=== PATIENT | male | born 1950 | race Caucasian/White ===

== ENCOUNTER 2020-10-30 14:53 | Outpatient (REF) | payer MEDICARE, SELFPAY ==
[2020-10-30 16:49] LABS: T4 Thyroxine 5.7 ug/dL (4.5-12.0); Thyroid Stimulating Hormone 4.24 uIU/mL (0.32-4.0)
[2020-10-30 17:01] LABS: Folate 15.9 ng/mL (> or = 4.0); Vitamin B12 699 pg/mL (200-900)
== END 2020-10-30 14:54 | disposition home or self-care (01) ==
LOC: HO.LAB 14:53
PROVIDERS: PCP Internal Medicine; Visit Provider Psychiatry & Neurology Neurology
DX: G31.84 Mild cognitive impairment of uncertain or unknown etiology (principal)
CPT/HCPCS: 36415; 82607; 82746; 84436; 84443

== ENCOUNTER 2020-11-24 12:31 | Outpatient (REF) | payer MEDICARE, SELFPAY ==
--- NOTE | ~2020-11-24 | CT_ITS ---
EXAMINATION: CT HEAD WITHOUT CONTRAST CLINICAL INFORMATION: Mild cognitive impairment. COMPARISON: MRI scan of the brain and orbits 10/31/2006. TECHNIQUE: Contiguous axial imaging was performed from the skull base to vertex without intravenous administration of contrast. Coronal and sagittal reformatted images were generated at the technologist workstation. This CT examination was performed using dose optimization techniques as appropriate, variously including the following: *Automated exposure control *Adjustment of mA and/or kV according to patient size (this includes techniques or standardized protocols for targeted exams where dose is matched to indication/reason for exam; i.e. extremities or head) *Use of iterative reconstruction technique DLP: 627 mGy-cm FINDINGS: There is no evidence of acute intracranial hemorrhage or territorial infarction. No abnormal mass effect or midline shift is seen. Leslie to white matter differentiation is well preserved. No extra-axial fluid collections are identified. There is mild commensurate prominence of the ventricles and sulci, consistent with mild diffuse volume loss. There are a few foci of low attenuation in the deep white matter. There are no acute osseous findings. There are no large scalp contusions or hematomas. The mastoid air cells and visualized portions of the paranasal sinuses are well aerated. CT/CT head/brain wo con IMPRESSION: 1. There are no acute bleeds or territorial infarcts. No masses are demonstrated. There is mild diffuse volume loss.
== END 2020-11-24 12:32 | disposition home or self-care (01) ==
LOC: HO.CT 12:31
PROVIDERS: PCP Internal Medicine; Visit Provider Psychiatry & Neurology Neurology
DX: G31.84 Mild cognitive impairment of uncertain or unknown etiology (principal)
CPT/HCPCS: 70450

== ENCOUNTER → 2020-12-11 13:03 | Outpatient (BNVA) | payer MEDICARE, SELFPAY | PROVIDERS: PCP Internal Medicine; Visit Provider Internal Medicine Endocrinology, Diabetes & Metabolism | DX: E11.65 Type 2 diabetes mellitus with hyperglycemia (principal); E11.21 Type 2 diabetes mellitus with diabetic nephropathy; E11.42 Type 2 diabetes mellitus with diabetic polyneuropathy; Z79.4 Long term (current) use of insulin; E78.5 Hyperlipidemia, unspecified; I10 Essential (primary) hypertension | CPT/HCPCS: 82947; 99212 ==

== ENCOUNTER → 2020-12-25 14:19 | Outpatient (BNVA) | payer MEDICARE, SELFPAY | PROVIDERS: PCP Internal Medicine; Visit Provider Internal Medicine Endocrinology, Diabetes & Metabolism | DX: E11.65 Type 2 diabetes mellitus with hyperglycemia (principal); E11.21 Type 2 diabetes mellitus with diabetic nephropathy; E11.42 Type 2 diabetes mellitus with diabetic polyneuropathy; E78.5 Hyperlipidemia, unspecified; I10 Essential (primary) hypertension; Z79.4 Long term (current) use of insulin | CPT/HCPCS: 82947; 99212 ==

== ENCOUNTER 2022-02-25 13:52 | Inpatient (IN) | payer OTHER, SELFPAY ==
--- NOTE | ~2022-02-25 | XR_ITS ---
EXAMINATION: XR CHEST CLINICAL INFORMATION: Presyncope. COMPARISON: 04/12/2019 chest radiographs. TECHNIQUE: Frontal view of the chest was obtained. FINDINGS: The lungs are clear. The heart shows an aortic valve prosthesis. Multilevel sternotomy wires are intact. XR/XR chest 1V IMPRESSION: No acute cardiopulmonary process.
--- NOTE | 2022-02-25 14:14 | ECG_ITS ---
Test Reason : DIZZYNESS Blood Pressure : / mmHG Vent. Rate : 046 BPM Atrial Rate : 046 BPM P-R Int : 166 ms QRS Dur : 108 ms QT Int : 470 ms P-R-T Axes : 013 -08 259 degrees QTc Int : 411 ms Sinus bradycardia Incomplete left bundle branch block Minimal voltage criteria for LVH, may be normal variant ( [place] product ) ST & T wave abnormality, consider inferolateral ischemia Abnormal ECG When compared with ECG of 26-JAN-2020 18:44, No significant change was found Referred By: Hannah Sebastian Electronically Signed By:JASON FAJARDO
[2022-02-25 14:19] VITALS: BP 87/39; BP 90/50; PULSE 50; PULSE 54; RESP 16; TEMP 36.4; O2SAT 9; O2SAT 98; BMI 29.2
[2022-02-25 14:24] VITALS: BP 81/45; BP 87/39; BP 89/41; PULSE 47; PULSE 52; PULSE 54
[2022-02-25] MEDS: 0.9 % Sodium Chloride 1,000 ML 999 ML IV ×2 (14:33→16:33)
[2022-02-25 14:37] LABS: MANUAL DIFF FLAG NO
[2022-02-25 14:40] LABS: Basophils Percent Auto 0.5 % (0-2); Eosinophils Absolute Auto 0.3 X10*3/uL (0.0-0.4); Eosinophils Percent Auto 3.6 % (0-4); Hematocrit 33.9 % (42.0-52.0); Hemoglobin 11.2 g/dl (14.0-18.0); Imm Gran Abs Auto 0.02 X10*3/uL (0.00-0.03); Imm Gran Pct Auto 0.3 % (0.0-0.4); Lymphocytes Absolute Auto 1.4 X10*3/uL (1.2-4.9); Mean Corpuscular Hemoglobin 27.3 pg (27.0-33.0); Mean Corpuscular Volume 82.5 fL (80.0-98.0); Mean Platelet Volume 10.4 fL (9.4-12.4); Monocytes Absolute Auto 0.6 X10*3/uL (0.1-1.2); Monocytes Percent Auto 7.5 % (2-11); Neutrophils Absolute Auto 5.2 x10*3/uL (2.0-8.3); Neutrophils Percent Auto 69.1 % (45-73); Platelet Count 228 X10*3/uL (160-400); Red Blood Count 4.11 X10*6/uL (4.60-5.80); Red Cell Distribution Width 14.3 % (11.0-16.0); White Blood Count 7.6 X10*3/uL (4.8-10.8)
--- NOTE | 2022-02-25 14:45 | ED_ITS ---
HPI - General Adult General Chief complaint: Dizziness Stated complaint: cough x1 day Time Seen by Provider: 02/25/22 14:04 Source: patient Mode of arrival: ambulatory History of Present Illness HPI narrative: 71-year-old male with a past medical history of CKD, diabetes, dyslipidemia, GERD, HTN, vitamin B12 deficiency, presenting to the ED complaining of intermittent episodes of lightheadedness/ presyncope on exertion x 4 days. Also reports hypotension & nonbloody diarrhea at home. Reports chronic headache radiating to neck x1 year, unchanged. Denies chest pain, shortness of breath, abdominal pain, nausea /vomiting, pedal edema, recent travel, suspicious food intake/sick contacts Onset (ago): day(s) Related Data Home Medications Medication Instructions Recorded Confirmed aspirin 81 mg tablet,delayed 81 mg PO DAILY 05/22/20 02/25/22 release brimonidine 0.2 % eye drops 1 drp ophthalmic (eye) BID 05/22/20 02/25/22 pantoprazole 40 mg tablet,delayed 40 mg PO DAILY 05/22/20 02/25/22 release gabapentin 300 mg capsule 300 mg PO BEDTIME 12/11/20 02/25/22 multivitamin 1 tab PO DAILY 12/11/20 02/25/22 sennosides 8.6 mg tablet 8.6 mg PO Q12H PRN constipation 12/11/20 02/25/22 fluticasone propionate 50 1 - 2 spray intranasal DAILY PRN 02/25/22 02/25/22 mcg/actuation nasal Allergic Symptoms spray,suspension insulin glargine 100 unit/mL (3 12 unit subcut DAILY 02/25/22 02/25/22 mL) subcutaneous pen (Lantus Solostar U-100 Insulin) lisinopril 20 mg tablet 1 tab PO DAILY 02/25/22 02/25/22 meloxicam 15 mg tablet 1 tab PO DAILY 02/25/22 02/25/22 patiromer calcium sorbitex 8.4 1 packet PO DAILY 02/25/22 02/25/22 gram oral powder packet (Veltassa) Previous Rx's Medication Instructions Recorded insulin syringe-needle U-100 1 mL #100 ea 12/25/20 31 gauge x 5/16 sitagliptin 50 mg tablet (Januvia) 50 mg PO DAILY #90 tabs 12/25/20 cyanocobalamin (vitamin B-12) 1,000 mcg PO DAILY #90 tabs 01/02/21 1,000 mcg tablet,extended release amlodipine 10 mg tablet 10 mg PO DAILY #90 tabs 02/12/21 Allergies Allergy/AdvReac Type Severity Reaction Status Date / Time canagliflozin [Invokana] Allergy Unknown hives Verified 02/07/20 00:00 hydralazine [HYDRALAZINE] Allergy Unknown SHOULDER Unverified 04/20/20 15:35 PAIN PER MED CLEARANCE hydrochlorothiazide Allergy Unknown DIZZINESS Unverified 04/20/20 15:35 [HYDROCHLOROTHIAZIDE] PER MED CLEARANCE potassium [POTASSIUM] Allergy Unknown DIZZINESS Unverified 04/20/20 15:35 PER MED CLEARANCE enalapril AdvReac Intermediate Dizziness Verified 02/25/22 16:44 Review of Systems Review of Systems: Constitutional: No Fever, No Chills, No Fatigue, No Malaise ENT/Mouth: No Ear Pain, No Nasal Congestion, No sore throat, No Rhinorrhea, No Swallowing Difficulty Eyes: No Eye Pain, No Swelling, No Redness, No Vision Changes Cardiovascular: No Chest Pain, No SOB, No Edema, No Palpitations Respiratory: No Cough, No Sputum, No Dyspnea Gastrointestinal: No Nausea, No Vomiting, + Diarrhea, No Constipation, No Abdominal pain Genitourinary: No Dysuria, No Urinary Frequency, No Hematuria, No Urinary Incontinence/retention, No Flank Pain Musculoskeletal: No joint pain, No Myalgias, No Joint Swelling Skin: No Skin Lesions, No rash Neuro: No Weakness, No Numbness, No Paresthesias, No Loss of Consciousness, +lightheadedness, +chronic Headache Yes all other systems are reviewed and are negative Constitutional: Constitutional: Reports as per [facility] Past Medical History Attestation statement: The following information was validated with the patient. 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 Social History Social History Smoked in Last 30 Days: No Use of substances other than those prescribed or required for medical reasons: No Advance Directives: No Advance Directives Information Provided: Yes Physical Exam ED Vital Signs: Vital Signs - 24 hr 02/25/22 14:19 02/25/22 14:24 02/25/22 14:24 Temperature 97.5 F Pulse Rate 54 47 L 52 Respiratory Rate 16 Blood Pressure 87/39 L 87/39 L 81/45 L Pulse Oximetry 9 L Oxygen Delivery Method Room Air 02/25/22 14:24 02/25/22 16:00 Temperature Pulse Rate 54 47 L Respiratory Rate 16 Blood Pressure 89/41 L 123/42 L Pulse Oximetry 100 Oxygen Delivery Method Room Air BMI result Body Mass Index 29.2 Const General: cooperative, no acute distress, alert and awake Orientation/consciousness: patient oriented x3 Limitations: no limitations HENMT Head: Yes normal to inspection and Yes atraumatic Ears: hearing grossly normal bilaterally General nose exam: Normal external nose present Face and sinus: Yes normal facial exam Eyes General: appearance normal, both eyes and all related structures Pupils: Equal, round and reactive pupils present EOM: EOMs intact bilaterally Neck Neck: Yes normal visual inspection, Yes no meningeal signs and Yes supple Resp Effort & Inspection: normal respiratory effort and no respiratory distress Auscultation: clear to auscultation bilaterally, no rales, no rhonchi and no wheezes Cardio Rate: regular rate Heart sounds: S1 normal heart sound present and S2 normal heart sound present GI Inspection: Yes normal to inspection Palpation (GI): Soft to palpation, nontender, no guarding and not rigid Skin Rashes: no rashes Wounds: no wounds Neuro General: patient oriented x3, gait normal, tone normal, moves all extremities, no meningeal signs and no focal motor deficits Cranial nerves: Yes Equal, round and reactive pupils present Gait exam (Neuro): Normal gait present Motor exam (neuro): 5/5 motor strength present throughout, Pronator motor function not present and no tremor noted Coordination: [id number] test normal Romberg Test: Negative Extrem General: Yes normal to inspection and Yes no pedal edema Course Course Course Narrative: -1537-- no leukocytosis. H&H at patient's baseline. Potassium elevated to 6.2 > No EKG changes, will give Lokelma and calcium gluconate. -Acute on chronic CKD. Troponin 7.7 > will obtain 3hr repeat > due to patient's hypotension and bradycardia pacer pads applied and at bedside as precaution XR chest 1V IMPRESSION: No acute cardiopulmonary process. - orthostatic vital signs negative > patient to be admitted for further management Medical Decision Making [facility] Narrative Medical decision making narrative: 71-year-old male with a past medical history of CKD, diabetes, dyslipidemia, GERD, HTN, vitamin B12 deficiency, presenting to the ED complaining of intermittent episodes of lightheadedness/ presyncope on exertion x 4 days. Also reports hypotension & nonbloody at home. on exam hypotensive, NAD, nontoxic appearing, no focal neuro deficits, abdomen soft/ nontender, lungs CTA. Concern for dehydration vs metabolic abnormalities/infectious etiology. Rule out atypical ACS. lower concern for cervical dissection/PE plan: EKG, labs, UA, CXR, IVF, anticipated admission Medical Records Medical records reviewed: Yes I reviewed the patient's medical records. Lab Data Lab results reviewed: Yes I reviewed the patient's lab results. Result diagrams: 02/25/22 14:32 02/25/22 14:32 Labs: Lab Results 02/25/22 02/25/22 02/25/22 Range/Units 14:25 14:32 14:32 WBC 7.6 (4.8-10.8) X10*3/uL RBC 4.11 L (4.60-5.80) X10*6/uL Hgb 11.2 L (14.0-18.0) g/dl Hct 33.9 L (42.0-52.0) % MCV 82.5 (80.0-98.0) fL MCH 27.3 (27.0-33.0) pg MCHC 33.0 (31.0-36.0) g/dl RDW 14.3 (11.0-16.0) % Plt Count 228 (160-400) X10*3/uL MPV 10.4 (9.4-12.4) fL Immature Gran % (Auto) 0.3 (0.0-0.4) % Neut % (Auto) 69.1 (45-73) % Lymph % (Auto) 19.0 L (20-40) % [place] % (Auto) 7.5 (2-11) % Eos % (Auto) 3.6 (0-4) % Baso % (Auto) 0.5 (0-2) % Lymph # (Auto) 1.4 (1.2-4.9) X10*3/uL [place] # (Auto) 0.6 (0.1-1.2) X10*3/uL Eos # (Auto) 0.3 (0.0-0.4) X10*3/uL Baso # (Auto) 0.0 (0.0-0.2) X10*3/uL Abs Immat Gran (auto) 0.02 (0.00-0.03) X10*3/uL Absolute Neuts (auto) 5.2 (2.0-8.3) x10*3/uL Absolute Nucleated RBC 0.000 (0.0-0.012) X10*3/uL Nucleated RBC % (auto) 0.0 (0.0-0.2) /100WBC Sodium 135 (135-145) mmol/L Potassium 6.2 H* (3.3-5.1) mmol/L Chloride 110 H (96-108) mmol/L Carbon Dioxide 21 L (22-29) mmol/L Anion Gap 10 L (12-20) BUN 36 H (9-16) mg/dL Creatinine 2.09 H (0.5-1.4) mg/dL Estim Creat Clear Calc 25.8 Estimated GFR 31 Random Glucose 106 (60-115) mg/dL Calcium 9.4 (8.4-10.2) mg/dL Magnesium 2.2 (1.6-2.6) mg/dL Total Bilirubin 0.6 (0.0-1.0) mg/dL Direct Bilirubin 0.2 (0.0-0.5) mg/dL AST 22 (5-37) U/L ALT 15 (0-40) U/L Alkaline Phosphatase 67 (39-117) U/L Troponin I High Sens (<3.5-35.0) ng/L B-Natriuretic Peptide (<100) pg/mL Total Protein 7.4 (6.5-8.0) g/dL Albumin 4.1 (3.5-5.0) g/dL Lipase 29 (8-78) U/L COVID-19 (ALICE) Negative (Negative) COVID-19 Clin Com See Note 02/25/22 Range/Units 14:32 WBC (4.8-10.8) X10*3/uL RBC (4.60-5.80) X10*6/uL Hgb (14.0-18.0) g/dl Hct (42.0-52.0) % MCV (80.0-98.0) fL MCH (27.0-33.0) pg MCHC (31.0-36.0) g/dl RDW (11.0-16.0) % Plt Count (160-400) X10*3/uL MPV (9.4-12.4) fL Immature Gran % (Auto) (0.0-0.4) % Neut % (Auto) (45-73) % Lymph % (Auto) (20-40) % [place] % (Auto) (2-11) % Eos % (Auto) (0-4) % Baso % (Auto) (0-2) % Lymph # (Auto) (1.2-4.9) X10*3/uL [place] # (Auto) (0.1-1.2) X10*3/uL Eos # (Auto) (0.0-0.4) X10*3/uL Baso # (Auto) (0.0-0.2) X10*3/uL Abs Immat Gran (auto) (0.00-0.03) X10*3/uL Absolute Neuts (auto) (2.0-8.3) x10*3/uL Absolute Nucleated RBC (0.0-0.012) X10*3/uL Nucleated RBC % (auto) (0.0-0.2) /100WBC Sodium (135-145) mmol/L Potassium (3.3-5.1) mmol/L Chloride (96-108) mmol/L Carbon Dioxide (22-29) mmol/L Anion Gap (12-20) BUN (9-16) mg/dL Creatinine (0.5-1.4) mg/dL Estim Creat Clear Calc Estimated GFR Random Glucose (60-115) mg/dL Calcium (8.4-10.2) mg/dL Magnesium (1.6-2.6) mg/dL Total Bilirubin (0.0-1.0) mg/dL Direct Bilirubin (0.0-0.5) mg/dL AST (5-37) U/L ALT (0-40) U/L Alkaline Phosphatase (39-117) U/L Troponin I High Sens 7.7 (<3.5-35.0) ng/L B-Natriuretic Peptide 59 (<100) pg/mL Total Protein (6.5-8.0) g/dL Albumin (3.5-5.0) g/dL Lipase (8-78) U/L COVID-19 (ALICE) (Negative) COVID-19 Clin Com ECG Data Attestation: I personally reviewed and interpreted this ECG as follows: Prior ECG tracings: available for review Interpretation: EKG sinus bradycardia at a rate of 46. QRS 108. QTC 411. No significant change when compared to priors. No STEMI. Critical Care Time Critical Care Time Critical Care Time: Yes Total Critical Care Time: 40 Attestation: I have personally provided critical care time exclusive of time spent on separately billable procedures. Time includes review of lab data, radiology results, discussion with consultants, and monitoring for potential decompensation. Intervention performed as documented. Discharge Plan Discharge Clinical Impression: Acute hypotension, Acute hyperkalemia Patient Disposition: Still a Patient
[2022-02-25 15:00] LABS: B Type Natriuretic Peptide 59 pg/mL (<100); Troponin-I High Sensitivity 7.7 ng/L (<3.5-35.0)
[2022-02-25 15:04] LABS: Alanine Aminotransferase 15 U/L (0-40); Albumin Level 4.1 g/dL (3.5-5.0); Alkaline Phosphatase 67 U/L (39-117); Aspartate Amino Transferase 22 U/L (5-37); Bilirubin Direct 0.2 mg/dL (0.0-0.5); Bilirubin Total 0.6 mg/dL (0.0-1.0); Blood Urea Nitrogen 36 mg/dL (9-16); Calcium 9.4 mg/dL (8.4-10.2); Creatinine Clr Calc Pharmacy 25.8; Estimated Glomerular Filt Rate 31; Glucose Random 106 mg/dL (60-115); Lipase 29 U/L (8-78); Magnesium 2.2 mg/dL (1.6-2.6); Total Protein 7.4 g/dL (6.5-8.0)
[2022-02-25 15:09] LABS: COVID-19 Test Negative (Negative)
[2022-02-25 15:14] LABS: Anion Gap 10 (12-20); Carbon Dioxide 21 mmol/L (22-29); Chloride 110 mmol/L (96-108); Potassium 6.2 mmol/L (3.3-5.1); Sodium 135 mmol/L (135-145)
[2022-02-25] MEDS: Calcium Gluconate/NaCl,Iso-Osm 1 GM/50 ML PLAST..BAG IV (15:22)
[2022-02-25] MEDS: Sodium Zirconium Cyclosilicate 10 GM POWD.PACK PO (15:22)
--- NOTE | 2022-02-25 15:59 | PHA.MEDREC ---
Pharmacy Consult ? Medication Reconciliation Pharmacy has completed the medication reconciliation. Spoke to patient and his son. Son had his medication in the room.
[2022-02-25 16:00] VITALS: BP 123/42; PULSE 47; RESP 16; O2SAT 100
--- NOTE | 2022-02-25 17:11 | P.HPHOSP_ITS ---
History of Present Illness Date of Service: 02/25/22 Chief Complaint: lightheadedness 71M with pmh cad, CKD IV with chronic hyperkalemia (?RTA IV), DM, htn, presented with lightheadedness. patient states that for about 3-4 days he has been feeling very lightheaded on standing, he denies any symptoms while at rest. He has noted some nonbloody diarrhea, denies any shortness of breath or chest pain. He also notes that he used to walk about a mi every day and for the last 1-2 weeks he has been unable to due to similar symptoms. In ED patient noted to have hypotension with systolic blood pressures in the 80s that responded to IV fluids, he was hypokalemic with a potassium of 6.2, and sinus bradycardia in the 40s. He was given Lokelma and IV fluids. Review of Systems Review of Systems: Constitutional: dizzy on standing Eyes: denies blurry vision ENT: denies sore throat CVS: denies chest pain Respiratory: Denies dyspnea GI: diarrhea : denies dysuria MSK: denies neck pain Skin: denies rash Neuro: denies specific motor weakness Psych: denies suicidal ideation Endocrine: denies heat/cold intolerance Hematologic: denies easy bleeding Allergy: denies hives [facility] Medical History B12 deficiency CKD stage 3 due to type 2 diabetes mellitus Diabetes type 2, uncontrolled Diabetic nephropathy associated with type 2 diabetes mellitus Diabetic polyneuropathy associated with type 2 diabetes mellitus Dyslipidemia GERD (gastroesophageal reflux disease) Hypertension half-way (current) use of insulin Family History Mother Diabetes Father No problems noted. Surgical History History of colon resection Hx of cholecystectomy Hx of heart surgery Social History Smoked in Last 30 Days: No Use of substances other than those prescribed or required for medical reasons: No Advance Directives: No Advance Directives Information Provided: Yes Meds Allergies Allergy/AdvReac Type Severity Reaction Status Date / Time canagliflozin [Invokana] Allergy Unknown hives Verified 02/07/20 00:00 hydralazine [HYDRALAZINE] Allergy Unknown SHOULDER Unverified 04/20/20 15:35 PAIN PER MED CLEARANCE hydrochlorothiazide Allergy Unknown DIZZINESS Unverified 04/20/20 15:35 [HYDROCHLOROTHIAZIDE] PER MED CLEARANCE potassium [POTASSIUM] Allergy Unknown DIZZINESS Unverified 04/20/20 15:35 PER MED CLEARANCE enalapril AdvReac Intermediate Dizziness Verified 02/25/22 16:44 Active Medications: Current Medications Aspirin (Aspirin Enteric Coated 81 Mg Tablet.Dr) 81 mg PO DAILY [facility] Dextrose (Dextrose 50 % 25 Gm/50 Ml Syringe) 25 gm IVPUSH Q15M PRN; Protocol PRN Reason: per Hypoglycemia Standing Ord. Gabapentin (Gabapentin 300 Mg Capsule) 300 mg PO BEDTIME DARREN Glucose (Glucose Gel 15 Gm Gel..Gram.) 15 gm PO Q15M PRN; Protocol PRN Reason: per Hypoglycemia Standing Ord. Sodium Chloride (Ns) 1,000 mls @ 999 mls/hr IV .Q1H1M DARREN Stop: 02/25/22 17:15 Last Admin: 02/25/22 16:33 Dose: 999 mls/hr Sodium Chloride (Ns) 1,000 mls @ 75 mls/hr IVCONT .[id number] [facility] Insulin Glargine (Insulin Glargine,Hum.Rec.Anlog 100 Unit/Ml 10 Ml Vial) 12 unit SUBCUT DAILY [facility] Insulin Human Lispro (Insulin Lispro 100 Unit/Ml 3 Ml Vial) 0 unit SUBCUT QIDACHS [facility]; Protocol Multivitamins/Vitamin C (Multivitamin Tablet) 1 tab PO DAILY [facility] Non-Formulary Medication (Cyanocobalamin (Vitamin B-12)) 1,000 mcg PO DAILY [facility] Non-Formulary Medication (Pantoprazole) 40 mg PO DAILY [facility] Non-Formulary Medication (Patiromer Calcium Sorbitex [Veltassa]) 1 packet PO DAILY [facility] Pharmacy Consult (Consult Rx Perform Med Rec) 1 each MISCELLANE ONCE PRN PRN Reason: Consult order Home Medications Medication Instructions Recorded Confirmed Last Taken Type aspirin 81 mg tablet,delayed 81 mg PO DAILY 05/22/20 02/25/22 Unknown History release brimonidine 0.2 % eye drops 1 drp ophthalmic (eye) BID 05/22/20 02/25/22 Unknown History pantoprazole 40 mg tablet,delayed 40 mg PO DAILY 05/22/20 02/25/22 Unknown History release gabapentin 300 mg capsule 300 mg PO BEDTIME 12/11/20 02/25/22 Unknown History multivitamin 1 tab PO DAILY 12/11/20 02/25/22 Unknown History sennosides 8.6 mg tablet 8.6 mg PO Q12H PRN constipation 12/11/20 02/25/22 Unknown History fluticasone propionate 50 1 - 2 spray intranasal DAILY PRN 02/25/22 02/25/22 Unknown History mcg/actuation nasal Allergic Symptoms spray,suspension insulin glargine 100 unit/mL (3 12 unit subcut DAILY 02/25/22 02/25/22 Unknown History mL) subcutaneous pen (Lantus Solostar U-100 Insulin) lisinopril 20 mg tablet 1 tab PO DAILY 02/25/22 02/25/22 Unknown History meloxicam 15 mg tablet 1 tab PO DAILY 02/25/22 02/25/22 Unknown History patiromer calcium sorbitex 8.4 1 packet PO DAILY 02/25/22 02/25/22 Unknown History gram oral powder packet (Veltassa) Physical Exam Vital Signs and Narrative: Vital Signs: Last Vital Signs Temp 97.5 F 02/25/22 14:19 Pulse 47 L 02/25/22 16:00 Resp 16 02/25/22 16:00 BP 123/42 L 02/25/22 16:00 Pulse Ox 100 02/25/22 16:00 O2 Del Method 02/25/22 16:00 BMI result Body Mass Index 29.2 General: no acute distress HEENT: atraumatic Neck: normal to visual inspection CVS: S1, S2, RRR, murmur Resp: CTA bilateral Chest: non tender GI: soft, non tender, non distended : no CVA tenderness Skin: no rashes Extremities: no edema Neuro: Oriented X3, grossly intact Psych: cooperative Results Labs CBC and Chem 7: 02/25/22 14:32 02/25/22 14:32 Labs: Laboratory Results - last 24 hr 02/25/22 02/25/22 02/25/22 14:25 14:32 14:32 MCV 82.5 MCH 27.3 MCHC 33.0 RDW 14.3 Plt Count 228 MPV 10.4 Immature Gran % (Auto) 0.3 Neut % (Auto) 69.1 Lymph % (Auto) 19.0 L [place] % (Auto) 7.5 Eos % (Auto) 3.6 Baso % (Auto) 0.5 Lymph # (Auto) 1.4 [place] # (Auto) 0.6 Eos # (Auto) 0.3 Baso # (Auto) 0.0 Abs Immat Gran (auto) 0.02 Absolute Neuts (auto) 5.2 Absolute Nucleated RBC 0.000 Nucleated RBC % (auto) 0.0 Anion Gap 10 L Estim Creat Clear Calc 25.8 Estimated GFR 31 Random Glucose 106 Calcium 9.4 Magnesium 2.2 Total Bilirubin 0.6 Direct Bilirubin 0.2 AST 22 ALT 15 Alkaline Phosphatase 67 Troponin I High Sens B-Natriuretic Peptide Total Protein 7.4 Albumin 4.1 Lipase 29 COVID-19 (ALICE) Negative COVID-19 Clin Com See Note 02/25/22 14:32 MCV MCH MCHC RDW Plt Count MPV Immature Gran % (Auto) Neut % (Auto) Lymph % (Auto) [place] % (Auto) Eos % (Auto) Baso % (Auto) Lymph # (Auto) [place] # (Auto) Eos # (Auto) Baso # (Auto) Abs Immat Gran (auto) Absolute Neuts (auto) Absolute Nucleated RBC Nucleated RBC % (auto) Anion Gap Estim Creat Clear Calc Estimated GFR Random Glucose Calcium Magnesium Total Bilirubin Direct Bilirubin AST ALT Alkaline Phosphatase Troponin I High Sens 7.7 B-Natriuretic Peptide 59 Total Protein Albumin Lipase COVID-19 (ALICE) COVID-19 Clin Com Imaging Radiologist's Impressions: Impressions Chest X-Ray 02/25/22 14:55 IMPRESSION: No acute cardiopulmonary process. Assessment and Plan (1) Acute hypotension: Status: Acute Plan 71M presented with lightheadedness, found to be hypotensive, hyperkalemia, acute kidney injury, bradycardic Lightheadedness Likely due to hypotension from dehydration and antihypertensives Differential diagnosis also includes symptomatic bradycardia Hold antihypertensives, IV fluids, monitor on telemetry, Cardiology eval Acute kidney injury on CKD 4 Hold lisinopril, IV fluids Monitor Hyperkalemia in ?RTA 4 Given low,, check repeat, continue daily potassium lowering agent, monitor Diabetes Basal bolus insulin Coronary disease Aspirin DVT prophylaxis with heparin Full code Patient with acute kidney injury, significant hypotension, hyperkalemia above 6 with risk factors including diabetes, coronary disease, therefore, expected to require at least 2 midnights in the hospital. Quality Stroke Does the patient have a stroke diagnosis?: No VTE Prior VTE?: No VTE Risk Level:: Medical - moderate - high VTE Device Contraindication: Treatment Not Indicated VTE Drug Contraindication: N/A - Med Ordered
[2022-02-25] MEDS: Heparin Sodium,Porcine 5,000 UNIT/ML VIAL 5000 UNIT SUBCUT (17:34)
[2022-02-25] MEDS: 0.9 % Sodium Chloride 1,000 ML 75 ML IVCONT (17:34)
[2022-02-25 17:46] LABS: Appearance Urine CLEAR; Color Urine YELLOW; Glucose Urine UA NEG (NEG); Leukocyte Esterase Urine NEG (NEG); Nitrite Urine NEG (NEG); PH 5.5 (5.0-8.0); Urine Blood NEG (NEG); Urine Ketones NEG (NEG); Urine Protein NEG (NEG-TRACE)
[2022-02-25 18:44] LABS: Anion Gap 10 (12-20); Blood Urea Nitrogen 33 mg/dL (9-16); Calcium 8.6 mg/dL (8.4-10.2); Carbon Dioxide 20 mmol/L (22-29); Chloride 114 mmol/L (96-108); Creatinine Clr Calc Pharmacy 42.5; Estimated Glomerular Filt Rate 56; Glucose Random 79 mg/dL (60-115); Potassium 5.6 mmol/L (3.3-5.1); Sodium 138 mmol/L (135-145)
[2022-02-25 18:50] LABS: Troponin-I High Sensitivity 7.7 ng/L (<3.5-35.0)
[2022-02-25 20:00] VITALS: BP 143/51; PULSE 50; RESP 10; O2SAT 100
[2022-02-25 20:58] LABS: Glucose, Whole Blood 71 mg/dL (60-115)
[2022-02-25] MEDS: Gabapentin 300 MG CAPSULE PO (21:40)
--- NOTE | 2022-02-25 21:41 | PC.NURSE ---
pt resting quietly, vss, medicated per provider order, NaCl running at 75ml/hr, pt denies any pain at this time.
[2022-02-26] VITALS (7 sets, daily range): BP systolic 131–176; BP diastolic 47–79; PULSE 47–63; RESP 13–18; TEMP 36.6–36.7; O2SAT 99–100; BMI 29.2
[2022-02-26 04:15] LABS: Hematocrit 36.3 % (42.0-52.0); Hemoglobin 12.1 g/dl (14.0-18.0); Mean Corpuscular HGB Conc 33.3 g/dl (31.0-36.0); Mean Corpuscular Hemoglobin 27.3 pg (27.0-33.0); Mean Corpuscular Volume 81.8 fL (80.0-98.0); Mean Platelet Volume 10.7 fL (9.4-12.4); Platelet Count 221 X10*3/uL (160-400); Red Blood Count 4.44 X10*6/uL (4.60-5.80); Red Cell Distribution Width 14.4 % (11.0-16.0); White Blood Count 8.4 X10*3/uL (4.8-10.8)
[2022-02-26 04:52] LABS: Anion Gap 10 (12-20); Blood Urea Nitrogen 28 mg/dL (9-16); Calcium 9.1 mg/dL (8.4-10.2); Carbon Dioxide 21 mmol/L (22-29); Chloride 117 mmol/L (96-108); Creatinine Clr Calc Pharmacy 37.2; Estimated Glomerular Filt Rate 48; Glucose Fasting 70 mg/dL (60-99); Potassium 6.3 mmol/L (3.3-5.1); Sodium 142 mmol/L (135-145)
[2022-02-26] MEDS: Sodium Zirconium Cyclosilicate 10 GM POWD.PACK PO ×5 (05:54→20:57)
[2022-02-26] MEDS: Omeprazole 20 MG CAPSULE.DR PO (05:54)
[2022-02-26] MEDS: Heparin Sodium,Porcine 5,000 UNIT/ML VIAL 5000 UNIT SUBCUT ×3 (05:54→20:55)
[2022-02-26] MEDS: 0.9 % Sodium Chloride 1,000 ML 75 ML IVCONT ×2 (05:58→20:59)
[2022-02-26 07:08] LABS: Glucose, Whole Blood 61 mg/dL (60-115)
[2022-02-26 08:10] LABS: Glucose, Whole Blood 114 mg/dL (60-115)
[2022-02-26] MEDS: Aspirin Enteric Coated 81 MG TABLET.DR PO (08:45)
[2022-02-26] MEDS: Multivitamin TABLET 1 TAB PO (08:45)
--- NOTE | 2022-02-26 08:51 | PC.NURSE ---
pt alert and oriented, skin appropriate for ethnicity, respirations even and unlabored, pt denies pain/dizziness at this time, vss at this time, sinus ronnie on the monitor
[2022-02-26] MEDS: Cyanocobalamin (Vitamin B-12) 1,000 MCG TABLET 1000 MCG PO (08:54)
[2022-02-26] MEDS: Insulin Glargine,Hum.rec.anlog 100 UNIT/ML 10 ML VIAL 12 UNIT SUBCUT (08:57)
[2022-02-26] MEDS: 0.9 % Sodium Chloride Flush 3 ML SYRINGE IVFLUSH ×2 (08:57→14:28)
--- NOTE | 2022-02-26 09:55 | P.PNIM_ITS ---
Subjective Subjective Date of Service: 02/26/22 Interval History: cc: dizzyness interval history: feeling well Cardiovascular Cardiovascular: Reports no additional cardiovascular complaints Respiratory Respiratory: Reports no additional respiratory complaints Physical Exam Vital Signs: Vital Signs: Last Vital Signs Temp 97.5 F 02/25/22 14:19 Pulse 55 02/26/22 08:52 Resp 18 02/26/22 08:52 BP 165/63 H 02/26/22 08:52 Pulse Ox 99 02/26/22 08:52 O2 Del Method 02/26/22 08:52 BMI result Body Mass Index 29.2 General: AO X 3, no acute distress Resp: CTA bilateral, no accessory muscles used CVS: S1,S2,RRR GI: soft, non tender, non distended Neuro: motor grossly intact, alert Psych: appropriate affect, appropriate insight Objective Data Active Medications Acetaminophen (Acetaminophen 325 Mg Tablet) 650 mg PO Q6H PRN PRN Reason: Pain, Mild (Pain Scale 1-3) Aspirin (Aspirin Enteric Coated 81 Mg Tablet.) 81 mg PO DAILY [facility] Last Admin: 02/26/22 08:45 Dose: 81 mg Documented By: ROXIE Cyanocobalamin (Cyanocobalamin (Vitamin B-12) 1,000 Mcg Tablet) 1,000 mcg PO DAILY [facility] Last Admin: 02/26/22 08:54 Dose: 1,000 mcg Documented By: ROXIE Dextrose (Dextrose 50 % 25 Gm/50 Ml Syringe) 25 gm IVPUSH Q15M PRN; Protocol PRN Reason: per Hypoglycemia Standing Ord. Gabapentin (Gabapentin 300 Mg Capsule) 300 mg PO BEDTIME [facility] Last Admin: 02/25/22 21:40 Dose: 300 mg Documented By: GERARDO Glucose (Glucose Gel 15 Gm Gel..Gram.) 15 gm PO Q15M PRN; Protocol PRN Reason: per Hypoglycemia Standing Ord. Heparin Sodium (Porcine) (Heparin Sodium,Porcine 5,000 Unit/Ml Vial) 5,000 unit SUBCUT Q8H [facility] Last Admin: 02/26/22 05:54 Dose: 5,000 unit Documented By: DARÍO Sodium Chloride (Ns) 1,000 mls @ 75 mls/hr IVCONT .[id number] [facility] Last Admin: 02/26/22 05:58 Dose: 75 mls/hr Documented By: DARÍO Insulin Glargine (Insulin Glargine,Hum.Rec.Anlog 100 Unit/Ml 10 Ml Vial) 12 unit SUBCUT DAILY [facility] Last Admin: 02/26/22 08:57 Dose: 12 unit Documented By: ROXIE Insulin Human Lispro (Insulin Lispro 100 Unit/Ml 3 Ml Vial) 0 unit SUBCUT QIDACHS [facility]; Protocol Last Admin: 02/26/22 08:16 Dose: Not Given Documented By: ROXIE Non-Admin Reason: poc 61 Multivitamins/Vitamin C (Multivitamin Tablet) 1 tab PO DAILY [facility] Last Admin: 02/26/22 08:45 Dose: 1 tab Documented By: ROXIE Non-Formulary Medication (Patiromer Calcium Sorbitex [Veltassa]) 1 packet PO DAILY [facility] Omeprazole (Omeprazole 20 Mg Capsule.) 20 mg PO DAILY@0630 [facility] Last Admin: 02/26/22 05:54 Dose: 20 mg Documented By: DARÍO Pharmacy Consult (Consult Rx Perform Med Rec) 1 each MISCELLANE ONCE PRN PRN Reason: Consult order Sodium Chloride (0.9 % Sodium Chloride Flush 3 Ml Syringe) 3 ml IVFLUSH QSHIFT [facility] Last Admin: 02/26/22 08:57 Dose: 3 ml Documented By: ROXIE Labs CBC & Chem 7: 02/26/22 03:50 02/26/22 03:50 Labs: Laboratory Results - last 24 hr 02/25/22 02/25/22 02/25/22 14:25 14:32 14:32 MCV 82.5 MCH 27.3 MCHC 33.0 RDW 14.3 Plt Count 228 MPV 10.4 Immature Gran % (Auto) 0.3 Neut % (Auto) 69.1 Lymph % (Auto) 19.0 L [place] % (Auto) 7.5 Eos % (Auto) 3.6 Baso % (Auto) 0.5 Lymph # (Auto) 1.4 [place] # (Auto) 0.6 Eos # (Auto) 0.3 Baso # (Auto) 0.0 Abs Immat Gran (auto) 0.02 Absolute Neuts (auto) 5.2 Absolute Nucleated RBC 0.000 Nucleated RBC % (auto) 0.0 Anion Gap 10 L Estim Creat Clear Calc 25.8 Estimated GFR 31 POC Glucose Random Glucose 106 Fasting Glucose Calcium 9.4 Magnesium 2.2 Total Bilirubin 0.6 Direct Bilirubin 0.2 AST 22 ALT 15 Alkaline Phosphatase 67 Troponin I High Sens B-Natriuretic Peptide Total Protein 7.4 Albumin 4.1 Lipase 29 Urine Color Urine Appearance Urine pH Ur Specific [place] Urine Protein Urine Glucose (UA) Urine Ketones Urine Blood Urine Nitrite Ur Leukocyte Esterase COVID-19 ([facility]) Negative COVID-19 Clin Com See Note 02/25/22 02/25/22 02/25/22 14:32 17:40 18:17 MCV MCH MCHC RDW Plt Count MPV Immature Gran % (Auto) Neut % (Auto) Lymph % (Auto) [place] % (Auto) Eos % (Auto) Baso % (Auto) Lymph # (Auto) [place] # (Auto) Eos # (Auto) Baso # (Auto) Abs Immat Gran (auto) Absolute Neuts (auto) Absolute Nucleated RBC Nucleated RBC % (auto) Anion Gap Estim Creat Clear Calc Estimated GFR POC Glucose Random Glucose Fasting Glucose Calcium Magnesium Total Bilirubin Direct Bilirubin AST ALT Alkaline Phosphatase Troponin I High Sens 7.7 7.7 B-Natriuretic Peptide 59 Total Protein Albumin Lipase Urine Color YELLOW Urine Appearance CLEAR Urine pH 5.5 Ur Specific [place] 1.010 Urine Protein NEG Urine Glucose (UA) NEG Urine Ketones NEG Urine Blood NEG Urine Nitrite NEG Ur Leukocyte Esterase NEG COVID-19 ([facility]) COVID-19 Clin Com 02/25/22 02/25/22 02/26/22 18:17 20:55 03:50 MCV 81.8 MCH 27.3 MCHC 33.3 RDW 14.4 Plt Count 221 MPV 10.7 Immature Gran % (Auto) Neut % (Auto) Lymph % (Auto) [place] % (Auto) Eos % (Auto) Baso % (Auto) Lymph # (Auto) [place] # (Auto) Eos # (Auto) Baso # (Auto) Abs Immat Gran (auto) Absolute Neuts (auto) Absolute Nucleated RBC 0.000 Nucleated RBC % (auto) 0.0 Anion Gap 10 L Estim Creat Clear Calc 42.5 Estimated GFR 56 POC Glucose 71 Random Glucose 79 Fasting Glucose Calcium 8.6 D Magnesium Total Bilirubin Direct Bilirubin AST ALT Alkaline Phosphatase Troponin I High Sens B-Natriuretic Peptide Total Protein Albumin Lipase Urine Color Urine Appearance Urine pH Ur Specific [place] Urine Protein Urine Glucose (UA) Urine Ketones Urine Blood Urine Nitrite Ur Leukocyte Esterase COVID-19 ([facility]) COVID-19 Clin Com 02/26/22 02/26/22 02/26/22 03:50 07:04 08:07 MCV MCH MCHC RDW Plt Count MPV Immature Gran % (Auto) Neut % (Auto) Lymph % (Auto) [place] % (Auto) Eos % (Auto) Baso % (Auto) Lymph # (Auto) [place] # (Auto) Eos # (Auto) Baso # (Auto) Abs Immat Gran (auto) Absolute Neuts (auto) Absolute Nucleated RBC Nucleated RBC % (auto) Anion Gap 10 L Estim Creat Clear Calc 37.2 Estimated GFR 48 POC Glucose 61 114 Random Glucose Fasting Glucose 70 Calcium 9.1 Magnesium Total Bilirubin Direct Bilirubin AST ALT Alkaline Phosphatase Troponin I High Sens B-Natriuretic Peptide Total Protein Albumin Lipase Urine Color Urine Appearance Urine pH Ur Specific [place] Urine Protein Urine Glucose (UA) Urine Ketones Urine Blood Urine Nitrite Ur Leukocyte Esterase COVID-19 ([facility]) COVID-19 Clin Com Assessment and Plan (1) Acute hyperkalemia: Status: Acute Plan 71M presented with lightheadedness, found to be hypotensive, hyperkalemia, acute kidney injury, bradycardic Lightheadedness Likely due to hypotension from dehydration and antihypertensives improved with hydration and holding amldoipnie and lisinopril Differential diagnosis also includes symptomatic bradycardia monitor on telemetry, Cardiology eval Acute kidney injury on CKD III improving with ivf Holding lisinopril Monitor Hyperkalemia in ?RTA 4 given lokelma, initially improved, now 6.3, on veltassa daily will give more lokelma, follow up nephro, monitor Diabetes Basal bolus insulin Coronary disease Aspirin DVT prophylaxis with heparin Full code reason for continued hospitalization:significant hyperkalemia >6, requiring inpatient monitorin Quality Stroke Does the patient have a stroke diagnosis?: No VTE Prior VTE?: No VTE Risk Level:: Medical - moderate - high VTE Device Contraindication: Treatment Not Indicated VTE Drug Contraindication: N/A - Med Ordered
--- NOTE | 2022-02-26 10:49 | P.CONCA_ITS ---
History of Present Illness History of Present Illness Date of Service: 02/26/22 Chief complaint: Hyperk, hypotension, samm Narrative: This is a cardiology consultation regarding dizziness. Presenting history is that he has been having lightheadedness for the last few days on standing. No symptoms apparently while at rest. He also had some nonbloody diarrhea. However no cardiac symptoms like angina or shortness of breath or in fact anything else. When he initially arrived to the ER, seen to have hypotension with systolic blood pressure in the 80s. Then got IV fluids and blood pressure normalized. He was also hyperkalemic with potassium of 6.2 and had some sinus bradycardia into the 40s. Currently, he states that he is feeling much better. [facility] documentation reviewed. Even in the and office note from January, it seems he has had recurrent dizziness and has also had hypotension/presyncope in the past. However, several blood pressures are otherwise normal. Hence epis odes are probably intermittent. The office note actually describes something very similar to the current admission where blood pressure goes down into the 80s. Then apparently his lisinopril was stopped. Otherwise, from the cardiac standpoint, he has a fairly complicated history. 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 That was initially repaired many years ago. Subsequently, he had worsening aortic insufficiency that led to bioprosthetic aortic valve replacement in 2013. 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 Preoperative cardiac catheterization did not show any significant CAD. He had depressed LVEF prior to surgery but then it normalized in follow-up echocardiograms. Review of Systems Review of Systems: Yes all other systems are reviewed and are negative Constitutional: Constitutional: Reports as per HPI Eyes: Eyes: Reports as per HPI ENT: Reports as per HPI Cardiovascular: Cardiovascular: Reports as per HPI, Denies acrocyanosis, Denies cool extremities, Denies chest pain, Denies leg edema, Reports lightheadedness, Denies palpitations and Denies dyspnea Respiratory: Respiratory: Reports as per HPI, Reports no additional respiratory complaints and Denies dyspnea Gastrointestinal: Gastrointestinal: Reports as per HPI and Reports no additional gastrointestinal complaints Genitourinary: Genitourinary: Reports no additional male genitourinary compl aints and Reports as per HPI Musculoskeletal: Musculoskeletal: Reports no additional musculoskeletal complaints and Reports as per HPI Integumentary/Breasts: Skin/Breast: Reports system reviewed and no additional complaints, except as docu Neurologic: Reports system reviewed and no additional complaints, except as documented and Reports as per HPI Psychiatric: Psychiatric: Reports no additional psychiatric complaints and Reports as per HPI Endocrine: Endocrine: Reports no additional endocrine complaints, Reports as per HPI and Denies palpitations Hematologic/Lymphatic: Hematologic/Lymphatic: Reports no additional hematologic/lymphatic complaints and Reports as per HPI Allergic/Immunologic: Allergic/Immunologic: Reports no additional all ergic/immunologic complaints and Reports as per HPI [facility] Past Medical History Medical History B12 deficiency CKD stage 3 due to type 2 diabetes mellitus Diabetes type 2, uncontrolled Diabetic nephropathy associated with type 2 diabetes mellitus Diabetic polyneuropathy associated with type 2 diabetes mellitus Dyslipidemia GERD (gastroesophageal reflux disease) Hypertension penitentiary (current) use of insulin Family History Family History Mother Diabetes Father No problems noted. Surgical History Surgical History History of colon resection Hx of cholecystectomy Hx of heart surgery Social History Social History Smoked in Last 30 Days: No Use of substances other than those prescribed or required for medical reasons: No Advance Directives: No Advance Directives Information Provided: Yes Meds Allergies Allergy/AdvReac Type Severity Reaction Status Date / Time canagliflozin [Invokana] Allergy Unknown hives Verified 02/07/20 00:00 hydralazine [HYDRALAZINE] Allergy Unknown SHOULDER Unverified 04/20/20 15:35 PAIN PER MED CLEARANCE hydrochlorothiazide Allergy Unknown DIZZINESS Unverified 04/20/20 15:35 [HYDROCHLOROTHIAZIDE] PER MED CLEARANCE potassium [POTASSIUM] Allergy Unknown DIZZINESS Unverified 04/20/20 15:35 PER MED CLEARANCE enalapril AdvReac Intermediate Dizziness Verified 02/25/22 16:44 Active Medications: Current Medications Acetaminophen (Acetaminophen 325 Mg Tablet) 650 mg PO Q6H PRN PRN Reason: Pain, Mild (Pain Scale 1-3) Aspirin (Aspirin Enteric Coated 81 Mg Tablet.Dr) 81 mg PO DAILY [facility] Last Admin: 02/26/22 08:45 Dose: 81 mg Cyanocobalamin (Cyanocobalamin (Vitamin B-12) 1,000 Mcg Tablet) 1,000 mcg PO DAILY [facility] Last Admin: 02/26/22 08:54 Dose: 1,000 mcg Dextrose (Dextrose 50 % 25 Gm/50 Ml Syringe) 25 gm IVPUSH Q15M PRN; Protocol PRN Reason: per Hypoglycemia Standing Ord. Gabapentin (Gabapentin 300 Mg Capsule) 300 mg PO BEDTIME [facility] Last Admin: 02/25/22 21:40 Dose: 300 mg Glucose (Glucose Gel 15 Gm Gel..Gram.) 15 gm PO Q15M PRN; Protocol PRN Reason: per Hypoglycemia Standing Ord. Heparin Sodium (Porcine) (Heparin Sodium,Porcine 5,000 Unit/Ml Vial) 5,000 unit SUBCUT Q8H [facility] Last Admin: 02/26/22 05:54 Dose: 5,000 unit Sodium Chloride (Ns) 1,000 mls @ 75 mls/hr IVCONT .[id number] [facility] Last Admin: 02/26/22 05:58 Dose: 75 mls/hr Insulin Glargine (Insulin Glargine,Hum.Rec.Anlog 100 Unit/Ml 10 Ml Vial) 12 unit SUBCUT DAILY [facility] Last Admin: 02/26/22 08:57 Dose: 12 unit Insulin Human Lispro (Insulin Lispro 100 Unit/Ml 3 Ml Vial) 0 unit SUBCUT QIDACHS [facility]; Protocol Last Admin: 02/26/22 08:16 Dose: Not Given Multivitamins/Vitamin C (Multivitamin Tablet) 1 tab PO DAILY [facility] Last Admin: 02/26/22 08:45 Dose: 1 tab Non-Formulary Medication (Patiromer Calcium Sorbitex [Veltassa]) 1 packet PO DAILY [facility] Omeprazole (Omeprazole 20 Mg Capsule.Dr) 20 mg PO DAILY@0630 [facility] Last Admin: 02/26/22 05:54 Dose: 20 mg Pharmacy Consult (Consult Rx Perform Med Rec) 1 each MISCELLANE ONCE PRN PRN Reason: Consult order Sodium Bicarbonate (Sodium Bicarbonate 650 Mg Tablet) 650 mg PO BID [facility] Sodium Chloride (0.9 % Sodium Chloride Flush 3 Ml Syringe) 3 ml IVFLUSH QSHIFT [facility] Last Admin: 02/26/22 08:57 Dose: 3 ml Sodium Zirconium Cyclosilicate (Sodium Zirconium Cyclosilicate 10 Gm Powd.Pack) 10 gm PO TID [facility] Stop: 02/26/22 21:01 Home Medications Medication Instructions Recorded Confirmed Last Taken Type aspirin 81 mg tablet,delayed 81 mg PO DAILY 05/22/20 02/25/22 Unknown History release brimonidine 0.2 % eye drops 1 drp ophthalmic (eye) BID 05/22/20 02/25/22 Unknown History pantoprazole 40 mg tablet,delayed 40 mg PO DAILY 05/22/20 02/25/22 Unknown History release gabapentin 300 mg capsule 300 mg PO BEDTIME 12/11/20 02/25/22 Unknown History multivitamin 1 tab PO DAILY 12/11/20 02/25/22 Unknown History sennosides 8.6 mg tablet 8.6 mg PO Q12H PRN constipation 12/11/20 02/25/22 Unknown History fluticasone propionate 50 1 - 2 spray intranasal DAILY PRN 02/25/22 02/25/22 Unknown History mcg/actuation nasal Allergic Symptoms spray,suspension insulin glargine 100 unit/mL (3 12 unit subcut DAILY 02/25/22 02/25/22 Unknown History mL) subcutaneous pen (Lantus Solostar U-100 Insulin) lisinopril 20 mg tablet 1 tab PO DAILY 02/25/22 02/25/22 Unknown History meloxicam 15 mg tablet 1 tab PO DAILY 02/25/22 02/25/22 Unknown History patiromer calcium sorbitex 8.4 1 packet PO DAILY 02/25/22 02/25/22 Unknown History gram oral powder packet (Veltassa) Physical Exam Vital Signs: Vital Signs: Last Vital Signs Temp 97.5 F 02/25/22 14:19 Pulse 55 02/26/22 08:52 Resp 18 02/26/22 08:52 BP 165/63 H 02/26/22 08:52 Pulse Ox 99 02/26/22 08:52 O2 Del Method 02/26/22 08:52 BMI result Body Mass Index 29.2 Const: General: comfortable and no acute distress Orientation/consciousness: patient oriented x3 HEENT: Other: Unremarkable Head: Yes normal to inspection Neck: Neck: Yes normal visual inspection Chest: Chest palpation & inspection: normal inspection of the chest Resp: Auscultation: clear to auscultation bilaterally Cardio: Palpation: normal PMI Heart sounds: S1 normal heart sound present, S2 normal heart sound present, no gallops, Murmur heart sound present systolic I/ and no rubs GI: Palpation (GI): Soft to palpation Back/Spine/Pelvis: Other: unremarkable Skin: General skin exam: no rashes or lesions noted Neuro: General: patient oriented x3 Extrem: General: Yes normal to inspection Psych: Mental Status: mental status grossly normal Objective Labs and Meds Result diagrams: 02/26/22 03:50 02/26/22 03:50 Lab results: Laboratory Results - last 24 hr 02/25/22 02/25/22 02/25/22 14:25 14:32 14:32 WBC 7.6 RBC 4.11 L Hgb 11.2 L Hct 33.9 L MCV 82.5 MCH 27.3 MCHC 33.0 RDW 14.3 Plt Count 228 MPV 10.4 Immature Gran % (Auto) 0.3 Neut % (Auto) 69.1 Lymph % (Auto) 19.0 L [place] % (Auto) 7.5 Eos % (Auto) 3.6 Baso % (Auto) 0.5 Lymph # (Auto) 1.4 [place] # (Auto) 0.6 Eos # (Auto) 0.3 Baso # (Auto) 0.0 Abs Immat Gran (auto) 0.02 Absolute Neuts (auto) 5.2 Absolute Nucleated RBC 0.000 Nucleated RBC % (auto) 0.0 Sodium 135 Potassium 6.2 H* Chloride 110 H Carbon Dioxide 21 L Anion Gap 10 L BUN 36 H Creatinine 2.09 H Estim Creat Clear Calc 25.8 Estimated GFR 31 POC Glucose Random Glucose 106 Fasting Glucose Calcium 9.4 Magnesium 2.2 Total Bilirubin 0.6 Direct Bilirubin 0.2 AST 22 ALT 15 Alkaline Phosphatase 67 Troponin I High Sens B-Natriuretic Peptide Total Protein 7.4 Albumin 4.1 Lipase 29 Urine Color Urine Appearance Urine pH Ur Specific [place] Urine Protein Urine Glucose (UA) Urine Ketones Urine Blood Urine Nitrite Ur Leukocyte Esterase COVID-19 ([facility]) Negative COVID-19 Clin Com See Note 02/25/22 02/25/22 02/25/22 14:32 17:40 18:17 WBC RBC Hgb Hct MCV MCH MCHC RDW Plt Count MPV Immature Gran % (Auto) Neut % (Auto) Lymph % (Auto) [place] % (Auto) Eos % (Auto) Baso % (Auto) Lymph # (Auto) [place] # (Auto) Eos # (Auto) Baso # (Auto) Abs Immat Gran (auto) Absolute Neuts (auto) Absolute Nucleated RBC Nucleated RBC % (auto) Sodium Potassium Chloride Carbon Dioxide Anion Gap BUN Creatinine Estim Creat Clear Calc Estimated GFR POC Glucose Random Glucose Fasting Glucose Calcium Magnesium Total Bilirubin Direct Bilirubin AST ALT Alkaline Phosphatase Troponin I High Sens 7.7 7.7 B-Natriuretic Peptide 59 Total Protein Albumin Lipase Urine Color YELLOW Urine Appearance CLEAR Urine pH 5.5 Ur Specific [place] 1.010 Urine Protein NEG Urine Glucose (UA) NEG Urine Ketones NEG Urine Blood NEG Urine Nitrite NEG Ur Leukocyte Esterase NEG COVID-19 ([facility]) COVID-19 [employer] 02/25/22 02/25/22 02/26/22 18:17 20:55 03:50 WBC 8.4 RBC 4.44 L Hgb 12.1 L Hct 36.3 L MCV 81.8 MCH 27.3 MCHC 33.3 RDW 14.4 Plt Count 221 MPV 10.7 Immature Gran % (Auto) Neut % (Auto) Lymph % (Auto) [place] % (Auto) Eos % (Auto) Baso % (Auto) Lymph # (Auto) [place] # (Auto) Eos # (Auto) Baso # (Auto) Abs Immat Gran (auto) Absolute Neuts (auto) Absolute Nucleated RBC 0.000 Nucleated RBC % (auto) 0.0 Sodium 138 Potassium 5.6 H Chloride 114 H Carbon Dioxide 20 L Anion Gap 10 L BUN 33 H Creatinine 1.27 Estim Creat Clear Calc 42.5 Estimated GFR 56 POC Glucose 71 Random Glucose 79 Fasting Glucose Calcium 8.6 D Magnesium Total Bilirubin Direct Bilirubin AST ALT Alkaline Phosphatase Troponin I High Sens B-Natriuretic Peptide Total Protein Albumin Lipase Urine Color Urine Appearance Urine pH Ur Specific [place] Urine Protein Urine Glucose (UA) Urine Ketones Urine Blood Urine Nitrite Ur Leukocyte Esterase COVID-19 ([facility]) COVID-19 [facility] Connect Com 02/26/22 02/26/22 02/26/22 03:50 07:04 08:07 WBC RBC Hgb Hct MCV MCH MCHC RDW Plt Count MPV Immature Gran % (Auto) Neut % (Auto) Lymph % (Auto) [place] % (Auto) Eos % (Auto) Baso % (Auto) Lymph # (Auto) [place] # (Auto) Eos # (Auto) Baso # (Auto) Abs Immat Gran (auto) Absolute Neuts (auto) Absolute Nucleated RBC Nucleated RBC % (auto) Sodium 142 Potassium 6.3 H* Chloride 117 H Carbon Dioxide 21 L Anion Gap 10 L BUN 28 H Creatinine 1.45 H Estim Creat Clear Calc 37.2 Estimated GFR 48 POC Glucose 61 114 Random Glucose Fasting Glucose 70 Calcium 9.1 Magnesium Total Bilirubin Direct Bilirubin AST ALT Alkaline Phosphatase Troponin I High Sens B-Natriuretic Peptide Total Protein Albumin Lipase Urine Color Urine Appearance Urine pH Ur Specific [place] Urine Protein Urine Glucose (UA) Urine Ketones Urine Blood Urine Nitrite Ur Leukocyte Esterase COVID-19 ([facility]) COVID-19 Clin Com ECG Interpretation: EKG with sinus bradycardia, 45/Min; incomplete left bundle-branch block pattern; probable LVH; inferior and lateral T inversions are could be from LVH/strain pattern. Less likely ischemia. Imaging Radiologist's impression: Impressions Chest X-Ray 02/25/22 14:55 IMPRESSION: No acute cardiopulmonary process. Assessment and Plan (1) Acute hypotension: Status: Acute (2) Sinus bradycardia: Status: Acute (3) Acute hyperkalemia: Status: Acute Plan As discussed in the initial history, the hypotension episodes seem to be fairly chronic. Apparently, he was on lisinopril 40 mg daily in the past which was stopped. However current dosage listed to be 20 mg daily. He is also on amlodipine 10 mg daily. That is however not listed in the [facility] office consultation. Any case, he probably has resting hypertension but episode equally he gets hypotension. This is going to be very difficult to treat. Hence may have to accept some degree of resting hypertension to avoid getting symptomatic hypotension. Otherwise, with regard to bradycardia, he does have sinus bradycardia but doubt if that is the real etiology for his dizziness. On review of telemetry, most heart rates are somewhat in the 50s. Occasional junctional beats but again not enough to contribute to his symptoms. Can keep him off all beta-blockers or other rate slowing agents. With regard to chronic issues including history of VSD repair, sinus of Valsalva aneurysm repair, bioprosthetic AVR, no specific issues at this time and he can continue to follow the patient cardiac care at [facility]. With regard to hyperkalemia, probably hold lisinopril. Nephrology can be consulted as well. Discussed with . Procedures Date of Service Date of Service: 02/26/22
[2022-02-26] MEDS: Sodium Bicarbonate 650 MG TABLET PO ×2 (11:40→20:54)
[2022-02-26 12:06] LABS: Glucose, Whole Blood 79 mg/dL (60-115)
--- NOTE | 2022-02-26 12:36 | PC.NURSE ---
Reached out to Doctor and pharmacy about Lokelma. Awaiting response. Patient received Lokelma at 8:45 awaiting response about second dose.
--- NOTE | 2022-02-26 13:53 | MHC.CM.PN ---
IMM addressed, original mailed via certified mail, copy filed in chart. IMM addendum completed. [place] speaking patient. Patient lives with his spouse and daughter. Is independent at home/community, no DME or home services. Patient is involved with [facility]- nurse and geriatric social work professor check-in with patient and assess care needs. PCP: Arya Rosenthal. Covid vax'd x3 (MRNA). Copy of HCP requested. Daughter-Tiffany will transport home. D/C Plan: Home (self-care) vs Home New [facility]NA
[2022-02-26 16:00] LABS: Glucose, Whole Blood 175 mg/dL (60-115)
[2022-02-26] MEDS: Insulin Lispro 100 UNIT/ML 3 ML VIAL SUBCUT (17:12)
[2022-02-26 20:07] LABS: Glucose, Whole Blood 70 mg/dL (60-115)
[2022-02-26 20:25] LABS: Glucose, Whole Blood 79 mg/dL (60-115)
[2022-02-26] MEDS: Gabapentin 300 MG CAPSULE PO (20:53)
[2022-02-27] VITALS: BP 186/78; PULSE 58; RESP 16; TEMP 36.9; O2SAT 100
[2022-02-27 03:07] VITALS: BP 175/73; PULSE 52; RESP 20; TEMP 36.8; O2SAT 98
[2022-02-27 04:03] LABS: Glucose, Whole Blood 61 mg/dL (60-115)
[2022-02-27] MEDS: Omeprazole 20 MG CAPSULE.DR PO (05:35)
[2022-02-27] MEDS: Heparin Sodium,Porcine 5,000 UNIT/ML VIAL 5000 UNIT SUBCUT (05:35)
[2022-02-27 06:50] LABS: Hematocrit 34.6 % (42.0-52.0); Hemoglobin 11.5 g/dl (14.0-18.0); Mean Corpuscular HGB Conc 33.2 g/dl (31.0-36.0); Mean Corpuscular Hemoglobin 27.2 pg (27.0-33.0); Mean Corpuscular Volume 81.8 fL (80.0-98.0); Platelet Count 222 X10*3/uL (160-400); Red Blood Count 4.23 X10*6/uL (4.60-5.80); Red Cell Distribution Width 14.3 % (11.0-16.0); White Blood Count 7.2 X10*3/uL (4.8-10.8)
[2022-02-27 07:03] VITALS: BP 183/83; PULSE 56; RESP 18; TEMP 36.1; O2SAT 100
[2022-02-27 07:10] LABS: Glucose, Whole Blood 91 mg/dL (60-115)
[2022-02-27 08:12] LABS: Anion Gap 10 (12-20); Blood Urea Nitrogen 16 mg/dL (9-16); Calcium 8.5 mg/dL (8.4-10.2); Carbon Dioxide 23 mmol/L (22-29); Chloride 113 mmol/L (96-108); Estimated Glomerular Filt Rate 60; Glucose Fasting 133 mg/dL (60-99); Potassium 4.3 mmol/L (3.3-5.1); Sodium 142 mmol/L (135-145)
[2022-02-27 08:16] VITALS: BP 212/88; PULSE 65
[2022-02-27 08:52] VITALS: BP 185/77; PULSE 62
[2022-02-27 08:54] VITALS: BP 154/70; PULSE 77
[2022-02-27] MEDS: Insulin Glargine,Hum.rec.anlog 100 UNIT/ML 10 ML VIAL 12 UNIT SUBCUT (09:37)
[2022-02-27] MEDS: Cyanocobalamin (Vitamin B-12) 1,000 MCG TABLET 1000 MCG PO (09:38)
[2022-02-27] MEDS: 0.9 % Sodium Chloride Flush 3 ML SYRINGE IVFLUSH (09:38)
[2022-02-27] MEDS: Sodium Bicarbonate 650 MG TABLET PO (09:38)
[2022-02-27] MEDS: Sodium Zirconium Cyclosilicate 10 GM POWD.PACK PO (09:38)
[2022-02-27] MEDS: Multivitamin TABLET 1 TAB PO (09:38)
[2022-02-27] MEDS: amLODIPine Besylate 5 MG TABLET PO (09:38)
[2022-02-27] MEDS: Aspirin Enteric Coated 81 MG TABLET.DR PO (09:39)
--- NOTE | 2022-02-27 09:53 | CONS_ITS ---
DATE OF SERVICE: 02/26/2022 REASON FOR CONSULTATION: I was asked to see patient to assist in evaluation and management of patient's hyperkalemia with a potassium of 6.2 yesterday up to 6.3 today along with renal dysfunction with creatinine 1.45 which is close to his baseline. 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 HISTORY OF PRESENT ILLNESS: In summary, patient is a 71-year-old gentleman known to my partner, Dr. 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 Apparently, this has been going on for the past several days. He was having some diarrhea on and off. He denies any chest pain, fever, sweats or chills. In reviewing his records, he has had potassium as high as 7. There is mention made that when he came in, his potassium was 6.3. He had a heart rate in the 40s. He was given Lokelma. As mentioned, potassium came down and then has gone back up this morning. Patient is maintained on Veltassa, he says he has been taking routinely and avoid of foods high in potassium. I do see in the records that he has had a potassium as high as 7 in the past. Overall, he is feeling better now. PAST MEDICAL HISTORY: Notable for stage 3 chronic kidney disease. He has diabetic nephropathy despite the absence of significant protein in the urine. 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 PAST SURGICAL HISTORY: He has had a history of colon resection, cholecystectomy, and a heart surgery in the past were all listed. MEDICATIONS: On admission listed including aspirin, Protonix, Neurontin, insulin, lisinopril 20 once a day. Meloxicam 15 mg once a day, and Veltassa. His current medications are noted the MAR. ALLERGIES: HE HAS MULTIPLE DRUG ALLERGIES LISTED IN THE ELECTRONIC MEDICAL RECORD. SOCIAL HISTORY: He is a nonsmoker, nondrinker. No illicit drug use. Does take NSAIDs as listed in his med list. FAMILY HISTORY: Noncontributory. REVIEW OF SYSTEMS: As noted above. PHYSICAL EXAMINATION: VITAL SIGNS: Blood pressure of 160/60 with a heart rate in the 50s. HEAD: Atraumatic and normocephalic. NECK: Supple. Mucous membranes are moist. LUNGS: Breath sounds bilaterally. CARDIAC: Regular rate and rhythm without rub. ABDOMEN: Soft, nontender. Good bowel sounds. No CVA tenderness. EXTREMITIES: Show no edema. LABORATORY DATA: Hemoglobin 12.1, hematocrit 36.3, white count 8.4, platelet count 221. Chemistry; sodium 142, potassium 6.3, chloride 117, bicarb 21, BUN 28, creatinine 0.45 yesterday. His BUN and creatinine are 33 and 1.27. His potassium was 6.2 yesterday, went down to 5.6, now up to 6.3 this morning. Previous urine studies showed no significant albuminuria. IMPRESSION: 71-year-old diabetic admitted with lightheadedness, hyperkalemia, maintained on an JAY JAY inhibitor and Veltassa as a potassium binder. 1. Hyperkalemia. This is most likely due to type 4 renal tubular acidosis. Despite being on Veltassa. He is having breakthrough hyperkalemia. It is unclear whether his bradycardia was in part due to the hyperkalemia as his potassium is not that high and typically diabetics, tolerate higher potassiums. Nonetheless, with lightheadedness and low heart rate. This is a concern. He may need cardiac evaluation for bradycardia. He is not on any negative chronotropic agents such as a beta-rick, etc. Hyperkalemia consistent with a type 4 renal tubular acidosis. 2. Diabetes mellitus. 3. Stage 3 chronic kidney disease, consistent with diabetic nephropathy despite the absence of significant albuminuria. SUGGESTIONS: At this time include would agree with holding the JAY JAY inhibitor. Continue IV fluids and continue with K binders. Most likely, he needs to be on a higher dose of potassium binders, one could double the dose of Veltassa 16.8 g once a day and stressed the importance of avoiding potassium high content foods like bananas, potatoes and oranges. Certainly should avoid use of NSAIDs like meloxicam. Alternative approach would be to avoid use of JAY JAY inhibitor given the absence of proteinuria. Lastly, he had an episode of bradycardia. Need to monitor and make sure he does not have intrinsic rhythm problems as he may need to evaluate by Cardiology for the cause of his bradycardic episode and lightheadedness when he is admitted. We will follow the patient with the team. MD CORRIE Desouza/BRENDAN / [id number]
--- NOTE | 2022-02-27 10:10 | P.PNCA_ITS ---
Subjective Subjective Date of Service: 02/27/22 Interval history: He states that he feels well. No dizziness or in fact any other cardiac symptoms at this time. Review of Systems Review of Systems Yes all other systems are reviewed and are negative Constitutional: Reports as per HPI Eyes: Reports as per HPI Reports as per HPI Cardiovascular: Reports as per HPI, Denies acrocyanosis, Denies cool extremities, Denies chest pain, Denies leg edema, Denies lightheadedness, Denies palpitations and Denies dyspnea Respiratory: Reports as per HPI, Reports no additional respiratory complaints and Denies dyspnea Gastrointestinal: Reports as per HPI and Reports no additional gastrointestinal complaints Genitourinary: Reports no additional male genitourinary complaints and Reports as per HPI Musculoskeletal: Reports no additional musculoskeletal complaints and Reports as per HPI Skin/Breast: Reports system reviewed and no additional complaints, except as docu Reports system reviewed and no additional complaints, except as documented and Reports as per HPI Psychiatric: Reports no additional psychiatric complaints and Reports as per HPI Endocrine: Reports no additional endocrine complaints, Reports as per HPI and Denies palpitations Hematologic/Lymphatic: Reports no additional hematologic/lymphatic complaints and Reports as per HPI Allergic/Immunologic: Reports no additional allergic/immunologic complaints and Reports as per HPI Physical Exam Vital Signs: Last Vital Signs Temp 97 F 02/27/22 07:03 Pulse 77 02/27/22 08:54 Resp 18 02/27/22 07:03 BP 154/70 H 02/27/22 08:54 Pulse Ox 100 02/27/22 07:03 O2 Del Method 02/27/22 07:03 BMI result Body Mass Index 29.2 Const General: comfortable and no acute distress Orientation/consciousness: patient oriented x3 HEENT Other: Unremarkable Head: Yes normal to inspection Neck Neck: Yes normal visual inspection Chest Chest palpation & inspection: normal inspection of the chest Resp Auscultation: clear to auscultation bilaterally Cardio Palpation: normal PMI Heart sounds: S1 normal heart sound present, S2 normal heart sound present, no gallops, Murmur heart sound present systolic I/ and no rubs GI Palpation (GI): Soft to palpation Back/Spine/Pelvis Other: unremarkable Skin General skin exam: no rashes or lesions noted Neuro General: patient oriented x3 Extrem General: Yes normal to inspection Psych Mental Status: mental status grossly normal Objective Labs and Meds Result diagrams: 02/27/22 06:11 07/27/22 06:11 Lab results: Laboratory Results - last 24 hr 02/26/22 02/26/22 02/26/22 12:02 15:57 20:02 WBC RBC Hgb Hct MCV MCH MCHC RDW Plt Count MPV Absolute Nucleated RBC Nucleated RBC % (auto) Sodium Potassium Chloride Carbon Dioxide Anion Gap BUN Creatinine Estim Creat Clear Calc Estimated GFR POC Glucose 79 175 H 70 Fasting Glucose Calcium 02/26/22 02/27/22 02/27/22 20:22 03:59 06:11 WBC 7.2 RBC 4.23 L Hgb 11.5 L Hct 34.6 L MCV 81.8 MCH 27.2 MCHC 33.2 RDW 14.3 Plt Count 222 MPV 11.0 Absolute Nucleated RBC 0.000 Nucleated RBC % (auto) 0.0 Sodium Potassium Chloride Carbon Dioxide Anion Gap BUN Creatinine Estim Creat Clear Calc Estimated GFR POC Glucose 79 61 Fasting Glucose Calcium 02/27/22 02/27/22 06:11 07:05 WBC RBC Hgb Hct MCV MCH MCHC RDW Plt Count MPV Absolute Nucleated RBC Nucleated RBC % (auto) Sodium 142 Potassium 4.3 D Chloride 113 H Carbon Dioxide 23 Anion Gap 10 L BUN 16 Creatinine 1.20 Estim Creat Clear Calc 45.0 Estimated GFR 60 POC Glucose 91 Fasting Glucose 133 H D Calcium 8.5 D Progress Note: A&P Assessment and plan (1) Acute hypotension: Status: Acute (2) Sinus bradycardia: Status: Acute (3) Acute hyperkalemia: Status: Acute Plan Based on [facility] notes, the hypotension episodes seem to be fairly chronic. As he also has hyperkalemic issues, we can, the lisinopril completely. With regard to amlodipine, not clear if he is actually taking it or not. Probably start 5 mg or so and see how the blood pressure response. Any case, he has resting hypert ension but episodically he gets hypotension. This is going to be very difficult to treat. Hence may have to accept some degree of resting hypertension to avoid getting symptomatic hypotension. Otherwise, with regard to bradycardia, he does have sinus bradycardia but doubt if that is the real etiology for his dizziness. No clear profound episodes or heart block on telemetry. Avoid beta-blockers or other rate slowing agents. With regard to chronic issues including history of VSD repair, sinus of Valsalva aneurysm repair, bioprosthetic AVR, no specific issues at this time and he can continue to follow the patient cardiac care at [facility]. With regard to hyperkalemia, stop lisinopril. Nephrology consultation also reviewed. Discussed with Dr. Serrano. Time Spent With Patient Time: Total time spent is greater than 50% in coordination of care (as documented) at patient's floor/unit and/or counseling patient: 35min. Progress Note: Quality Stroke Does the patient have a stroke diagnosis?: No Procedures Date of Service Date of Service: 02/27/22
--- NOTE | 2022-02-27 10:42 | P.DS_ITS ---
DS: Providers Provider Date of Service: 02/27/22 Date of admission: 02/25/22 17:09 Primary care physician: Arya Rosenthal MD Consults: 02/25/22 17:08 Consult to Cardiology Routine Consulting Provider: Adryan Bass Reason for consultation: sinus ronnie, lightheadedness 02/26/22 07:51 Consult to Nephrology Routine Consulting Provider: Mahin Jones Reason for consultation: hyperkalemia, samm DS: Diagnosis Discharge Diagnosis (1) Acute hypotension: Status: Acute (2) Sinus bradycardia: Status: Acute (3) Acute hyperkalemia: Status: Acute DS: Summary Hospital Course Hospital Course: Admission note HPI 71M with pmh cad, CKD IV with chronic hyperkalemia (?RTA IV), DM, htn, presented with lightheadedness. patient states that for about 3-4 days he has been feeling very lightheaded on standing, he denies any symptoms while at rest.? He has noted some nonbloody diarrhea, denies any shortness of breath or chest pain.? He also notes that he used to walk about a mi every day and for the last 1-2 weeks he has been unable to due to similar symptoms.? In ED patient noted to have hypotension with systolic blood pressures in the 80s that responded to IV fluids, he was hypokalemic with a potassium of 6.2, and sinus bradycardia in the 40s.? He was given Lokelma and IV fluids. Hospital course The patient was admitted for evaluation of episode of lightheadedness and dizziness. Found to be hypotensive with associated hyperkalemia and worsened kidney function test. The hypotension event was believed to be secondary to dehydration and antihypertensive medications. Improved with hydration and holding blood pressure meds. Evaluated by Cardiology team who recommended to discontinue lisinopril for the time being and cut down his amlodipine to 5 mg daily following him as outpatient with blood pressure readings. Bradycardia event was sinus with no documented pauses evaluated by Cardiology team who did not recommend any further testing. Acute kidney injury on top of CKD stage 3 improved by holding lisinopril and giving IV fluids. To follow-up with BMP after discharge. Noted to have hyperkalemia responded well to Veltassa and adding Lokelma. Evaluated by Nephrology team who recommended doubling the Veltassa dosage with good response. 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 Stop taking lisinopril Decrease amlodipine to 5 mg daily Stop using meloxicam Increased Veltassa to 2 packets per day Avoid potassium-content food like banana, potatoes and oranges Check your blood pressure 2 to 3 times a day and report readings and recent changes to Dr. Ren To repeat blood test next week Time Spent with Patient Time attestation: Total time spent providing and/or coordinating discharge services: Discharge coordination time: Greater than 30 minutes Quality: Safe Use of Opioids Does Pt have an Active Cancer Diagnosis on the Problem List?: No Quality: Stroke Does the patient have a stroke diagnosis?: No Physical Exam Vital Signs: Vital Signs: Last Vital Signs Temp 97 F 02/27/22 07:03 Pulse 77 02/27/22 08:54 Resp 18 02/27/22 07:03 BP 154/70 H 02/27/22 08:54 Pulse Ox 100 02/27/22 07:03 O2 Del Method 02/27/22 07:03 BMI result Body Mass Index 29.2 Const: Other: Constitutional : Alert, oriented, not in distress Neck : Normal inspection, Supple Cardiovascular : RRR, no JVP, no lower extremity edema Respiratory : fair bilateral air entry, no crackles, wheezes or rhonchi Gastrointestinal: soft, lax, Normal bowel sounds, Non tender Skin : Warm, Dry Neurological : Alert & oriented x3, No focal deficit , CN 2-12 within normal DS: Data Data Completed and Pending Labs on day of discharge: Laboratory Results - last 24 hr 02/26/22 02/26/22 02/26/22 12:02 15:57 20:02 WBC RBC Hgb Hct MCV MCH MCHC RDW Plt Count MPV Absolute Nucleated RBC Nucleated RBC % (auto) Sodium Potassium Chloride Carbon Dioxide Anion Gap BUN Creatinine Estim Creat Clear Calc Estimated GFR POC Glucose 79 175 H 70 Fasting Glucose Calcium 02/26/22 02/27/22 02/27/22 20:22 03:59 06:11 WBC 7.2 RBC 4.23 L Hgb 11.5 L Hct 34.6 L MCV 81.8 MCH 27.2 MCHC 33.2 RDW 14.3 Plt Count 222 MPV 11.0 Absolute Nucleated RBC 0.000 Nucleated RBC % (auto) 0.0 Sodium Potassium Chloride Carbon Dioxide Anion Gap BUN Creatinine Estim Creat Clear Calc Estimated GFR POC Glucose 79 61 Fasting Glucose Calcium 02/27/22 02/27/22 06:11 07:05 WBC RBC Hgb Hct MCV MCH MCHC RDW Plt Count MPV Absolute Nucleated RBC Nucleated RBC % (auto) Sodium 142 Potassium 4.3 D Chloride 113 H Carbon Dioxide 23 Anion Gap 10 L BUN 16 Creatinine 1.20 Estim Creat Clear Calc 45.0 Estimated GFR 60 POC Glucose 91 Fasting Glucose 133 H D Calcium 8.5 D Discharge Plan Discharge Patient Disposition: Home, Self-Care Discharge Diagnosis: Hypotension, dizziness Hyperkalemia Referrals: Arya Rosenthal MD [Primary Care Provider] - 1 Week Discharge Medications: Continued cyanocobalamin (vitamin B-12) 1,000 mcg tablet extended release 1,000 mcg PO DAILY Qty: 90 1RF fluticasone propionate 50 mcg/actuation spray,suspension 1 - 2 spray intranasal DAILY PRN (Reason: Allergic Symptoms) insulin glargine [Lantus Solostar U-100 Insulin] 100 unit/mL (3 mL) insulin pen 12 unit subcut DAILY (DME) insulin syringe-needle U-100 1 mL 31 gauge x 5/16 syringe See Rx Instructions .ROUTE .MEDSUPPLY Qty: 100 4RF Rx Instructions: Once a day Januvia 50 mg tablet 50 mg PO DAILY Qty: 90 1RF aspirin 81 mg tablet,delayed release (DR/EC) 81 mg PO DAILY pantoprazole 40 mg tablet,delayed release (DR/EC) 40 mg PO DAILY brimonidine 0.2 % drops 1 drp ophthalmic (eye) BID gabapentin 300 mg capsule 300 mg PO BEDTIME sennosides 8.6 mg tablet 8.6 mg PO Q12H PRN (Reason: constipation) multivitamin Tablet 1 tab PO DAILY Changed amlodipine 10 mg tablet 5 mg PO DAILY Qty: 90 2RF Veltassa 8.4 gram powder in packet 16.8 g PO DAILY Qty: 60 0RF Discontinued meloxicam 15 mg tablet 1 tab PO DAILY lisinopril 20 mg tablet 1 tab PO DAILY Discharge Orders: Discharge Order (Routine); Ordered 02/27/22 Ordered By: Marialuisa Serrano Diet: Low salt diet Activity on Discharge: As tolerated Stand Alone Forms: Patient Portal Discharge page Other Ambulatory Orders: Basic Metabolic Panel (Routine) Timeframe: 1 Week Facility: [facility] - Location: Laboratory Ordered By: Marialuisa Serrano Care Plan Goals: Read below Health Concerns: Read below Plan of Treatment: Read below Assessment: You were admitted to the hospital for evaluation of dizziness. Found to have a drop in your blood pressure readings. Evaluated by Cardiology team who recommended to discontinue lisinopril and to decrease amlodipine to 5 mg only. Stop taking lisinopril Decrease amlodipine to 5 mg daily Stop using meloxicam Increased Veltassa to 2 packets per day Avoid potassium-content food like banana, potatoes and oranges Check your blood pressure 2 to 3 times a day and report readings and recent changes to Dr. Ren To repeat blood test next week Discharge Date/Time: 02/27/22 11:19
--- NOTE | 2022-02-27 11:20 | MHC.CM.PN ---
Patient has been medically cleared for dc to home today, self care. Last IMM addressed yesterday.
== END 2022-02-27 11:19 | disposition home or self-care (01) | DRG 315 ==
LOC: HO.ED 16:07 → HO.EDOVER 17:20 → HO.IMC 02-26 12:46
PROVIDERS: Physician Assistant; Admitting Provider Internal Medicine; Emergency Provider Emergency Medicine; PCP Internal Medicine; Visit Provider Student in an Organized Health Care Education/Training Program
DX: I95.9 Hypotension, unspecified (principal); N17.9 Acute kidney failure, unspecified; E11.42 Type 2 diabetes mellitus with diabetic polyneuropathy; E11.22 Type 2 diabetes mellitus with diabetic chronic kidney disease; N18.30 Chronic kidney disease, stage 3 unspecified; E86.0 Dehydration; I25.10 Atherosclerotic heart disease of native coronary artery without angina pectoris; I12.9 Hypertensive chronic kidney disease with stage 1 through stage 4 chronic kidney disease, or unspecified chronic kidney disease; E87.5 Hyperkalemia; Z20.822 Contact with and (suspected) exposure to COVID-19; Z88.8 Allergy status to other drugs, medicaments and biological substances; Z79.82 Long term (current) use of aspirin; Z79.4 Long term (current) use of insulin; Z79.899 Other long term (current) drug therapy
CPT/HCPCS: 36415; 71045; 80048; 80076; 81003; 82947; 83690; 83735; 83880; 84484; 85025; 85027; 87635; 93005; 96361; 96365; 99285; J0610

== ENCOUNTER 2022-03-05 11:07 | Outpatient (REF) | payer OTHER, SELFPAY ==
[2022-03-05 12:28] LABS: Anion Gap 14 (12-20); Blood Urea Nitrogen 20 mg/dL (9-16); Calcium 9.5 mg/dL (8.4-10.2); Carbon Dioxide 24 mmol/L (22-29); Chloride 108 mmol/L (96-108); Estimated Glomerular Filt Rate 46; Glucose Random 150 mg/dL (60-115); Potassium 4.8 mmol/L (3.3-5.1); Sodium 141 mmol/L (135-145)
== END 2022-03-05 11:08 | disposition home or self-care (01) ==
LOC: HO.LAB 11:07
PROVIDERS: PCP Internal Medicine; Visit Provider Student in an Organized Health Care Education/Training Program
DX: E87.5 Hyperkalemia (principal)
CPT/HCPCS: 36415; 80048

== ENCOUNTER 2022-12-16 10:36 | Outpatient (REF) | payer OTHER, SELFPAY ==
--- NOTE | ~2022-12-16 | XR_ITS ---
EXAMINATION: XR LUMBOSACRAL SPINE CLINICAL INFORMATION: Pain x 2 weeks radiating to both legs. No injury COMPARISON: None available. TECHNIQUE: Three views of the lumbosacral spine. FINDINGS: There is normal lumbar lordosis. The vertebral heights and alignment is normal. There is loss of disc height at all disc levels sparing the L1-L2 disc level. There is mild ventral spondylosis at these disc levels. No visible acute fracture or dislocation seen. SI joints are symmetrical and normal. No lytic or sclerotic process seen. XR/XR lumbar spine 2-3V IMPRESSION: Degenerative disc changes with ventral spondylosis at all disc levels except L1-L2 disc level. No visible acute fracture or dislocation seen.
== END 2022-12-16 10:37 | disposition home or self-care (01) ==
LOC: HO.HHCX 10:36
PROVIDERS: Visit Provider Emergency Medicine
DX: M54.50 Low back pain, unspecified (principal); M79.604 Pain in right leg; M79.605 Pain in left leg
CPT/HCPCS: 72100

== ENCOUNTER 2023-01-14 13:14 | Outpatient (REF) | payer OTHER, SELFPAY ==
[2023-01-14 15:34] LABS: Hematocrit 39.1 % (42.0-52.0); Hemoglobin 12.8 g/dl (14.0-18.0); Mean Corpuscular HGB Conc 32.7 g/dl (31.0-36.0); Mean Corpuscular Hemoglobin 27.1 pg (27.0-33.0); Mean Corpuscular Volume 82.7 fL (80.0-98.0); Mean Platelet Volume 11.5 fL (9.4-12.4); Platelet Count 236 X10*3/uL (160-400); Red Blood Count 4.73 X10*6/uL (4.60-5.80); Red Cell Distribution Width 14.1 % (11.0-16.0); White Blood Count 8.6 X10*3/uL (4.8-10.8)
[2023-01-14 15:37] LABS: Estimated Average Glucose 166 mg/dL; Hemoglobin A1c % 7.4 %
[2023-01-14 16:15] LABS: Alanine Aminotransferase 19 U/L (0-40); Albumin Level 4.6 g/dL (3.5-5.0); Alkaline Phosphatase 71 U/L (39-117); Anion Gap 14 (12-20); Aspartate Amino Transferase 29 U/L (5-37); Bilirubin Total 0.5 mg/dL (0.0-1.0); Blood Urea Nitrogen 21 mg/dL (9-16); Calcium 10.4 mg/dL (8.4-10.2); Carbon Dioxide 27 mmol/L (22-29); Chloride 106 mmol/L (96-108); Estimated Glomerular Filt Rate 52; Glucose Random 154 mg/dL (60-115); Potassium 4.7 mmol/L (3.3-5.1); Sodium 142 mmol/L (135-145); Total Protein 8.8 g/dL (6.5-8.0)
[2023-01-14 16:30] LABS: Ferritin 68 ng/mL (20-250); TSH reflex Free T4 3.19 uIU/mL (0.32-4.0)
[2023-01-15 07:39] LABS: Hepatitis A Antibody IgG REACTIVE (Nonreactive); ~Hepatitis A Antibody IgG 7.73 S/CO (0.00-0.99)
[2023-01-15 07:50] LABS: HBS Num1 48.49 mIU/mL (0-7.99); HBsAGNum1 0.27 S/CO (0.00-0.99); HIV AB/AG Nonreactive (Nonreactive); HIV Num 1 0.08 S/CO (0.00-0.99); Hepatitis B Surface Antigen Negative (Negative); ~HepC Num1 13.18 S/CO (0.00-0.79); ~Hepatitis B Surface Antibody REACTIVE (Nonreactive); ~Hepatitis C Antibody Reactive (Nonreactive)
[2023-01-15 09:36] LABS: HBc Num2 49.98 S/CO; HBc Num3 49.57 S/CO; Hepatitis B Core Antibody Reactive (Nonreactive)
[2023-01-15 17:13] LABS: Immunoglobulin G 1765 mg/dL (600-1540)
== END 2023-01-14 13:15 | disposition home or self-care (01) ==
LOC: CF 13:14
PROVIDERS: PCP Internal Medicine; Visit Provider Internal Medicine
DX: Z01.818 Encounter for other preprocedural examination (principal); R63.4 Abnormal weight loss; R19.7 Diarrhea, unspecified; E11.9 Type 2 diabetes mellitus without complications; I10 Essential (primary) hypertension; Z90.49 Acquired absence of other specified parts of digestive tract; Z85.038 Personal history of other malignant neoplasm of large intestine
CPT/HCPCS: 36415; 80053; 82728; 82784; 83036; 84443; 85027; 86704; 86706; 86708; 86803; 87340; 87389; 99202

== ENCOUNTER 2023-03-12 13:31 | Outpatient (REF) | payer OTHER, SELFPAY ==
[2023-03-12 17:17] LABS: T4 Thyroxine 5.9 ug/dL (4.5-12.0); Thyroid Stimulating Hormone 4.13 uIU/mL (0.32-4.0)
== END 2023-03-12 13:32 | disposition home or self-care (01) ==
LOC: HO.LAB 13:31
PROVIDERS: PCP Internal Medicine; Visit Provider Psychiatry & Neurology Neurology
DX: G31.84 Mild cognitive impairment of uncertain or unknown etiology (principal)
CPT/HCPCS: 36415; 84436; 84443

== ENCOUNTER 2023-03-14 09:46 | Outpatient (REF) | payer OTHER, SELFPAY ==
--- NOTE | ~2023-03-14 | CT_ITS ---
EXAMINATION: CT ABDOMEN AND PELVIS WITH CONTRAST CLINICAL INFORMATION: Diarrhea. COMPARISON: Ultrasound abdomen 08/12/2018. TECHNIQUE: Multidetector volumetric images were obtained from the superior aspect of the liver through the pubic symphysis following administration 85 mL of Omnipaque 350 intravenous contrast. Sagittal and coronal reformatted images were obtained on the technologist's workstation. Oral contrast: No. This CT examination was performed using dose optimization techniques as appropriate, variously including the following: *Automated exposure control. *Adjustment of mA and/or kV according to patient size (this includes techniques or standardized protocols for targeted exams where dose is matched to indication/reason for exam; i.e. extremities or head). *Use of iterative reconstruction technique. DLP: 401.00 mGy-cm FINDINGS: LUNG BASES: Some mild interstitial prominence and minimal bronchiectasis is noted at the lung bases. No effusions or suspicious lung masses are seen. Status post median sternotomy and aortic valve prosthesis. LIVER, GALLBLADDER, AND BILIARY TREE: The liver is normal in size, shape, and attenuation. No focal hepatic lesion or biliary ductal dilatation is present. Status post cholecystectomy. PANCREAS: Unremarkable. SPLEEN: Unremarkable. ADRENAL GLANDS: Unremarkable. KIDNEYS AND URETERS: The kidneys are normal in size, shape, and attenuation. No hydronephrosis, hydroureter, or calculi seen. No perinephric stranding. BLADDER: Some minimal symmetric wall thickening. No masses or calculi. GASTROINTESTINAL TRACT: Patient status post right partial hemicolectomy with widely patent anastomosis. The small and large bowel are otherwise unremarkable. . ABDOMINAL WALL: No significant hernia is appreciated. Tiny periumbilical hernia seen containing only fat. LYMPH NODES: Retroperitoneal lymphadenopathy. VASCULAR: No evidence of an aneurysm. Some minimal calcific plaque is present. There is mild circumferential thickening of the aortic wall between 2 and 3 mm in thickness. This could represent very subtle aortitis. No inflammatory changes are seen. PELVIC VISCERA: Moderate BPH. Seminal vesicles appear normal. OSSEOUS STRUCTURES: Mild degenerative changes in the spine. No bony destructive lesions. CT/CT abdomen pelvis w IV con IMPRESSION: 1. A cause for the patient's diarrhea has not been found. 2. Incidental note made of mild interstitial prominence and minimal bronchiectasis at the lung bases, subtle aortic wall thickening, cholecystectomy, right hemicolectomy and BPH. Fleischner guidelines were followed.
[2023-03-14] MEDS: iohexoL 350 MG/ML 100 ML INFUS..BTL 85 ML IV (10:37)
[2023-03-17 08:41] LABS: Creatinine POC 1.2 mg/dL (0.5-1.4); GFR POC > 60
== END 2023-03-14 09:47 | disposition home or self-care (01) ==
LOC: HO.CT 09:46
PROVIDERS: PCP Internal Medicine; Visit Provider Internal Medicine
DX: R19.7 Diarrhea, unspecified (principal)
CPT/HCPCS: 74177; 82565; Q9967

== ENCOUNTER 2023-05-01 09:21 | Outpatient (REF) | payer OTHER, SELFPAY ==
--- NOTE | ~2023-05-01 | CT_ITS ---
EXAMINATION: CT HEAD WITHOUT CONTRAST CLINICAL INFORMATION: Mild cognitive impairment. COMPARISON: CT head 11/24/2020. TECHNIQUE: Contiguous axial imaging was performed from the skull base to vertex without intravenous administration of contrast. This CT examination was performed using dose optimization techniques as appropriate, variously including the following: *Automated exposure control *Adjustment of mA and/or kV according to patient size (this includes techniques or standardized protocols for targeted exams where dose is matched to indication/reason for exam; i.e. extremities or head) *Use of iterative reconstruction technique DLP: 754 mGy-cm FINDINGS: There is no acute intracranial hemorrhage or abnormal extra-axial collection. No intracranial mass effect or midline shift. Lateral and third ventricles are normal. No hydrocephalus. Leslie-white matter differentiation is preserved and there is no evidence of acute territorial infarct. The calvarium and skull base are intact. Mastoid air cells and middle ear cavities are well aerated. No active paranasal sinus disease. CT/CT head/brain wo IV con IMPRESSION: Unremarkable CT scan of the head. No substantial change when compared to the CT scan of the head from 11/24/2020.
== END 2023-05-01 09:22 | disposition home or self-care (01) ==
LOC: HO.CT 09:21
PROVIDERS: Visit Provider Psychiatry & Neurology Neurology
DX: G31.84 Mild cognitive impairment of uncertain or unknown etiology (principal)
CPT/HCPCS: 70450

== ENCOUNTER 2023-05-22 08:35 | Day surgery (SDC) | payer OTHER, SELFPAY ==
[2023-05-20 10:32] VITALS: BMI 22.1
--- NOTE | 2023-05-21 11:56 | P.CONAN_ITS ---
Documented by User: Court Cohen NP 05/21/23 15:30 HPI - Anesthesia Eval Consult details Narrative: 72yo M for Upper Endoscopy and Colonoscopy Follows [facility] cardiology. Stable at last office visit 07/2022. 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 Reoperation 2014 for worsening AI. 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 Preop cardiac cath did not show significant CAD. Depressed LV function prop improved post op. 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) GERD (gastroesophageal reflux disease) (Acute) CKD stage 3 due to type 2 diabetes mellitus (Acute) B12 deficiency (Acute) Diabetic polyneuropathy associated with type 2 diabetes mellitus (Acute) Diabetic nephropathy associated with type 2 diabetes mellitus (Acute) Dyslipidemia (Acute) Hypertension (Acute) Diabetes type 2, uncontrolled (Acute) Past Medical History Medical History Congenital ventricular septal defect Unintentional weight loss 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 Surgical History Surgical History Hx of heart surgery Hx of cardiac catheterization Hx of colonoscopy Hx of heart surgery Hx of cholecystectomy History of colon resection Social History Social History Household Members: Spouse Housing: House Patient Tobacco Use Status: Never used Tobacco Use of substances other than those prescribed or required for medical reasons: No Advance Directives: No Advance Directives Information Provided: Yes service: No Current occupational status: retired Meds Allergies Allergy/AdvReac Type Severity Reaction Status Date / Time canagliflozin [Invokana] Allergy Intermediate hives Verified 03/03/23 11:28 hydralazine [HYDRALAZINE] Allergy Intermediate SHOULDER Verified 03/03/23 11:28 PAIN enalapril AdvReac Intermediate Dizziness Verified 03/03/23 11:28 hydrochlorothiazide AdvReac Intermediate Dizziness Verified 03/03/23 11:28 [HYDROCHLOROTHIAZIDE] potassium [POTASSIUM] AdvReac Intermediate Dizziness Verified 03/03/23 11:28 Home Medications Medication Instructions Recorded Confirmed Last Taken Type aspirin 81 mg tablet,delayed 81 mg PO DAILY 05/22/20 05/20/23 Unknown History release brimonidine 0.2 % eye drops 1 drp ophthalmic (eye) BID 05/22/20 05/20/23 Unknown History pantoprazole 40 mg tablet,delayed 40 mg PO DAILY 05/22/20 05/20/23 Unknown History release gabapentin 300 mg capsule 300 mg PO BEDTIME 12/11/20 05/20/23 Unknown History sennosides 8.6 mg tablet 8.6 mg PO Q12H PRN constipation 12/11/20 05/20/23 Unknown History fluticasone propionate 50 1 - 2 spray intranasal DAILY PRN 02/25/22 05/20/23 Unknown History mcg/actuation nasal Allergic Symptoms spray,suspension insulin glargine 100 unit/mL (3 12 unit subcut DAILY 02/25/22 05/20/23 Unknown History mL) subcutaneous pen (Lantus Solostar U-100 Insulin) acetaminophen 500 mg tablet (Pain 1,000 mg PO Q6H PRN Pain 01/14/23 05/20/23 Unknown History Relief Extra Strength (acetaminophen)) lisinopril 20 mg tablet 20 mg PO DAILY 01/14/23 05/20/23 Unknown History meloxicam 15 mg tablet 15 mg PO DAILY 01/14/23 03/03/23 Unknown History multivitamin with folic acid 400 1 tab PO DAILY 01/14/23 05/20/23 Unknown History mcg tablet (Daily-Tunde (with folic acid)) sitagliptin phosphate 50 mg tablet 50 mg PO DAILY 01/14/23 03/03/23 Unknown History (Januvia) temazepam 15 mg capsule 15 mg PO BEDTIME PRN Anxiety 01/14/23 05/20/23 Unknown History empagliflozin 25 mg tablet 25 mg PO DAILY 05/20/23 05/20/23 Unknown History (Jardiance) levothyroxine 25 mcg tablet 25 mcg PO DAILY 05/20/23 05/20/23 Unknown History Exam Exam Date and Time: May 21, 2023 1156 Height,Weight and Vital Signs: Height 5 ft 6 in Weight 62.142 kg Pertinent Lab Results Pertinent Lab Results: Laboratory Tests 01/14/23 14:18 WBC 8.6 Hgb 12.8 L Hct 39.1 L Plt Count 236 Sodium 142 Potassium 4.7 Chloride 106 Carbon Dioxide 27 BUN 21 H Creatinine 1.34 Narrative Narrative: EKG 07/2022 SR with PACs in pattern of bigeminy Incomplete LBBB ST and T wave abnormality, consider lateral ischemia c/w 01/2020 PACs now present ECHO 01/2020 LV size is normal Moderate conc LVH LV systolic function is normal LVEF 55-65% No obvious WMA Bioprosthetic valve in aortic position. Gradient is normal for this valve type. 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 Family history of problems with anesthesia: No Surgical History Surgical History Hx of heart surgery Hx of cardiac catheterization Hx of colonoscopy Hx of heart surgery Hx of cholecystectomy History of colon resection History of Problems with Anesthesia: No Social History Social History Household Members: Spouse Housing: House Patient Tobacco Use Status: Never used Tobacco Use of substances other than those prescribed or required for medical reasons: No Advance Directives: No Advance Directives Information Provided: Yes service: No Current occupational status: retired Meds Allergies Allergy/AdvReac Type Severity Reaction Status Date / Time canagliflozin [Invokana] Allergy Intermediate hives Verified 03/03/23 11:28 hydralazine [HYDRALAZINE] Allergy Intermediate SHOULDER Verified 03/03/23 11:28 PAIN enalapril AdvReac Intermediate Dizziness Verified 03/03/23 11:28 hydrochlorothiazide AdvReac Intermediate Dizziness Verified 03/03/23 11:28 [HYDROCHLOROTHIAZIDE] potassium [POTASSIUM] AdvReac Intermediate Dizziness Verified 03/03/23 11:28 Home Medications Medication Instructions Recorded Confirmed Last Taken Type aspirin 81 mg tablet,delayed 81 mg PO DAILY 05/22/20 05/20/23 Unknown History release brimonidine 0.2 % eye drops 1 drp ophthalmic (eye) BID 05/22/20 05/20/23 Unknown History pantoprazole 40 mg tablet,delayed 40 mg PO DAILY 05/22/20 05/20/23 Unknown History release gabapentin 300 mg capsule 300 mg PO BEDTIME 12/11/20 05/20/23 Unknown History sennosides 8.6 mg tablet 8.6 mg PO Q12H PRN constipation 12/11/20 05/20/23 Unknown History fluticasone propionate 50 1 - 2 spray intranasal DAILY PRN 02/25/22 05/20/23 Unknown History mcg/actuation nasal Allergic Symptoms spray,suspension insulin glargine 100 unit/mL (3 12 unit subcut DAILY 02/25/22 05/20/23 Unknown History mL) subcutaneous pen (Lantus Solostar U-100 Insulin) acetaminophen 500 mg tablet (Pain 1,000 mg PO Q6H PRN Pain 01/14/23 05/20/23 Unknown History Relief Extra Strength (acetaminophen)) lisinopril 20 mg tablet 20 mg PO DAILY 01/14/23 05/20/23 Unknown History meloxicam 15 mg tablet 15 mg PO DAILY 01/14/23 03/03/23 Unknown History multivitamin with folic acid 400 1 tab PO DAILY 01/14/23 05/20/23 Unknown History mcg tablet (Daily-Tunde (with folic acid)) sitagliptin phosphate 50 mg tablet 50 mg PO DAILY 01/14/23 03/03/23 Unknown History (Januvia) temazepam 15 mg capsule 15 mg PO BEDTIME PRN Anxiety 01/14/23 05/20/23 Unknown History empagliflozin 25 mg tablet 25 mg PO DAILY 05/20/23 05/20/23 Unknown History (Jardiance) levothyroxine 25 mcg tablet 25 mcg PO DAILY 05/20/23 05/20/23 Unknown History Exam Airway Mallampati Class: II TM Dist: >3cm Neck ROM: Full Denture: Upper Partial: Lower Heart: rrr Lungs: cta Assessment and Plan Assessment Anesthesia Assessment: Anesthesia Plan Discussed Final Anesthetic Review Family History of Problems with Anesthesia: No History of Problems with Anesthesia: No NPO: Yes ASA Class: III Final Preanesthetic Review: No Changes in Pt Med Stat, Meds/Allgs Chart Reviewed, Consent Obtained/Reviewed and Anes Risks/Benef Reviewed Patient Risk: Intermediate Procedure Risk: Low Anesthetic Plan Anesthetic Plan: MAC: Disposition: Standard PACU
--- NOTE | 2023-05-22 09:16 | P.HPSUR_ITS ---
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 Unintentional weight loss Surgical History (Updated 01/14/23 @ 14:04 by Jackie Espinoza MD) History of colon resection Hx of cholecystectomy Hx of colonoscopy Hx of heart surgery Present Medications: see Short Stay Collaborative assessment Allergies: Allergies Allergy/AdvReac Type Severity Reaction Status Date / Time canagliflozin [Invokana] Allergy Intermediate hives Verified 03/03/23 11:28 hydralazine [HYDRALAZINE] Allergy Intermediate SHOULDER Verified 03/03/23 11:28 PAIN enalapril AdvReac Intermediate Dizziness Verified 03/03/23 11:28 hydrochlorothiazide AdvReac Intermediate Dizziness Verified 03/03/23 11:28 [HYDROCHLOROTHIAZIDE] potassium [POTASSIUM] AdvReac Intermediate Dizziness Verified 03/03/23 11:28 Review of Systems Review of Systems Comment: 10 point ROS negative Exam Exam Comment: Gen appear: No acute distress HEENT: no icterus Chest: No overt resp distress Abd: soft, nontender, nondistended Psych: Stable affect, answering questions appropriately Neuro: A/Ox2 noted to move all extremities spontaneously Ext: no peripheral edema Plan Diagnosis/Plan: Unchanged I have reviewed the history and physical and performed a pertinent physical examination on my patient. No changes have occurred unless specified. daughter Cristiane signed the consent Time Spent With Patient Time: Total time managing care of this patient today ____ minutes.
[2023-05-22 09:23] VITALS: BP 165/79; PULSE 71; RESP 18; TEMP 36.1; O2SAT 99
[2023-05-22 09:31] VITALS: BMI 24.8
[2023-05-22 09:32] LABS: Glucose, Whole Blood 72 mg/dL (60-115)
[2023-05-22] MEDS: Lactated Ringers 1,000 ML 50 ML IVCONT (09:40)
--- NOTE | 2023-05-22 10:13 | PC.NURSE ---
late entry, dr. menard entered [place] stat, drawn approx 1005, to go out of sequence.
[2023-05-22 10:21] LABS: Anion Gap 15 (12-20); Carbon Dioxide 24 mmol/L (22-29); Chloride 105 mmol/L (96-108); Potassium 4.9 mmol/L (3.3-5.1); Sodium 139 mmol/L (135-145)
--- NOTE | 2023-05-22 10:31 | P.OP_ITS ---
Operative Note Operative Note Date of Service: 05/22/23 Narrative: Procedure:?Esophagogastroduodenoscopy and colonoscopy Endoscopist:?Jackie Espinoza MD Indication:?Diarrhea, weight loss, personal hx of CRC Anesthesia Provider:?Dr Evelyne Trujillo Anesthesia Type:?MAC Instrument:?Olympus GIF-H190, PCF-H190L EGD Procedure:?? The procedure, indications, preparation and potential complications were reviewed with the patient and his daughter who indicated understanding and gave written informed consent to proceed. A physical exam was performed. A rfid systems engineer was utilised to help with the encounter. The endoscope was introduced through the mouth, and advanced to the second part of duodenum. The mucosa was carefully examined on slow withdrawal of the endoscope. There were no immediate complications. Patient tolerated the procedure well. EGD Findings:? * Esophagus:? Normal mucosa noted in the entire esophagus. The Z-line is at 38 cm. * Stomach:? Normal gastric mucosa. Retroflexion performed in the fundus. Scattered polyps noted in the fundus and body of the stomach. Cold forceps biopsies were taken randomly from the stomach as well as a few polyps. * Duodenum:? Normal duodenal mucosa noted to the extent examined. Cold forceps biopsies were taken from the duodenal bulb and 2nd portion the duodenum to r/o celiac sprue. Colonoscopy Procedure:? The patient was then turned for the colonoscopy. A digital rectal exam was performed which was normal.? A distal attachment cap was affixed to the tip of the scope and the colonoscope was then inserted through the anus and advanced through the colon to the ileocolonic anastomosis at 70 cm and terminal ileum. Mucosa was carefully examined under high definition white light as the instrument was slowly withdrawn in a retrograde panoramic fashion. Retroflexion was performed in rectum. The procedure was not difficult. There were no immediate obvious complications. The quality of the prep was BBPS: 3+2+3 = adequate Withdrawal time: 9 minutes Limitations: No limitation. Findings: Mucosa: Normal mucosa to ileocolonic anastomosis as well as in terminal ileum. Cold forceps biopsies were taken from the right and left side of the colon to rule out microscopic colitis Protruding lesions: * One sessile polyp of size 2 mm was noted in the descending colon. Cold forceps polypectomy was performed. The polyp was completely removed and retrieved. * Medium internal hemorrhoids without stigmata of recent bleeding. Impression: 1. Normal esophagus 2. Gastric polyps (biopsy) 3. Normal duodenum (biopsy) 4. Evidence of prior ileocolonic anastomosis 5. Normal colon mucosa (biopsy) 6. 1 polyp removed 7. Medium internal hemorrhoids Recommendations:?? * Await pathology results. * Next colonoscopy in 5 years if pt still in good health due to reported personal hx of CRC
[2023-05-22 11:18] VITALS: BP 85/41; PULSE 62; RESP 16; TEMP 36.1; O2SAT 99
[2023-05-22 11:24] LABS: Glucose, Whole Blood 62 mg/dL (60-115)
[2023-05-22 11:33] VITALS: BP 104/56; PULSE 56; RESP 16; O2SAT 99
[2023-05-22 11:48] VITALS: BP 126/69; PULSE 59; RESP 18; TEMP 36.1; O2SAT 99
[2023-05-22 11:52] LABS: Glucose, Whole Blood 50 mg/dL (60-115)
[2023-05-22 12:06] VITALS: BP 159/60; PULSE 59; RESP 18; TEMP 36.1; O2SAT 99
[2023-05-22 12:15] LABS: Glucose, Whole Blood 80 mg/dL (60-115)
== END 2023-05-22 12:27 | disposition home or self-care (01) ==
PROVIDERS: Anesthesiology; PCP Internal Medicine; Visit Provider Internal Medicine
PROC: (CPT 43239; principal; 2023-05-22 10:10)
DX: K21.9 Gastro-esophageal reflux disease without esophagitis (principal); K29.50 Unspecified chronic gastritis without bleeding; K31.7 Polyp of stomach and duodenum; R63.4 Abnormal weight loss; Z68.22 Body mass index [BMI] 22.0-22.9, adult; Z90.49 Acquired absence of other specified parts of digestive tract; Z12.11 Encounter for screening for malignant neoplasm of colon; K63.5 Polyp of colon; K63.89 Other specified diseases of intestine; K64.8 Other hemorrhoids; Z85.038 Personal history of other malignant neoplasm of large intestine; E11.22 Type 2 diabetes mellitus with diabetic chronic kidney disease; R19.7 Diarrhea, unspecified; I12.9 Hypertensive chronic kidney disease with stage 1 through stage 4 chronic kidney disease, or unspecified chronic kidney disease; N18.30 Chronic kidney disease, stage 3 unspecified; E78.5 Hyperlipidemia, unspecified; Z79.4 Long term (current) use of insulin
CPT/HCPCS: 43239; 45380; 36415; 80051; 82947; 88305; 88342; J2250

== ENCOUNTER → 2023-05-22 08:35 | Outpatient (BNV) | payer OTHER, SELFPAY | PROVIDERS: PCP Internal Medicine; Visit Provider Internal Medicine | DX: Z12.11 Encounter for screening for malignant neoplasm of colon (principal); Z86.010 Personal history of colon polyps; K52.9 Noninfective gastroenteritis and colitis, unspecified; K31.7 Polyp of stomach and duodenum; D12.3 Benign neoplasm of transverse colon; K64.8 Other hemorrhoids | CPT/HCPCS: 43239; 45380 ==

== ENCOUNTER 2023-07-16 17:04 | Emergency (ER) | payer OTHER, SELFPAY ==
--- NOTE | ~2023-07-16 | CT_ITS ---
EXAMINATION: CT ABDOMEN AND PELVIS WITH CONTRAST CLINICAL INFORMATION: Abdominal pain. Injury. COMPARISON: None available. TECHNIQUE: Multidetector volumetric images were obtained from the superior aspect of the liver through the pubic symphysis following administration 85 mL of Omnipaque 350 intravenous contrast. Sagittal and coronal reformatted images were obtained on the technologist's workstation. Oral contrast: No This CT examination was performed using dose optimization techniques as appropriate, variously including the following: *Automated exposure control *Adjustment of mA and/or kV according to patient size (this includes techniques or standardized protocols for targeted exams where dose is matched to indication/reason for exam; i.e. extremities or head) *Use of iterative reconstruction technique DLP: 369 mGy-cm FINDINGS: LUNG BASES: There is minimal coarsening prominence at the lung bases. LIVER, GALLBLADDER, AND BILIARY TREE: The liver is normal in size, shape, and attenuation. No focal hepatic lesion or biliary ductal dilatation is present. There has been a prior cholecystectomy. PANCREAS: Unremarkable. SPLEEN: Unremarkable. ADRENAL GLANDS: Unremarkable. KIDNEYS AND URETERS: The kidneys are normal in size, shape, and attenuation. No hydronephrosis, hydroureter, or calculi seen. No perinephric stranding. BLADDER: Unremarkable. GASTROINTESTINAL TRACT: There is retained stool. The appendix is not seen. Surgical clips along the base of the cecum likely related to prior appendectomy. ABDOMINAL WALL: No significant hernia is appreciated. LYMPH NODES: Normal. VASCULAR: Unremarkable. PELVIC VISCERA: Unremarkable. OSSEOUS STRUCTURES: There is diffuse thoracolumbar disc degenerative change. CT/CT abdomen pelvis w IV con IMPRESSION: No acute intra-abdominal process. Fleischner guidelines were followed.
[2023-07-16 17:09] VITALS: BP 178/74; PULSE 59; O2SAT 98
[2023-07-16 17:26] VITALS: BP 155/57; PULSE 54; RESP 18; TEMP 37.1; O2SAT 99; BMI 23.6
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
[2023-07-16] MEDS: ondansetron HCL 4 MG/2 ML VIAL IVPUSH (18:14)
[2023-07-16] MEDS: Morphine Sulfate 4 MG/ML CARTRIDGE IVPUSH (18:14)
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
[2023-07-16 19:18] VITALS: BP 167/54; PULSE 56; RESP 16; TEMP 36.8; O2SAT 97
[2023-07-16 19:19] LABS: MANUAL DIFF FLAG NO
[2023-07-16 19:24] LABS: Basophils Percent Auto 0.5 % (0-2); Eosinophils Absolute Auto 0.2 X10*3/uL (0.0-0.4); Eosinophils Percent Auto 2.8 % (0-4); Hematocrit 38.4 % (42.0-52.0); Hemoglobin 12.8 g/dl (14.0-18.0); Imm Gran Abs Auto 0.03 X10*3/uL (0.00-0.03); Imm Gran Pct Auto 0.4 % (0.0-0.4); Lymphocytes Absolute Auto 2.4 X10*3/uL (1.2-4.9); Lymphocytes Percent Auto 28.7 % (20-40); Mean Corpuscular HGB Conc 33.3 g/dl (31.0-36.0); Mean Corpuscular Hemoglobin 27.5 pg (27.0-33.0); Mean Corpuscular Volume 82.4 fL (80.0-98.0); Mean Platelet Volume 10.6 fL (9.4-12.4); Monocytes Absolute Auto 0.6 X10*3/uL (0.1-1.2); Monocytes Percent Auto 6.7 % (2-11); Neutrophils Absolute Auto 5.2 x10*3/uL (2.0-8.3); Neutrophils Percent Auto 60.9 % (45-73); Platelet Count 240 X10*3/uL (160-400); Red Blood Count 4.66 X10*6/uL (4.60-5.80); Red Cell Distribution Width 13.4 % (11.0-16.0); White Blood Count 8.5 X10*3/uL (4.8-10.8)
[2023-07-16 19:31] LABS: Prothrombin Time 12.2 SEC (11.1-13.3)
[2023-07-16 19:39] LABS: Alanine Aminotransferase 22 U/L (0-40); Albumin Level 4.4 g/dL (3.5-5.0); Alkaline Phosphatase 61 U/L (39-117); Anion Gap 10 (12-20); Aspartate Amino Transferase 33 U/L (5-37); Bilirubin Total 0.4 mg/dL (0.0-1.0); Blood Urea Nitrogen 19 mg/dL (9-16); Carbon Dioxide 25 mmol/L (22-29); Chloride 109 mmol/L (96-108); Creatinine Clr Calc Pharmacy 44.7; Estimated Glomerular Filt Rate 55; Glucose Random 80 mg/dL (60-115); Magnesium 2.1 mg/dL (1.6-2.6); Potassium 4.9 mmol/L (3.3-5.1); Sodium 139 mmol/L (135-145); Total Protein 8.4 g/dL (6.5-8.0)
[2023-07-16] MEDS: iohexoL 350 MG/ML 100 ML INFUS..BTL 85 ML IV (20:15)
[2023-07-16 22:15] VITALS: BP 153/66; PULSE 66; RESP 14; TEMP 37.2; O2SAT 98
== END 2023-07-16 22:57 | disposition home or self-care (01) ==
PROVIDERS: Emergency Provider Internal Medicine
DX: M54.6 Pain in thoracic spine (principal); E11.22 Type 2 diabetes mellitus with diabetic chronic kidney disease; I12.9 Hypertensive chronic kidney disease with stage 1 through stage 4 chronic kidney disease, or unspecified chronic kidney disease; N18.30 Chronic kidney disease, stage 3 unspecified; E78.5 Hyperlipidemia, unspecified; Z79.4 Long term (current) use of insulin; Z79.82 Long term (current) use of aspirin; Z79.899 Other long term (current) drug therapy
CPT/HCPCS: 36415; 74177; 80053; 83735; 85025; 85610; 96374; 96375; 99284; J2270; J2405; Q9967

== ENCOUNTER 2023-08-04 10:23 | Emergency (ER) | payer OTHER, SELFPAY ==
[2023-08-04 10:50] VITALS: BP 136/70; PULSE 68; RESP 18; TEMP 35.9; O2SAT 99; BMI 22.4
== END 2023-08-04 14:59 | disposition left against medical advice (07) ==
PROVIDERS: Emergency Provider Emergency Medicine; PCP Internal Medicine
DX: M54.50 Low back pain, unspecified (principal)
CPT/HCPCS: 99281

== ENCOUNTER 2023-08-29 10:22 | Outpatient (REF) | payer OTHER, SELFPAY ==
[2023-08-29 12:12] LABS: Estimated Average Glucose 174 mg/dL; Hemoglobin A1c % 7.7 % (<6.0)
[2023-08-29 12:44] LABS: Anion Gap 16 (12-20); Blood Urea Nitrogen 20 mg/dL (9-16); Calcium 10.3 mg/dL (8.4-10.2); Carbon Dioxide 25 mmol/L (22-29); Chloride 104 mmol/L (96-108); Estimated Glomerular Filt Rate 48; Glucose Random 209 mg/dL (60-115); Potassium 4.7 mmol/L (3.3-5.1); Sodium 140 mmol/L (135-145)
[2023-08-29 12:54] LABS: TSH reflex Free T4 2.12 uIU/mL (0.32-4.0)
== END 2023-08-29 10:23 | disposition home or self-care (01) ==
LOC: HO.HHCL 10:22
PROVIDERS: Visit Provider Family Medicine
DX: E11.42 Type 2 diabetes mellitus with diabetic polyneuropathy (principal); E03.9 Hypothyroidism, unspecified; Z79.4 Long term (current) use of insulin
CPT/HCPCS: 36415; 80048; 83036; 84443

== ENCOUNTER 2023-11-06 12:13 | Outpatient (REF) | payer OTHER, SELFPAY ==
--- NOTE | ~2023-11-06 | XR_ITS ---
EXAMINATION: XR CHEST CLINICAL INFORMATION: Unintentional weight loss COMPARISON: 02/25/2022 TECHNIQUE: 2 views of the chest were obtained. FINDINGS: Patient status post median sternotomy with aortic valve replacement. Heart size normal. No infiltrates, effusions or lung masses are seen. Degenerative changes are present in the spine. Surgical clips are present in the gallbladder fossa. XR/XR chest 2V IMPRESSION: No acute intrathoracic disease.
[2023-11-06 13:19] LABS: Alanine Aminotransferase 30 U/L (0-40); Albumin Level 4.3 g/dL (3.5-5.0); Alkaline Phosphatase 76 U/L (39-117); Aspartate Amino Transferase 32 U/L (5-37); Bilirubin Direct 0.2 mg/dL (0.0-0.5); Bilirubin Total 0.5 mg/dL (0.0-1.0); Total Protein 8.4 g/dL (6.5-8.0)
[2023-11-06 13:37] LABS: Appearance Urine Clear; Color Urine Yellow; Glucose Urine UA Negative (Negative); PH 5.5 (5.0-9.0); Urine Blood Negative (Negative); Urine Protein Trace mg/dL (Neg-Trace)
[2023-11-06 13:38] LABS: Leukocyte Esterase Urine Negative (Negative); Nitrite Urine Negative (Negative); Urine Ketones Negative (Negative)
[2023-11-06 13:45] LABS: Erythrocyte Sedimentation Rate 42 MM/HR (0-15)
[2023-11-06 13:53] LABS: Bacteria Urine None Seen (None Seen); Hyaline Casts Urine 0-2 /LPF (0-2); RBC Urine 0-2 /HPF (0-2); Squamous Epithelial Cell Urine 0-2 /HPF (0-2); WBC Urine 0-5 /HPF (0-5)
[2023-11-06 14:06] LABS: Prostate Specific Antigen 1.29 ng/mL (<0.05-4.0)
[2023-11-06 21:44] LABS: MANUAL DIFF FLAG NO
[2023-11-06 21:52] LABS: Basophils Absolute Auto 0.1 X10*3/uL (0.0-0.2); Basophils Percent Auto 0.8 % (0-2); Eosinophils Absolute Auto 0.1 X10*3/uL (0.0-0.4); Eosinophils Percent Auto 1.2 % (0-4); Hematocrit 38.4 % (42.0-52.0); Hemoglobin 12.9 g/dl (14.0-18.0); Imm Gran Abs Auto 0.03 X10*3/uL (0.00-0.03); Imm Gran Pct Auto 0.3 % (0.0-0.4); Lymphocytes Absolute Auto 1.5 X10*3/uL (1.2-4.9); Lymphocytes Percent Auto 16.2 % (20-40); Mean Corpuscular HGB Conc 33.6 g/dl (31.0-36.0); Mean Corpuscular Hemoglobin 27.5 pg (27.0-33.0); Mean Corpuscular Volume 81.9 fL (80.0-98.0); Mean Platelet Volume 10.8 fL (9.4-12.4); Monocytes Absolute Auto 0.6 X10*3/uL (0.1-1.2); Monocytes Percent Auto 6.1 % (2-11); Neutrophils Absolute Auto 6.9 x10*3/uL (2.0-8.3); Neutrophils Percent Auto 75.4 % (45-73); Platelet Count 279 X10*3/uL (160-400); Red Blood Count 4.69 X10*6/uL (4.60-5.80); Red Cell Distribution Width 13.6 % (11.0-16.0); White Blood Count 9.2 X10*3/uL (4.8-10.8)
== END 2023-11-06 12:14 | disposition home or self-care (01) ==
LOC: HO.HHCL 12:13
PROVIDERS: Visit Provider Internal Medicine
DX: Z12.5 Encounter for screening for malignant neoplasm of prostate (principal); R63.4 Abnormal weight loss
CPT/HCPCS: 36415; 71046; 80076; 81001; 84153; 85025; 85652

== ENCOUNTER 2024-04-30 09:24 | Outpatient (REF) | payer OTHER, SELFPAY ==
[2024-04-30 12:27] LABS: Alanine Aminotransferase 20 U/L (0-40); Albumin Level 4.3 g/dL (3.5-5.0); Alkaline Phosphatase 68 U/L (39-117); Anion Gap 11 (12-20); Aspartate Amino Transferase 33 U/L (5-37); Bilirubin Total 0.5 mg/dL (0.0-1.0); Blood Urea Nitrogen 21 mg/dL (9-16); Carbon Dioxide 24 mmol/L (22-29); Chloride 109 mmol/L (96-108); Cholesterol 91 mg/dL (<200); Estimated Glomerular Filt Rate 42; Glucose Random 170 mg/dL (60-115); HDL Cholesterol 37 mg/dL (>40); LDL Cholesterol Calculated 37 mg/dL (<100); Potassium 4.3 mmol/L (3.3-5.1); Sodium 140 mmol/L (135-145); Triglycerides 89 mg/dL (<150)
[2024-04-30 12:49] LABS: Creatinine Urine 71.38 mg/dL; Microalbum/Creatinine Ratio Ur 144.2 ug/mg cr (<30)
[2024-04-30 12:59] LABS: Prostate Specific Antigen Scr 1.38 ng/mL (<0.05-4.0)
== END 2024-04-30 09:25 | disposition home or self-care (01) ==
LOC: HO.HHCL 09:24
PROVIDERS: Visit Provider Internal Medicine
DX: Z00.00 Encounter for general adult medical examination without abnormal findings (principal); E11.42 Type 2 diabetes mellitus with diabetic polyneuropathy; Z79.4 Long term (current) use of insulin; Z12.5 Encounter for screening for malignant neoplasm of prostate
CPT/HCPCS: 36415; 80053; 80061; 82043; 82570; 84153

== ENCOUNTER 2025-02-13 14:58 | Emergency (ER) | payer OTHER, SELFPAY ==
[2025-02-13] VITALS (11 sets, daily range): BP systolic 94–135; BP diastolic 40–65; PULSE 61–94; RESP 16–18; TEMP 36.6–38.4; O2SAT 93–97; BMI 22.5
--- NOTE | ~2025-02-13 | XR_ITS ---
CLINICAL HISTORY: weakness 1 view chest Comparison: CR/MA/SR - XR CHEST 2V - 11/06/23 13:00 EDT Findings: Cardiac and mediastinal contours are normal. Mild interstitial prominence with scattered peribronchial thickening. Patchy density along the left heart border. No effusion. No pneumothorax. No acute osseous finding. Impression: Probable left lower lobe pneumonia. Follow-up recommended to ensure resolution. This document has been electronically signed by: Husam Rosario MD on 02/13/2025 16:36:55
--- NOTE | ~2025-02-13 | CT_ITS ---
CLINICAL HISTORY: weakness CT head without contrast Comparison: 05/01/2023 Findings: Motion artifact limits interpretation. No evidence of acute territorial infarct. There is patchy low density in the periventricular and subcortical white matter. Diffuse volume loss is noted. No hydrocephalus. No hemorrhage, mass effect, mass lesion or midline shift. No abnormal extra-axial fluid. No calvarial fracture. Paranasal sinuses and mastoid air cells are clear. Impression: No acute intracranial process. Chronic changes as detailed. The study is somewhat degraded by motion artifact. This document has been electronically signed by: Husam Rosario MD on 02/13/2025 16:42:35
--- NOTE | 2025-02-13 15:31 | ED.GENADULT ---
HPI - General Adult General Chief complaint: General Medical Stated complaint: lower back, dizziness, weakness, cough Time Seen by Provider: 02/13/25 15:58 Source: patient and family Mode of arrival: ambulatory Limitations: language barrier (Japanese-speaking intermodal customer service utilized) History of Present Illness ED Provider: Odette Merlos NP HPI narrative: Patient is a 74-year-old male with past medical history of CAD, CKD stage 4, diabetes, hypertension, dementia who presents emergency department with and daughter for evaluation. Primary history is provided from and daughter. Family advises that patient will often report that he is well and not complain of symptoms to medical providers, additionally has a history of dementia. Concern is that since yesterday afternoon he has been experiencing a nonproductive cough, patient denying any shortness of breath or difficulty breathing, states that he has not been notably dyspneic on exertion. However, last night he seemed to be a bit weak and off balance which they describe as dizziness. Evidently it is baseline for him to have some an initial unsteadiness with position change but once he starts walking with his cane he is steady on his feet, they have noticed him to be unsteady since last night and has progressed throughout today. This started at 22:00 last night. He has been more tired and fatigued today. Daughter additionally reports that he has been complaining of diffuse lower back pain over the past week, this is evidently new for him. No precipitating injury. Patient denies having any genitourinary symptoms, chest pain, dizziness, vision changes, headache, shortness of breath, nausea, vomiting, abdominal pain, numbness or tingling of the extremities Related Data Home Medications ?Medication ?Instructions ?Recorded ?Confirmed aspirin 81 mg tablet,delayed 81 mg PO DAILY 05/22/20 05/20/23 release brimonidine 0.2 % eye drops 1 drp ophthalmic (eye) BID 05/22/20 05/20/23 pantoprazole 40 mg tablet,delayed 40 mg PO DAILY 05/22/20 05/20/23 release gabapentin 300 mg capsule 300 mg PO BEDTIME 12/11/20 05/20/23 sennosides 8.6 mg tablet 8.6 mg PO Q12H PRN constipation 12/11/20 05/20/23 fluticasone propionate 50 1 - 2 spray intranasal DAILY PRN 02/25/22 05/20/23 mcg/actuation nasal Allergic Symptoms spray,suspension insulin glargine 100 unit/mL (3 12 unit subcut DAILY 02/25/22 05/20/23 mL) subcutaneous pen (Lantus Solostar U-100 Insulin) acetaminophen 500 mg tablet (Pain 1,000 mg PO Q6H PRN Pain 01/14/23 05/20/23 Relief Extra Strength (acetaminophen)) lisinopril 20 mg tablet 20 mg PO DAILY 01/14/23 05/20/23 meloxicam 15 mg tablet 15 mg PO DAILY 01/14/23 03/03/23 multivitamin with folic acid 400 1 tab PO DAILY 01/14/23 05/20/23 mcg tablet (Daily-Tunde (with folic acid)) sitagliptin phosphate 50 mg tablet 50 mg PO DAILY 01/14/23 03/03/23 (Januvia) temazepam 15 mg capsule 15 mg PO BEDTIME PRN Anxiety 01/14/23 05/20/23 empagliflozin 25 mg tablet 25 mg PO DAILY 05/20/23 05/20/23 (Jardiance) levothyroxine 25 mcg tablet 25 mcg PO DAILY 05/20/23 05/20/23 Previous Rx's ?Medication ?Instructions ?Recorded insulin syringe-needle U-100 1 mL #100 ea 12/25/20 31 gauge x /16 cyanocobalamin (vitamin B-12) 1,000 mcg PO DAILY #90 tabs 01/02/21 1,000 mcg tablet,extended release amlodipine 10 mg tablet 5 mg (1/2 x 10 mg) PO DAILY #90 02/27/22 tabs patiromer calcium sorbitex 8.4 16.8 g PO DAILY #60 packets 02/27/22 gram oral powder packet (Veltassa) peg 3350-electrolytes 236 240 ml PO Q10M colonoscopy #4,000 01/14/23 gram-22.74 gram-6.74 gram-5.86 mL gram solution (Golytely) cyclobenzaprine 10 mg tablet 10 mg PO Q8H #20 tabs 07/16/23 tramadol 50 mg tablet 50 mg PO Q6H PRN pain #20 tabs 07/16/23 memantine 10 mg tablet 10 mg PO BID 90 days #180 tabs 02/07/25 amoxicillin 875 mg-potassium 1 tab PO BID #10 tabs 02/13/25 clavulanate 125 mg tablet azithromycin 250 mg tablet See Rx Instructions PO .COMPLEX #6 02/13/25 tabs Allergies Allergy/AdvReac Type Severity Reaction Status Date / Time canagliflozin (Invokana) Allergy Intermediate hives Verified 02/13/25 15:33 hydralazine (HYDRALAZINE) Allergy Intermediate SHOULDER Verified 02/13/25 15:33 PAIN enalapril AdvReac Intermediate Dizziness Verified 02/13/25 15:33 hydrochlorothiazide AdvReac Intermediate Dizziness Verified 02/13/25 15:33 (HYDROCHLOROTHIAZIDE) potassium (POTASSIUM) AdvReac Intermediate Dizziness Verified 02/13/25 15:33 Review of Systems Review of Systems: Yes all other systems are reviewed and are negative [facility] Past Medical History Attestation statement: The following information was validated with the patient. 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 Social History Social History Household Members: Spouse Housing: House Alcohol intake: former Patient Tobacco Use Status: Never used Tobacco Smoked in Last 30 Days: No Use of substances other than those prescribed or required for medical reasons: No Advance Directives: Yes Advance Directives on File: Yes Advance Directives Date on File: 02/28/22 Do you have a plan to hurt others: No Plan service: No Current occupational status: retired Physical Exam ED Vital Signs: Vital Signs - 24 hr 02/13/25 15:31 02/13/25 16:35 02/13/25 16:37 Temperature 98.8 F Pulse Rate 85 75 75 Respiratory Rate 16 Blood Pressure 94/49 L 130/57 L 126/54 L Pulse Oximetry 97 Oxygen Delivery Method Room Air 02/13/25 16:38 02/13/25 16:43 02/13/25 16:44 Temperature 101.1 F H 101.1 F H Pulse Rate 94 Respiratory Rate Blood Pressure 94/48 L Pulse Oximetry Oxygen Delivery Method 02/13/25 17:11 02/13/25 18:22 02/13/25 18:36 Temperature 98.6 F 98.6 F Pulse Rate 77 67 Respiratory Rate 18 18 Blood Pressure 135/65 110/60 Pulse Oximetry 95 93 Oxygen Delivery Method Room Air Room Air 02/13/25 19:45 02/13/25 19:58 Temperature 97.9 F 97.9 F Pulse Rate 61 61 Respiratory Rate 18 18 Blood Pressure 116/40 L 116/40 L Pulse Oximetry 93 93 Oxygen Delivery Method Room Air Room Air BMI result Body Mass Index 22.5 Appearance: Alert.?Oriented to person, place and time. No acute distress.?Normal affect. Eyes: Pupils equal, round and reactive to light.? ENT: Pharynx normal.?? Neck: Normal inspection.? Neck supple.?? CVS: Heart sounds normal. Normal heart rate and rhythm.? Pulses normal; bilateral radial pulses 2+, bilateral posterior tibial/dorsalis pedis pulses 2+.? Respiratory: No respiratory distress.? Lung sounds clear to auscultation bilaterally?? Abdomen: Soft and non-tender. Normoactive bowel sounds. Skin: Skin warm and dry.? Normal skin color.? Extremities: No lower extremity edema.? No calf ttp? Back: No CVA tenderness. No midline spinal tenderness, step-off's, or deformity. Full ROM intact in bilateral lower extremities. Straight leg test negative on right; Straight leg test negative on left. No rashes, lesions, areas of induration or fluctuance, or signs of infection noted., Neuro: Moves all extremities spontaneously. Sensation to light touch intact bilaterally. Patellar and Achilles reflex 2+ bilaterally. No focal neuro deficits. Slow unsteady gait with use of cane. No focal neurological deficit observed, CN II-XII intact. Motor strength: right upper extremity 5 /5, left upper extremity 5 /5, right lower extremity 4 /5, left lower extremity 4 /5.? Speech: Normal, Cpaudz-pw-tldy test: Normal, Ihbf-dz-yhyx test: Normal. Course Course Course Narrative: Medical screening exam performed. Please refer to detailed history, exam, evaluation, and management by primary provider. Low back pain x 1 week, +SOB since last night. Mild hypotension 94/49. Reports feeling dizzy, off balance. Labs, imaging, UA Reevaluation(s) Reevaluation #1: I Rebecca Meyer PA-C have accepted care of the patient and signed out pending ambulation trial and urinalysis Ambulated the patient, his oxygen is 97%. Urine not infected we will discharge now Medications Administered Discontinued Medications Generic Name Dose Route Start Last Admin Trade Name Freq PRN Reason Stop Dose Admin Acetaminophen 975 mg 02/13/25 16:45 02/13/25 17:05 Acetaminophen 325 Mg Tablet PO 02/13/25 16:46 975 mg ONCE ONE Administration Ceftriaxone Sodium 1 gm 02/13/25 16:45 02/13/25 17:06 Ceftriaxone Sodium 1 Gm Vial IVPUSH 02/13/25 16:46 1 gm ONCE ONE Administration Lactated Ringer's 1,725 mls @ 1,725 mls/hr 02/13/25 16:45 02/13/25 19:56 Lr 30 ml/kg infuse over 1 hr (1725 ml) 02/13/25 17:44 Infused IV Infusion .Q1H ONE Medical Decision Making Medical Decision Making [facility] Narrative: Patient is a 74-year-old male with past medical history of CAD, CKD stage 4, diabetes, hypertension, dementia who presents emergency department with family for evaluation, primary concern today is onset of a cough yesterday with the associated dizziness described as unsteadiness while ambulating, and fatigue/weakness. He has been endorsing lower back pain diffusely over the past week without any precipitating injury, no additional attributing symptoms or concerns for patient or family. Patient mainly answers no to any questioning. He does not appear in any distress. LS CTA, no room-air hypoxia or tachypnea, he is afebrile and not tachycardic. He arrives to the emergency department slightly hypotensive 94/49. He has a slightly unsteady gait though no overt ataxia. Has no focal neurological deficits on examination, cerebellar function testing is normal. ECG is nonischemic revealing a normal sinus rhythm with LVH, ventricular rate of 78, normal PATRICK, QTC 417, no ST-elevation. CBC reveals mild leukocytosis 11,100 with left shift, microcytic anemia that does not meet transfusion criteria appears chronic in nature, no thrombocytopenia. Mild hyperkalemia with a potassium of 5.3, history of CKD BUN/creatinine today 30/1.8 creatinine clearance 28.5, EGFR 37, last prior for comparison April of 2024, with worsening in function concerning for ABDI. No lactic acidosis. Non-anion gap hyperglycemia with random glucose of 191. High sensitive troponin within normal range at 20.6. BNP of 76. LFTs overall unremarkable, lipase is normal. 16:45: Patient did feel warm to touch and although had a normal oral temperature, I had nursing staff obtain a rectal temperature found to be febrile 101.1, sepsis alert called at this time. No lactic acidosis. Will obtain blood cultures. Chest x-ray concerning for left lower lobe pneumonia, my interpretation there is perhaps a slight haziness was appreciated however given his cough and fever, suspect this to be the most likely etiology. However given his back pain obtaining urinalysis. 18:45 : Spoke with patient and daughter, updated on findings. Recommended admission for pneumonia, hypotension, and ABDI. Patient feels strongly against hospitalization, daughter reports that he does not like to stay in the hospitalist, and she is concerned that if they try to make him he will simply eloped from the hospital. They feel strongly about bringing him home. Noted at this time to have room air O2 saturation 92-93%, no respiratory distress. Nursing staff has advised that there has been fluctuation but has not seem to drop lower than 92%. No reported history of COPD. Plan at this time for ambulatory O2 trial, assured no significant gait instability, patient will be walk to the bathroom to obtain urinalysis to exclude infection. Otherwise I will send prescriptions for pneumonia to pharmacy. I did make evening MINA Meyer aware of patient, pending ambulatory O2 trial and urinalysis Differential Diagnosis Differential Diagnoses: The differential diagnosis associated with the presentation includes (See narrative above) Admission/Observation Consideration of admission/observation: Escalation of care including admission/observation considered (See narrative above ) Lab Data MDM Lab Attestation statement: I reviewed the patient's lab results. (See narrative above) 02/13/25 16:04 02/13/25 16:04 Labs: Lab Results 02/13/25 02/13/25 Range/Units 16:04 19:22 WBC 11.1 H (4.8-10.8) X10*3/uL RBC 5.06 (4.60-5.80) X10*6/uL Hgb 13.2 L (14.0-18.0) g/dl Hct 38.8 L (42.0-52.0) % MCV 76.7 L (80.0-98.0) fL MCH 26.1 L (27.0-33.0) pg MCHC 34.0 (31.0-36.0) g/dl RDW 14.1 (11.0-16.0) % Plt Count 211 (160-400) X10*3/uL MPV 9.4 (9.4-12.4) fL Immature Gran % (Auto) 0.3 (0.0-0.4) % Neut % (Auto) 82.3 H (45-73) % Lymph % (Auto) 8.6 L (20-40) % Peach % (Auto) 7.7 (2-11) % Eos % (Auto) 0.6 (0-4) % Baso % (Auto) 0.5 (0-2) % Lymph # (Auto) 1.0 L (1.2-4.9) X10*3/uL [place] # (Auto) 0.9 (0.1-1.2) X10*3/uL Eos # (Auto) 0.1 (0.0-0.4) X10*3/uL Baso # (Auto) 0.1 (0.0-0.2) X10*3/uL Abs Immat Gran (auto) 0.03 (0.00-0.03) X10*3/uL Absolute Neuts (auto) 9.1 H (2.0-8.3) x10*3/uL Absolute Nucleated RBC 0.000 (0.0-0.012) X10*3/uL Nucleated RBC % (auto) 0.0 (0.0-0.2) /100WBC Sodium 139 (135-145) mmol/L Potassium 5.3 H D (3.3-5.1) mmol/L Chloride 104 (96-108) mmol/L Carbon Dioxide 25 (22-29) mmol/L Anion Gap 15 (12-20) BUN 30 H (9-16) mg/dL Creatinine 1.80 H (0.5-1.4) mg/dL Estim Creat Clear Calc 28.5 Estimated GFR 37 Random Glucose 191 H (60-115) mg/dL Lactic Acid 1.3 (0.5-2.0) mmol/L Calcium 10.4 H (8.4-10.2) mg/dL Total Bilirubin 0.5 (0.0-1.0) mg/dL AST 48 H (5-37) U/L ALT 30 (0-40) U/L Alkaline Phosphatase 80 (39-117) U/L Troponin I High Sens 20.6 (<3.5-35.0) ng/L B-Natriuretic Peptide 76 (<100) pg/mL Total Protein 8.6 H (6.5-8.0) g/dL Albumin 4.7 (3.5-5.0) g/dL Lipase 26 (8-78) U/L Urine Color Yellow Urine Appearance Clear Urine pH 5.5 (5.0-9.0) Ur Specific [place] 1.025 (1.005-1.025) Urine Protein 30 (1+) H (Neg-Trace) mg/dL Urine Glucose (UA) >=1000 H (Negative) mg/dL Urine Ketones Negative (Negative) mg/dL Urine Blood Negative (Negative) Urine Nitrite Negative (Negative) Ur Leukocyte Esterase Negative (Negative) Urine RBC 0-2 (0-2) /HPF Urine WBC 0-5 (0-5) /HPF Ur Squamous Epith Cells 0-2 (0-2) /HPF Urine Bacteria None Seen (None Seen) Hyaline Casts 0-2 (0-2) /LPF Independent Interpretation I performed an independent interpretation of an: EKG (See narrative above) and Plain X-Ray (See narrative above) Radiology Impression Discussion of test interpretation with radiology: I have reviewed the radiologist's reading. Radiologist Impression: 1 view chest Comparison: CR/CO/SR - XR CHEST 2V - 11/06/23 13:00 EDT Findings: Cardiac and mediastinal contours are normal. Mild interstitial prominence with scattered peribronchial thickening. Patchy density along the left heart border. No effusion. No pneumothorax. No acute osseous finding. Impression: Probable left lower lobe pneumonia. Follow-up recommended to ensure resolution. CT head without contrast Comparison: 05/01/2023 Findings: Motion artifact limits interpretation. No evidence of acute territorial infarct. There is patchy low density in the periventricular and subcortical white matter. Diffuse volume loss is noted. No hydrocephalus. No hemorrhage, mass effect, mass lesion or midline shift. No abnormal extra-axial fluid. No calvarial fracture. Paranasal sinuses and mastoid air cells are clear. Impression: No acute intracranial process. Chronic changes as detailed. The study is somewhat degraded by motion artifact. Independent Historian Clinical information obtained from an independent historian. History obtained from or confirmed by: Spouse Prescription Management I considered prescription management with: Antibiotic Chronic Conditions Patient?s care impacted by: Other (See narrative above) Critical Care Time Critical Care Time Critical Care Time: Yes Total Critical Care Time: 50 Attestation: Time is exclusive of separately billable procedures. Time includes: direct patient care, patient reassessment, coordination of patient care, interpretation of data (laboratory data, pulse oximetry, venous blood gases and chest xrays, sepsis management), review of patient's medical records, medical consultation and documentation of patient care. Procedures excluded from critical care time: central intravenous line placement and electrocardiography. Discharge Plan Discharge Clinical Impression: Acute kidney injury superimposed on CKD Pneumonia Qualifiers: Pneumonia type: due to unspecified organism Laterality: left Lung location: lower lobe of lung Qualified Code(s): J18.9 - Pneumonia, unspecified organism Patient Disposition: Home, Self-Care Instructions: Acute Kidney Injury (DC), Pneumonia (ED) Additional Instructions: Feliberto was found to have pneumonia in his left lower lung today, in addition to acute kidney injury superimposed on his chronic kidney disease. He received IV fluids while in the emergency department in addition to 1st dose of antibiotic. We discussed hospitalization given the findings in his weakness, using shared decision-making, he is being discharged home, and prescription for antibiotics has been sent to pharmacy. Please return back to emergency department any new or worsening symptoms or concerns which include but is not limited to persistent fevers, chills, chest pain, shortness of breath, difficulty breathing, worsening weakness/unsteadiness when walking. Prescriptions: New amoxicillin-pot clavulanate 875-125 mg tablet 1 tab PO BID Qty: 10 0RF azithromycin 250 mg tablet See Rx Instructions .ROUTE .COMPLEX Qty: 6 0RF Rx Instructions: For 250 mg dose pack: take 500 mg today (day 1), then 250 mg for 4 days (days 2-5) No Action cyanocobalamin (vitamin B-12) 1,000 mcg tablet extended release 1,000 mcg PO DAILY Qty: 90 1RF memantine 10 mg tablet 10 mg PO BID 90 Days Qty: 180 1RF fluticasone propionate 50 mcg/actuation spray,suspension 1 - 2 spray intranasal DAILY PRN (Reason: Allergic Symptoms) insulin glargine [Lantus Solostar U-100 Insulin] 100 unit/mL (3 mL) insulin pen 12 unit subcut DAILY amlodipine 10 mg tablet 5 mg PO DAILY Qty: 90 2RF Veltassa 8.4 gram powder in packet 16.8 g PO DAILY Qty: 60 0RF levothyroxine 25 mcg tablet 25 mcg PO DAILY Jardiance 25 mg tablet 25 mg PO DAILY cyclobenzaprine 10 mg tablet 10 mg PO Q8H Qty: 20 0RF tramadol 50 mg tablet 50 mg PO Q6H PRN (Reason: pain) Qty: 20 0RF (DME) insulin syringe-needle U-100 1 mL 31 gauge x 5/16 syringe See Rx Instructions .ROUTE .MEDSUPPLY Qty: 100 4RF Rx Instructions: Once a day aspirin 81 mg tablet,delayed release (DR/EC) 81 mg PO DAILY pantoprazole 40 mg tablet,delayed release (DR/EC) 40 mg PO DAILY brimonidine 0.2 % drops 1 drp ophthalmic (eye) BID gabapentin 300 mg capsule 300 mg PO BEDTIME sennosides 8.6 mg tablet 8.6 mg PO Q12H PRN (Reason: constipation) multivitamin with folic acid [Daily-Tunde (with folic acid)] 400 mcg tablet 1 tab PO DAILY meloxicam 15 mg tablet 15 mg PO DAILY Januvia 50 mg tablet 50 mg PO DAILY lisinopril 20 mg tablet 20 mg PO DAILY temazepam 15 mg capsule 15 mg PO BEDTIME PRN (Reason: Anxiety) acetaminophen [Pain Relief ES (acetaminophen)] 500 mg tablet 1,000 mg PO Q6H PRN (Reason: Pain) peg 3350-electrolytes [Golytely] 236-22.74-6.74 -5.86 gram recon soln 240 ml PO Q10M Qty: 4000 0RF Rx Instructions: as per split prep instructions, until fecal effluent is clear Referrals: Arya Rosenthal MD [Primary Care Provider, Medical] Interventions: ED Discharge Assessment Last Done: 02/13/25 19:58 Discharge Date/Time: 02/13/25 19:58 Print Language: Japanese Sepsis Bolus Exclusion Sepsis Bolus Exclusion CHF/Renal Failure This patient met severe sepsis criteria due to the following condition(s):: Hypotension In my clinical judgement the administration of 30 ml/kg of crystalloid would be detrimental to this patient due to the patient's following conditions:: Stage III or IV Chronic Kidney Disease (GFR<30) Replace the 30 mls/kg with (Zero amount not acceptable and all fluids for severe sepsis must be given at GREATER than 125 mls/hr) Crystalloids amount given in mls: (rate must be at least 150cc/hr): 1,725 Colloids amount given in mls:: 0
--- NOTE | 2025-02-13 15:32 | ECG_ITS ---
Test Reason : DIZZINESS Blood Pressure : */* mmHG Vent. Rate : 78 BPM Atrial Rate : 78 BPM P-R Int : 138 ms QRS Dur : 106 ms QT Int : 366 ms P-R-T Axes : 78 -1 163 degrees QTcB Int : 417 ms Normal sinus rhythm Left ventricular hypertrophy with repolarization abnormality ( [place] product ) Abnormal ECG When compared with ECG of 25-Feb-2022 14:08, Vent. rate has increased by 32 bpm T wave inversion less evident in Inferior leads Referred By: Gerard Blancas Electronically Signed By: JASON FAJARDO
[2025-02-13 16:09] LABS: MANUAL DIFF FLAG NO
[2025-02-13 16:10] LABS: Hematocrit 38.8 % (42.0-52.0); Hemoglobin 13.2 g/dl (14.0-18.0); Imm Gran Abs Auto 0.03 X10*3/uL (0.00-0.03); Imm Gran Pct Auto 0.3 % (0.0-0.4); Lymphocytes Absolute Auto 1.0 X10*3/uL (1.2-4.9); Mean Corpuscular HGB Conc 34.0 g/dl (31.0-36.0); Mean Corpuscular Hemoglobin 26.1 pg (27.0-33.0); Mean Corpuscular Volume 76.7 fL (80.0-98.0); NRBC Abs Auto 0.000 X10*3/uL (0.0-0.012); NRBC Pct Auto 0.0 /100WBC (0.0-0.2); Platelet Count 211 X10*3/uL (160-400); Red Blood Count 5.06 X10*6/uL (4.60-5.80); White Blood Count 11.1 X10*3/uL (4.8-10.8)
[2025-02-13 16:27] LABS: Alanine Aminotransferase 30 U/L (0-40); Albumin Level 4.7 g/dL (3.5-5.0); Alkaline Phosphatase 80 U/L (39-117); Anion Gap 15 (12-20); Aspartate Amino Transferase 48 U/L (5-37); Blood Urea Nitrogen 30 mg/dL (9-16); Calcium 10.4 mg/dL (8.4-10.2); Carbon Dioxide 25 mmol/L (22-29); Chloride 104 mmol/L (96-108); Creatinine Clr Calc Pharmacy 28.5; Estimated Glomerular Filt Rate 37; Lipase 26 U/L (8-78); Potassium 5.3 mmol/L (3.3-5.1); Sodium 139 mmol/L (135-145); Total Protein 8.6 g/dL (6.5-8.0)
[2025-02-13 16:30] LABS: B Type Natriuretic Peptide 76 pg/mL (<100)
[2025-02-13 16:34] LABS: Troponin-I High Sensitivity 20.6 ng/L (<3.5-35.0)
[2025-02-13] MEDS: LACTATED RINGERS 1725 ML IV (17:10)
[2025-02-13 19:28] LABS: Appearance Urine Clear; Glucose Urine UA >=1000 mg/dL (Negative); PH 5.5 (5.0-9.0); Specific Gravity - Urine 1.025 (1.005-1.025); UMIC TRIGGER UA YES
--- NOTE | 2025-02-13 19:56 | PC.NURSE ---
patient ambulated to bathroom accompanied by RN with o2 sat probe applied. patient o2 initially started at 90% but as he was ambulated increased to 97%. denies any weakness or SOB. provider made aware. patient cleared for DC. paperwork reviewed with patient and family.
== END 2025-02-13 19:58 | disposition home or self-care (01) ==
PROVIDERS: Physician Assistant; Emergency Provider Emergency Medicine; PCP Internal Medicine
DX: J18.9 Pneumonia, unspecified organism (principal); M54.50 Low back pain, unspecified; R42 Dizziness and giddiness; R05.9 Cough, unspecified; N17.8 Other acute kidney failure; R53.1 Weakness; R06.02 Shortness of breath; R94.31 Abnormal electrocardiogram [ECG] [EKG]; Z79.899 Other long term (current) drug therapy
CPT/HCPCS: 36415; 70450; 71046; 80053; 81001; 83605; 83690; 83880; 84484; 85025; 87040; 93005; 96361; 96374; 99285; 99291; J0696; J7120

== ENCOUNTER → 2025-02-13 15:32 | Outpatient (BNV) | payer OTHER, SELFPAY | PROVIDERS: Emergency Provider Emergency Medicine; PCP Internal Medicine; Visit Provider Internal Medicine | DX: I51.7 Cardiomegaly (principal) | CPT/HCPCS: 93010 ==

== ENCOUNTER → 2025-02-13 15:32 | Outpatient (BNV) | payer OTHER, SELFPAY | PROVIDERS: Emergency Provider Emergency Medicine; PCP Internal Medicine; Visit Provider Radiology Vascular & Interventional Radiology | DX: R53.1 Weakness (principal); J84.89 Other specified interstitial pulmonary diseases | CPT/HCPCS: 70450; 71046 ==

== ENCOUNTER 2025-03-09 08:33 | Outpatient (REF) | payer OTHER, SELFPAY ==
--- OUTSIDE RECORDS SUMMARY | 2025-03-09 08:44 | XMS_ITS | Encounter Summary ---
Author Organization [facility] Address [address] [facility] [address] [place] [address] Phone Care Team Providers Care Delivery Room Clerk Name Role Phone Arya Lin MD Primary Care Provider Unav ailable Encounter Details Date Type Department Care Team (Late Contact Info) Description 02/02/2021 Orders Only [facility] [address] [facility] [address] [place] [phone] Osvaldo Ren MD [address] [place] [address], [facility] [address] [place] [address] Type 2 diabetes mellitus with diabetic nephropathy (HCC); Chronic kidney disease stage 2 Social History Tobacco Use Types Packs/Day Years Used Date Smoking Tobacco: Never Smokeless Tobacco: Never Alcohol Use Standard Drinks/Week Comments No 0 (1 standard drink = 0.6 oz pur e alcohol) Sex and Gender Information Value Date Recorded Sex Assigned at Not on file Legal Sex Male 5:24 PM EST Gender Identity Not on file Sexual Orientation Not on file documented as of this encounter Plan of Treatment Upcoming Encounters Date Type Department Care Team (Late Contact Info) Description 03/24/2025 3:30 PM EDT Office Visit [facility] [address] [place] [phone] Mahin Jones MD [address] [facility] [address] [place] [address] documented as of this encounter Visit Diagnoses Diagnosis Type 2 diabetes mellitus with diabetic nephropathy (HCC) Chronic kidney disease stage 2 documented in this encounter Care Teams Delivery Room Clerk Relationship Specialty Start Date End Date Arya Lin MD PCP - General Internal Medicine 11/13/20 08/20/22 documented as of this encounter
--- OUTSIDE RECORDS SUMMARY | 2025-03-09 08:44 | XMS_ITS | Patient Health Record ---
Author Organization [facility] Address [address] [place] [address] Care Team Providers Care Accounting Practice Manager Name Role Phone Riley Vera MD, Arya Primary Care Provide r Unavailable David Andujar Jr Unavailable Tara GRAY, Sj Unavailable Unavailable Reason For Referral No Information Plan Of Treatment No Information Insurance Providers Payer Name Payer Address Payer Phone Subscriber Number Group Number Insured Name Patient Relationship to Insured Coverage Start Date Coverage End Date [facility] [address] [place] [address] [id number] VERO AMIN Self - patient is the insured
--- OUTSIDE RECORDS SUMMARY | 2025-03-09 08:44 | XMS_ITS | Encounter Summary ---
Author Organization [employer] Address [address] [facility] 7t [place] [address] Care Team Providers Care Draw Off Worker Name Role Phone Arya Masterson MD Primary Care Provide r Reason for Visit * Reason Comments Med Refill Encounter Details Date Type Department Care Team (Late st Contact Info) Description 09/15/2023 Refill [facility] [address] [place], [place] [phone] Arya Masterson MD [address] [place], [place] [phone] Acquired hypothyroidism Social History Tobacco Use Types Packs/Day Years Used Date Smoking Tobacco: Never Passive Smoke Exposure: Never Smokeless Tobacco: Never Alcohol Use Standard Drinks/Week Comments Not Asked 0 (1 standard drink = 0.6 oz pur e alcohol) Depression Answer Date Recorded Patient Health Questionnaire-9 Score 0 01/07/2023 Housing Stability Answer Date Recorded What is your housing situation today? I have housing today, but I am worried about losing housing in the future 05/18/[address] you li ve. Do you have problems with any of the following? None of the above 05/18/2023 Food Insecurity Answer Date Recorded Within the past 12 months, y ou worried that your food would run out before you got money to buy more: Never True 05/18/2023 Within the past 12 months,th e food you bought just didn't last and you didn't have enough money to get more: Never True Transportation Answer Date Recorded In the past 12 months, has l ack of transportation kept you from medical appts, meetings, work or from getting things needed for daily living? No 05/18/2023 Utilities Answer Date Recorded In the past 12 months, has t he electric, gas, oil or water company threatened to shut off services in your home? No 05/18/2023 Depression Answer Date Recorded Patient Health Questionnaire-2 Score 0 01/07/2023 Sex and Gender Information Value Date Recorded Sex Assigned at Male 06/03/2022 10:14 AM EDT Legal Sex Male 10:14 AM EDT Gender Identity Male 06/03/2022 10:14 AM EDT Sexual Orientation Straight 06/03/2022 10 :14 AM EDT documented as of this encounter Plan of Treatment Upcoming Encounters Date Type Department Care Team (Late st Contact Info) Description 05/31/2025 11:15 AM EDT Office Visit [facility] [address] [place] [phone] Arya Masterson MD [address] [place] [address] documented as of this encounter Visit Diagnoses Diagnosis Acquired hypothyroidism Unspecified hypothyroidism documented in this encounter Additional Health Concerns Assessment Noted Time PHQ-9 Depression Total Score: 0 01/08/20 23 1:27 PM EDT documented as of this encounter Care Teams Draw Off Worker Relationship Specialty Start Date End Date Arya Masterson MD [address] [place] [id number] PCP - General Internal Medicine 03/21/14 documented as of this encounter
--- OUTSIDE RECORDS SUMMARY | 2025-03-09 08:44 | XMS_ITS | Clinical Summary ---
Author Organization [facility] Address [address] [place] [address] Care Team Providers Care Cut Out Machine Operator Name Role Phone Arya Rosenthal MD Primary Care Provide r Allergies No known active allergies Medications Medication Sig Dispensed Refills Start Date End Date Status insulin glargine (LANTUS) injection 100 units/mL Inject 100 Units under the skin every night at bedtime. 0 Active lisinopril (PRINIVIL,ZESTRIL) tablet 20 mg Take 20 mg by mouth daily. 0 Active aspirin 81 MG chewable tablet Chew 81 mg by mouth daily. 0 Active Active Problems Problem Noted Date Diagnosed Date Malignant neoplasm of ascending colon 01/14/2017 Cancer Staging:Clinical stage from 06/23/2013:Stage IIIA(T1, N1, M0) - Signed by Ana Calderon MD on 01/14/2017 Aortic regurgitation 01/14/2017 Type 2 diabetes mellitus with complication 01/14 H/O aortic valve replacement 01/14/2017 Family History Medical History Relation Name Comments Diabetes Mother Relation Name Status Comments Mother Social History Tobacco Use Types Packs/Day Years Used Date Smoking Tobacco: Former Cigarettes Smokeless Tobacco: Never Comments:over 35 years ago Alcohol Use Standard Drinks/Week Comments No 0 (1 standard drink = 0.6 oz pur e alcohol) denies alcohol use Sex and Gender Information Value Date Recorded Sex Assigned at Not on file Gender Identity Not on file Sexual Orientation Not on file Last Filed Vital Signs Vital Sign Reading Time Taken Comments Blood Pressure 141/52 01/14/2017 1:34 PM EDT Pulse 68 01/14/2017 1:34 PM EDT Temperature - - Respiratory Rate - - Oxygen Saturation - - Inhaled Oxygen Concentration - - Weight 64.9 kg (143 lb) 01/14/2017 1:34 PM EDT Height 167.6 cm (5' 6 ) 01/14/2017 1:34 PM EDT Body Mass Index 23.08 01/14/2017 1:34 PM EDT Plan of Treatment Health Maintenance Due Date Last Done Comments Hepatitis C Screening 1950 COVID-19 Vaccine (#1) 1954 Pneumococcal Vaccine (1 of 2 - PCV) 11/12/1955 Depression Screening 1961 Preventative Health Evaluation 11/12/1967 DTap / Tdap / Td (1 - Tdap) 1968 Shingrix-Zoster Vaccine (1 of 2) 1968 Colon Cancer Screening (Colonoscopy) 1994 Fall Risk Assessment 2014 RSV Adult > 60+ Yrs or Pregn ant (1 - 1-dose 75+ series) 2024 Influenza Vaccine (#1) 2025 Hepatitis B Vaccines Aged Out No long er eligible based on patient's age to complete this topic RSV Ped < 20 months Aged Out No longe r eligible based on patient's age to complete this topic Care Teams Cut Out Machine Operator Relationship Specialty Start Date End Date Arya Rosenthal MD [address] [place] [address] [facility] [place] [phone] PCP - General Internal Medicine 01/09/17
[2025-03-09 11:54] LABS: Anion Gap 12 (12-20); Blood Urea Nitrogen 15 mg/dL (9-16); Calcium 9.5 mg/dL (8.4-10.2); Carbon Dioxide 27 mmol/L (22-29); Chloride 109 mmol/L (96-108); Cholesterol 105 mg/dL (<200); Estimated Glomerular Filt Rate 49; HDL Cholesterol 35 mg/dL (>40); Potassium 4.9 mmol/L (3.3-5.1); Sodium 143 mmol/L (135-145); Triglycerides 70 mg/dL (<150)
== END 2025-03-09 08:34 | disposition home or self-care (01) ==
LOC: HO.HHCL 08:33
PROVIDERS: PCP Internal Medicine; Visit Provider Internal Medicine
DX: N18.2 Chronic kidney disease, stage 2 (mild) (principal); E78.2 Mixed hyperlipidemia; E03.9 Hypothyroidism, unspecified
CPT/HCPCS: 36415; 80048; 80061; 84443

== ENCOUNTER 2025-04-05 10:01 | Outpatient (AMB) | payer OTHER, SELFPAY ==
[2025-04-05 10:11] VITALS: BP 120/54; PULSE 70; O2SAT 98; BMI 21.3
--- NOTE | 2025-04-05 10:11 | HO.NEPHOV ---
Vital Signs 04/05/25 10:11 Height 5 ft 5 in Weight 128 lb BMI 21.3 BP 120/54 L Blood Pressure Location Rt brachial Position Sitting Pulse 70 Pulse Source Pulse Oximeter Pulse Oximetry (%) 98 Oxygen Delivery Method Room Air Intake Visit Reasons: ENP: CKD STG 2-Conf Wood Caulker Required: No Wood Caulker Services: Wood Caulker Offered & Declined (Daughter will translate ) Allergies canagliflozin (Invokana) Allergy (Intermediate, Verified 04/05/25 10:14) hives hydralazine (HYDRALAZINE) Allergy (Intermediate, Verified 04/05/25 10:14) SHOULDER PAIN enalapril Adverse Reaction (Intermediate, Verified 04/05/25 10:14) Dizziness hydrochlorothiazide (HYDROCHLOROTHIAZIDE) Adverse Reaction (Intermediate, Verified 04/05/25 10:14) Dizziness potassium (POTASSIUM) Adverse Reaction (Intermediate, Verified 04/05/25 10:14) Dizziness Medication List - Last Reconciled 04/05/25 by Colby Jeffery MD acetaminophen (Pain Relief Extra Strength (acetaminophen)) 1,000 mg PO Q6H PRN aspirin 81 mg PO DAILY brimonidine 0.2% 1 drp ophthalmic (eye) BID empagliflozin (Jardiance) 25 mg PO DAILY fluticasone propionate 50 mcg/actuation 1 - 2 sprays intranasal DAILY PRN insulin glargine (Lantus Solostar U-100 Insulin) 12 units subcut DAILY insulin syringe-needle U-100 Once a day levothyroxine 25 mcg PO DAILY lisinopril 5 mg PO DAILY 30 days memantine 10 mg PO BID 90 days multivitamin with folic acid 400 mcg (Daily-Tunde (with folic acid)) 1 tab PO DAILY pantoprazole 40 mg PO DAILY rosuvastatin 20 mg PO QAM HPI Comments Details: 74-year-old gentleman with past medical history of hypertension, diabetes mellitus, CAD, CKD stage 3 is here to establish care Hypertension: Since several years, on amlodipine 5 mg. Previously on lisinopril and chlorthalidone following which he had a worsening in renal function so was stopped. Diabetes mellitus: Since almost 20 years, on Lantus, Jardiance CAD: CABG in 2020 On aspirin, rosuvastatin. Has aortic valve replacement in 2013, Has a bovine valve to closure of VSD in early Hypothyroidism: On levothyroxine 25 mcg daily Has some memory issues, seeing a neurologist in [facility], on Memantine He was treated for colon cancer with chemotherapy 10 years, colonoscopy in September 2017 showed tubular adenoma, repeat colonoscopy on 05/2023 1 polyp negative for dysplasia. As the patient has some ongoing weight loss offered an oncology referral, refused. 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 Social History Household Members: Spouse Housing: House Alcohol intake: former Patient Tobacco Use Status: Never used Tobacco Advance Directives Date on File: 02/28/22 service: No Current occupational status: retired Review of Systems Const Details: Const : no body aches, no chills, no excessive sweating and no fatigue Eyes: no blurry vision and no change in vision ENT: no bleeding gums and no change in voice, no dizziness Card: no chest pain, no shortness of breath, no orthopnea, no PND Resp: no cough, no SOB GI: no abdominal pain and no nausea, no vomiting : no hematuria, no urinary frequency and no difficulty voiding Musc: no abnormal gait, no bone pain Neuro: no abnormal movements, no weakness, memory loss present Psych: no behavioral changes and no change in appetite Endo: no change in body appearance, no cold intolerance, no excessive sweating and no fatigue Physical Exam Vital Signs: Last Vital Signs Pulse 70 04/05/25 10:11 BP 120/54 L 04/05/25 10:11 Pulse Ox 98 04/05/25 10:11 Oxygen Delivery Method Room Air 04/05/25 10:11 BMI result Body Mass Index 21.3 General: not in any acute distress, comfortable, sitting on the chair Nutritional Appearance: well nourished and weight Eyes: normal position, no icterus Neck: No lymphadenopathy, no thyromegaly Resp: bilateral air entry equal, no added sounds present Cardio: normal S1, S2 heard, no murmur heard, no edema GI: soft, nontender, no guarding, no hepatosplenomegaly : bladder normal to inspection, bladder normal to palpation, no renal angle tenderness Skin: no rashes or lesions noted and elasticity normal Neuro: oriented to person, oriented to place, oriented to time and moves all extremities Results Reviewed Nephrology Results: Hgb, (14.0-18.0) 13.2 g/dl L 02/13/25 WBC, (4.8-10.8) 11.1 X10*3/uL H 02/13/25 Plt Count, (160-400) 211 X10*3/uL 02/13/25 Sodium, (135-145) 143 mmol/L 03/09/25 Potassium, (3.3-5.1) 4.9 mmol/L 03/09/25 Chloride, (96-108) 109 mmol/L H 03/09/25 Carbon Dioxide, (22-29) 27 mmol/L 03/09/25 BUN, (9-16) 15 mg/dL 03/09/25 Creatinine, (0.5-1.4) 1.40 mg/dL 03/09/25 Calcium, (8.4-10.2) 9.5 mg/dL Δ 03/09/25 Urine Protein, (Neg-Trace) 30 (1+) mg/dL H 02/13/25 Urine Creatinine 71.38 mg/dL 04/30/24 Assessment & Plan Assessment & Plan (1) CKD stage 3 due to type 2 diabetes mellitus: Code(s): E11.22 - Type 2 diabetes mellitus with diabetic chronic kidney disease; N18.30 - Chronic kidney disease, stage 3 unspecified Category: Medical Plan Chronic kidney disease stage IIIa/b A2: secondary to - no family history of CKD, no history of renal stones in the past, NSAID use. - creatinine 1.4 , GFR 49 - urine microalbumin creatinine ratio: 144.2 in 02/2024 - Urinalysis normal - her normal size kidney in CT abdomen in July 2023 - avoid nephrotoxic medications not limited to NSAIDs, contrast etc. - importance of diet, adequate blood pressure control well explained to patient. Non smoker, has some unintentional weight loss. - will get hepatitis panel, HIV, DENIS, ANCA, complements, SPEP, UPEP, serum free light chains - we will start him on lisinopril 5 mg, has history of worsening renal function with lisinopril. We will closely monitor for proteinuria and BMP and slowly uptitrate as tolerated. We will follow him up in a month with repeat UACR, UPCR and BMP. Hypertension: - target blood pressures less than 130/90 mm Hg - compliance: good - will stop amlodipine as we are starting on lisinopril Anemia of chronic kidney disease: - will get iron, TIBC, ferritin levels Mineral bone disease: - will get calcium, phos, vitamin-D and PTH levels This note is constructed using voice recognition software. While every effort has been made to ensure accuracy tdp displays analyst errors may have been included. Total time spent in the clinic is about 40 minutes, 10 minutes on chart review, review of data, 20 minutes on encounter, physical examination, counseling, answering all the questions, 10 minutes on documentation. Orders: Orders Microalbumin, Random (w Creat) Today E11. - Type 2 diabetes mellitus with diabetic chronic kidney disease, N18.30 - Chronic kidney disease, stage 3 unspecified, R80.9 - Proteinuria, unspecified Vitamin D 25-OH Total Today E11. - Type 2 diabetes mellitus with diabetic chronic kidney disease, N18.30 - Chronic kidney disease, stage 3 unspecified, R80.9 - Proteinuria, unspecified HIV Ab/Ag Today E11. - Type 2 diabetes mellitus with diabetic chronic kidney disease, N18.30 - Chronic kidney disease, stage 3 unspecified, R80.9 - Proteinuria, unspecified Complement C3 Today E11.22 - Type 2 diabetes mellitus with diabetic chronic kidney disease, N18.30 - Chronic kidney disease, stage 3 unspecified, R80.9 - Proteinuria, unspecified Complement C4 Today E11.22 - Type 2 diabetes mellitus with diabetic chronic kidney disease, N18.30 - Chronic kidney disease, stage 3 unspecified, R80.9 - Proteinuria, unspecified Protein Electrophoresis,Ran Ur Today E11. - Type 2 diabetes mellitus with diabetic chronic kidney disease, N18.30 - Chronic kidney disease, stage 3 unspecified, R80.9 - Proteinuria, unspecified [place]/Lambda Light Chain Serum Today E11.22 - Type 2 diabetes mellitus with diabetic chronic kidney disease, N18.30 - Chronic kidney disease, stage 3 unspecified, R80.9 - Proteinuria, unspecified Creatinine Urine 1 Month E11.22 - Type 2 diabetes mellitus with diabetic chronic kidney disease, N18.30 - Chronic kidney disease, stage 3 unspecified, R80.9 - Proteinuria, unspecified Basic Metabolic Panel 1 Month E11.22 - Type 2 diabetes mellitus with diabetic chronic kidney disease, N18.30 - Chronic kidney disease, stage 3 unspecified, R80.9 - Proteinuria, unspecified UA and rflx microscopic 1 Month E11. - Type 2 diabetes mellitus with diabetic chronic kidney disease, N18.30 - Chronic kidney disease, stage 3 unspecified, R80.9 - Proteinuria, unspecified Hemoglobin A1c Today E11. - Type 2 diabetes mellitus with diabetic chronic kidney disease, N18.30 - Chronic kidney disease, stage 3 unspecified, R80.9 - Proteinuria, unspecified Total Protein Urine Random Today E11. - Type 2 diabetes mellitus with diabetic chronic kidney disease, N18.30 - Chronic kidney disease, stage 3 unspecified, R80.9 - Proteinuria, unspecified Creatinine Urine Today E11. - Type 2 diabetes mellitus with diabetic chronic kidney disease, N18.30 - Chronic kidney disease, stage 3 unspecified, R80.9 - Proteinuria, unspecified Phosphorus Today E11. - Type 2 diabetes mellitus with diabetic chronic kidney disease, N18.30 - Chronic kidney disease, stage 3 unspecified, R80.9 - Proteinuria, unspecified Parathyroid Hormone Intact Today E11.22 - Type 2 diabetes mellitus with diabetic chronic kidney disease, N18.30 - Chronic kidney disease, stage 3 unspecified, R80.9 - Proteinuria, unspecified IRON PROFILE Today E11.22 - Type 2 diabetes mellitus with diabetic chronic kidney disease, N18.30 - Chronic kidney disease, stage 3 unspecified, R80.9 - Proteinuria, unspecified Hepatitis B,C Profile Today E11. - Type 2 diabetes mellitus with diabetic chronic kidney disease, N18.30 - Chronic kidney disease, stage 3 unspecified, R80.9 - Proteinuria, unspecified DENIS Reflex Titer and Pattern Today E11. - Type 2 diabetes mellitus with diabetic chronic kidney disease, N18.30 - Chronic kidney disease, stage 3 unspecified, R80.9 - Proteinuria, unspecified ANCA Vasculitides Today E11. - Type 2 diabetes mellitus with diabetic chronic kidney disease, N18.30 - Chronic kidney disease, stage 3 unspecified, R80.9 - Proteinuria, unspecified Protein Electrophoresis, Serum Today . - Type 2 diabetes mellitus with diabetic chronic kidney disease, N18.30 - Chronic kidney disease, stage 3 unspecified, R80.9 - Proteinuria, unspecified Total Protein Urine Random 1 Month E11. - Type 2 diabetes mellitus with diabetic chronic kidney disease, N18.30 - Chronic kidney disease, stage 3 unspecified, R80.9 - Proteinuria, unspecified Microalbumin, Random (w Creat) 1 Month . - Type 2 diabetes mellitus with diabetic chronic kidney disease, N18.30 - Chronic kidney disease, stage 3 unspecified, R80.9 - Proteinuria, unspecified Medications: New lisinopril 5 mg PO DAILY 30 tabs 2RF 30 days Coding Level of Care Code New Pt Level 4 (11421) Diagnoses CKD stage 3 due to type 2 diabetes mellitus ; N18
--- OUTSIDE RECORDS SUMMARY | 2025-04-05 11:21 | XMS_ITS | Clinical Summary ---
Author Organization [facility] Address [address] [place] [address] Care Team Providers Care Spice Miller Name Role Phone Arya Rosenthal MD Primary [...] age to complete this topic Care Teams Spice Miller Relationship Specialty Start Date End Date Arya Rosenthal MD [address] [place] [address] [place] [phone] PCP - General Internal Medicine 01/09/17
--- OUTSIDE RECORDS SUMMARY | 2025-04-05 11:21 | XMS_ITS | Encounter Summary ---
Author Organization [employer] Address [address] [facility] 7t [place] [address] Care Team Providers Care Motor Room Controller Name Role Phone Arya Masterson MD Primary Care Provide r Reason for Visit * Reason Comments Med Refill Encounter Details Date Type Department Care Team ([facility] st Contact Info) Description 09/15/2023 Refill [facility] [address] [place], [place] [phone] Arya Masterson MD [address] [place], [place] [phone] Acquired hypothyroidism Social History Tobacco Use Types [...] Description 05/31/2025 11:15 AM EDT Office Visit [facility] [address] [place] [address] Arya Masterson MD [address] [place] [address] documented as of this encounter Visit Diagnoses Diagnosis Acquired hypothyroidism Unspecified hypothyroidism documented in this encounter Additional Health Concerns Assessment Noted Time PHQ-9 Depression Total Score: 0 01/08/20 23 1:27 PM EDT documented as of this encounter Care Teams Motor Room Controller Relationship Specialty Start Date End Date Arya Masterson MD [address] [place] [id number] PCP - General Internal Medicine 03/21/14 documented as of this encounter
--- OUTSIDE RECORDS SUMMARY | 2025-04-05 11:21 | XMS_ITS | Clinical Summary ---
Author Organization [employer] Address [address] [place] [address] [address] [place] [address] Care Team Providers Care Catapult And Arresting Gear Officer Name Role Phone Arya Masterson MD Primary Care Provide r Allergies Active Allergy Reactions Criticality Noted Date Comments Enalapril High 08/02/2010 Other reaction(s): hyperkalemia Hydrochlorothiazide Palpitations Low 08/02/2010 Blurry vision Medications Veltassa 8.4 g pack MIX 1 PACKET WITH WATER AND TAKE BY MOUTH ONCE DAILY 08/19/19 23 Active fluticasone (Flonase) 50 MCG/ACT nasal sprayIndications:A cquired hypothyroidism spray 1 - 2 spray by intranasal route every day in each nostril as needed 48 g 3 09/15/19 24 Active Continuous Glucose Supplier Relationship Director (FreeStyle Angel 2 Sterling) deviceIndications: Type 2 diabetes mellitus with diabetic polyneuropathy, with long-term current use of insulin ([facility]) Scan sensor every 8 hours 1 each 04/27/20 24 Active Continuous Glucose Sensor (FreeStyle Angel 2 Sensor) miscIndications:Ty pe 2 diabetes mellitus with diabetic polyneuropathy, with long-term current use of insulin ([facility]) Apply 1 sensor every 14 days 2 each 3 04/27/20 24 Active Multiple Vitamin (Daily-Tunde Multivitamin) tabletIndications: Acquired hypothyroidism TAKE 1 TABLET BY MOUTH EVERY DAY WITH FOOD 90 tablet 3 08/03/20 24 Active amLODIPine (Norvasc) 5 MG tabletIndications: Benign essential hypertension TAKE 1 TABLET BY MOUTH EVERY DAY 90 tablet 3 08/03/20 24 Active rosuvastatin (Crestor) 20 MG tablet TAKE 1 TABLET BY MOUTH EVERY DAY IN THE MORNING 90 tablet 3 08/03/20 24 Active memantine (Namenda) 10 MG tablet Take 1 tablet by mouth 2 times daily. 08/09/19 25 Active Jardiance 25 MGIndications:Type 2 diabetes mellitus with diabetic polyneuropathy, with long-term current use of insulin ([facility]) Take 1 tablet (25 mg) by mouth Once per day. 30 tablet 6 09/14/19 25 Active levothyroxine (Synthroid, Levoxyl) 25 MCG tabletIndications: Acquired hypothyroidism TAKE 1 TABLET (25 MCG) BY MOUTH IN THE MORNING 90 tablet 1 10/29/19 25 Active Aspirin Low Dose 81 MG EC tablet TAKE 1 TABLET BY MOUTH EVERY DAY 90 tablet 3 11/04/19 25 Active pantoprazole (ProtoNix) 40 MG EC tabletIndications: Gastroesophageal reflux disease without esophagitis TAKE 1 TABLET BY MOUTH EVERY DAY IN THE MORNING, DO NOT BREAK, CRUSH, DISSOLVE OR CHEW 90 tablet 3 11/24/19 25 Active Lantus SoloStar 100 UNIT/ML pen INJECT 12 UNIT BY SUBCUTANEOUS ROUTE ONCE DAILY 3 mL 11 12/07/19 25 Active pen needle 31G x 6 mm miscIndications:Ty pe 2 diabetes mellitus with diabetic polyneuropathy, with long-term current use of insulin ([facility]) Use one pen needle to inject insulin once daily 90 each 3 01/26/20 25 026 Active Active Problems Problem Noted Date Diagnosed Date Weight loss, unintentional 11/06/2023 Assessment & Plan (09/14/2024 11:41 AM EST): Pt continues to regained the previously lost weight No complaints other that recent issues with constipation. Of note pt had a recent EGD and Colonoscopy that were unremarkable. Pt's daughter mentioned that pt was taking a medication that was causing him to have a decreased appetite. Since pt stopped med he is now eating better Ct abdomen and pelvis with IV contrast 07/16/2023 was also unremarkable Exam today aside from an elevated BP (pt did not take his medications ) is otherwise normal. Recent TSH normal Chest x-ray normal, labs stable Will continue to monitor Assessment & Plan (01/20/2024 11:29 AM EDT): Pt has gained some weight No complaints other that recent issues with constipation. Of note pt had a recent EGD and Colonoscopy that were unremarkable. Pt's daughter mentioned that pt was taking a medication that was causing him to have a decreased appetite. Since pt stopped med he is now eating better Ct abdomen and pelvis with IV contrast 07/16/2023 was also unremarkable Exam today aside from an elevated BP (pt did not take his medications ) is otherwise normal. Recent TSH normal Chest x-ray normal, labs stable Will continue to monitor Assessment & Plan (11/06/2023 12:29 PM EDT): Pt has lost over 7 lbs in the last 4 months. No complaints other that recent issues with constipation. Of note pt had a recent EGD and Colonoscopy that were unremarkable. Pt's daughter mentioned that pt was taking a medication that was causing him to have a decreased appetite. Since pt stopped med he is now eating better Ct abdomen and pelvis with IV contrast 07/16/2023 was also unremarkable Exam today aside from an elevated BP (pt did not take his medications ) is otherwise normal. Recent TSH normal Plan: CBC, ESR,LFTs, Chest x-ray follow up after testing Skin lesions 01/07/2023 Assessment & Plan (04/27/2024 11:41 AM EDT): Pt with c/o newly developed hyperpigmented skin lesions on the right side of his neck. It resolved so patient cancelled appointment Assessment & Plan (01/07/2023 1:58 PM EDT): Pt with c/o newly developed hyperpigmented skin lesions on the right side of his neck. On exam he has multiple flat areas with brown hyperpigmentation Etiology ? Plan: Dermatology ealuation Lumbar degenerative disc disease 12/24/2022 Overview (12/24/2022): Xray 12/2022 Diabetic polyneuropathy asso ciated with type 2 diabetes mellitus 08/27/2022 Assessment & Plan (09/14/2024 11:38 AM EST): Pt with c/o bilateral foot pain, tingling and burning. symptoms suggestive of this previously recommended trial of Gabapentin Pt seen by Neurology 12/2021 NCS ordered 4 month f/u Pt finished Acupuncture Assessment & Plan (08/27/2022 2:09 PM EST): Pt with c/o bilateral foot pain, tingling and burning. symptoms suggestive of this previously recommended trial of Gabapentin Pt seen by Neurology 12/2021 NCS ordered 4 month f/u Pt finished Acupuncture Polyp of colon 08/27/2022 Overview (08/27/2022): tubular adenomas of the colon 2018 Assessment & Plan (05/29/2023 1:08 PM EDT): tubular adenomas of the colon 2018 Repeat done 05/22/2023 Impression: 1. Normal esophagus 2. Gastric polyps (biopsy) 3. Normal duodenum (biopsy) 4. Evidence of prior ileocolonic anastomosis 5. Normal colon mucosa (biopsy) 6. 1 polyp removed 7. Medium internal hemorrhoids Recommendations: * Next colonoscopy in 5 years if pt still in good health due to reported personal hx of CRC Assessment & Plan (01/07/2023 1:56 PM EDT): tubular adenomas of the colon 2018 Needs repeat Will refer to [facility] Primary insomnia 08/27/2022 Assessment & Plan (09/14/2024 11:38 AM EST): Pt with previous c/o intermittent insomnia, No longer using Temazepam. Assessment & Plan (08/27/2022 2:16 PM EST): Pt with previous c/o intermittent insomnia, Currently using Temazepam PRN. Preventative health care 08/27/2022 Assessment & Plan (03/03/2025 12:02 PM EDT): PSA 11/06/2023 Normal Colonoscopy: colonoscopy at [facility] in 09/2017 that showed a Tubular Adenoma colonoscopy (05/22/2023) showed one polyp (Bx colonic mucosa with minor crypt distortion; negative for adenomatous dysplasia). Assessment & Plan (04/27/2024 11:30 AM EDT): PSA 11/06/2023 Normal Colonoscopy: colonoscopy at [facility] in 09/2017 that showed a Tubular Adenoma colonoscopy (05/22/2023) showed one polyp (Bx colonic mucosa with minor crypt distortion; negative for adenomatous dysplasia). Assessment & Plan (08/27/2022 2:16 PM EST): Colonoscopy: colonoscopy at [facility] in 09/2017 that showed a Tubular Adenoma, f/u 2022 Acquired hypothyroidism 08/12/2022 Assessment & Plan (09/14/2024 11:43 AM EST): Pt's TSH 08/29/2023 was normal Continue Levothyroxine 25 mcg po daily. Assessment & Plan (11/06/2023 11:44 AM EDT): Pt's TSH 08/29/2023 was normal Continue Levothyroxine 25 mcg po daily. Assessment & Plan (01/07/2023 1:54 PM EDT): Pt's TSH 08/28/2022 was normal Continue Levothyroxine 25 mcg po daily. Assessment & Plan (08/27/2022 2:39 PM EST): Pt's TSH 05/28/2022 was elevated, patient has since then been on Levothyroxine 25 mcg po daily. Will repeat next visit will consider ordering a thyroid US Impaired cognition 08/12/2022 Assessment & Plan (03/03/2025 12:08 PM EDT): Under the care of Neurology On Memantine 10 mg po BID Pt was seen last: 01/31/2025 Assessment & Plan (09/14/2024 11:57 AM EST): Under the care of Neurology Dr Canas ordered an EEG, CT Brain and TSH On Memantine 10 mg po BID Assessment & Plan (04/27/2024 11:39 AM EDT): Pt's family with concerns of worsening short term memory. Finally seen by Neurology last seen in November Dr Canas ordered an EEG, CT Brain and TSH Assessment & Plan (05/29/2023 1:01 PM EDT): Pt's family with concerns of worsening short term memory. Finally seen by Neurology 03/12/2023 , Dr Canas ordered an EEG, CT Brain and TSH and recommended a 4 month follow up Assessment & Plan (02/18/2023 9:21 AM EDT): Pt with worsening short term memory Pt has seen Neurology in the past, lost for follow up Patient was referred back, appointment was scheduled for 02/11. Pt no showed. Today here with his duaghter who tells me she will make sure he keeps next appointment Assessment & Plan (01/16/2023 9:36 AM EDT): Pt with worsening short term memory Pt has seen Neurology in the past, lost for follow up Will refer back Hyperkalemia 02/20/2022 Assessment & Plan (08/27/2022 2:17 PM EST): Continue plan per renal per 03/07/22 note, plan was lokelma (changed from veltassa) however per [facility], pt has been rx'd lactulose (suspect lokelma not covered by insurance) Pt tells me has a f/u with Neprhology next month Anxiety 01/22/2022 Congenital heart disease 01/22/2022 Assessment & Plan (09/14/2024 11:39 AM EST): Pt here for a f/u Pt s/p redo aortic valve replacement using a 23# Magna pericardial valve 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 Pt last seen at the cardiac surgeon office on 04/05/2014 They recommended to continue under the care of Cardiology repeat ECHO done in the ER 01/11/2020 recommended 1 year f/u. Pt was seen 01/22/2022 and recommended repeat ECHO and 6 months f/u Hyperlipidemia 01/22/2022 Assessment & Plan (03/03/2025 11:39 AM EDT): Most recent Lipid profile Lab Results Component Value Date TRIG 89 04/30/2024 TRIG 65 08/28/2022 CHOL 91 04/30/2024 LDLCHOLCAL 37 04/30/2024 HDL 37 (L) 04/30/2024 On Rosuvastatin 20 mg po daily Plan: Repeat Lipid profile Assessment & Plan (09/14/2024 11:50 AM EST): Most recent Lipid profile Lab Results Component Value Date TRIG 89 04/30/2024 TRIG 65 08/28/2022 CHOL 91 04/30/2024 LDLCHOLCAL 37 04/30/2024 HDL 37 (L) 04/30/2024 On Rosuvastatin 20 mg po daily Assessment & Plan (01/07/2023 4:07 PM EDT): Most recent Lipid profile 08/28/2022: Total Chol: 145 Trigs: 65, HDL: 42, LDL 88 Not on any medication Stage 2 chronic kidney disease 11/13/2020 Assessment & Plan (03/03/2025 11:57 AM EDT): Used to be under the care of Dr Osvaldo Iraheta Lab Results Component Value Date NA 139 02/13/2025 NA 140 04/30/2024 K 5.3 (H) 02/13/2025 K 4.3 04/30/2024 CL 104 02/13/2025 CL 109 (H) 04/30/2024 BUN 30 (H) 02/13/2025 BUN 21 (H) 04/30/2024 CREATININE 1.80 (H) 02/13/2025 CREATININE 1.60 (H) 04/30/2024 Has not seen him in quite a while Will refer back Assessment & Plan (09/14/2024 11:40 AM EST): Under the care of Dr Osvaldo Iraheta Lab Results Component Value Date NA 140 04/30/2024 NA 140 08/29/2023 K 4.3 04/30/2024 K 4.7 08/29/2023 CL 109 (H) 04/30/2024 CL 104 08/29/2023 BUN 21 (H) 04/30/2024 BUN 20 (H) 08/29/2023 CREATININE 1.60 (H) 04/30/2024 CREATININE 1.43 (H) 08/29/2023 Assessment & Plan (01/07/2023 4:13 PM EDT): Under the care of Dr Osvaldo Iraheta Benign essential hypertension 12/25/2017 Assessment & Plan (03/03/2025 11:38 AM EDT): Patient here for a f/u BP controlled He is on a regimen of Norvasc 5 mg po daily, Fff Lisinopril, Chlorthalidone, Diovan due to medications causing worsening renal function. pt is also OFF off Metoprolol due to Bradycardia Patient is under the care of Nephrology, Most recent electrolytes, done on: Lab Results Component Value Date NA 139 02/13/2025 NA 140 04/30/2024 K 5.3 (H) 02/13/2025 K 4.3 04/30/2024 CL 104 02/13/2025 CL 109 (H) 04/30/2024 BUN 30 (H) 02/13/2025 BUN 21 (H) 04/30/2024 CREATININE 1.80 (H) 02/13/2025 CREATININE 1.60 (H) 04/30/2024 patient advised to adhere to a low sodium diet, encouraged about medication compliance, counseled about weight loss. Assessment & Plan (09/14/2024 11:39 AM EST): Patient here for a f/u BP controlled He is on a regimen of Norvasc 5 mg po daily, off Lisinopril, Off Chlorthalidone due to medication causing worsening renal function. pt is also OFF Diovan off Metoprolol due to Bradycardia Patient is under the care of Nephrology, Most recent electrolytes, done on: Lab Results Component Value Date NA 140 04/30/2024 NA 140 08/29/2023 K 4.3 04/30/2024 K 4.7 08/29/2023 CL 109 (H) 04/30/2024 CL 104 08/29/2023 BUN 21 (H) 04/30/2024 BUN 20 (H) 08/29/2023 CREATININE 1.60 (H) 04/30/2024 CREATININE 1.43 (H) 08/29/2023 patient advised to adhere to a low sodium diet, encouraged about medication compliance, counseled about weight loss. Repeat BMP Assessment & Plan (04/27/2024 11:22 AM EDT): Patient here for a f/u BP controlled He is on a regimen of Norvasc 5 mg po daily, off Lisinopril, Off Chlorthalidone due to medication causing worsening renal function. pt is also OFF Diovan off Metoprolol due to Bradycardia Patient is nuder the care of Nephrology, Most recent electrolytes, done on: 08/29/2023 were wnl SCr 1.43 patient advised to adhere to a low sodium diet, encouraged about medication compliance, counseled about weight loss. Repeat BMP Assessment & Plan (01/20/2024 11:16 AM EDT): Patient here for a f/u BP controlled He is on a regimen of Norvasc 5 mg po daily, off Lisinopril, Off Chlorthalidone due to medication causing worsening renal function. pt is also OFF Diovan off Metoprolol due to Bradycardia Patient is nuder the care of Nephrology, Most recent electrolytes, done on: 08/29/2023 were wnl SCr 1.43 patient advised to adhere to a low sodium diet, encouraged about medication compliance, counseled about weight loss. Assessment & Plan (11/06/2023 11:42 AM EDT): Patient here for a f/u BP controlled He is on a regimen of Norvasc 5 mg po daily, off Lisinopril, Off Chlorthalidone due to medication causing worsening renal function. pt is also OFF Diovan off Metoprolol due to Bradycardia Patient is nuder the care of Nephrology, Most recent electrolytes, done on: 08/29/2023 were wnl SCr 1.43 patient advised to adhere to a low sodium diet, encouraged about medication compliance, counseled about weight loss. Assessment & Plan (01/07/2023 1:49 PM EDT): Patient here for a f/u BP controlled He is on a regimen of Norvasc 5 mg po daily, off Lisinopril, Off Chlorthalidone due to medication causing worsening renal function. pt is also OFF Diovan off Metoprolol due to Bradycardia Patient is nuder the care of Nephrology, last seen 03/07/2022 Most recent electrolytes, done on: 03/05/2022 were wnl SCr 1.49 Will repeat BMP patient advised to adhere to a low sodium diet, encouraged about medication compliance, counseled about weight loss. 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 Pt last seen at the cardiac surgeon office on 04/05/2014 They recommended to continue under the care of Cardiology repeat ECHO done in the ER 01/11/2020 recommended 1 year f/u. 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 Pt last seen at the cardiac surgeon office on 04/05/2014 They recommended to continue under the care of Cardiology Pt now under the care of Dr Sheridan, last note on record 01/21/2020 repeat ECHO done in the ER 01/11/2020 recommended 1 year f/u. records requested Referral places to [facility] Cardiology . Pt was seen 01/22/2022 and recommended repeat ECHO and 6 months f/u Gastroesophageal reflux disease 04/28/2014 Anemia 10/11/2013 Assessment & Plan (08/27/2022 2:14 PM EST): Pt with mild anemia, hgb 12.6 done on 04/17/2015, etiology ? initial diagnostic work up showed a mildly abnormal spep showing a small monoclonal band in the gamma fraction. significance ? for which he was referred to hematology. It appears that he was not seen after he was subsequently diagnosed with Colon cancer.B 12 and Folate, retic, LDH were wnl. On 04/17/2015 we repeated his Spep and once again was abnormal Pt was seen by Hematology Dr Mcgraw 01/08/2016 who thinks pt has MOGUS Glaucoma 10/11/2013 History of colon cancer 10/11/2013 Assessment & Plan (11/06/2023 11:36 AM EDT): Pt due for repeat colonoscopy, last one 2017 [place] [facility] [place] [place] Jackie Espinoza, Repeat 05/2023 showed 1. Normal esophagus 2. Gastric polyps (biopsy) 3. Normal duodenum (biopsy) 4. Evidence of prior ileocolonic anastomosis 5. Normal colon mucosa (biopsy) 6. 1 polyp removed 7. 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 Normal esophagus 2. Gastric polyps (biopsy) 3. Normal duodenum (biopsy) 4. Evidence of prior ileocolonic anastomosis 5. Normal colon mucosa (biopsy) 6. 1 polyp removed 7. Medium internal hemorrhoids Recommendations: * Next colonoscopy in 5 years if pt still in good health due to reported personal hx of CRC Assessment & Plan (02/18/2023 9:22 AM EDT): Pt due for repeat colonoscopy, last 2017 Was seen by [facility] [place] Jackie Espinoza, already scheduled for EGD/Colonoscopy for March 27 2023 Assessment & Plan (01/16/2023 9:29 AM EDT): Pt due for repeat colonoscopy, last 2017 Was seen by [facility] [place] Jackie Espinoza, already scheduled for EGD/Colonoscopy Assessment & Plan (01/07/2023 1:55 PM EDT): Pt overdue for repeat colonoscopy Will refer today Assessment & Plan (08/27/2022 2:14 PM EST): Pt Dx with stage III colon adenocarcinoma . He underwent right hemicolectomy in 06/2013. He has started on adjuvant Folfox regimen at the end of 08/2013 He received 5 cycles of treatment. This was discontinued due to cardiac issues He was last seen by Dr. Morfin 05/05/[address] of abdomen and Chest and CEA showed no evidence of recurrence Pt no longer follows with Dr. Morfin He had colonoscopy at [facility] in 09/2017 that showed a Tubular Adenoma He will need a f/u 2022 Aortic valve regurgitation 05/01/2012 Hx of chronic active hepatitis 02/07/2012 Assessment & Plan (01/16/2023 9:26 AM EDT): Pt with a Hx of chronic Hep C. Repeat Hep C Ab positive, repeat Viral Load pending Pt is immune to Hep A and B. Last Abdominal US 08/12/2018 was unremarkable Alpha fetoprotein 07/23/2018 was wnl. Pt used to be under the care of the liver clinic, finished Rx with Jennifer. (Dr Grijalva 2014). This was communicated to his new Geodetic Technician Dr. Jackie Espinoza Assessment & Plan (08/27/2022 2:12 PM EST): Pt with a Hx of chronic Hep C. Pt is immune to Hep A and B. Abdominal US 08/12/2018 was unremarkable Alpha fetoprotein 07/23/2018 was wnl. Pt used to be under the care of the liver clinic, finished Rx with Jennifer. Diabetes mellitus, type II 01/15/2012 Assessment & Plan (03/03/2025 11:55 AM EDT): Pt is here for a f/u regarding his DM No longer under the care of Endocrinology, last seen 12/25/2020 He is on a regimen of: Lantus 12 units sc q pm and Jardiance 25 mg po daily , he did not tolerate GLP1 agonist receptor He did not tolerate Farxiga, Invokana and Trulicity Hgb A1c 03/03/2025: 9.7 from 8.6 Plan: Refer back to Endocrinology, he needs close follow up with greenhouse instructor, vending service technician Eye exam was last done by Dr. 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 He reports he was seen January 11, 2025 Microalbumin checked on: 04/30/2024 was: 103 Pt is on an ARB. Foot check risk of zero Pt reports compliance with ASA 81 mg po daily 3 month follow up Pt advised to: adhere to diabetic diet check your blood sugars regularly check your feet on a daily basis Assessment & Plan (09/14/2024 11:52 AM EST): Pt is here for a f/u regarding his DM No longer under the care of Endocrinology, last seen 12/25/2020 Ddi not bring glucometer Pt injecting insulin regularly He is on a regimen of: Lantus 10 units sc q pm. He apparently is no longer taking Jardiance 25 mg po daily , he did not tolerate GLP1 agonist receptor He did not tolerate Farxiga, Invokana and Trulicity Hgb A1c 09/14/2024: from 8.6 Plan: Restart Jardiance 25 mg po daily Eye exam was last done 02/19/[address] 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 Microalbumin checked on: 11/02/2021 was: 1.2 Pt is on an ARB. Foot check risk of zero Pt reports compliance with ASA 81 mg po daily 3 month follow up Pt advised to: adhere to diabetic diet check your blood sugars regularly check your feet on a daily basis Assessment & Plan (04/27/2024 11:38 AM EDT): Pt is here for a f/u regarding his DM No longer under the care of Endocrinology, last seen 12/25/2020 glucometer shows lows as low as 75 and as high as 300 Pt's daughter reports he forgets to inject insulin He is on a regimen of: Lantus 10 units sc q pm and Jardiance 25 mg po daily , he did not tolerate GLP1 agonist receptor He did not tolerate Farxiga, Invokana and Trulicity Hgb A1c 04/27/2024: 8.6 Plan: continue current regimen Eye exam was last done 02/19/[address] 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 Microalbumin checked on: 11/02/2021 was: 1.2 Pt is on an ARB. Foot check risk of zero Pt reports compliance with ASA 81 mg po daily Plan: Continue with current regimen 3 month follow up Pt advised to: adhere to diabetic diet check your blood sugars regularly check your feet on a daily basis Assessment & Plan (01/20/2024 11:32 AM EDT): Pt is here for a f/u regarding his DM No longer under the care of Endocrinology, last seen 12/25/2020 Did not bring glucometer He is on a regimen of: Lantus 10 units sc q pm and Jardiance 25 mg po daily , he did not tolerate GLP1 agonist receptor He did not tolerate Farxiga, Invokana and Trulicity Hgb A1c 11/06/2023: 6.9 Plan: continue current regimen Eye exam was last done 02/19/[address] 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 Microalbumin checked on: 11/02/2021 was: 1.2 Pt is on an ARB. Foot check risk of zero Pt reports compliance with ASA 81 mg po daily Plan: Continue with current regimen 3 month follow up Pt advised to: adhere to diabetic diet check your blood sugars regularly check your feet on a daily basis Assessment & Plan (11/06/2023 11:45 AM EDT): Pt is here for a f/u regarding his DM No longer under the care of Endocrinology, last seen 12/25/2020 glucometer average 105 He is on a regimen of: Lantus 10 units sc q pm and Jardiance 25 mg po daily , he did not tolerate GLP1 agonist receptor He did not tolerate Farxiga, Invokana and Trulicity Hgb A1c 11/06/2023: 6.9 Plan: continue current regimen Eye exam was last done 02/19/[address] 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 Microalbumin checked on: 11/02/2021 was: 1.2 Pt is on an ARB. Foot check risk of zero Pt reports compliance with ASA 81 mg po daily Plan: Continue with current regimen 3 month follow up Pt advised to: adhere to diabetic diet check your blood sugars regularly check your feet on a daily basis Assessment & Plan (01/07/2023 2:11 PM EDT): Pt is here for a f/u regarding his DM No longer under the care of Endocrinology, last seen 12/25/2020 glucometer average 104 He is on a regimen of: Lantus 10 units sc q pm and Jardiance 25 mg po daily , he did not tolerate GLP1 agonist receptor He did not tolerate Farxiga, Invokana and Trulicity Hgb A1c 01/07/2023: 7.6 He did not bring his glucometer No changes until he brings it Eye exam was last done 05/28/[address] 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 Microalbumin checked on: 11/02/2021 was: 1.2 Pt is on an ARB. Foot check risk of zero Pt reports compliance with ASA 81 mg po daily Plan: Continue with current regimen 3 month follow up Pt advised to: adhere to diabetic diet check your blood sugars regularly check your feet on a daily basis Assessment & Plan (08/27/2022 2:08 PM EST): Pt is here for a f/u regarding his DM No longer under the care of Endocrinology, last seen 12/25/2020 glucometer average 108 He is on a regimen of: Lantus 10 units sc q pm and Jardiance 25 mg po daily , he did not tolerate GLP1 agonist receptor He did not tolerate Farxiga, Invokana and Trulicity Hgb A1c 08/27/2022 was : 6.9 Eye exam was last done 05/28/[address] 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 Microalbumin checked on: 11/02/2021 was: 1.2 Pt is on an ARB. Foot check risk of zero Pt reports compliance with ASA 81 mg po daily Pt advised to: adhere to diabetic diet check your blood sugars regularly check your feet on a daily basis Resolved Problems Problem Noted Date Diagnosed Date Resolved Date Chronic skin ulcer of right ear 01/20/2024 03/03/2025 Assessment & Plan (01/20/2024 11:31 AM EDT): Pt with a small non healing ulcer right ear Plan: Referral to Derm clinic to rule out skin cancer Balanitis 10/21/2022 01/07/2023 Assessment & Plan (10/21/2022 8:38 PM EDT): Mild, reassurance. Explained that it is not a STI Counseled re tight control of DM Use clotrimazole cream bid x 1w + Fluconazole 150mg x 1 Encounters Date Type Department Care Team Description 03/15/2025 Refill [facility] [address] [place] [address] Arya Masterson MD Acquired hypothyroidism 03/03/2025 11:30 AM EDT Office Visit [facility] [address] [place] [address] Arya Masterson MD Type 2 diabetes mellitus with diabetic polyneuropathy, with long-term current use of insulin ([facility]) (Primary Dx); Benign essential hypertension; Mixed hyperlipidemia; Ventricular septal defect; Stage 2 chronic kidney disease; Preventative health care; Impaired cognition 03/03/2025 Travel 03/02/2025 Telephone [facility] [address] [place] [address] Arya Masterson MD chart prep 02/13/2025 Orders Only GENERIC EXTERNAL DATA DEPARTMENT Provider, Generic External Data 01/21/2025 Refill [facility] [address] [place] [address] Arya Masterson MD Type 2 diabetes mellitus with diabetic polyneuropathy, with long-term current use of insulin ([facility]) 01/17/2025 Telephone [facility] [address] [place], [place] [phone] Arya Masterson MD Medication Question 01/17/2025 Orders Only [facility] [address] [place] [address] Arya Masterson MD Type 2 diabetes mellitus with diabetic polyneuropathy, with long-term current use of insulin ([facility]) 01/06/2025 Refill [facility] [address] [place], [place] [phone] Yani Nguyễn RN Type 2 diabetes mellitus with diabetic polyneuropathy, with long-term current use of insulin ([facility]) from Last 3 Months Immunizations Immunization Administration Dates Next Due Hep B, adult 09/24/2006,05/21/2006,04/16/2006 Influenza High-dose Quadriva lent Preservative Free 06/03/2023,05/21/2022 Influenza injectable quadriv alent IIV4 with preservative 06/09/2017,05/02/2016,05/30/2015 Influenza injectable quadriv alent preservative free 05/16/2020,04/26/2019 Influenza, High Dose Seasona l, Preservative Free 04/27/2024,05/07/2018 Influenza, IIV3, injectable 05/12/2014, 1 Influenza, Split (incl. jayne fied surface antigen) 04/22/2013,05/01/2012 Moderna Covid-19 Vaccine 12+ 08/13/2021,10/27/19 21,09/28/2020 Pfizer Covid-19 Vaccine 12+ Bivalent 05/20/2022 Pneumococcal Conjugate PCV 20 09/14/2024 Pneumococcal Polysaccharide PPSV23 09/21/2024,,06/24/2001 TD (adult), 2 Lf tetanus tox oid, preservative free, adsorbed 09/28/2004 Tdap 12/27/2014 Zoster, Recombinant 03/02/2025,09/21/2024 Zoster, live 12/27/2014 Social History Tobacco Use Types Packs/Day Years Used Date Smoking Tobacco: Never Passive Smoke Exposure: Never Smokeless Tobacco: Never Tobacco Cessation:Counseling Given: Not Answered Alcohol Use Standard Drinks/Week Comments Not Asked 0 (1 standard drink = 0.6 oz pur e alcohol) Depression Answer Date Recorded Patient Health Questionnaire-9 Score 2 03/03/2025 Patient Health Questionnaire-9 Score 2 03/03/2025 Last PHQ-9: Questionnaire Data Not on file 0 03/03/2025 Housing Stability Answer Date Recorded What is your housing situation today? I have shahab ly 03/03/[address] you li ve. Do you have problems with any of the following? None of the above 03/03/2025 Food Insecurity Answer Date Recorded Within the past 12 months, y ou worried that your food would run out before you got money to buy more: Never True 03/03/2025 Within the past 12 months,th e food you bought just didn't last and you didn't have enough money to get more: Never True Transportation Answer Date Recorded In the past 12 months, has l ack of transportation kept you from medical appts, meetings, work or from getting things needed for daily living? No 03/03/2025 Utilities Answer Date Recorded In the past 12 months, has t he electric, gas, oil or water company threatened to shut off services in your home? No 03/03/2025 Depression Answer Date Recorded Patient Health Questionnaire-2 Score 0 03/03/2025 Internet Access Answer Date Recorded Internet Access Q1 Yes 03/03/2025 Internet Access Q2 Not on file 03/03/2025 Sex and Gender Information Value Date Recorded Sex Assigned at Male 06/03/2022 10:14 AM EDT Legal Sex Male 10:14 AM EDT Gender Identity Male 06/03/2022 10:14 AM EDT Sexual Orientation Straight 06/03/2022 10 :14 AM EDT Last Filed Vital Signs Vital Sign Reading Time Taken Comments Blood Pressure 132/58 03/03/2025 11:38 AM EDT Pulse 75 03/03/2025 11:38 AM EDT Temperature 36.6 C (97.9 F) 03/03/2025 11:38 AM EDT Respiratory Rate 12 03/03/2025 11:38 AM EDT Oxygen Saturation 98% 03/03/2025 11:38 AM EDT Inhaled Oxygen Concentration - - Weight 57.8 kg (127 lb 6.4 oz) 03/03/2025 11:38 AM EDT Height 167.6 cm (5' 6 ) 03/03/2025 11:38 AM EDT Body Mass Index 20.56 03/03/2025 11:38 AM EDT Plan of Treatment Upcoming Encounters Date Type Department Care Team (Late st Contact Info) Description 05/31/2025 11:15 AM EDT Office Visit [facility] [address] [place] [address] Arya Masterson MD [address] [place] [address] Health Maintenance Due Date Last Done Comments CT Colonography 1950 FIT DNA/Cologuard 1950 FIT 1950 FOBT 1950 Sigmoidoscopy 1950 Diabetes: Foot Exam 11/12/1959 Eye Exam 11/12/1959 COVID-19 Vaccine ( season) 2024 05/20/2022, 08/13/2021, 10/26/2020, Additional history exists RSV Patients and Patients Aged 60 years or older (1 - 1-dose 75+ series) 2024 DTaP/Tdap/Td Vaccines (2 - Td or Tdap) 12/27/2024 12/27/2014, 09/28/2004 Influenza Vaccine (#1) 2025 , 06/03/2023, 05/21/2022, Additional history exists Diabetes: Urine Protein Screening 04/30/2025 04/30/2024, 11/02/2021, 12/25/2020, Additional history exists Diabetes: Hemoglobin A1C 06/03/2025 025, 09/14/2024, 04/27/2024, Additional history exists Alcohol/Substance Use Screening 09/14/2025 09/14/2024 Tobacco Screening 09/14/2025 09/14/2024 Depression Screening 03/03/2026 03/03/2025, 03/03/20 25 SDOH Screening 03/03/2026 03/03/2025 Lipid Panel 03/09/2026 03/09/2025, 04/05, 08/28/2022, Additional history exists Colonoscopy 05/22/2028 05/22/2023 Colorectal Cancer Screening 05/22/2028 Hepatitis B Vaccines Completed 09/24/2006, 05/21/2006, 04/16/2006 Hepatitis C Screening Completed 01/14/2023 Pneumococcal Vaccine: 50+ Years Completed 09/21/2024, 09/14/2024, 10/11/2013, Additional history exists Zoster Vaccines Completed 03/02/2025, 09/04, 12/27/2014 HIB Vaccines Aged Out No longer eligi ble based on patient's age to complete this topic HPV Vaccines Aged Out No longer eligi ble based on patient's age to complete this topic Hepatitis A Vaccines Aged Out No long er eligible based on patient's age to complete this topic IPV Vaccines Aged Out No longer eligi ble based on patient's age to complete this topic Meningococcal B Vaccine Aged Out No l onger eligible based on patient's age to complete this topic Meningococcal Vaccine Aged Out No rubén glenis eligible based on patient's age to complete this topic RSV under 20 months Aged Out No longe r eligible based on patient's age to complete this topic Rotavirus Vaccines Aged Out No longer eligible based on patient's age to complete this topic Procedures Procedure Name Priority Date/Time Associated Diagnosis Comments LIPID PANEL, STANDARD Routine 03/09/2025 8:37 AM EDT Mixed hyperlipidemia TSH W/REFLEX TO FT4 Routine 03/09/2025 8 :37 AM EDT Acquired hypothyroidism BASIC METABOLIC PANEL Routine 03/09/2025 8:37 AM EDT Stage 2 chronic kidney disease POCT GLYCATED HEMOGLOBIN, TOTAL Routine 03/03/2025 11:41 AM EDT Type 2 diabetes mellitus with diabetic polyneuropathy, with long-term current use of insulin ([facility]) POCT GLUCOSE Routine 03/03/2025 11:39 AM EDT Type 2 diabetes mellitus with diabetic polyneuropathy, with long-term current use of insulin ([facility]) URINALYSIS, COMPLETE Routine 02/13/2025 7:22 PM EDT BLOOD CULTURE (SECOND) Routine 02/13/2025 5:03 PM EDT BLOOD CULTURE (FIRST) Routine 02/13/2025 5:[address] HEAD WO CONTRAST Routine 02/13/2025 4 :42 PM EDT XR CHEST 2 VIEWS Routine 02/13/2025 4:36 PM EDT HIGH SENSITIVITY TROPONIN I Routine 02/13/2025 4:04 PM EDT B TYPE NATRIURETIC PEPTIDE (BNP) Routine 02/13/2025 4:04 PM EDT LACTIC ACID Routine 02/13/2025 4:04 PM EDT LIPASE Routine 02/13/2025 4:04 PM EDT COMPREHENSIVE METABOLIC PANEL Routine 02/13/2025 4:04 PM EDT CBC WITH AUTO DIFFERENTIAL Routine 02/13/2025 4:04 PM EDT ALBUMIN, RANDOM URINE W/CREATININE Routine 04/30/2024 9:45 AM EDT Type 2 diabetes mellitus with diabetic polyneuropathy, with long-term current use of insulin (CMS/HCC) HM COLONOSCOPY Routine 05/22/2023 HEPATITIS C ANTIBODY Routine 01/14/2023 2:18 PM EDT from Last 3 Months or Most Recently Relevant to Health Maintenance Results * TSH W/Reflex to FT4 (03/09/2025 8:37 AM EDT) TSH reflex Free T4 2.91 0.32 - 4.0 uIU/mL [facility] Blood Venous blood specimen / Unknown 03/09/2025 8:37 AM EDT 03/09/2025 11:31 AM EDT Arya Vera MD LAB BLOOD ORDERABLES Final Result Performing Organization Address [facility] Co de Phone Number [facility] [address] [place] [phone] * (ABNORMAL) Lipid Panel, Standard (03/09/2025 8:37 AM EDT) Triglycerides 70 <150 mg/dL [facility] Comment:Desirable Triglyceri de: less than 150 mg/dLBorderline High Triglyceride 150-199 mg/dLHigh Triglyceride: 200-499 mg/dLVery High Triglyceride: greater than or equal to 5OO mg/dL Cholesterol 105 <200 mg/dL [facility] Comment:Desirable Cholestero l: less than 200 mg/dLBorderline High Cholesterol: 200-239 mg/dLHigh Cholesterol: greater than 239 mg/dL LDL Cholesterol Calculated 56 <100 mg/dL [facility] Comment:Desirable LDL: less than 100 mg/dLNear Optimal/Above Optimal LDL: 110- 129 mg/dLBorderline High LDL: 130-159 mg/dLHigh LDL: 160-189 mg/dLVery High LDL: greater than or equal to 190 mg/dL HDL Cholesterol 35(L) >40 mg/dL [facility] Comment:Desirable HDL: great er than 40 mg/dL Note: This HDL assay may give artificially low results in patients with liver disease. Blood Venous blood specimen / Unknown 03/09/2025 8:37 AM EDT 03/09/2025 11:31 AM EDT Arya Vera MD LAB BLOOD ORDERABLES Final Result Performing Organization Address [facility]/ZIP Co de Phone Number [facility] [address] [place] [phone] * (ABNORMAL) Basic Metabolic Panel (03/09/2025 8:37 AM EDT) Sodium 143 135 - 145 mmol/L [facility] Potassium 4.9 3.3 - 5.1 mmol/L [facility] Chloride 109(H) 96 - 108 mmol/L [facility] Carbon Dioxide 27 22 - 29 mmol/L [facility] Anion Gap 12 12 - 20 [facility] Urea Nitrogen (BUN) 15 9 - 16 mg/dL [facility] Creatinine, Serum 1.40 0.5 - 1.4 mg/dL [facility] Estimated Glomerular Filt Rate 49 [facility] Comment:Chronic Kidney Disea se: Estimated GFR < 60 mL/min/1.27b1Dzifzq Kidney Disease: Estimated GFR < 15 mL/min/1.73m2 Glucose 124(H) 60 - 115 mg/dL [facility] Calcium 9.5 8.4 - 10.2 mg/dL [facility] Blood Venous blood specimen / Unknown 03/09/2025 8:37 AM EDT 03/09/2025 11:31 AM EDT Arya Vera MD LAB BLOOD ORDERABLES Final Result Performing Organization Address City/State/[facility] Co de Phone Number [facility] [address] [place] [phone] * (ABNORMAL) POCT HGB A1C (03/03/2025 11:41 AM EDT) Pathologist [facility] Hemoglobin A1C 9.7(A) 4.0 - 5.7 % QC Media Lot # [id number] Lot# Expiration Date [id number] Blood 03/03/2025 11:4 1 AM EDT Arya Vera MD POINT OF CARE TEST EN TER/EDIT ORDERABLES Final Result * POCT Glucose (03/03/2025 11:39 AM EDT) Pathologist [facility] Glucose Blood, POC 194 60 - 200 mg/dL QC Media Lot # [id number] Lot# Expiration Date [id number] Blood Capillary blood specimen / Unknown 03/03/2025 11:39 AM EDT Arya Vera MD POINT OF CARE TEST EN TER/EDIT ORDERABLES Final Result * (ABNORMAL) Urinalysis Complete (02/13/2025 7:22 PM EDT) Color Urine Yellow [facility] Appearance Urine Clear [facility] PH 5.5 5.0 - 9.0 [facility] Glucose Urine UA >=1000(A) Negative mg/dL [facility] Urine Blood Negative Negative [facility] Specific [place] - Urine 1.025 1.005 - 1.025 [facility] Urine Protein 30 (1+)(A) Neg-Trace mg/dL [facility] Urine Ketones Negative Negative mg/dL [facility] Nitrite Urine Negative Negative [facility] Leukocyte Esterase Urine Negative Negative [facility] RBC Urine 0-2 0 - 2 /HPF [facility] Urine WBC 0-5 0 - 5 /HPF [facility] Urine Squamous Epithelial Cell 0-2 0 - 2 /HPF [facility] Urine Bacteria None Seen None Seen [facility] Hyaline Casts, Urine 0-2 0 - 2 /LPF [facility] 02/13/2025 7:22 PM EDT 02/13/2025 7:24 PM EDT us Generic External Data Provider LAB URINE ORDERAB LES Final Result [facility] [address] [place] [phone] * Blood Culture (First) (02/13/2025 5:03 PM EDT) Blood Venous blood specimen / Unknown 02/13/2025 5:03 PM EDT 02/13/2025 5:07 PM EDT Comment:Blood [facility] - 02/18/2025 7:07 PM EDT Blood Culture (First) No growth after 5 days. Specimen Source: Blood Generic External Data Provider LAB MICROBIOLOGY - GENERAL ORDERABLES Final Result Performing Organization Address [facility] de Phone Number [facility] [address] [place] [phone] * Blood Culture (Second) (02/13/2025 5:03 PM EDT) Blood Venous blood specimen / Unknown 02/13/2025 5:03 PM EDT 02/13/2025 5:07 PM EDT Comment:Blood [facility] - 02/18/2025 7:07 PM EDT Blood Culture (Second) No growth after 5 days. Specimen Source: Blood Generic External Data Provider LAB MICROBIOLOGY - GENERAL ORDERABLES Final Result Performing Organization Address [facility] de Phone Number [facility] [address] [place] [phone] * CT Head w/o Contrast (02/13/2025 4:42 PM EDT) Anatomical Region Laterality Modality Head, Neck Computed Tomogra phy 02/13/2025 4:42 PM EDT Narrative 02/13/2025 4:43 PM EDT [address] [address] [address] Scan Report Signed Patient: Feliberto Vallejo MR#: [id number] : 1950 Acct:[id number] Age/Sex: 74 / M ADM Date: 02/13/25 Loc: .ED Attending Dr: Ordering Physician: Gerard Blancas Date of Service: 02/13/25 Procedure(s): CT head/brain wo IV con Accession Number(s): [id number] cc: Arya Rosenthal MD; Gerard Blancas Report Number: [id number]: Total DLP = 676.00 mGy-cm CLINICAL HISTORY: weakness CT head without contrast Comparison: 05/01/2023 Findings: Motion artifact limits interpretation. No evidence of acute territorial infarct. There is patchy low density in the periventricular and subcortical white matter. Diffuse volume loss is noted. No hydrocephalus. No hemorrhage, mass effect, mass lesion or midline shift. No abnormal extra-axial fluid. No calvarial fracture. Paranasal sinuses and mastoid air cells are clear. Impression: No acute intracranial process. Chronic changes as detailed. The study is somewhat degraded by motion artifact. This document has been electronically signed by: Husam Rosario MD on 02/13/2025 16:42:35 Dictated By: Husam Rosario MD Signed By: <Electronically signed by Husam Rosario MD in OV> 02/13/251642 DD/ 41 TD/TT: 02/13/251641 Fire Alarm Dispatcher: Procedure Note Donotuseinterpreter, Image - 02/13/[address] [place] [address] [address] Scan Report Signed Patient: Carol Vallejo#: [id number] : 1950Acct:[id number] Age/Sex: 74 / MADM Date: 02/13/25 Loc: HO.ED Attending Dr: Ordering Physician: Gerard Blancas Date of Service: 02/13/25 Procedure(s): CT head/brain wo IV con Accession Number(s): [id number] cc: Arya Rosenthal MD; Gerard Blancas Report Number: [id number]: Total DLP = 676.00 mGy-cm CLINICAL HISTORY: weakness CT head without contrast Comparison: 05/01/2023 Findings: Motion artifact limits interpretation. No evidence of acute territorial infarct. There is patchy low density in the periventricular and subcortical white matter. Diffuse volume loss is noted. No hydrocephalus. No hemorrhage, mass effect, mass lesion or midline shift. No abnormal extra-axial fluid. No calvarial fracture. Paranasal sinuses and mastoid air cells are clear. Impression: No acute intracranial process. Chronic changes as detailed. The study is somewhat degraded by motion artifact. This document has been electronically signed by: Husam Rosario MD on 02/13/2025 16:42:35 Dictated By: Husam Rosario MD Signed By: <Electronically signed by Husam Rosario MD in OV> 02/13/25 1643 DD/ 1642 TD/TT: 02/13/25 1642 Fire Alarm Dispatcher: [facility] External Provider IMG CT PROCEDURES Final Result * XR Chest 2 Views (02/13/2025 4:36 PM EDT) Anatomical Region Laterality Modality Chest Radiographic Valery ging 02/13/2025 4:36 PM EDT Narrative 02/13/2025 4:38 PM EDT [address] [address] XRay Report Signed Patient: Felibreto Vallejo MR#: [id number] : 1950 Acct:[id number] Age/Sex: 74 / M ADM Date: 02/13/25 Loc: .ED Attending Dr: Ordering Physician: Gerard Blancas Date of Service: 02/13/25 Procedure(s): XR chest 2V Accession Number(s): [id number] cc: Arya Rosenthal MD; Gerard Blancas CLINICAL HISTORY: weakness 1 view chest Comparison: CR/AZ/SR - XR CHEST 2V - 11/06/23 13:00 EDT Findings: Cardiac and mediastinal contours are normal. Mild interstitial prominence with scattered peribronchial thickening. Patchy density along the left heart border. No effusion. No pneumothorax. No acute osseous finding. Impression: Probable left lower lobe pneumonia. Follow-up recommended to ensure resolution. This document has been electronically signed by: Husam Rosario MD on 02/13/2025 16:36:55 Dictated By: Husam Rosario MD Signed By: <Electronically signed by Husam Rosario MD in OV> 02/13/25 1638 DD/ 1636 TD/TT: 02/13/25 1636 Fire Alarm Dispatcher: Procedure Note Donotuseinterpreter, Image - 02/13/[address] [address] XRay Report Signed Patient: Carol Vallejo#: [id number] : 1950Acct:[id number] Age/Sex: 74 / MADM Date: 02/13/25 Loc: HO.ED Attending Dr: Ordering Physician: Gerard Blancas Date of Service: 02/13/25 Procedure(s): XR chest 2V Accession Number(s): [id number] cc: Arya Rosenthal MD; Gerard Blancas CLINICAL HISTORY: weakness 1 view chest Comparison: CR/AZ/SR - XR CHEST 2V - 11/06/23 13:00 EDT Findings: Cardiac and mediastinal contours are normal. Mild interstitial prominence with scattered peribronchial thickening. Patchy density along the left heart border. No effusion. No pneumothorax. No acute osseous finding. Impression: Probable left lower lobe pneumonia. Follow-up recommended to ensure resolution. This document has been electronically signed by: Husam Rosario MD on 02/13/2025 16:36:55 Dictated By: Husam Rosario MD Signed By: <Electronically signed by Husam Rosario MD in OV> 02/13/25 1638 DD/ 1636 TD/TT: 02/13/25 1636 Fire Alarm Dispatcher: [facility] External Provider IMG XR PROCEDURES Final Result * High Sensitivity Troponin I (02/13/2025 4:04 PM EDT) TROPONIN I HIGH SENSITIVITY 20.6 <3.5 - 35.0 ng/L [facility] Comment:The [place]eda high sens itivity Troponin-I results should beused in conjunction with other diagnostic information suchas ECG, clinical observations and information, and patientsymptoms to aid in the diagnosis of HI. 02/13/2025 4:04 PM EDT 02/13/2025 4:07 PM EDT Generic External Data Provider LAB BLOOD ORDERAB LES Final Result [facility] [address] [place], [place] [phone] * (ABNORMAL) CBC auto differential (02/13/2025 4:04 PM EDT) White Blood Count 11.1(H) 4.8 - 10.8 X10*3/uL [facility] Red Blood Count 5.06 4.60 - 5.80 X10*6/uL [facility] Hemoglobin 13.2(L) 14.0 - 18.0 g/dl [facility] Hematocrit 38.8(L) 42.0 - 52.0 % [facility] Mean Corpuscular Volume 76.7(L) 80.0 - 98.0 fL [facility] Mean Corpuscular Hemoglobin 26.1(L) 27.0 - 33.0 pg [facility] Mean Corpuscular HGB Conc 34.0 31.0 - 36.0 g/dl [facility] Red Cell Distribution Width 14.1 11.0 - 16.0 % [facility] Platelet Count 211 160 - 400 X10*3/uL [facility] Mean Platelet Volume 9.4 9.4 - 12.4 fL [facility] Neutrophils Percent Auto 82.3(H) 45 - 73 % [facility] Imm Gran Pct Auto 0.3 0.0 - 0.4 % [facility] Lymphocytes Percent Auto 8.6(L) 20 - 40 % [facility] Monocytes Percent Auto 7.7 2 - 11 % [facility] Eosinophils Percent Auto 0.6 0 - 4 % [facility] Basophils Percent Auto 0.5 0 - 2 % [facility] NRBC Pct Auto 0.0 0.0 - 0.2 /100WBC [facility] Neutrophils Absolute Auto 9.1(H) 2.0 - 8.3 x10*3/uL [facility] Imm Gran Abs Auto 0.03 0.00 - 0.03 X10*3/uL [facility] Lymphocytes Absolute Auto 1.0(L) 1.2 - 4.9 X10*3/uL [facility] Monocytes Absolute Auto 0.9 0.1 - 1.2 X10*3/uL [facility] Eosinophils Absolute Auto 0.1 0.0 - 0.4 X10*3/uL [facility] Basophils Absolute Auto 0.1 0.0 - 0.2 X10*3/uL [facility] NRBC Abs Auto 0.000 0.0 - 0.012 X10*3/uL [facility] 02/13/2025 4:04 PM EDT 02/13/2025 4:07 PM EDT us Generic External Data Provider LAB BLOOD ORDERAB LES Final Result Performing Organization Address [facility]/ZIP Co de Phone Number [facility] [address] [place] [phone] * B Type Natriuretic Peptide (BNP) (02/13/2025 4:04 PM EDT) B Type Natriuretic Peptide 76 <100 pg/mL [facility] 02/13/2025 4:04 PM EDT 02/13/2025 4:07 PM EDT us Generic External Data Provider LAB BLOOD ORDERAB LES Final Result Performing Organization Address City/[facility]/ZIP Co de Phone Number [facility] [address] [place] [phone] * Lipase (02/13/2025 4:04 PM EDT) Lipase 26 8 - 78 U/L [facility] 02/13/2025 4:04 PM EDT 02/13/2025 4:07 PM EDT us Generic External Data Provider LAB BLOOD ORDERAB LES Final Result Performing Organization Address City/[facility]/ZIP Co de Phone Number [facility] [address] [place] [phone] * Lactic Acid (02/13/2025 4:04 PM EDT) Lactic Acid 1.3 0.5 - 2.0 mmol/L [facility] 02/13/2025 4:04 PM EDT 02/13/2025 4:07 PM EDT us Generic External Data Provider LAB BLOOD ORDERAB LES Final Result [facility] [address] [place] [phone] * (ABNORMAL) Comprehensive Metabolic Panel (02/13/2025 4:04 PM EDT) Sodium 139 135 - 145 mmol/L [facility] Potassium 5.3(H) 3.3 - 5.1 mmol/L [facility] Chloride 104 96 - 108 mmol/L [facility] Carbon Dioxide 25 22 - 29 mmol/L [facility] Anion Gap 15 12 - 20 [facility] Urea Nitrogen (BUN) 30(H) 9 - 16 mg/dL [facility] Creatinine, Serum 1.80(H) 0.5 - 1.4 mg/dL [facility] Creatinine Clr Calc Pharmacy 28.5 [facility] Comment:eGFR (calculated fro m the MDRD study equation) and eCrCl(calculated from the Cockcroft-Gault equation) are based ondifferent parameters and may not yield comparable results.If eCrCl result is absurd, please check patient'sheight/weight. Estimated Glomerular Filt Rate 37 [facility] Comment:Chronic Kidney Disea se: Estimated GFR < 60 mL/min/1.65z1Gozqwt Kidney Disease: Estimated GFR < 15 mL/min/1.73m2 Glucose 191(H) 60 - 115 mg/dL [facility] Calcium 10.4(H) 8.4 - 10.2 mg/dL [facility] Bilirubin, Total 0.5 0.0 - 1.0 mg/dL [facility] Aspartate Amino Transferase 48(H) 5 - 37 U/L [facility] Alanine Aminotransferase 30 0 - 40 U/L [facility] Total Protein 8.6(H) 6.5 - 8.0 g/dL [facility] Albumin Level 4.7 3.5 - 5.0 g/dL [facility] Alkaline Phosphatase 80 39 - 117 U/L [facility] 02/13/2025 4:04 PM EDT 02/13/2025 4:07 PM EDT us Generic External Data Provider LAB BLOOD ORDERAB LES Final Result Performing Organization Address [facility]/ZIP Co de Phone Number [facility] [address] [place] [phone] * (ABNORMAL) Albumin, Random Urine W/Creatinine (04/30/2024 9:45 AM EDT) Creatinine, Urine 71.38 mg/dL [facility] Microalbumin Urine 103.0 mg/L [facility] Microalbum Creatinine Ratio Ur 144.2(H) <30 ug/mg cr [facility] Comment:Albumin/Creatinine R atio Reference Ranges: Normal: < 30 ug/mg creatinine Microalbuminuria: 30 - 300 ug/mg creatinineClinical Albuminuria: > 300 ug/mg creatinine Urine (Urine, Random) 04/30/2024 9:45 AM EDT 04/30/2024 11:12 AM EDT us Arya Vera MD LAB URINE ORDERABLES Final Result Performing Organization Address City/[facility]/ZIP Co de Phone Number [facility] [address] [place] [address] [phone] * Hm Colonoscopy (05/22/2023) Colonoscopy Normal Normal us Historical Provider HEALTH MAINTENANCE Final Result * (ABNORMAL) Hepatitis C Ab (01/14/2023 2:18 PM EDT) Hepatitis C Antibody Reactive( A) Nonreactive [facility] Comment:Presumptive evidence of antibodies to HCV. 01/14/2023 2:18 PM EDT 01/14/2023 2:19 PM EDT us [facility] External Provider LAB BLO OD ORDERABLES Final Result [facility] [address] [place], [place] [phone] from Last 3 Months or Most Recently Relevant to Health Maintenance Insurance [facility] ASSISTED OPTIONS (O D-SNP) [employer] [id number] Care Teams Catapult And Arresting Gear Officer Relationship Specialty Start Date End Date Arya Masterson MD [address] [place] [address] PCP - General Internal Medicine 03/21/14
--- OUTSIDE RECORDS SUMMARY | 2025-04-05 11:21 | XMS_ITS | Encounter Summary ---
Author Organization [facility] Address [address] [place] [address] Phone Care Team Providers Care Auto Tire Recapper Name Role Phone Arya Lin MD Primary Care Provider Unav ailable Encounter Details Date Type Department Care Team (Late st Contact Info) Description 02/02/2021 Orders Only [facility] [address] [place] [phone] Osvaldo Ren MD [address] [place] [phone] Type 2 diabetes mellitus with diabetic nephropathy [...] as of this encounter Plan of Treatment Not on file documented as of this encounter Visit Diagnoses Diagnosis 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
--- OUTSIDE RECORDS SUMMARY | 2025-04-05 11:22 | XMS_ITS | Encounter Summary ---
Author Organization [employer] Address [address] [facility] 7t [place] [address] Care Team Providers Care Business Process Expert Name Role Phone Arya Masterson MD Primary Care Provide r Encounter Details Date Type Department Care Team ([facility] st Contact Info) Description 01/17/2025 Orders Only [facility] MED[facility] [address] [place], [place] [phone] Arya Masterson MD [address] [place], [place] [phone] Type 2 diabetes mellitus with diabetic polyneuropathy, with long-term current use of insulin ([facility]) Social History Tobacco Use Types Packs/Day Years Used Date Smoking Tobacco: Never Passive Smoke Exposure: Never Smokeless Tobacco: Never Alcohol Use Standard Drinks/Week Comments Not Asked 0 (1 standard drink = 0.6 oz pur e alcohol) Depression Answer Date Recorded Patient Health Questionnaire-9 Score 0 01/20/2024 Patient Health Questionnaire-9 Score 0 01/20/2024 Last PHQ-9: Questionnaire Data Not on file 0 01/20/2024 Housing Stability Answer Date Recorded What is your housing situation today? I have shahab modi 11/06/[address] you li ve. Do you have problems with any of the following? None of the above 11/06/2023 Food Insecurity Answer Date Recorded Within the past 12 months, y ou worried that your food would run out before you got money to buy more: Never True 11/06/2023 Within the past 12 months,th e food you bought just didn't last and you didn't have enough money to get more: Never True 11/2023 Transportation Answer Date Recorded In the past 12 months, has l ack of transportation kept you from medical appts, meetings, work or from getting things needed for daily living? No 11/06/2023 Utilities Answer Date Recorded In the past 12 months, has t he electric, gas, oil or water company threatened to shut off services in your home? No 11/06/2023 Depression Answer Date Recorded Patient Health Questionnaire-2 Score 0 01/20/2024 Sex and Gender Information Value Date Recorded Sex Assigned at Male 06/03/2022 10:14 AM EDT Legal Sex Male 10:14 AM EDT Gender Identity Male 06/03/2022 10:14 AM EDT Sexual Orientation Straight 06/03/2022 10 :14 AM EDT documented as of this encounter Plan of Treatment Upcoming Encounters Date Type Department Care Team (Late st Contact Info) Description 05/31/2025 11:15 AM EDT Office Visit [facility] MEDICINE [address] [place] [phone] Arya Mastersno MD [address] [place] [phone] documented as of this encounter Visit Diagnoses Diagnosis Type 2 diabetes mellitus with diabetic polyneuropathy, with long-term current use of insulin ([facility]) documented in this encounter Additional Health Concerns Assessment Noted Time PHQ-9 Depression Total Score: 0 01/20/20 24 11:21 AM EDT documented as of this encounter Care Teams Business Process Expert Relationship Specialty Start Date End Date Arya Masterson MD [address] [place] [phone] PCP - General Internal Medicine 03/21/14 documented as of this encounter
--- OUTSIDE RECORDS SUMMARY | 2025-04-05 11:22 | XMS_ITS | Patient Health Record ---
Author Organization [facility] Address [address] [place] [address] Care Team Providers Care Incident Response Manager Name Role Phone Riley Vera MD, Arya Primary Care Provide r Unavailable David Andujar Jr Unavailable Tara GRAY, Sj Unavailable Unavailable Reason For Referral No Information Plan Of Treatment No Information Insurance Providers Payer Name Payer Address Payer Phone Subscriber Number Group Number Insured Name Patient Relationship to Insured Coverage Start Date Coverage End Date [facility] [address] [place] [address] [id number] VERO AMIN Self - patient is the insured
--- OUTSIDE RECORDS SUMMARY | 2025-04-05 11:22 | XMS_ITS | Encounter Summary ---
Author Organization [employer] Address [address] [facility] 7t [place] [address] Care Team Providers Care Gas Station Cashier Name Role Phone Arya Masterson MD Primary Care Provide r Reason for Visit * Reason Comments Med Refill Encounter Details Date Type Department Care Team ([facility] st Contact Info) Description 02/29/2024 Refill [facility] MEDICINE [address] [place], [place] [phone] Arya Masterson MD [address] [place], [place] [phone] Primary insomnia Social History Tobacco Use Types Packs/Day Years [...] 05/31/2025 11:15 AM EDT Office Visit [facility] MEDICINE [address] [place] [address] Arya Masterson MD [address] [place] [address] documented as of this encounter Visit Diagnoses Diagnosis Primary insomnia Persistent disorder of initiating or maintaining sleep documented in this encounter Additional Health Concerns Assessment Noted Time PHQ-9 Depression Total Score: 0 01/20/20 24 11:21 AM EDT documented as of this encounter Care Teams Gas Station Cashier Relationship Specialty Start Date End Date Arya Masterson MD [address] [place] [phone] PCP - General Internal Medicine 03/21/14 documented as of this encounter
--- OUTSIDE RECORDS SUMMARY | 2025-04-05 11:22 | XMS_ITS | Clinical Summary ---
Author Organization [facility] Address [address] [place] [address] [address] [place] [phone] Phone Care Team Providers Care Creative Producer Name Role Phone Unavailable Primary Care Provider Unavailabl e Allergies Active Allergy Reactions Criticality Noted Date Comments Enalapril High 08/02/2010 Other reaction(s): hyperkalemia Hydrochlorothiazide Palpitations Low 08/02/2010 Blurry vision Medications Aspirin Adult Low Strength 81 MG EC tablet TOME KM TABLETA TODOS LOS D 1 Active amLODIPine (NORVASC) 10 MG tablet Take 5 mg by mouth Active brimonidine (ALPHAGAN) 0.2 % ophthalmic solution APLIQUE KM GOTA EN EN LOS DOS OJOS DOS VECES AL D A 1 Active Cobalamin Combinations (Foltrate) 500-1 MCG-MG tablet Active [facility] Vitamin B12 1000 MCG tablet controlled-relea se TOME KM TABLETA POR V A ORAL TODOS LOS D 1 Active gabapentin (NEURONTIN) 300 MG capsule TOME KM C PSULA DOS VECES AL D A 1 Active hydrocortisone 2.5 % cream 1 Active Lantus 100 UNIT/ML injection 11 Units 1 Active ketoconazole (NIZORAL) 2 % cream 1 Active Multiple Vitamin (Multivitamin) tablet TOME KM TABLETA TODOS LOS D CON ALIMENTO 1 Active pantoprazole (PROTONIX) 40 MG EC tablet TOME KM TABLETA TODOS LOS D 1 Active rosuvastatin (CRESTOR) 20 MG tablet Take 1 tablet by mouth 1 (one) time each day Active Januvia 50 MG tablet TOME KM TABLETA DIARIAMENTE 1 Active temazepam (RESTORIL) 15 MG capsule TOME KM C PSULA TODOS LOS D AL ACOSTARSE CUANDO SEA NECESARIO PARA LA ANSIEDAD 1 Active [facility] Pain Relief 500 MG tablet TOME KM TABLETA POR V A ORAL CADA OCHO HORAS CUANDO SEA NECESARIO PARA EL DOLOR 1 Active BD Insulin Syringe U/F 31G X 12/17 1 ML misc 1 Active lisinopril 20 MG tablet Take 1 tablet (20 mg total) by mouth 1 (one) time each day 90 tablet 3 2 Active Additional Information Patient not taking.Reported on 03/07/2022 lactulose (Kristalose) 10 g packet Take 1 packet (10 g total) by mouth in the morning and 1 packet (10 g total) in the evening. 180 packet 5 2 Active Veltassa 8.4 g pack MIX 1 PACKET WITH WATER AND TAKE BY MOUTH ONCE DAILY 90 each 5 3 Active Jardiance 25 MG tablet TAKE 1 TABLET BY MOUTH 1 TIME EACH DAY. 90 tablet 5 3 Active Active Problems Problem Noted Date Diagnosed Date Unintentional weight loss 11/06/2023 Degeneration of lumbar intervertebral disc 12/24 Overview (03/24/2025): Xray 12/2022 Polyneuropathy due to type 2 diabetes mellitus 0 08/27/2022 Acquired hypothyroidism 08/12/2022 Impaired cognition 08/12/2022 Hyperkalemia 02/20/2022 Hypertensive disorder 01/22/2022 Hypertensive heart disease without heart failure 11/13/2020 Chronic kidney disease stage 2 11/13/2020 Benign essential hypertension 12/25/2017 Ventricular septal defect 07/17/2017 History of malignant neoplasm of colon 4 Glaucoma 10/11/2013 Anemia 10/11/2013 History of viral hepatitis 02/07/2012 Resolved Problems Problem Noted Date Diagnosed Date Resolved Date Anxiety 01/22/2022 09/03/2022 Cardiac murmur 01/22/2022 09/03/2022 Congenital heart disease 01/22/2022 Diabetes mellitus 01/22/2022 09/03/2022 Ex-smoker 01/22/2022 09/03/2022 Gallstone 01/22/2022 09/03/2022 Hyperlipidemia 01/22/2022 09/03/2022 Intravenous drug user 01/22/20222022 Old myocardial infarction 01/22/2022 Osteoarthritis 01/22/2022 09/03/2022 Polyp of colon 01/22/2022 09/03/2022 Overview (01/22/2022): tubular adenomas of the colon 2017 Viral hepatitis C 01/22/2022 09/03/2022 Type 2 diabetes mellitus with complication 01/14/2017 09/03/2022 Malignant neoplasm of ascending colon 01/14/2017 09/03/2022 Aortic valve regurgitation 01/14/2017 0 09/03/2022 Gastroesophageal reflux disease 04/28/2014 09/03/2022 History of aortic valve replacement 03/26/2014 09/03/2022 Aortic valve disorder 03/10/20142022 Coronary artery disease of c oronary artery bypass graft 11/12/2003 09/03/2022 Immunizations Immunization Administration Dates Next Due Hepatitis B 09/24/2006,05/21/2006,04/16/2006 Influenza Split 04/22/2013,05/01/2012 Influenza Split High Dose Pr eservative Free IM 04/27/2024,05/07/2018 Influenza, Quadrivalent, Preservative Free 05/16,04/26/2019 Influenza, Quadrivalent, With Preservative 06/09,05/02/2016,05/30/2015 Moderna SARS-COV-2 08/13/2021,10/26/2020, 021 Pneumococcal Conjugate Pcv 20 09/14/2024 Pneumococcal Polysaccharide 09/21/2024, 4,06/24/2001 Shingrix 03/02/2025,09/21/2024 Td 09/28/2004 Tdap 12/27/2014 Zoster 12/27/2014 Social History Tobacco Use Types Packs/Day Years Used Date Smoking Tobacco: Former Smokeless Tobacco: Never Alcohol Use Standard Drinks/Week Comments No 0 (1 standard drink = 0.6 oz pur e alcohol) Sex and Gender Information Value Date Recorded Sex Assigned at Not on file Legal Sex Male 5:24 PM EST Gender Identity Not on file Sexual Orientation Not on file Last Filed Vital Signs Vital Sign Reading Time Taken Comments Blood Pressure 130/71 03/07/2022 9:05 AM EDT Pulse 59 03/07/2022 9:05 AM EDT Temperature - - Respiratory Rate - - Oxygen Saturation 100% 03/07/2022 9:05 AM EDT Inhaled Oxygen Concentration - - Weight 61.7 kg (136 lb) 03/07/2022 9:05 AM EDT Height 167.6 cm (5' 6 ) 01/22/2022 1:33 PM EDT Body Mass Index 21.95 01/22/2022 1:33 PM EDT Plan of Treatment Health Maintenance Due Date Last Done Comments Colorectal Cancer Screening: Annual FOBT 1998 Colorectal Cancer Screening: Colonoscopy 1998 Colorectal Cancer Screening: Sigmoidoscopy 1998 Diabetes: Ophthalmology Exam 03/03/2025 Diabetes: Pedal Pulse Checked 03/03/2025 Diabetes: Sensory Foot Exam 03/03/2025 Diabetes: Visual Foot Exam 03/03/2025 Influenza Vaccine (#1) 2025 4, 05/16/2020, 04/26/2019, Additional history exists Diabetes: Hemoglobin A1C 06/03/2025 025, 01/22/2022, 07/20/2021, Additional history exists Hepatitis B Vaccine Aged Out 09/24/2006, 05/21/2006, 04/16/2006 No longer eligible based on patient's age to complete this topic Pneumococcal Vaccine: 50+ Years Completed 09/21/2024, 09/14/2024, 10/11/2013, Additional history exists Pneumococcal Vaccine: Peds (0 to 5 Years) and At-Risk Patients (6 to 49 Years) Discontinued 09/21/2024, 09/14/2024, 10/11/2013, Additional history exists Procedures Procedure Name Priority Date/Time Associated Diagnosis Comments HEMOGLOBIN A1C Routine 01/22/2022 1:58 PM EDT from Last 3 Months or Most Recently Relevant to Health Maintenance Results * (ABNORMAL) Hemoglobin A1c (01/22/2022 1:58 PM EDT) Hemoglobin A1C 7.0(H) (4.0-5.6) % [facility] Comment: MONITORING: In known diabetic patients, hemoglobin A1c targets should be discussed with health care provider. DIAGNOSTIC USE: The [place] Diabetes Association (ADA) and the World Health Organization (WHO) recommend the use of HbA1c to diagnose diabetes using a threshold of 6.5%. Patients who have an HbA1c between 5.7% and 6.4% are considered at increased risk for developing diabetes in the future. CAUTION: Falsely low HbA1c results may be observed in patients with hemolytic anemia, homozygous forms of abnormal hemoglobin (e.g. SS, CC, SC), , recent blood loss or hemoglobin F greater than 7%. Fructosamine may be used as an alternate test in these cases. REFERENCE: ADA: Standards of Medical Care in Diabetes 2020, The Journal of Clinical and Applied Research and Education Volume 43, Supplement 1 Testing performed or reported by [facility], a Service of [facility], [address] [place] [id number] Oli Quiñones MD, Collateral Analyst [facility]# [id number] 01/22/2022 1:58 PM EDT 01/22/2022 2:00 PM EDT us Osvaldo Ren MD LAB BLOOD ORDERABLES Final Re sult [facility] from Last 3 Months or Most Recently Relevant to Health Maintenance Insurance [facility]
--- OUTSIDE RECORDS SUMMARY | 2025-04-05 11:22 | XMS_ITS | Encounter Summary ---
Author Organization [employer] Address [address] [facility] 7t [place] [address] Care Team Providers Care User Experience Lead Name Role Phone Arya Masterson MD Primary Care Provide r Reason for Visit * Reason Comments Med Refill Encounter Details Date Type Department Care Team ([facility] st Contact Info) Description 03/15/2025 Refill [facility] [address] [place], [place] [phone] Arya Masterson MD [address] [place], [place] [phone] Acquired hypothyroidism Social History Tobacco Use Types [...] housing situation today? I have shahab modi 03/03/[address] you li [...] Upcoming Encounters Date Type Department Care Team ([facility] st Contact Info) Description 05/31/2025 11:15 AM EDT Office Visit [facility] MEDICINE [address] [place] [phone] Arya Masterson MD [address] [place] [phone] documented as of this encounter Visit Diagnoses Diagnosis Acquired hypothyroidism Unspecified hypothyroidism documented in this encounter Additional Health Concerns Assessment Noted Time PHQ-9 Depression Total Score: 2 03/03/20 25 12:11 PM EDT documented as of this encounter Care Teams User Experience Lead Relationship Specialty Start Date End Date Arya Masterson MD [address] [place] [phone] PCP - General Internal Medicine 03/21/14 documented as of this encounter
== END 2025-04-05 10:54 | disposition home or self-care (01) ==
LOC: HO.HKA 10:01
PROVIDERS: PCP Internal Medicine; Referring Provider Internal Medicine; Visit Provider Internal Medicine Critical Care Medicine
DX: E11.22 Type 2 diabetes mellitus with diabetic chronic kidney disease (principal); N18.30 Chronic kidney disease, stage 3 unspecified
CPT/HCPCS: 99204

== ENCOUNTER → 2025-04-05 10:01 | Outpatient (BNVA) | payer OTHER, SELFPAY | PROVIDERS: PCP Internal Medicine; Referring Provider Internal Medicine; Visit Provider Internal Medicine Critical Care Medicine | DX: E11.22 Type 2 diabetes mellitus with diabetic chronic kidney disease (principal); N18.30 Chronic kidney disease, stage 3 unspecified; R80.9 Proteinuria, unspecified | CPT/HCPCS: 99202 ==

== ENCOUNTER 2025-04-05 11:01 | Outpatient (REF) | payer OTHER, SELFPAY ==
[2025-04-05 13:48] LABS: Hemoglobin A1C 258.2575 umol/L; Total Hemoglobin (HGBA1C) 3280.2141 umol/L
[2025-04-05 14:00] LABS: Microalbum/Creatinine Ratio Ur 31.8 ug/mg cr (<30); Total Protein Urine Random 11 mg/dL (<12)
[2025-04-05 14:06] LABS: Iron 73 mcg/dL (45-160); Percent Iron Saturation 21 % (15-50); Total Iron Binding Capacity 355 mcg/dL (228-428); Unsaturated Iron Binding 282 ug/dL
[2025-04-05 14:49] LABS: Parathyroid Hormone Intact 224.7 pg/mL (8.7-77.1)
[2025-04-06 08:33] LABS: HBS Num1 69.64 mIU/mL (0-7.99); HBc Num1 0.79 S/CO (0.00-0.79); HBsAGNum1 0.62 S/CO (0.00-0.99); HIV Num 1 0.06 S/CO (0.00-0.99); Hepatitis B Surface Antigen Negative (Negative); ~HepC Num1 12.63 S/CO (0.00-0.79); ~Hepatitis B Surface Antibody REACTIVE (Nonreactive); ~Hepatitis C Antibody Reactive (Nonreactive)
[2025-04-06 21:53] LABS: PES - Abn Protein Band 1 0.2 g/dL (NONE DETECTED); Prot Elec - Albumin 4.3 g/dL (3.8-4.8); Prot Elec - Alpha1 0.3 g/dL (0.2-0.3); Prot Elec - Alpha2 1.2 g/dL (0.5-0.9); Prot Elec - Beta 1 0.5 g/dL (0.4-0.6); Prot Elec - Beta 2 0.4 g/dL (0.2-0.5); Prot Elec - Gamma 1.5 g/dL (0.8-1.7); Prot Elec - Total Protein 8.2 g/dL (6.1-8.1)
[2025-04-06 22:08] LABS: Proteinase 3 PR3 Antibodies <1.0 AI
[2025-04-07 11:17] LABS: Anti Nuclear Antibody Screen NEGATIVE (NEGATIVE)
[2025-04-11 10:33] LABS: PEU-Protein Creat Ratio Rand 0.191 (0.025-0.148); PEU-Rand. Prot/Creat Ratio 191 mg/g creat (25-148); PEU-Random Ur. Gamma Globulin 22 %; PEU-Random Urine A1 Globulin 11 %; PEU-Random Urine A2 Globulin 16 %; PEU-Random Urine Albumin 31 %; PEU-Random Urine Beta Globulin 21 %; PEU-Random Urine Creatinine 68 mg/dL (20-320); PEU-Random Urine Protein 13 mg/dL (5-25)
[2025-04-11 16:18] LABS: Kappa, Serum 483 mg/dL (176-443); Kappa/Lambda Ratio, Serum 3.14 (1.29-2.55); Lambda, Serum 154 mg/dL (91-240)
== END 2025-04-05 11:02 | disposition home or self-care (01) ==
LOC: HO.10HDL 11:01
PROVIDERS: Visit Provider Internal Medicine Critical Care Medicine
DX: E11.22 Type 2 diabetes mellitus with diabetic chronic kidney disease (principal); N18.30 Chronic kidney disease, stage 3 unspecified; R80.9 Proteinuria, unspecified
CPT/HCPCS: 82043; 82306; 82570; 83036; 83540; 83883; 83970; 84100; 84156; 84165; 84166; 86021; 86038; 86160; 86704; 86706; 86803; 87340; 87389

== ENCOUNTER 2025-04-26 13:19 | Outpatient (AMB) | payer OTHER, SELFPAY ==
--- NOTE | 2025-04-26 13:21 | A.OFFVIS_ITS ---
Vital Signs 04/26/25 13:26 Height 5 ft 5 in Weight 130 lb 1.164 oz BMI 21.6 BP 132/64 Blood Pressure Location Rt brachial Position Sitting Pulse 50 Pulse Source Pulse Oximeter Pulse Oximetry (%) 99 Oxygen Delivery Method Room Air Intake Visit Reasons: T2DM Intake Note: New patient externally referred by PCP for T2DM. Diabetes testing supplies to fingerstick is [employer]. Last Diabetic Eye exam: January 11, 2025, f/u is May 2025 [facility] Last Podiatry Visit: Does not see a Liquid Flavor Compounder Random Glucose: 110 mg/dl Hgb A1C: 9.4% 04/05/2025 Wool Grader Required: No Accompanied by: Daughter Allergies canagliflozin (Invokana) Allergy (Intermediate, Verified 04/26/25 13:28) hives hydralazine (HYDRALAZINE) Allergy (Intermediate, Verified 04/26/25 13:28) SHOULDER PAIN enalapril Adverse Reaction (Intermediate, Verified 04/26/25 13:28) Dizziness hydrochlorothiazide (HYDROCHLOROTHIAZIDE) Adverse Reaction (Intermediate, Verified 04/26/25 13:28) Dizziness potassium (POTASSIUM) Adverse Reaction (Intermediate, Verified 04/26/25 13:28) Dizziness Medication List - Last Reconciled 04/26/25 by Danish Trujillo MD acetaminophen (Pain Relief Extra Strength (acetaminophen)) 1,000 mg PO Q6H PRN aspirin 81 mg PO DAILY brimonidine 0.2% 1 drp ophthalmic (eye) BID cholecalciferol (vitamin D3) 125 mcg PO DAILY empagliflozin (Jardiance) 25 mg PO DAILY fluticasone propionate 50 mcg/actuation 1 - 2 sprays intranasal DAILY PRN insulin glargine (Lantus Solostar U-100 Insulin) 12 units subcut DAILY insulin syringe-needle U-100 Once a day levothyroxine 25 mcg PO DAILY lisinopril 5 mg PO DAILY 30 days memantine 10 mg PO BID 90 days multivitamin with folic acid 400 mcg (Daily-Tunde (with folic acid)) 1 tab PO DAILY pantoprazole 40 mg PO DAILY rosuvastatin 20 mg PO QAM HPI Comments Details: 74 yo male with DM type 2, today for fup visit . Last seen by Dr. Denson on 12/25/2020 for diabetes management. He has DM diagnosed 20 years ago, PMD is Arya Rosenthal M.D. He is Currently on Lantus 12 units at 10 pm, Jardiance 25 mg q.d. Unfortunately, patient not bring log book, glucometer or sensor to follow up visit No hypoglycemia Patient has PMH of liver disease, Hep C, h/o colon cancer, Vit B12 deficiency, GERD. s/p aortic valve replacement bioprosthetic Complications: no retinopathy, + nephropathy, neuropathy, CVA, CAD, PVD. Had positive microalbumin in 2013, now resolved. Last ophthalmology evaluation: 01/11/2025 , no need for photocoagulation or VEGF therapy. Occasional Nocturia, 1 time, polyuria, denies numbness, + occasional tingling. He lost 3 lb since last visit. Laboratory Tests 04/12/19 04/12/19 04/12/19 10:01 10:01 10:03 Hgb Hct Sodium Potassium BUN Creatinine Est GFR (Non-Af Amer) POC Glucose Hgb A1c Fingerstick Fructosamine 308 H Calcium AST ALT Albumin Triglycerides 50 Cholesterol 139 LDL Cholesterol Direct 104 H LDL Cholesterol, Calc 91 HDL Cholesterol 38 D Vitamin B12 TSH Thyroxine (T4) Ur Random Creatinine 27.94 Ur Random Microalbumin < 5.0 Microalb/Creat Ratio TNP 01/26/20 01/27/20 01/27/20 17:30 00:53 06:40 Hgb 11.1 L Hct 33.4 L Sodium Potassium BUN Creatinine Est GFR (Non-Af Amer) POC Glucose Hgb A1c Fingerstick Fructosamine Calcium 8.8 D AST 23 ALT 21 Albumin 4.4 Triglycerides Cholesterol LDL Cholesterol Direct LDL Cholesterol, Calc HDL Cholesterol Vitamin B12 TSH Thyroxine (T4) Ur Random Creatinine Ur Random Microalbumin Microalb/Creat Ratio 01/28/20 02/07/20 02/07/20 07:41 13:25 13:34 Hgb Hct Sodium 137 Potassium 5.4 H BUN 21 H Creatinine 1.41 H Est GFR (Non-Af Amer) 50 POC Glucose 149 H Hgb A1c Fingerstick 6.8 Fructosamine Calcium AST ALT Albumin Triglycerides Cholesterol LDL Cholesterol Direct LDL Cholesterol, Calc HDL Cholesterol Vitamin B12 TSH Thyroxine (T4) Ur Random Creatinine Ur Random Microalbumin Microalb/Creat Ratio 10/30/20 10/30/20 15:08 15:08 Hgb Hct Sodium Potassium BUN Creatinine Est GFR (Non-Af Amer) POC Glucose Hgb A1c Fingerstick Fructosamine Calcium AST ALT Albumin Triglycerides Cholesterol LDL Cholesterol Direct LDL Cholesterol, Calc HDL Cholesterol Vitamin B12 699 TSH 4.24 H Thyroxine (T4) 5.7 Ur Random Creatinine Ur Random Microalbumin Microalb/Creat Ratio [facility] Medical History Congenital ventricular septal defect Unintentional 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 Social History Household Members: Spouse Housing: House Alcohol intake: former Patient Tobacco Use Status: Never used Tobacco Advance Directives Date on File: 02/28/22 service: No Current occupational status: retired Physical Exam Absence of Cushingoid features. Absence of acromegalic features. Neck exam reveals nl size thyroid about 15 gms. No thyroid nodules palpable. No carotid bruits present. Lungs CTA. Heart S1 S2, Reg R/R. No M/R/ G. Skin exam reveals absence of vitiligo or acanthosis nigricans. Abdominal exam reveals Soft NT/ND with NA BS. No organomegaly present. Neck Other: . Extrem Other: Visual exam of foot performed. No ulcerations or open lesions. No onchomycosis, no callouses.Pulses 2 + distally Sensation intact to monofilament exam. Vibratory sensation sensed is intact with 128 Hz tuning fork Assessment & Plan Assessment & Plan (1) Diabetes type 2, uncontrolled: Code(s): E11.65 - Type 2 diabetes mellitus with hyperglycemia Category: Medical Plan: This is a 74-year-old male with a history of type 2 diabetes being treated with Jardiance and basal-bolus insulin with poor glycemic control and known microvascular and macrovascular complications namely , + nephropathy CKD stage 3, neuropathy, CVA, CAD, PVD. Goal of hemoglobin A1c should be l< 7.5% Plan is to have the patient's self monitor pre and post meals. We will attempt to prescribe Angel 3+ sensor and reader. We will have patient see CDE and tile setter apprentice. Can not make any changes to the diabetic regimen today because of lack of data. We will check anti-jeff 65 antibody to rule out DONNA Went over the correlation of poor glycemic control to development of progression of complications with patient and daughter. We will have patient follow up with primary care diabetes team in 2 months. Also prescribed Baqimi nasal spray Plan This is Orders: Orders Glutamic acid decarboxylase Ab Today E11.65 - Type 2 diabetes mellitus with hyperglycemia Referrals Diabetes Education Referral E11.65 - Type 2 diabetes mellitus with hyperglycemia Nutrition/Dietitian Referral E11.65 - Type 2 diabetes mellitus with hyperglycemia Medications: New blood-glucose sensor (FreeStyle Angel 3 Plus Sensor device) As directed change every 15 days 2 ea 4RF blood-glucose,occupational health physician,cont (FreeStyle Angel 3 [place]) As directed 1 ea 0RF Baqsimi 3 mg/actuation (glucagon) 3 mg intranasal ONCE 2 ea 4RF NS Coding Level of Care Code Est Pt Level 4 (91106) Diagnoses Diabetes type 2, uncontrolled E11.65
[2025-04-26 13:26] VITALS: BP 132/64; PULSE 50; O2SAT 99; BMI 21.6
[2025-04-26 13:37] LABS: Glucose, Whole Blood 110 mg/dL (60-115)
--- OUTSIDE RECORDS SUMMARY | 2025-04-26 16:21 | XMS_ITS | Encounter Summary ---
Author Organization [employer] Address [address] [place] [address] Care Team Providers Care Granite Cutter Apprentice Name Role Phone Arya Masterson MD Primary Care Provide r Reason for Visit * Reason Comments Med Refill Encounter Details Date Type Department Care Team ([facility] st Contact Info) Description 09/15/2023 Refill [facility] [address] [place], [place] [phone] Arya Masterson MD [address] [place], [place] [phone] Acquired hypothyroidism Social History Tobacco Use Types [...] Description 05/31/2025 11:15 AM EDT Office Visit [facility] [address] [place] [id number] Arya Masterson MD [address] [place] [address] documented as of this encounter Visit Diagnoses Diagnosis Acquired hypothyroidism Unspecified hypothyroidism documented in this encounter Additional Health Concerns Assessment Noted Time PHQ-9 Depression Total Score: 0 01/08/20 23 1:27 PM EDT documented as of this encounter Care Teams Granite Cutter Apprentice Relationship Specialty Start Date End Date Arya Masterson MD [address] [place] [id number] PCP - General Internal Medicine 03/21/14 documented as of this encounter
--- OUTSIDE RECORDS SUMMARY | 2025-04-26 16:21 | XMS_ITS | Patient Health Record ---
Author Organization [facility] Address [address] [place] [address] Care Team Providers Care Principal Data Architect Name Role Phone Riley Vera MD, Arya Primary Care Provide r Unavailable David Andujar Jr Unavailable [phone] Tara GRAY, Sj Unavailable Unavailable Reason For Referral No Information Plan Of Treatment No Information Insurance Providers Payer Name Payer Address Payer Phone Subscriber Number Group Number Insured Name Patient Relationship to Insured Coverage Start Date Coverage End Date [facility] [address] [place] [phone] [id number] VERO AMIN Self - patient is the insured
--- OUTSIDE RECORDS SUMMARY | 2025-04-26 16:21 | XMS_ITS | Clinical Summary ---
Author Organization [employer] Address [address] [place] [address] [address] [place] [address] Care Team Providers Care Drawing In Hand Name Role Phone Arya Masterson MD Primary Care Provide r Allergies Active Allergy Reactions Criticality Noted Date Comments Enalapril High 08/02/2010 Other reaction(s): hyperkalemia Hydrochlorothiazide Palpitations Low 08/02/2010 Blurry vision Medications Veltassa 8.4 g pack MIX 1 PACKET WITH WATER AND TAKE BY MOUTH ONCE DAILY 023 Active fluticasone (Flonase) 50 MCG/ACT nasal sprayIndications: Acquired hypothyroidism spray 1 - 2 spray by intranasal route every day in each nostril as needed 48 g 3 024 Active Continuous Glucose Hospice Spiritual Care Coordinator (FreeStyle Angel 2 [place]) deviceIndications :Type 2 diabetes mellitus with diabetic polyneuropathy, with long-term current use of insulin ([facility]) Scan sensor every 8 hours 1 each 024 Active Continuous Glucose Sensor (FreeStyle Angel 2 Sensor) miscIndications:T ype 2 diabetes mellitus with diabetic polyneuropathy, with long-term current use of insulin ([facility]) Apply 1 sensor every 14 days 2 each 3 024 Active Multiple Vitamin (Daily-Tunde Multivitamin) tabletIndications :Acquired hypothyroidism TAKE 1 TABLET BY MOUTH EVERY DAY WITH FOOD 90 tablet 3 024 Active amLODIPine (Norvasc) 5 MG tabletIndications :Benign essential hypertension TAKE 1 TABLET BY MOUTH EVERY DAY 90 tablet 3 024 Active rosuvastatin (Crestor) 20 MG tablet TAKE 1 TABLET BY MOUTH EVERY DAY IN THE MORNING 90 tablet 3 024 Active memantine (Namenda) 10 MG tablet Take 1 tablet by mouth 2 times daily. 025 Active Aspirin Low Dose 81 MG EC tablet TAKE 1 TABLET BY MOUTH EVERY DAY 90 tablet 3 025 Active pantoprazole (ProtoNix) 40 MG EC tabletIndications :Gastroesophageal reflux disease without esophagitis TAKE 1 TABLET BY MOUTH EVERY DAY IN THE MORNING, DO NOT BREAK, CRUSH, DISSOLVE OR CHEW 90 tablet 3 025 Active Lantus SoloStar 100 UNIT/ML pen INJECT 12 UNIT BY SUBCUTANEOUS ROUTE ONCE DAILY 3 mL 11 025 Active pen needle 31G x 6 mm miscIndications:T ype 2 diabetes mellitus with diabetic polyneuropathy, with long-term current use of insulin ([facility]) Use one pen needle to inject insulin once daily 90 each 3 025 2025 Active Jardiance 25 MGIndications:Typ e 2 diabetes mellitus with diabetic polyneuropathy, with long-term current use of insulin ([facility]) TAKE 1 TABLET BY MOUTH EVERY DAY 30 tablet 6 025 Active levothyroxine (Synthroid, Levoxyl) 25 MCG tabletIndications :Acquired hypothyroidism TAKE 1 TABLET BY MOUTH EVERY DAY IN THE MORNING 90 tablet 1 025 Active Jardiance 25 MGIndications:Typ e 2 diabetes mellitus with diabetic polyneuropathy, with long-term current use of insulin ([facility]) Take 1 tablet (25 mg) by mouth Once per day. 30 tablet 6 025 2024 Discontinued levothyroxine (Synthroid, Levoxyl) 25 MCG tabletIndications :Acquired hypothyroidism TAKE 1 TABLET (25 MCG) BY MOUTH IN THE MORNING 90 tablet 1 025 2024 Discontinued Active Problems Problem Noted Date Diagnosed Date [...] colon 2018 Needs repeat Will refer to [facility] Primary insomnia 08/27/2022 Assessment & Plan (09/14/2024 11:38 AM EST): Pt with previous c/o intermittent insomnia, No longer using Temazepam. Assessment & Plan (08/27/2022 2:16 PM EST): Pt with previous c/o intermittent insomnia, Currently using Temazepam PRN. [facility] care 08/27/2022 Assessment & Plan (03/03/2025 12:02 PM EDT): PSA 11/06/2023 Normal Colonoscopy: colonoscopy at [facility] in 09/2017 that showed a Tubular Adenoma colonoscopy (05/22/2023) showed one polyp (Bx colonic mucosa with minor crypt distortion; negative for adenomatous dysplasia). Assessment & Plan (04/27/2024 11:30 AM EDT): PSA 11/06/2023 Normal Colonoscopy: colonoscopy at [facility] in 09/2017 that showed a Tubular Adenoma colonoscopy (05/22/2023) showed one polyp (Bx colonic mucosa with minor crypt distortion; negative for adenomatous dysplasia). Assessment & Plan (08/27/2022 2:16 PM EST): Colonoscopy: colonoscopy at [facility] in 09/2017 that showed a Tubular Adenoma, [...] care of Cardiology Last Cardiology note from [facility] 08/2023 12 month follow up recommended Assessment [...] care of Cardiology Last Cardiology note from [facility] 10/12/2024 12 month follow up recommended Assessment [...] care of Cardiology Last Cardiology note from [facility] 08/2023 12 month follow up recommended Assessment [...] care of Cardiology Last Cardiology note from [facility] 08/2023 12 month follow up recommended Assessment [...] year f/u. records requested Referral places to [facility] . Pt was seen 01/22/2022 [...] colonoscopy, last one 2017 Was seen by [facility] Jackie Espinoza, Repeat 05/2023 showed 1. [...] repeat colonoscopy, last 2017 Was seen by [facility] Jackie Espinoza, Repeat 05/2023 showed 1. [...] repeat colonoscopy, last 2017 Was seen by [facility] C[facility] Dr Jackie Espinoza, already scheduled for EGD/Colonoscopy for March 27 2023 Assessment & Plan (01/16/2023 9:29 AM EDT): Pt due for repeat colonoscopy, last 2017 Was seen by [facility] Jackie Espinoza, already scheduled for EGD/Colonoscopy [...] with Dr. Morfin He had colonoscopy at [facility] in 09/2017 that showed a Tubular [...] 2014). This was communicated to his new Section Cutter Dr. Jackie Espinoza Assessment & Plan (08/27/2022 2:12 PM EST): Pt with a Hx of chronic Hep C. Pt is immune to Hep A and B. Abdominal US 08/12/2018 was unremarkable Alpha fetoprotein 07/23/2018 was wnl. Pt used to be under the care of the liver clinic, finished Rx with [facility]. Diabetes mellitus, type II 01/15/2012 Assessment & [...] Endocrinology, he needs close follow up with unit educator, supervisor rough end Eye exam was last done by Dr. Hinds (field artillery crewmember). He reports he was seen January 11, [...] was last done 02/19/[address] Hinds (field artillery crewmember). Microalbumin checked on: 11/02/2021 was: 1.2 Pt [...] was last done 02/19/[address] Hinds (field artillery crewmember). Microalbumin checked on: 11/02/2021 was: 1.2 Pt [...] was last done 02/19/[address] Hinds (field artillery crewmember). Microalbumin checked on: 11/02/2021 was: 1.2 Pt [...] was last done 02/19/[address] Hinds (field artillery crewmember). Microalbumin checked on: 11/02/2021 was: 1.2 Pt [...] was last done 05/28/[address] Hinds (field artillery crewmember). Microalbumin checked on: 11/02/2021 was: 1.2 Pt [...] was last done 05/28/[address] Hinds (field artillery crewmember). Microalbumin checked on: 11/02/2021 was: 1.2 Pt [...] Encounters Date Type Department Care Team Description 04/26/2025 Orders Only GENERIC EXTERNAL DATA DEPARTMENT Provider, Generic External Data 04/16/2025 Refill [facility] [address] [place] [address] Arya Masterson MD Acquired hypothyroidism 04/11/2025 Refill [facility] [address], [place] [phone] Arya Masterson MD Type 2 diabetes mellitus with diabetic polyneuropathy, with long-term current use of insulin ([facility]) 04/10/2025 Refill [facility] [address] [place] [address] Arya Masterson MD Type 2 diabetes mellitus with diabetic polyneuropathy, with long-term current use of insulin ([facility]) 03/15/2025 Refill [facility] [address] [place] [address] Arya Masterson MD Acquired hypothyroidism 03/03/2025 11:30 AM EDT Office Visit [facility] [address] [place] [address] Arya Masterson MD Type 2 diabetes mellitus with diabetic polyneuropathy, with long-term current use of insulin ([facility]) (Primary Dx); Benign essential hypertension; Mixed hyperlipidemia; Ventricular septal defect; Stage 2 chronic kidney disease; Preventative health care; Impaired cognition 03/03/2025 Travel 03/02/2025 Telephone [facility] [address] [place] [phone] Arya Masterson MD chart prep 02/13/2025 Orders Only GENERIC EXTERNAL DATA DEPARTMENT Provider, Generic External Data from Last 3 Months Immunizations Immunization Administration [...] Description 05/31/2025 11:15 AM EDT Office Visit [facility] [address] [place] [address] Arya Masterson MD [address] [place], [place] [phone] Health Maintenance Due Date Last Done Comments CT Colonography 1950 FIT DNA/Cologuard 1950 FIT 1950 FOBT 1950 Sigmoidoscopy 1950 Diabetes: Foot Exam 11/12/1959 Eye Exam 11/12/1959 RSV Patients and Patients Aged 60 years or older (1 - 1-dose 75+ series) 2024 DTaP/Tdap/Td Vaccines (2 - Td or Tdap) 12/27/2024 12/27/2014, 09/28/2004 COVID-19 Vaccine ( season) 2025 05/20/2022, 08/13/2021, 10/26/2020, Additional history exists Influenza Vaccine (#1) 2025 , 06/03/2023, 05/21/2022, Additional history exists Diabetes: Urine Protein Screening 04/30/2025 04/30/2024, 11/02/2021, 12/25/2020, Additional history exists Diabetes: Hemoglobin A1C 06/03/2025 025, 09/14/2024, 04/27/2024, Additional history exists Alcohol/Substance Use Screening 09/14/2025 09/14/2024 Tobacco Screening 09/14/2025 09/14/2024 Depression Screening 03/03/2026 03/03/2025, 03/03/20 SDOH Screening 03/03/2026 03/03/2025 Lipid Panel 03/09/2026 03/09/2025, 09/02/2024, 08/28/2022, Additional history exists Colonoscopy 05/22/2028 05/22/2023 [...] Procedure Name Priority Date/Time Associated Diagnosis Comments GLUCOSE, WHOLE BLOOD Routine 04/26/2025 1:34 PM EDT LIPID PANEL, STANDARD Routine 03/09/2025 8:37 AM EDT Mixed hyperlipidemia TSH W/REFLEX TO FT4 Routine 03/09/2025 8 :37 AM EDT Acquired hypothyroidism BASIC METABOLIC PANEL Routine 03/09/2025 8:37 AM EDT Stage 2 chronic kidney disease POCT GLYCATED HEMOGLOBIN, TOTAL Routine 03/03/2025 11:41 AM EDT Type 2 diabetes mellitus with diabetic polyneuropathy, with long-term current use of insulin (CMS/HCC) POCT GLUCOSE Routine 03/03/2025 11:39 AM EDT Type 2 diabetes mellitus with diabetic polyneuropathy, with long-term current use of insulin (CMS/HCC) URINALYSIS, COMPLETE Routine 02/13/2025 7:22 PM EDT [...] Recently Relevant to Health Maintenance Results * Glucose, Whole Blood (04/26/2025 1:34 PM EDT) Glucose, Whole Blood 110 60 - 115 mg/dL [facility] Comment:METER #: [id number] Testing performed in the Endocrinology Department [address] , [address], [facility]. 04/26/2025 1:34 PM EDT 04/26/2025 1:37 PM EDT us Generic External Data Provider LAB BLOOD ORDERAB LES Final Result Performing Organization Address [facility]/ZIP Co de Phone Number [facility] [address] [place] [phone] * TSH W/Reflex to FT4 (03/09/2025 8:37 AM EDT) Pathologist [facility] TSH reflex Free T4 2.91 0.32 - 4.0 uIU/mL [facility] Blood Venous blood specimen / Unknown 03/09/2025 8:37 AM EDT 03/09/2025 11:31 AM EDT us Arya Vera MD LAB BLOOD ORDERABLES Final Result Performing Organization Address City/[facility]/ZIP Co de Phone Number [facility] [address] [place] [phone] * (ABNORMAL) Lipid Panel, Standard (03/09/2025 8:37 AM EDT) Pathologist [facility] Triglycerides 70 <150 mg/dL [facility] Comment:Desirable Triglyceri de: less than 150 mg/dLBorderline High Triglyceride 150-199 mg/dLHigh Triglyceride: 200-499 mg/dLVery High Triglyceride: greater than or equal to 5OO mg/dL Cholesterol 105 <200 mg/dL [facility] Comment:Desirable Cholestero l: less than 200 mg/dLBorderline High Cholesterol: 200-239 mg/dLHigh Cholesterol: greater than 239 mg/dL LDL Cholesterol Calculated 56 <100 mg/dL [facility] Comment:Desirable LDL: less than 100 mg/dLNear Optimal/Above Optimal LDL: 110- 129 mg/dLBorderline High LDL: 130-159 mg/dLHigh LDL: 160-189 mg/dLVery High LDL: greater than or equal to 190 mg/dL HDL Cholesterol 35(L) >40 mg/dL [facility] Comment:Desirable HDL: great er than 40 mg/dL Note: This HDL assay may give artificially low results in patients with liver disease. Blood Venous blood specimen / Unknown 03/09/2025 8:37 AM EDT 03/09/2025 11:31 AM EDT us Arya Vera MD LAB BLOOD ORDERABLES Final Result [facility] [address] [place] [phone] * (ABNORMAL) Basic Metabolic Panel (03/09/2025 8:37 AM EDT) Sodium 143 135 - 145 mmol/L [facility] Potassium 4.9 3.3 - 5.1 mmol/L [facility] Chloride 109(H) 96 - 108 mmol/L [facility] Carbon Dioxide 27 22 - 29 mmol/L [facility] Anion Gap 12 12 - 20 [facility] Urea Nitrogen (BUN) 15 9 - 16 mg/dL [facility] Creatinine, Serum 1.40 0.5 - 1.4 mg/dL [facility] Estimated Glomerular Filt Rate 49 [facility] Comment:Chronic Kidney Disea se: Estimated GFR < 60 mL/min/[id number] Kidney Disease: Estimated GFR < 15 mL/min/1.73m2 Glucose 124(H) 60 - 115 mg/dL [facility] Calcium 9.5 8.4 - 10.2 mg/dL [facility] Blood Venous blood specimen / Unknown 03/09/2025 8:37 AM EDT 03/09/2025 11:31 AM EDT us Arya Vera MD LAB BLOOD ORDERABLES Final Result [facility] [address] [place] [phone] * (ABNORMAL) POCT HGB A1C (03/03/2025 11:41 AM EDT) Hemoglobin A1C 9.7(A) 4.0 - 5.7 % QC Media Lot # [id number] Lot# Expiration Date Blood 03/03/2025 11:4 1 AM EDT us Arya Vera MD POINT OF CARE TEST EN TER/EDIT ORDERABLES Final Result * POCT Glucose (03/03/2025 11:39 AM EDT) Glucose Blood, POC 194 60 - 200 mg/dL [employer] Lot # [id number] Lot# Expiration Date [id number] Blood Capillary blood specimen / Unknown 03/03/2025 11:39 AM EDT us Arya Vera MD POINT OF CARE TEST EN TER/EDIT ORDERABLES Final Result * (ABNORMAL) Urinalysis Complete (02/13/2025 7:22 PM EDT) Color Urine Yellow [facility] Appearance Urine Clear [facility] PH 5.5 5.0 - 9.0 [facility] Glucose Urine UA >=1000(A) Negative mg/dL [facility] Urine Blood Negative Negative [facility] Specific Radisson - Urine 1.025 1.005 - 1.025 [facility] Urine Protein 30 (1+)(A) Neg-Trace mg/dL [facility] Urine Ketones Negative Negative mg/dL [facility] Nitrite Urine Negative Negative [facility] Leukocyte Esterase Urine Negative Negative [facility] RBC Urine 0-2 0 - 2 /HPF [facility] Urine WBC 0-5 0 - 5 /HPF [facility] Urine Squamous Epithelial Cell 0-2 0 - 2 /HPF [facility] Urine Bacteria None Seen None Seen [facility] Hyaline Casts, Urine 0-2 0 - 2 /LPF [facility] 02/13/2025 7:22 PM EDT 02/13/2025 7:24 PM EDT Generic External Data Provider LAB URINE ORDERAB LES Final Result Performing Organization Address City/[facility]/ZIP Co de Phone Number [facility] [address] [place] [phone] * Blood Culture (First) (02/13/2025 5:03 PM EDT) Blood Venous blood specimen / Unknown 02/13/2025 5:03 PM EDT 02/13/2025 5:07 PM EDT Comment:Blood Narrative [facility] - 02/18/2025 7:07 PM EDT Blood Culture (First) No growth after 5 days. Specimen Source: Blood Generic External Data Provider LAB MICROBIOLOGY - GENERAL ORDERABLES Final Result Performing Organization Address City/[facility]/ZIP Co de Phone Number [facility] [address] [place] [address] [phone] * Blood Culture (Second) (02/13/2025 5:03 PM EDT) Blood Venous blood specimen / Unknown 02/13/2025 5:03 PM EDT 02/13/2025 5:07 PM EDT Comment:Blood Narrative [facility] - 02/18/2025 7:07 PM EDT Blood Culture (Second) No growth after 5 days. Specimen Source: Blood us Generic External Data Provider LAB MICROBIOLOGY - GENERAL ORDERABLES Final Result [facility] [address] [place] [phone] * CT Head w/o Contrast (02/13/2025 4:42 PM EDT) Anatomical Region Laterality Modality Head, Neck Computed Tomogra phy 02/13/2025 4:42 PM EDT Narrative 02/13/2025 4:43 PM EDT [address] [address] [address] Scan Report Signed Patient: Feliberto Vallejo MR#: [id number] : 1950 Acct:[id number] Age/Sex: 74 / M ADM Date: 02/13/25 Loc: HO.ED Attending Dr: Ordering Physician: Gerard Blancas Date of Service: 02/13/25 Procedure(s): CT head/brain wo IV con Accession Number(s): [id number] cc: Arya Rosenthal MD; Gerard Blancas Report Number: [id number]: Total DLP = 676.00 mGy-cm CLINICAL HISTORY: [...] 02/13/25 1643 DD/ 1642 TD/TT: 02/13/25 1642 Director Of People: Procedure Note Donotuseinterpreter, Image - 02/13/[address] [address] [address] Scan Report Signed Patient: Feliberto VallejoMR#: [id number] : 1950Acct:[id number] Age/Sex: 74 / MADM Date: 02/13/25 Loc: HO.ED Attending Dr: Ordering Physician: Gerard Blancas Date of Service: 02/13/25 Procedure(s): CT head/brain wo IV con Accession Number(s): [id number] cc: Arya Rosenthal MD; Gerard Blancas Report Number: [id number]: Total DLP = 676.00 mGy-cm CLINICAL HISTORY: [...] 02/13/25 1643 DD/ 1642 TD/TT: 02/13/25 1642 Director Of People: [facility] External Provider IMG CT PROCEDURES Final Result * XR Chest 2 Views (02/13/2025 4:36 PM EDT) Anatomical Region Laterality Modality Chest Radiographic Valery ging 02/13/2025 4:36 PM EDT Narrative 02/13/2025 4:38 PM EDT [address] [address] XRay Report Signed Patient: Feliberto Vallejo MR#: [id number] : 1950 Acct:[id number] Age/Sex: 74 / M ADM Date: 02/13/25 Loc: HO.ED Attending Dr: Ordering Physician: Gerard Blancas Date of Service: 02/13/25 Procedure(s): XR chest 2V Accession Number(s): [id number] cc: Arya Rosenthal MD; Gerard Blancas CLINICAL HISTORY: weakness 1 view chest Comparison: CR/RI/SR - XR CHEST 2V - 11/06/23 13:00 [...] 02/13/25 1638 DD/ 1636 TD/TT: 02/13/25 1636 Director Of People: Procedure Note Donotuseinterpreter, Image - 02/13/2025 [place] [address] XRay Report Signed Patient: Carol Vallejo#: [id number] : 1950Acct:[id number] Age/Sex: 74 / MADM Date: 02/13/25 Loc: .ED Attending Dr: Ordering Physician: Gerard Blancas Date of Service: 02/13/25 Procedure(s): XR chest 2V Accession Number(s): [id number] cc: Arya Rosenthal MD; Gerard Blancas CLINICAL HISTORY: weakness 1 view chest Comparison: CR/RI/SR - XR CHEST 2V - 11/06/23 13:00 [...] 02/13/25 1638 DD/ 1636 TD/TT: 02/13/25 1636 Director Of People: [facility] External Provider IMG XR PROCEDURES Final Result * High Sensitivity Troponin I (02/13/2025 4:04 PM EDT) Pathologist [facility] TROPONIN I HIGH SENSITIVITY 20.6 <3.5 - 35.0 ng/L [facility] Comment:The [place]eda high sens itivity Troponin-I results should beused in conjunction with other diagnostic information suchas ECG, clinical observations and information, and patientsymptoms to aid in the diagnosis of [place]. 02/13/2025 4:04 PM EDT 02/13/2025 4:07 PM EDT Generic External Data Provider LAB BLOOD ORDERAB LES Final Result [facility] [address] [place] [address] [phone] * (ABNORMAL) CBC auto differential (02/13/2025 4:04 PM EDT) Pathologist [facility] White Blood Count 11.1(H) 4.8 - 10.8 X10*3/uL [facility] Red Blood Count 5.06 4.60 - 5.80 X10*6/uL [facility] Hemoglobin 13.2(L) 14.0 - 18.0 g/dl [facility] Hematocrit 38.8(L) 42.0 - 52.0 % [facility] Mean Corpuscular Volume 76.7(L) 80.0 - 98.0 fL [facility] Mean Corpuscular Hemoglobin 26.1(L) 27.0 - 33.0 pg [facility] Mean Corpuscular HGB Conc 34.0 31.0 - 36.0 g/dl [facility] Red Cell Distribution Width 14.1 11.0 - 16.0 % [facility] Platelet Count 211 160 - 400 X10*3/uL [facility] Mean Platelet Volume 9.4 9.4 - 12.4 fL [facility] Neutrophils Percent Auto 82.3(H) 45 - 73 % [facility] Imm Gran Pct Auto 0.3 0.0 - 0.4 % [facility] Lymphocytes Percent Auto 8.6(L) 20 - 40 % [facility] Monocytes Percent Auto 7.7 2 - 11 % [facility] Eosinophils Percent Auto 0.6 0 - 4 % [facility] Basophils Percent Auto 0.5 0 - 2 % [facility] NRBC Pct Auto 0.0 0.0 - 0.2 /100WBC [facility] Neutrophils Absolute Auto 9.1(H) 2.0 - 8.3 x10*3/uL [facility] Imm Gran Abs Auto 0.03 0.00 - 0.03 X10*3/uL [facility] Lymphocytes Absolute Auto 1.0(L) 1.2 - 4.9 X10*3/uL [facility] Monocytes Absolute Auto 0.9 0.1 - 1.2 X10*3/uL [facility] Eosinophils Absolute Auto 0.1 0.0 - 0.4 X10*3/uL [facility] Basophils Absolute Auto 0.1 0.0 - 0.2 X10*3/uL [facility] NRBC Abs Auto 0.000 0.0 - 0.012 X10*3/uL [facility] 02/13/2025 4:04 PM EDT 02/13/2025 4:07 PM EDT us Generic External Data Provider LAB BLOOD ORDERAB LES Final Result [facility] [address] [place] [phone] * B Type Natriuretic Peptide (BNP) (02/13/2025 4:04 PM EDT) Pathologist [facility] B Type Natriuretic Peptide 76 <100 pg/mL [facility] 02/13/2025 4:04 PM EDT 02/13/2025 4:07 PM EDT Generic External Data Provider LAB BLOOD ORDERAB LES Final Result Performing Organization Address City/[facility]/ZIP Co de Phone Number [facility] [address] [place] [address] [phone] * Lipase (02/13/2025 4:04 PM EDT) Pathologist [facility] Lipase 26 8 - 78 U/L [facility] 02/13/2025 4:04 PM EDT 02/13/2025 4:07 PM EDT us Generic External Data Provider LAB BLOOD ORDERAB LES Final Result Performing Organization Address [facility] Co de Phone Number [facility] [address] [place] [address] [phone] * Lactic Acid (02/13/2025 4:04 PM EDT) [facility] Lactic Acid 1.3 0.5 - 2.0 mmol/L [facility] 02/13/2025 4:04 PM EDT 02/13/2025 4:07 PM EDT Generic External Data Provider LAB BLOOD ORDERAB LES Final Result Performing Organization Address [facility] Co de Phone Number [facility] [address] [place] [address] [phone] * (ABNORMAL) Comprehensive Metabolic Panel (02/13/2025 4:04 PM EDT) [facility] Sodium 139 135 - 145 mmol/L [facility] Potassium 5.3(H) 3.3 - 5.1 mmol/L [facility] Chloride 104 96 - 108 mmol/L [facility] Carbon Dioxide 25 22 - 29 mmol/L [facility] Anion Gap 15 12 - 20 [facility] Urea Nitrogen (BUN) 30(H) 9 - 16 mg/dL [facility] Creatinine, Serum 1.80(H) 0.5 - 1.4 mg/dL [facility] Creatinine Clr Calc Pharmacy 28.5 [facility] Comment:eGFR (calculated fro m the MDRD study equation) and eCrCl(calculated from the Cockcroft-Gault equation) are based ondifferent parameters and may not yield comparable results.If eCrCl result is absurd, please check patient'sheight/weight. Estimated Glomerular Filt Rate 37 [facility] Comment:Chronic Kidney Disea se: Estimated GFR < 60 mL/min/[id number] Kidney Disease: Estimated GFR < 15 mL/min/1.73m2 Glucose 191(H) 60 - 115 mg/dL [facility] Calcium 10.4(H) 8.4 - 10.2 mg/dL [facility] Bilirubin, Total 0.5 0.0 - 1.0 mg/dL [facility] Aspartate Amino Transferase 48(H) 5 - 37 U/L [facility] Alanine Aminotransferase 30 0 - 40 U/L [facility] Total Protein 8.6(H) 6.5 - 8.0 g/dL [facility] Albumin Level 4.7 3.5 - 5.0 g/dL [facility] Alkaline Phosphatase 80 39 - 117 U/L [facility] 02/13/2025 4:04 PM EDT 02/13/2025 4:07 PM EDT us Generic External Data Provider LAB BLOOD ORDERAB LES Final Result [facility] [address] [place] [address] [phone] * (ABNORMAL) Albumin, Random Urine W/Creatinine (04/30/2024 9:45 AM EDT) Creatinine, Urine 71.38 mg/dL HO [facility] Microalbumin Urine 103.0 mg/L H [facility] Microalbum Creatinine Ratio Ur 144.2(H) <30 ug/mg cr [facility] Comment:Albumin/Creatinine R atio Reference Ranges: Normal: < 30 ug/mg creatinine Microalbuminuria: 30 - 300 ug/mg creatinineClinical Albuminuria: > 300 ug/mg creatinine Urine (Urine, Random) 04/30/2024 9:45 AM EDT 04/30/2024 11:12 AM EDT Arya Vera MD LAB URINE ORDERABLES Final Result Performing Organization Address [facility] [employer] de Phone Number [facility] [address] [place] [address] [phone] * Colonoscopy (05/22/2023) Pathologist [facility] Colonoscopy Normal Normal Historical [facility] Final Result * (ABNORMAL) Hepatitis C Ab (01/14/2023 2:18 PM EDT) Pathologist [facility] Hepatitis C Antibody Reactive( A) Nonreactive [facility] Comment:Presumptive evidence of antibodies to HCV. 01/14/2023 2:18 PM EDT 01/14/2023 2:19 PM EDT [facility] External Provider LAB BLO OD ORDERABLES Final Result Performing Organization Address [facility] Co de Phone Number [facility] [address] [place] [address] [phone] from Last 3 Months or Most Recently Relevant to Health Maintenance Insurance [facility] USP OPTIONS (O D-SNP) [place] [place] [id number] Care Teams Drawing In Hand Relationship Specialty Start Date End Date Arya Masterson MD [address] [place] [address] [place] [phone] PCP - General Internal Medicine 03/21/14
--- OUTSIDE RECORDS SUMMARY | 2025-04-26 16:21 | XMS_ITS | Encounter Summary ---
Author Organization [employer] Address [address] [facility] 7t [place] [address] Care Team Providers Care Gyroscopic Engineering Technician Name Role Phone Arya Masterson MD Primary Care Provide r Encounter Details Date Type Department Care Team ([facility] st Contact Info) Description 01/17/2025 Orders Only [facility] [address] [place], [place] [phone] Arya Masterson MD [address] [place], [place] [phone] Type 2 diabetes mellitus with diabetic polyneuropathy, with long-term current use of insulin ([facility]) Social History Tobacco Use Types Packs/Day Years [...] Description 05/31/2025 11:15 AM EDT Office Visit [facility] [address] [place] [phone] Arya Masterson MD [address] [place] [phone] documented as of this encounter Visit Diagnoses Diagnosis Type 2 diabetes mellitus with diabetic polyneuropathy, with long-term current use of insulin ([facility]) documented in this encounter Additional Health Concerns Assessment Noted Time PHQ-9 Depression Total Score: 0 01/20/20 24 11:21 AM EDT documented as of this encounter Care Teams Gyroscopic Engineering Technician Relationship Specialty Start Date End Date Arya Masterson MD [address] [place] [phone] PCP - General Internal Medicine 03/21/14 documented as of this encounter
--- OUTSIDE RECORDS SUMMARY | 2025-04-26 16:21 | XMS_ITS | Encounter Summary ---
Author Organization [employer] Address [address] [facility] 7t [place] [address] Care Team Providers Care Operations Agent Name Role Phone Arya Masterson MD Primary Care Provide r Encounter Details Date Type Department Care Team (Late st Contact Info) Description 04/26/2025 Orders Only GENERIC EXTERNAL DATA DEPARTMENT Provider, Generic External Data Social History Tobacco Use Types Packs/Day Years [...] is your housing situation today? I have shahabdedrick modi 03/03/[address] you [...] 05/31/2025 11:15 AM EDT Office Visit [facility] [address] [place] [address] Arya Masterson MD [address] [place] [address] documented as of this encounter Procedures Procedure Name Priority Date/Time Associated Diagnosis Comments GLUCOSE, WHOLE BLOOD Routine 04/26/2025 1:34 PM EDT documented in this encounter Results * Glucose, Whole Blood (04/26/2025 1:34 PM EDT) Glucose, Whole Blood 110 60 - 115 mg/dL [facility] Comment:METER #: [id number] Testing performed in the Endocrinology Department [address] , [address], [facility]. 04/26/2025 1:34 PM EDT 04/26/2025 1:37 PM EDT us Generic External Data Provider LAB BLOOD ORDERAB LES Final Result [facility] [address] [place] [address] [phone] documented in this encounter Visit Diagnoses Not on filedocumented in this encounter Additional Health Concerns Assessment Noted Time PHQ-9 Depression Total Score: 2 03/03/20 25 12:11 PM EDT documented as of this encounter Care Teams Operations Agent Relationship Specialty Start Date End Date Arya Masterson MD [address] [place] [address] PCP - General Internal Medicine 03/21/14 documented as of this encounter
--- OUTSIDE RECORDS SUMMARY | 2025-04-26 16:21 | XMS_ITS | Encounter Summary ---
Author Organization [employer] Address [address] [facility] 7t [place] [address] Care Team Providers Care Cotton Presser Name Role Phone Arya Masterson MD Primary Care Provide r Reason for Visit * Reason Comments Med Refill Encounter Details Date Type Department Care Team ([facility] st Contact Info) Description 02/29/2024 Refill [facility] [address] [place], [place] [phone] Arya Masterson MD [address] [place], [place] [phone] Primary insomnia Social History Tobacco Use Types [...] Description 05/31/2025 11:15 AM EDT Office Visit [facility] [address] [place] [address] Arya Masterson MD [address] [place] [address] documented as of this encounter Visit Diagnoses Diagnosis Primary insomnia Persistent disorder of initiating or maintaining sleep documented in this encounter Additional Health Concerns Assessment Noted Time PHQ-9 Depression Total Score: 0 01/20/20 24 11:21 AM EDT documented as of this encounter Care Teams Cotton Presser Relationship Specialty Start Date End Date Arya Masterson MD [address] [place] [address] PCP - General Internal Medicine 03/21/14 documented as of this encounter
--- OUTSIDE RECORDS SUMMARY | 2025-04-26 16:21 | XMS_ITS | Encounter Summary ---
Author Organization [facility] Address [address] [place] [address] Phone Care Team Providers Care Bridge Ironworker Helper Name Role Phone Arya Lin MD Primary Care Provider Unav ailable Encounter Details Date Type Department Care Team (Late st Contact Info) Description 02/02/2021 Orders Only [facility] [address] [place] [phone] Osvaldo Ren MD [address] [place] [phone] Type 2 diabetes mellitus with diabetic nephropathy [...] 2 documented in this encounter Care Teams Bridge Ironworker Helper Relationship Specialty Start Date End Date Arya Lin MD PCP - General Internal Medicine 11/13/20 08/20/22 documented as of this encounter
--- OUTSIDE RECORDS SUMMARY | 2025-04-26 16:21 | XMS_ITS | Clinical Summary ---
Author Organization [employer] [facility] Address [address] [place] [address] Care Team Providers Care Biodiesel Operations Manager Name Role Phone Arya Rosenthal MD Primary [...] age to complete this topic Care Teams Biodiesel Operations Manager Relationship Specialty Start Date End Date Arya Rosenthal MD [address] [place] [address] [facility] [place] [phone] PCP - General Internal Medicine 01/09/17
--- OUTSIDE RECORDS SUMMARY | 2025-04-26 16:22 | XMS_ITS | Clinical Summary ---
Author Organization [facility] Address [address] [place] [address] [address] SIMENT[address] SOO ERICA [phone] Phone Care Team Providers Care Direct Customer Service Representative Name Role Phone Unavailable Primary Care Provider [...] PM EDT) Hemoglobin A1C 7.0(H) (4.0-5.6) % [facility] Comment: MONITORING: In known diabetic patients, hemoglobin A1c targets should be discussed with health care provider. DIAGNOSTIC USE: The [place] Diabetes Association (ADA) and the World Health [...] Supplement 1 Testing performed or reported by [facility], a Service of [facility], [address] [place] [address] Oli Quiñones MD, Steamfitter [facility]# [id number] 01/22/2022 1:58 PM EDT 01/22/2022 2:00 PM EDT us Osvaldo Ren MD LAB BLOOD ORDERABLES Final Re sult [facility] from Last 3 Months or Most Recently Relevant to Health Maintenance Insurance [facility]
--- OUTSIDE RECORDS SUMMARY | 2025-04-26 16:22 | XMS_ITS | Encounter Summary ---
Author Organization [employer] Address [address] [facility] 7t [place] [address] Care Team Providers Care Enrollment Services Vice President Name Role Phone Arya Masterson MD Primary Care Provide r Reason for Visit * Reason Comments Med Refill Encounter Details Date Type Department Care Team ([facility] st Contact Info) Description 03/15/2025 Refill [facility] [address] [place], [place] [phone] Arya Masterson MD [address] [place], [place] [phone] Acquired hypothyroidism Social History Tobacco Use Types [...] Upcoming Encounters Date Type Department Care Team ([facility] st Contact Info) Description 05/31/2025 11:15 AM EDT Office Visit [facility] [address] [place] [phone] Arya Masterson MD [address] [place] [phone] documented as of this encounter Visit Diagnoses Diagnosis Acquired hypothyroidism Unspecified hypothyroidism documented in this encounter Additional Health Concerns Assessment Noted Time PHQ-9 Depression Total Score: 2 03/03/20 25 12:11 PM EDT documented as of this encounter Care Teams Enrollment Services Vice President Relationship Specialty Start Date End Date Arya Masterson MD [address] [place] [phone] PCP - General Internal Medicine 03/21/14 documented as of this encounter
== END 2025-04-26 14:05 | disposition home or self-care (01) ==
LOC: HO.ENCR 13:20
PROVIDERS: PCP Internal Medicine; Visit Provider Internal Medicine Endocrinology, Diabetes & Metabolism
DX: E11.65 Type 2 diabetes mellitus with hyperglycemia (principal)
CPT/HCPCS: 99214

== ENCOUNTER → 2025-04-26 13:19 | Outpatient (BNVA) | payer OTHER, SELFPAY | PROVIDERS: PCP Internal Medicine; Visit Provider Internal Medicine Endocrinology, Diabetes & Metabolism | DX: E11.65 Type 2 diabetes mellitus with hyperglycemia (principal); Z79.4 Long term (current) use of insulin | CPT/HCPCS: 82947; 99212 ==

== ENCOUNTER 2025-05-14 09:27 | Outpatient (REF) | payer OTHER, SELFPAY ==
--- OUTSIDE RECORDS SUMMARY | 2025-05-14 09:30 | XMS_ITS | Clinical Summary ---
Author Organization [facility] Address [address] [place] [address] [address] SIMENT[address] SOO ERICA [phone] Phone Care Team Providers Care News Writer Name Role Phone Unavailable Primary Care Provider [...] PM EDT) Hemoglobin A1C 7.0(H) (4.0-5.6) % [facility] Comment: MONITORING: In known diabetic patients, hemoglobin A1c targets should be discussed with health care provider. DIAGNOSTIC USE: The [place] Diabetes Association (ADA) and the World Health [...] Supplement 1 Testing performed or reported by [facility], a Service of [facility], [address] [place] [address] Oli Quiñones MD, Chiller Operator [facility]# [id number] 01/22/2022 1:58 PM EDT 01/22/2022 2:00 PM EDT us Osvaldo Ren MD LAB BLOOD ORDERABLES Final Re sult [facility] from Last 3 Months or Most Recently Relevant to Health Maintenance Insurance [facility]
--- OUTSIDE RECORDS SUMMARY | 2025-05-14 09:30 | XMS_ITS | Encounter Summary ---
Author Organization [facility] Address [address] [place] [address] Phone Care Team Providers Care Grip Wrapper Name Role Phone Arya Lin MD Primary Care Provider Unav ailable Encounter Details Date Type Department Care Team (Late st Contact Info) Description 02/02/2021 Orders Only [facility] [address] [place] [phone] Osvaldo Ren MD [address] [place] [phone] Type 2 diabetes mellitus with diabetic nephropathy [...] 2 documented in this encounter Care Teams Grip Wrapper Relationship Specialty Start Date End Date Arya Lin MD PCP - General Internal Medicine 11/13/20 08/20/22 documented as of this encounter
--- OUTSIDE RECORDS SUMMARY | 2025-05-14 09:30 | XMS_ITS | Clinical Summary ---
Author Organization [employer] [facility] Address [address] [place] [address] Care Team Providers Care Cookie Mixer Helper Name Role Phone Arya Rosenthal MD Primary [...] age to complete this topic Care Teams Cookie Mixer Helper Relationship Specialty Start Date End Date Arya Rosenthal MD [address] [place] [address] [place] [phone] PCP - General Internal Medicine 01/09/17
--- OUTSIDE RECORDS SUMMARY | 2025-05-14 09:30 | XMS_ITS | Encounter Summary ---
Author Organization [employer] Address [address] [facility] 7t [place] [address] Care Team Providers Care Sewing Teacher Name Role Phone Arya Masterson MD Primary Care Provide r Reason for Visit * Reason Comments Med Refill Encounter Details Date Type Department Care Team ([facility] st Contact Info) Description 09/15/2023 Refill [facility] [address] [place], [place] [phone] Arya Masterson MD [address] [place], [place] [phone] Acquired hypothyroidism Social History Tobacco Use Types [...] Description 05/31/2025 11:15 AM EDT Office Visit [facility] [address] [place] [phone] Arya Masterson MD [address] [place] [address] documented as of this encounter Visit Diagnoses Diagnosis Acquired hypothyroidism Unspecified hypothyroidism documented in this encounter Additional Health Concerns Assessment Noted Time PHQ-9 Depression Total Score: 0 01/08/20 23 1:27 PM EDT documented as of this encounter Care Teams Sewing Teacher Relationship Specialty Start Date End Date Arya Masterson MD [address] [place] [phone] PCP - General Internal Medicine 03/21/14 documented as of this encounter
--- OUTSIDE RECORDS SUMMARY | 2025-05-14 09:30 | XMS_ITS | Clinical Summary ---
Author Organization [employer] Address [address] [place] [address] 7[address] [place] [address] Care Team Providers Care Flat Surfacer Name Role Phone Arya Masterson MD Primary [...] 48 g 3 024 Active Continuous Glucose Digital Content Marketing Manager (FreeStyle Angel 2 Parlin) deviceIndications :Type 2 diabetes mellitus with diabetic polyneuropathy, with long-term current use of insulin ([facility]) Scan sensor every 8 hours 1 each 024 Active Continuous Glucose Sensor (FreeStyle Angel 2 Sensor) miscIndications:T ype 2 diabetes mellitus with diabetic polyneuropathy, with long-term current use of insulin ([facility]) Apply 1 sensor every 14 days 2 [...] polyneuropathy, with long-term current use of insulin ([facility]) Use one pen needle to inject insulin once daily 90 each 3 025 2025 Active Jardiance 25 MGIndications:Typ e 2 diabetes mellitus with diabetic polyneuropathy, with long-term current use of insulin ([facility]) TAKE 1 TABLET BY MOUTH EVERY DAY 30 tablet 6 025 Active levothyroxine (Synthroid, Levoxyl) 25 MCG tabletIndications :Acquired hypothyroidism TAKE 1 TABLET BY MOUTH EVERY DAY IN THE MORNING 90 tablet 1 025 Active levothyroxine (Synthroid, Levoxyl) 25 MCG [...] colon 2018 Needs repeat Will refer to [facility] Primary insomnia 08/27/2022 Assessment & Plan (09/14/2024 11:38 AM EST): Pt with previous c/o intermittent insomnia, No longer using Temazepam. Assessment & Plan (08/27/2022 2:16 PM EST): Pt with previous c/o intermittent insomnia, Currently using Temazepam PRN. Preventative health care 08/27/2022 Assessment & Plan (03/03/2025 12:02 PM EDT): PSA 11/06/2023 Normal Colonoscopy: colonoscopy at [facility] in 09/2017 that showed a Tubular Adenoma colonoscopy (05/22/2023) showed one polyp (Bx colonic mucosa with minor crypt distortion; negative for adenomatous dysplasia). Assessment & Plan (04/27/2024 11:30 AM EDT): PSA 11/06/2023 Normal Colonoscopy: colonoscopy at [facility] in 09/2017 that showed a Tubular Adenoma colonoscopy (05/22/2023) showed one polyp (Bx colonic mucosa with minor crypt distortion; negative for adenomatous dysplasia). Assessment & Plan (08/27/2022 2:16 PM EST): Colonoscopy: colonoscopy at [facility] in 09/2017 that showed a Tubular Adenoma, [...] care of Cardiology Last Cardiology note from [facility] 08/2023 12 month follow up recommended Assessment [...] care of Cardiology Last Cardiology note from [facility] 10/12/2024 12 month follow up recommended Assessment [...] care of Cardiology Last Cardiology note from [facility] 08/2023 12 month follow up recommended Assessment [...] care of Cardiology Last Cardiology note from [facility] 08/2023 12 month follow up recommended Assessment [...] year f/u. records requested [facility] . Pt was seen 01/22/2022 [...] repeat colonoscopy, last 2017 Was seen by [facility] Kinesiologist Dr Jackie Espinoza, Repeat 05/2023 showed 1. [...] repeat colonoscopy, last 2017 Was seen by [facility] Kinesiologist Dr Jackie Espinoza, Repeat 05/2023 showed 1. [...] repeat colonoscopy, last 2017 Was seen by [facility] Kinesiologist Dr Jackei Espinoza, already scheduled for EGD/Colonoscopy for March 27 2023 Assessment & Plan (01/16/2023 9:29 AM EDT): Pt due for repeat colonoscopy, last 2017 Was seen by [facility] Kinesiologist Dr Jackie Espinoza, already scheduled for EGD/Colonoscopy [...] with Dr. Morfin He had colonoscopy at [facility] in 09/2017 that showed a Tubular [...] 2014). This was communicated to his new Kinesiologist Dr. Jackie Espinoza Assessment & Plan (08/27/2022 [...] Endocrinology, he needs close follow up with certified diabetes educator, inside sales engineer Eye exam was last done by Dr. Hinds (manager of allied health services). He reports he was seen January 11, [...] was last done 02/19/[address] Hinds (manager of allied health services). Microalbumin checked on: 11/02/2021 was: 1.2 Pt [...] was last done 02/19/[address] Hinds (manager of allied health services). Microalbumin checked on: 11/02/2021 was: 1.2 Pt [...] was last done 02/19/[address] Hinds (manager of allied health services). Microalbumin checked on: 11/02/2021 was: 1.2 Pt [...] was last done 02/19/[address] Hinds (manager of allied health services). Microalbumin checked on: 11/02/2021 was: 1.2 Pt [...] was last done 05/28/[address] Hinds (manager of allied health services). Microalbumin checked on: 11/02/2021 was: 1.2 Pt [...] was last done 05/28/[address] Hinds (manager of allied health services). Microalbumin checked on: 11/02/2021 was: 1.2 Pt is on an ARB. Foot check risk of zero Pt reports compliance with ASA 81 mg po daily Pt advised to: adhere to diabetic diet check your blood sugars regularly check your feet on a daily basis Resolved Problems Problem Noted Date Diagnosed Date Resolved Date Chronic skin ulcer of right ear ([facility]) 01/20/2024 03/03/2025 Assessment & Plan (01/20/2024 11:31 [...] DEPARTMENT Provider, Generic External Data 04/16/2025 Refill [facility] [address] [place] [address] Arya Masterson MD Acquired hypothyroidism 04/11/2025 Refill [facility] [address] [place] [address] Arya Masterson MD Type 2 diabetes mellitus with diabetic polyneuropathy, with long-term current use of insulin ([facility]) 04/10/2025 Refill [facility] [address] [place] [address] Arya Masterson MD Type 2 diabetes mellitus with diabetic polyneuropathy, with long-term current use of insulin ([facility]) 03/15/2025 Refill [facility] [address] [place] [address] Arya Masterson MD Acquired hypothyroidism 03/03/2025 11:30 AM EDT Office Visit [facility] [address] [facility] [place] [address] Arya Masterson MD Type 2 diabetes mellitus with diabetic polyneuropathy, with long-term current use of insulin ([facility]) (Primary Dx); Benign essential hypertension; Mixed hyperlipidemia; Ventricular septal defect; Stage 2 chronic kidney disease; Preventative health care; Impaired cognition 03/03/2025 Travel 03/02/2025 Telephone [facility] [address] [facility] [address] Arya Masterson MD chart prep 02/13/2025 Orders [...] Description 05/31/2025 11:15 AM EDT Office Visit [facility] [address] [place] [address] Arya Masterson MD [address] [place] [address] Health Maintenance Due Date Last Done Comments CT Colonography 1950 FIT DNA/Cologuard 1950 FIT 1950 FOBT 1950 Sigmoidoscopy 1950 Diabetes: Foot Exam 11/12/1959 Eye Exam 11/12/1959 RSV Patients and Patients Aged 60 years or older (1 - 1-dose 75+ series) 2024 DTaP/Tdap/Td Vaccines (2 - Td or Tdap) 12/27/2024 12/27/2014, 09/28/2004 COVID-19 Vaccine ( - season) 2025 05/20/2022, 08/13/2021, 10/26/2020, Additional history [...] polyneuropathy, with long-term current use of insulin ([facility]) POCT GLUCOSE Routine 03/03/2025 11:39 AM EDT [...] Glucose, Whole Blood (04/26/2025 1:34 PM EDT) Pathologist [facility] Glucose, Whole Blood 110 60 - 115 mg/dL [facility] Comment:METER #: [id number] Testing performed in the Endocrinology Department [address] , [address], [facility]. 04/26/2025 1:34 PM EDT 04/26/2025 1:37 PM EDT us Generic External Data Provider LAB BLOOD ORDERAB LES Final Result Performing Organization Address [facility]/ZIP Co de Phone Number [facility] [address] [place] [phone] * TSH W/Reflex to FT4 (03/09/2025 8:37 AM EDT) [facility] TSH reflex Free T4 2.91 0.32 - 4.0 uIU/mL [facility] Blood Venous blood specimen / Unknown 03/09/2025 8:37 AM EDT 03/09/2025 11:31 AM EDT us Arya Vera MD LAB BLOOD ORDERABLES Final Result Performing Organization Address [facility]/ZIP Co de Phone Number [facility] [address] [place] [phone] * (ABNORMAL) Lipid Panel, Standard (03/09/2025 8:37 AM EDT) Pathologist [facility] Triglycerides 70 <150 mg/dL [facility] Comment:Desirable Triglyceri de: less than 150 mg/dLBorderline High Triglyceride 150-199 mg/dLHigh Triglyceride: 200-499 mg/dLVery High Triglyceride: greater than or equal to 5OO mg/dL Cholesterol 105 <200 mg/dL [facility] Comment:Desirable Cholestero l: less than 200 mg/dLBorderline High Cholesterol: 200-239 mg/dLHigh Cholesterol: greater than 239 mg/dL LDL Cholesterol Calculated 56 <100 mg/dL [facility] Comment:Desirable LDL: less than 100 mg/dLNear Optimal/Above Optimal LDL: 110- 129 mg/dLBorderline High LDL: 130-159 mg/dLHigh LDL: 160-189 mg/dLVery High LDL: greater than or equal to 190 mg/dL HDL Cholesterol 35(L) >40 mg/dL [facility] Comment:Desirable HDL: great er than 40 mg/dL Note: This HDL assay may give artificially low results in patients with liver disease. Blood Venous blood specimen / Unknown 03/09/2025 8:37 AM EDT 03/09/2025 11:31 AM EDT Arya Vera MD LAB BLOOD ORDERABLES Final Result [facility] [address] [place] [phone] * (ABNORMAL) Basic Metabolic Panel (03/09/2025 8:37 AM EDT) Sodium 143 135 - 145 mmol/L [facility] Potassium 4.9 3.3 - 5.1 mmol/L [facility] Chloride 109(H) 96 - 108 mmol/L [facility] Carbon Dioxide 27 22 - 29 mmol/L [facility] Anion Gap 12 12 - 20 [facility] Urea Nitrogen (BUN) 15 9 - 16 mg/dL [facility] Creatinine, Serum 1.40 0.5 - 1.4 mg/dL [facility] Estimated Glomerular Filt Rate 49 [facility] Comment:Chronic Kidney Disea se: Estimated GFR < 60 mL/min/1.79z1Karhwe Kidney Disease: Estimated GFR < 15 mL/min/1.73m2 Glucose 124(H) 60 - 115 mg/dL [facility] Calcium 9.5 8.4 - 10.2 mg/dL [facility] Blood Venous blood specimen / Unknown 03/09/2025 8:37 AM EDT 03/09/2025 11:31 AM EDT Arya Vera MD LAB BLOOD ORDERABLES Final Result [facility] [address] [place] [address] [phone] * (ABNORMAL) POCT HGB A1C (03/03/2025 11:41 AM EDT) Hemoglobin A1C 9.7(A) 4.0 - 5.7 % QC Media Lot # [id number] Lot# Expiration Date , Blood 03/03/2025 11:4 1 AM EDT Arya Vera MD POINT OF CARE TEST EN TER/EDIT ORDERABLES Final Result * POCT Glucose (03/03/2025 11:39 AM EDT) Glucose Blood, POC 194 60 - 200 mg/dL QC Media Lot # [id number] Lot# Expiration Date [id number] Blood Capillary blood specimen / Unknown 03/03/2025 11:39 AM EDT Arya Vera MD POINT OF CARE TEST EN TER/EDIT ORDERABLES Final Result * (ABNORMAL) Urinalysis Complete (02/13/2025 7:22 PM EDT) Color Urine Yellow [facility] Appearance Urine Clear [facility] PH 5.5 5.0 - 9.0 [facility] Glucose Urine UA >=1000(A) Negative mg/dL [facility] Urine Blood Negative Negative [facility] Specific [place] - Urine 1.025 1.005 - 1.025 [facility] Urine Protein 30 (1+)(A) Neg-Trace mg/dL [facility] Urine Ketones Negative Negative mg/dL [facility] Nitrite Urine Negative Negative [facility] Leukocyte Esterase Urine Negative Negative [facility] RBC Urine 0-2 0 - 2 /HPF [facility] Urine WBC 0-5 0 - 5 /HPF [facility] Urine Squamous Epithelial Cell 0-2 0 - 2 /HPF [facility] Urine Bacteria None Seen None Seen [facility] Hyaline Casts, Urine 0-2 0 - 2 /LPF [facility] 02/13/2025 7:22 PM EDT 02/13/2025 7:24 PM EDT Generic External Data Provider LAB URINE ORDERAB LES Final Result Performing Organization Address [facility]/ZIP Co de Phone Number [facility] [address] [place] [phone] * Blood Culture (First) (02/13/2025 5:03 PM EDT) Blood Venous blood specimen / Unknown 02/13/2025 5:03 PM EDT 02/13/2025 5:07 PM EDT Comment:Blood Narrative [facility] - 02/18/2025 7:07 PM EDT Blood Culture (First) No growth after 5 days. Specimen Source: Blood Generic External Data Provider LAB MICROBIOLOGY - GENERAL ORDERABLES Final Result Performing Organization Address [facility] de Phone Number [facility] [address] [place] [phone] * Blood Culture (Second) (02/13/2025 5:03 PM EDT) Blood Venous blood specimen / Unknown 02/13/2025 5:03 PM EDT 02/13/2025 5:07 PM EDT Comment:Blood Narrative [facility] - 02/18/2025 7:07 PM EDT Blood Culture (Second) No growth after 5 days. Specimen Source: Blood Generic External Data Provider LAB MICROBIOLOGY - GENERAL ORDERABLES Final Result Performing Organization Address [facility] Co de Phone Number [facility] [address] [place] [phone] * CT Head w/o Contrast (02/13/2025 4:42 PM EDT) Anatomical Region Laterality Modality Head, Neck Computed Tomogra phy 02/13/2025 4:42 PM EDT Narrative 02/13/2025 4:43 PM EDT [address] [address] [address] Scan Report Signed Patient: Feliberto Vallejo MR#: [id number] : 1950 Acct:[id number] Age/Sex: 74 / M ADM Date: 02/13/25 Loc: HO.ED Attending Dr: Ordering Physician: Gerard Blancas Date of Service: 02/13/25 Procedure(s): CT head/brain wo IV con Accession Number(s): [id number] cc: Arya Rosenthal MD; Gerard Blancas Report Number: [id number]: Total DLP = 676.00 mGy-cm CLINICAL HISTORY: [...] 02/13/25 1643 DD/ 1642 TD/TT: 02/13/25 1642 Packing Attendant: Procedure Note Donotuseinterpreter, Image - 02/13/[address] [address] [address] Scan Report Signed Patient: Feliberto VallejoMR#: [id number] : 1950Acct:[id number] Age/Sex: 74 / MADM Date: 02/13/25 Loc: HO.ED Attending Dr: Ordering Physician: Gerard Blancas Date of Service: 02/13/25 Procedure(s): CT head/brain wo IV con Accession Number(s): [id number] cc: Arya Rosenthal MD; Gerard Blancas Report Number: [id number]: Total DLP = 676.00 mGy-cm CLINICAL HISTORY: [...] 02/13/25 1643 DD/ 1642 TD/TT: 02/13/25 1642 Packing Attendant: [facility] External Provider IMG CT PROCEDURES Final Result * XR Chest 2 Views (02/13/2025 4:36 PM EDT) Anatomical Region Laterality Modality Chest Radiographic Valery ging 02/13/2025 4:36 PM EDT Narrative 02/13/2025 4:38 PM EDT [place] [address] XRay Report Signed Patient: Feliberto Vallejo MR#: [id number] : 1950 Acct:[id number] Age/Sex: 74 / M ADM Date: 02/13/25 Loc: HO.ED Attending Dr: Ordering Physician: Gerard Blancas Date of Service: 02/13/25 Procedure(s): XR chest 2V Accession Number(s): [id number] cc: rAya Rosenthal MD; Gerard Blancas CLINICAL HISTORY: weakness 1 view chest Comparison: CR/KS/SR - XR CHEST 2V - 11/06/23 13:00 [...] Rosario MD in OV> 02/13/25 1638 DD/ 163 TD/TT: 02/13/25 163 Packing Attendant: Procedure Note Donotuseinterpreter, Image - 02/13/2025 [place] [address] XRay Report Signed Patient: Carol Vallejo#: [id number] : 1950Acct:[id number] Age/Sex: 74 / MADM Date: 02/13/25 Loc: .ED Attending Dr: Ordering Physician: Gerard Blancas Date of Service: 02/13/25 Procedure(s): XR chest 2V Accession Number(s): [id number] cc: Arya Rosenthal MD; Gerard Blancas CLINICAL HISTORY: weakness 1 view chest Comparison: CR/KS/SR - XR CHEST 2V - 11/06/23 13:00 [...] 02/13/25 1638 DD/ 1636 TD/TT: 02/13/25 1636 Packing Attendant: [facility] External Provider IMG XR PROCEDURES Final Result * High Sensitivity Troponin I (02/13/2025 4:04 PM EDT) [facility] TROPONIN I HIGH SENSITIVITY 20.6 <3.5 - 35.0 ng/L [facility] Comment:The [place] high sens itivity Troponin-I results should beused in conjunction with other diagnostic information suchas ECG, clinical observations and information, and patientsymptoms to aid in the diagnosis of NM. 02/13/2025 4:04 PM EDT 02/13/2025 4:07 PM EDT Generic External Data Provider LAB BLOOD ORDERAB LES Final Result [facility] [address] [place] [phone] * (ABNORMAL) CBC auto differential (02/13/2025 4:04 PM EDT) [facility] White Blood Count 11.1(H) 4.8 - 10.8 X10*3/uL [facility] Red Blood Count 5.06 4.60 - 5.80 X10*6/uL [facility] Hemoglobin 13.2(L) 14.0 - 18.0 g/dl [facility] Hematocrit 38.8(L) 42.0 - 52.0 % [facility] Mean Corpuscular Volume 76.7(L) 80.0 - 98.0 fL [facility] Mean Corpuscular Hemoglobin 26.1(L) 27.0 - 33.0 pg [facility] Mean Corpuscular HGB Conc 34.0 31.0 - 36.0 g/dl [facility] Red Cell Distribution Width 14.1 11.0 - 16.0 % [facility] Platelet Count 211 160 - 400 X10*3/uL [facility] Mean Platelet Volume 9.4 9.4 - 12.4 fL [facility] Neutrophils Percent Auto 82.3(H) 45 - 73 % [facility] Imm Gran Pct Auto 0.3 0.0 - 0.4 % [facility] Lymphocytes Percent Auto 8.6(L) 20 - 40 % [facility] Monocytes Percent Auto 7.7 2 - 11 % [facility] Eosinophils Percent Auto 0.6 0 - 4 % [facility] Basophils Percent Auto 0.5 0 - 2 % [facility] NRBC Pct Auto 0.0 0.0 - 0.2 /100WBC [facility] Neutrophils Absolute Auto 9.1(H) 2.0 - 8.3 x10*3/uL [facility] Imm Gran Abs Auto 0.03 0.00 - 0.03 X10*3/uL [facility] Lymphocytes Absolute Auto 1.0(L) 1.2 - 4.9 X10*3/uL [facility] Monocytes Absolute Auto 0.9 0.1 - 1.2 X10*3/uL [facility] Eosinophils Absolute Auto 0.1 0.0 - 0.4 X10*3/uL [facility] Basophils Absolute Auto 0.1 0.0 - 0.2 X10*3/uL [facility] NRBC Abs Auto 0.000 0.0 - 0.012 X10*3/uL [facility] 02/13/2025 4:04 PM EDT 02/13/2025 4:07 PM EDT us Generic External Data Provider LAB BLOOD ORDERAB LES Final Result [facility] [address] [place] [phone] * B Type Natriuretic Peptide (BNP) (02/13/2025 4:04 PM EDT) B Type Natriuretic Peptide 76 <100 pg/mL [facility] 02/13/2025 4:04 PM EDT 02/13/2025 4:07 PM EDT us Generic External Data Provider LAB BLOOD ORDERAB LES Final Result Performing Organization Address [facility] Co de Phone Number [facility] [address] [place] [phone] * Lipase (02/13/2025 4:04 PM EDT) Lipase 26 8 - 78 U/L [facility] 02/13/2025 4:04 PM EDT 02/13/2025 4:07 PM EDT us Generic External Data Provider LAB BLOOD ORDERAB LES Final Result Performing Organization Address [facility] Co de Phone Number [facility] [address] [place] [phone] * Lactic Acid (02/13/2025 4:04 PM EDT) Lactic Acid 1.3 0.5 - 2.0 mmol/L [facility] 02/13/2025 4:04 PM EDT 02/13/2025 4:07 PM EDT us Generic External Data Provider LAB BLOOD ORDERAB LES Final Result Performing Organization Address [facility] de Phone Number [facility] [address] [place] [phone] * (ABNORMAL) Comprehensive Metabolic Panel (02/13/2025 4:04 PM EDT) Sodium 139 135 - 145 mmol/L [facility] Potassium 5.3(H) 3.3 - 5.1 mmol/L [facility] Chloride 104 96 - 108 mmol/L [facility] Carbon Dioxide 25 22 - 29 mmol/L [facility] Anion Gap 15 12 - 20 [facility] Urea Nitrogen (BUN) 30(H) 9 - 16 mg/dL [facility] Creatinine, Serum 1.80(H) 0.5 - 1.4 mg/dL [facility] Creatinine Clr Calc Pharmacy 28.5 [facility] Comment:eGFR (calculated fro m the MDRD study equation) and eCrCl(calculated from the Cockcroft-Gault equation) are based ondifferent parameters and may not yield comparable results.If eCrCl result is absurd, please check patient'sheight/weight. Estimated Glomerular Filt Rate 37 [facility] Comment:Chronic Kidney Disea se: Estimated GFR < 60 mL/min/1.78g7Gcqvyu Kidney Disease: Estimated GFR < 15 mL/min/1.73m2 Glucose 191(H) 60 - 115 mg/dL [facility] Calcium 10.4(H) 8.4 - 10.2 mg/dL [facility] Bilirubin, Total 0.5 0.0 - 1.0 mg/dL [facility] Aspartate Amino Transferase 48(H) 5 - 37 U/L [facility] Alanine Aminotransferase 30 0 - 40 U/L [facility] Total Protein 8.6(H) 6.5 - 8.0 g/dL [facility] Albumin Level 4.7 3.5 - 5.0 g/dL [facility] Alkaline Phosphatase 80 39 - 117 U/L [facility] 02/13/2025 4:04 PM EDT 02/13/2025 4:07 PM EDT us Generic External Data Provider LAB BLOOD ORDERAB LES Final Result [facility] [address] [place] [phone] * (ABNORMAL) Albumin, Random Urine W/Creatinine (04/30/2024 9:45 AM EDT) Creatinine, Urine 71.38 mg/dL [facility] Microalbumin Urine 103.0 mg/L [facility] Microalbum Creatinine Ratio Ur 144.2(H) <30 ug/mg cr [facility] Comment:Albumin/Creatinine R atio Reference Ranges: Normal: < 30 ug/mg creatinine Microalbuminuria: 30 - 300 ug/mg creatinineClinical Albuminuria: > 300 ug/mg creatinine Urine (Urine, Random) 04/30/2024 9:45 AM EDT 04/30/2024 11:12 AM EDT Arya Vera MD LAB URINE ORDERABLES Final Result Performing Organization Address [facility]/ZIP Co de Phone Number [facility] [address] [place] [phone] * Colonoscopy (05/22/2023) Colonoscopy Normal Normal Liborio Newton MD HEALTH MAINTENANCE Final Result * (ABNORMAL) Hepatitis C Ab (01/14/2023 2:18 PM EDT) Hepatitis C Antibody Reactive( A) Nonreactive [facility] Comment:Presumptive evidence of antibodies to HCV. 01/14/2023 2:18 PM EDT 01/14/2023 2:19 PM EDT [facility] External Provider LAB BLO OD ORDERABLES Final Result Performing Organization Address [facility] Co de Phone Number [facility] [address] [place] [phone] from Last 3 Months or Most Recently Relevant to Health Maintenance Insurance [facility] [employer] (HMO D-SNP) Care Teams Flat Surfacer Relationship Specialty Start Date End Date Arya Masterson MD [address] [place] [phone] PCP - General Internal Medicine 03/21/14
--- OUTSIDE RECORDS SUMMARY | 2025-05-14 09:30 | XMS_ITS | Encounter Summary ---
Author Organization [employer] Address [address] [facility] [address]t [place] [address] Care Team Providers Care Principal Technical Specialist Name Role Phone Arya Masterson MD Primary Care Provide r Encounter Details Date Type Department Care Team ([facility] st Contact Info) Description 01/17/2025 Orders Only [facility] MEDICINE [address] [place], [place] [phone] Arya Masterson MD [address] [place], [place] [phone] Type 2 diabetes mellitus with diabetic polyneuropathy, with long-term current use of insulin ([facility]) Social History Tobacco Use Types Packs/Day Years [...] Description 05/31/2025 11:15 AM EDT Office Visit [facility] MEDICINE [address] [place] [phone] Arya Masterson MD [address] [place] [phone] documented as of this encounter Visit Diagnoses Diagnosis Type 2 diabetes mellitus with diabetic polyneuropathy, with long-term current use of insulin (HCC) documented in this encounter Additional Health Concerns Assessment Noted Time PHQ-9 Depression Total Score: 0 01/20/20 24 11:21 AM EDT documented as of this encounter Care Teams Principal Technical Specialist Relationship Specialty Start Date End Date Arya Masterson MD [address] [place] [phone] PCP - General Internal Medicine 03/21/14 documented as of this encounter
--- OUTSIDE RECORDS SUMMARY | 2025-05-14 09:30 | XMS_ITS | Encounter Summary ---
Author Organization [employer] Address [address] [facility] 7[address] [place] [address] Care Team Providers Care Stereoptician Name Role Phone Arya Masterson MD Primary Care Provide r Reason for Visit * Reason Comments Med Refill Encounter Details Date Type Department Care Team ([facility] st Contact Info) Description 03/15/2025 Refill [facility] [address], [place] [phone] Arya Masterson MD [address] [place], [place] [phone] Acquired hypothyroidism Social History Tobacco Use Types [...] Upcoming Encounters Date Type Department Care Team ([facility] st Contact Info) Description 05/31/2025 11:15 AM EDT Office Visit [facility] MEDICINE [address] [place] [phone] Arya Masterson MD [address] [place] [phone] documented as of this encounter Visit Diagnoses Diagnosis Acquired hypothyroidism Unspecified hypothyroidism documented in this encounter Additional Health Concerns Assessment Noted Time PHQ-9 Depression Total Score: 2 03/03/20 25 12:11 PM EDT documented as of this encounter Care Teams Stereoptician Relationship Specialty Start Date End Date Arya Masterson MD [address] [place] [phone] PCP - General Internal Medicine 03/21/14 documented as of this encounter
--- OUTSIDE RECORDS SUMMARY | 2025-05-14 09:30 | XMS_ITS | Encounter Summary ---
Author Organization [employer] Address [address] [facility] 7t [place] [address] Care Team Providers Care Supervisor Core Shop Name Role Phone Arya Masterson MD Primary Care Provide r Reason for Visit * Reason Comments Med Refill Encounter Details Date Type Department Care Team ([facility] st Contact Info) Description 02/29/2024 Refill [facility] MEDICINE [address] [place], [place] [phone] Arya Masterson MD [address] [place], [place] [phone] Primary insomnia Social History Tobacco Use Types [...] Description 05/31/2025 11:15 AM EDT Office Visit [facility] MEDICINE [address] [place] [address] Arya Masterson MD [address] [place] [address] documented as of this encounter Visit Diagnoses Diagnosis Primary insomnia Persistent disorder of initiating or maintaining sleep documented in this encounter Additional Health Concerns Assessment Noted Time PHQ-9 Depression Total Score: 0 01/20/20 24 11:21 AM EDT documented as of this encounter Care Teams Supervisor Core Shop Relationship Specialty Start Date End Date Arya Masterson MD [address] [place] [phone] PCP - General Internal Medicine 03/21/14 documented as of this encounter
--- OUTSIDE RECORDS SUMMARY | 2025-05-14 09:30 | XMS_ITS | Patient Health Record ---
Author Organization [facility] Address [address] [place] [address] Care Team Providers Care Marketing Financial Analyst Name Role Phone Riley Vera MD, Arya Primary Care Provide r Unavailable David Andujar Jr Unavailable Tara GRAY, Sj Unavailable Unavailable Reason For Referral No Information Plan Of Treatment No Information Insurance Providers Payer Name Payer Address Payer Phone Subscriber Number Group Number Insured Name Patient Relationship to Insured Coverage Start Date Coverage End Date [facility] [address] [place] [address] [id number] VERO AMIN Self - patient is the insured
[2025-05-14 11:38] LABS: Anion Gap 13 (12-20); Blood Urea Nitrogen 24 mg/dL (9-16); Calcium 9.7 mg/dL (8.4-10.2); Carbon Dioxide 24 mmol/L (22-29); Chloride 109 mmol/L (96-108); Estimated Glomerular Filt Rate 53; Potassium 5.2 mmol/L (3.3-5.1); Sodium 141 mmol/L (135-145)
[2025-05-14 11:41] LABS: Appearance Urine Clear; Glucose Urine UA >=1000 mg/dL (Negative); PH 5.5 (5.0-9.0); Specific Gravity - Urine 1.020 (1.005-1.025); UMIC TRIGGER UA YES
[2025-05-14 13:16] LABS: Microalbum/Creatinine Ratio Ur 76.0 ug/mg cr (<30); Total Protein Urine Random 15 mg/dL (<12)
== END 2025-05-14 09:28 | disposition home or self-care (01) ==
LOC: HO.LAB 09:27
PROVIDERS: Internal Medicine Endocrinology, Diabetes & Metabolism; PCP Internal Medicine; Visit Provider Internal Medicine Critical Care Medicine
DX: Z01.84 Encounter for antibody response examination (principal); E11.65 Type 2 diabetes mellitus with hyperglycemia; E11.22 Type 2 diabetes mellitus with diabetic chronic kidney disease; N18.30 Chronic kidney disease, stage 3 unspecified; R80.9 Proteinuria, unspecified
CPT/HCPCS: 36415; 80048; 81001; 82043; 82570; 84156; 86341

== ENCOUNTER 2025-05-19 12:01 | Outpatient (AMB) | payer OTHER, SELFPAY ==
--- NOTE | 2025-05-19 12:03 | HO.NEPHOV ---
Vital Signs 05/19/25 12:04 Height 5 ft 5 in Weight 129 lb BMI 21.5 BP 110/52 L Blood Pressure Location Lt brachial Position Sitting Pulse 74 Pulse Source Pulse Oximeter Pulse Oximetry (%) 99 Oxygen Delivery Method Room Air Intake Visit Reasons: 1mon f/u w/labs confirmed Business Analytics Manager Required: No Accompanied by: Daughter Allergies canagliflozin (Invokana) Allergy (Intermediate, Verified 05/19/25 12:05) hives hydralazine (HYDRALAZINE) Allergy (Intermediate, Verified 05/19/25 12:05) SHOULDER PAIN lisinopril Allergy (Unknown, Verified 05/19/25 12:07) Dizziness enalapril Adverse Reaction (Intermediate, Verified 05/19/25 12:05) Dizziness hydrochlorothiazide (HYDROCHLOROTHIAZIDE) Adverse Reaction (Intermediate, Verified 05/19/25 12:05) Dizziness potassium (POTASSIUM) Adverse Reaction (Intermediate, Verified 05/19/25 12:05) Dizziness HPI Comments Details: 74-year-old gentleman with past medical history of hypertension, diabetes mellitus, CAD, CKD stage 3, hepatitis C partly treated years ago is here for followup appointment Hypertension: Since several years, amlodipine 5 mg switched to lisinopril last visit but he had falls so had to stop it. Diabetes mellitus: Since almost 20 years, on Lantus Jareric CAD: CABG in 2020 On aspirin, rosuvastatin. Has aortic valve replacement in 2013, Has a bovine valve to closure of VSD in early Hypothyroidism: On levothyroxine 25 mcg daily Has some memory issues, seeing a neurologist in [facility], on Memantine Has unexplained weight loss and elevated kappa light chain and proteinuria- oncology referred He was treated for colon cancer with chemotherapy 10 years, colonoscopy in September 2017 showed tubular adenoma, repeat colonoscopy on 05/2023 1 polyp negative for dysplasia. [facility] Medical History Congenital ventricular septal defect Unintentional weight loss long term care pharmacist (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 Social History Household Members: Spouse Housing: House Alcohol intake: former Patient Tobacco Use Status: Never used Tobacco Advance Directives Date on File: 02/28/22 service: No Current occupational status: retired Review of Systems Const Details: Const : no body aches, no chills, no excessive sweating and + fatigue Eyes: no blurry vision and no change in vision ENT: no bleeding gums and no change in voice, no dizziness Card: no chest pain, no shortness of breath, no orthopnea, no PND Resp: no cough, no excessive phlegm production, no SOB GI: no abdominal pain and no nausea, no vomiting : no hematuria, no urinary frequency and no difficulty voiding Musc: no abnormal gait, no bone pain Neuro: no abnormal movements, no weakness Psych: no behavioral changes and no change in appetite Endo: no change in body appearance, no cold intolerance Physical Exam General: very well dressed pleasant elderly gentleman, comfortable, sitting on the chair Nutritional Appearance: well nourished and weight Eyes: normal position, no icterus Neck: No lymphadenopathy, no thyromegaly Resp: bilateral air entry equal, no added sounds present Cardio: normal S1, S2 heard, no murmur heard, no edema GI: soft, nontender, no guarding, no hepatosplenomegaly : bladder normal to inspection, bladder normal to palpation, no renal angle tenderness Skin: no rashes or lesions noted and elasticity normal Neuro: oriented to person, oriented to place, oriented to time and moves all extremities Results Reviewed Nephrology Results: Hgb, (14.0-18.0) 13.2 g/dl L 02/13/25 WBC, (4.8-10.8) 11.1 X10*3/uL H 02/13/25 Plt Count, (160-400) 211 X10*3/uL 02/13/25 Sodium, (135-145) 141 mmol/L 05/14/25 Potassium, (3.3-5.1) 5.2 mmol/L H 05/14/25 Chloride, (96-108) 109 mmol/L H 05/14/25 Carbon Dioxide, (22-29) 24 mmol/L 05/14/25 BUN, (9-16) 24 mg/dL H 05/14/25 Creatinine, (0.5-1.4) 1.31 mg/dL 05/14/25 Calcium, (8.4-10.2) 9.7 mg/dL 05/14/25 Phosphorus, (2.7-4.5) 3.4 mg/dL 04/05/25 PTH Intact, (8.7-77.1) 224.7 pg/mL H 04/05/25 Urine Protein, (Neg-Trace) Trace mg/dL 05/14/25 Urine Creatinine 65.74 mg/dL 05/14/25 Protein/Creatinin Ratio, (25-148) 191 mg/g creat H 04/05/25 Assessment & Plan Assessment & Plan (1) CKD stage 3 due to type 2 diabetes mellitus: Code(s): E11.22 - Type 2 diabetes mellitus with diabetic chronic kidney disease; N18.30 - Chronic kidney disease, stage 3 unspecified Category: Medical (2) Microalbuminuria: Code(s): R80.9 - Proteinuria, unspecified Category: Medical (3) Plasma cell disorder: Code(s): D72.9 - Disorder of white blood cells, unspecified Category: Medical Plan Chronic kidney disease stage IIIa/b A2: - 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 as he has some proteinuria with renal dysfunction. - no family history of CKD, no history of renal stones in the past, NSAID use. - creatinine 1.31 , GFR 53 - urine microalbumin creatinine ratio: 76.0 in 02/2024 - Urinalysis normal - her normal size kidney in CT abdomen in July 2023 - avoid nephrotoxic medications not limited to NSAIDs, contrast etc. - importance of diet, adequate blood pressure control well explained to patient. Non smoker, has some unintentional weight loss. - negative hepatitis B, HIV, DENIS, ANCA, normal complements, SPEP, UPEP. - elevated Scissors light chain 483 and ratio 3.14; has oncology visit pending on 05/27/2025. - has partially treated hepatitis C, offered to do labs today to check on viral load but decided to get it with primary care which he will see this Friday. If not we will get it done with next set of labs. - had episode of fall with lisinopril, will try losartan 25mg to decrease proteinuria asked him to take it in the night. Hypertension: - target blood pressures less than 130/90 mm Hg - compliance: good - will stop amlodipine as we are starting on losartan if he has any side effects will switch back to lisinopril Anemia of chronic kidney disease: - normal iron, TIBC, ferritin levels Mineral bone disease: - calcium 9.7, phos, vitamin-D 33.1 and PTH levels 224.1 - vitamin-D is supplementation added to suppress PTH, we will repeat vitamin-D and PTH levels in 3 months if the PTH remains high he will need imaging to look for parathyroid adenoma Orders: Orders Parathyroid Hormone Intact 3 Months D72.9 - Disorder of white blood cells, unspecified, E11.22 - Type 2 diabetes mellitus with diabetic chronic kidney disease, N18.30 - Chronic kidney disease, stage 3 unspecified, R80.9 - Proteinuria, unspecified Vitamin D 25-OH (D2 and D3) 3 Months D72.9 - Disorder of white blood cells, unspecified, E11.22 - Type 2 diabetes mellitus with diabetic chronic kidney disease, N18.30 - Chronic kidney disease, stage 3 unspecified, R80.9 - Proteinuria, unspecified Complete Blood Count no Diff 3 Months D72.9 - Disorder of white blood cells, unspecified, E11.22 - Type 2 diabetes mellitus with diabetic chronic kidney disease, N18.30 - Chronic kidney disease, stage 3 unspecified, R80.9 - Proteinuria, unspecified Basic Metabolic Panel 3 Months D72.9 - Disorder of white blood cells, unspecified, E11.22 - Type 2 diabetes mellitus with diabetic chronic kidney disease, N18.30 - Chronic kidney disease, stage 3 unspecified, R80.9 - Proteinuria, unspecified UA and rflx microscopic 3 Months D72.9 - Disorder of white blood cells, unspecified, E11.22 - Type 2 diabetes mellitus with diabetic chronic kidney disease, N18.30 - Chronic kidney disease, stage 3 unspecified, R80.9 - Proteinuria, unspecified Microalbumin, Random (w Creat) 3 Months D72.9 - Disorder of white blood cells, unspecified, E11.22 - Type 2 diabetes mellitus with diabetic chronic kidney disease, N18.30 - Chronic kidney disease, stage 3 unspecified, R80.9 - Proteinuria, unspecified Total Protein Urine Random 3 Months D72.9 - Disorder of white blood cells, unspecified, E11.22 - Type 2 diabetes mellitus with diabetic chronic kidney disease, N18.30 - Chronic kidney disease, stage 3 unspecified, R80.9 - Proteinuria, unspecified Creatinine Urine 3 Months D72.9 - Disorder of white blood cells, unspecified, E11.22 - Type 2 diabetes mellitus with diabetic chronic kidney disease, N18.30 - Chronic kidney disease, stage 3 unspecified, R80.9 - Proteinuria, unspecified Medications: New losartan 25 mg PO DAILY 30 tabs 5RF Coding Level of Care Code Est Pt Level 4 (55614) Diagnoses CKD stage 3 due to type 2 diabetes mellitus E11.22; N18.30 Microalbuminuria R80.9 Plasma cell disorder D72.9
[2025-05-19 12:04] VITALS: BP 110/52; PULSE 74; O2SAT 99; BMI 21.5
--- OUTSIDE RECORDS SUMMARY | 2025-05-19 15:13 | XMS_ITS | Clinical Summary ---
Author Organization [employer] Address [address] [place] [address] 7t [place] [address] Care Team Providers Care Mixed Livestock Farm Worker Name Role Phone Arya Masterson MD [...] g 3 09/15/19 24 Active Continuous Glucose Education Intern (FreeStyle Angel 2 [place]) deviceIndications: Type 2 diabetes mellitus with diabetic polyneuropathy, with long-term current use of insulin ([facility]) Scan sensor every 8 hours 1 each 04/27/20 24 Active Continuous Glucose Sensor (FreeStyle Angel 2 Sensor) miscIndications:Ty pe 2 diabetes mellitus with diabetic polyneuropathy, with long-term current use of insulin ([facility]) Apply 1 sensor every 14 days 2 [...] mouth 2 times daily. 08/09/19 25 Active Aspirin Low Dose 81 MG [...] with long-term current use of insulin (HCC) Use one pen needle to inject insulin once daily 90 each 3 01/26/20 25 026 Active Jardiance 25 MGIndications:Type 2 diabetes mellitus with diabetic polyneuropathy, with long-term current use of insulin ([facility]) TAKE 1 TABLET BY MOUTH EVERY DAY 30 tablet 6 04/12/20 25 Active levothyroxine (Synthroid, Levoxyl) 25 MCG tabletIndications: Acquired hypothyroidism TAKE 1 TABLET BY MOUTH EVERY DAY IN THE MORNING 90 tablet 1 04/19/20 25 Active Active Problems Problem Noted Date Diagnosed [...] colon 2018 Needs repeat Will refer to [facility] Primary insomnia 08/27/2022 Assessment & Plan (09/14/2024 11:38 AM EST): Pt with previous c/o intermittent insomnia, No longer using Temazepam. Assessment & Plan (08/27/2022 2:16 PM EST): Pt with previous c/o intermittent insomnia, Currently using Temazepam PRN. Preventative health care 08/27/2022 Assessment & Plan (03/03/2025 12:02 PM EDT): PSA 11/06/2023 Normal Colonoscopy: colonoscopy at [facility] in 09/2017 that showed a Tubular Adenoma colonoscopy (05/22/2023) showed one polyp (Bx colonic mucosa with minor crypt distortion; negative for adenomatous dysplasia). Assessment & Plan (04/27/2024 11:30 AM EDT): PSA 11/06/2023 Normal Colonoscopy: colonoscopy at [facility] in 09/2017 that showed a Tubular Adenoma colonoscopy (05/22/2023) showed one polyp (Bx colonic mucosa with minor crypt distortion; negative for adenomatous dysplasia). Assessment & Plan (08/27/2022 2:16 PM EST): Colonoscopy: colonoscopy at [facility] in 09/2017 that showed a Tubular [...] care of Cardiology Last Cardiology note from [facility] 10/12/2024 12 month follow up recommended Assessment [...] care of Cardiology Last Cardiology note from [facility] 08/2023 12 month follow up recommended Assessment [...] care of Cardiology Last Cardiology note from [facility] 08/2023 12 month follow up recommended Assessment [...] year f/u. records requested Referral places to [facility] . Pt was seen 01/22/2022 and [...] colonoscopy, last one 2017 Was seen by [facility] Field Project Manager Dr Jackie Espinoza, Repeat 05/2023 showed 1. [...] colonoscopy, last one 2017 Was seen by [facility] Field Project Manager Dr Jackie Espinoza, Repeat 05/2023 showed 1. [...] repeat colonoscopy, last 2017 Was seen by [facility] Field Project Manager Dr Jackie Espinoza, already scheduled for EGD/Colonoscopy for March 27 2023 Assessment & Plan (01/16/2023 9:29 AM EDT): Pt due for repeat colonoscopy, last 2017 Was seen by [facility] Field Project Manager Dr Jackie Espinoza, already scheduled for EGD/Colonoscopy [...] with Dr. Morfin He had colonoscopy at [facility] in 09/2017 that showed a Tubular [...] 2014). This was communicated to his new Field Project Manager Dr. Jackie Espinoza Assessment & Plan (08/27/2022 [...] needs close follow up with unit educator, criminal intelligence analyst Eye exam was last done by Dr. Hinds (speech therapist early intervention). He reports he was seen January 11, [...] was last done 02/19/[address] Hinds (speech therapist early intervention). Microalbumin checked on: 11/02/2021 was: 1.2 Pt [...] was last done 02/19/[address] Hinds (speech therapist early intervention). Microalbumin checked on: 11/02/2021 was: 1.2 Pt [...] exam was last done 02/19/[address] iHnds (speech therapist early intervention). Microalbumin checked on: 11/02/2021 was: 1.2 Pt [...] was last done 02/19/[address] Hinds (speech therapist early intervention). Microalbumin checked on: 11/02/2021 was: 1.2 Pt [...] was last done 05/28/[address] Hinds (speech therapist early intervention). Microalbumin checked on: 11/02/2021 was: 1.2 Pt [...] was last done 05/28/[address] Hinds (speech therapist early intervention). Microalbumin checked on: 11/02/2021 was: 1.2 Pt is on an ARB. Foot check risk of zero Pt reports compliance with ASA 81 mg po daily Pt advised to: adhere to diabetic diet check your blood sugars regularly check your feet on a daily basis Resolved Problems Problem Noted Date Diagnosed Date Resolved Date Chronic skin ulcer of right ear ([facility]) 01/20/2024 03/03/2025 Assessment & Plan (01/20/2024 11:31 [...] Encounters Date Type Department Care Team Description 05/14/2025 Orders Only GENERIC EXTERNAL DATA DEPARTMENT Provider, Generic External Data 04/26/2025 Orders Only GENERIC EXTERNAL DATA DEPARTMENT Provider, Generic External Data 04/16/2025 Refill [facility] [address] [place] [address] Arya Masterson MD Acquired hypothyroidism 04/11/2025 Refill [facility] [address] [place] [address] Arya Masterson MD Type 2 diabetes mellitus with diabetic polyneuropathy, with long-term current use of insulin ([facility]) 04/10/2025 Refill [facility] [address] [place] [address] Arya Masterson MD Type 2 diabetes mellitus with diabetic polyneuropathy, with long-term current use of insulin ([facility]) 03/15/2025 Refill [facility] [address] [place] [address] Arya Masterson MD Acquired hypothyroidism 03/03/2025 11:30 AM EDT Office Visit [facility] [address] [place] [address] Arya Masterson MD Type 2 diabetes mellitus with diabetic polyneuropathy, with long-term current use of insulin ([facility]) (Primary Dx); Benign essential hypertension; Mixed hyperlipidemia; Ventricular septal defect; Stage 2 chronic kidney disease; Preventative health care; Impaired cognition 03/03/2025 Travel 03/02/2025 Telephone [facility] [address] [place] [address] Arya Masterson MD chart prep from Last 3 Months Immunizations Immunization Administration Dates Next Due Hep B, adult 09/24/2006,05/21/2006,04/16/2006 Influenza High-dose Quadriva lent Preservative Free 06/03/2023,05/21/2022 Influenza injectable quadriv alent IIV4 with preservative 06/09/2017,05/02/2016,05/30/2015 Influenza injectable quadriv alent preservative free 05/16/2020,04/26/2019 Influenza, High Dose Seasona l, Preservative Free 04/27/2024,05/07/2018 Influenza, IIV3, injectable 05/12/2014, 1 Influenza, Split (incl. jayne fied surface antigen) 04/22/2013,05/01/2012 Moderna Covid-19 Vaccine 12+ 08/13/2021,10/27/19,09/28/2020 Pfizer Covid-19 Vaccine 12+ Bivalent 05/20/2022 Pneumococcal [...] Description 05/31/2025 11:15 AM EDT Office Visit [facility] [address] [place] [address] Arya Masterson MD [address] [place] [address] Health Maintenance Due Date Last Done Comments [...] , 06/03/2023, 05/21/2022, Additional history exists Diabetes: Hemoglobin A1C 06/03/2025 025, 09/14/2024, 04/27/2024, Additional history exists Alcohol/Substance Use Screening 09/14/2025 09/14/2024 Tobacco Screening 09/14/2025 09/14/2024 Depression Screening 03/03/2026 03/03/2025, 03/03/20 25 SDOH Screening 03/03/2026 03/03/2025 Lipid Panel 03/09/2026 03/09/2025, 04/05, 08/28/2022, Additional history exists Diabetes: Urine Protein Screening 05/14/2026 05/14/2025, 04/30/2024, 11/02/2021, Additional history exists Colonoscopy 05/22/2028 05/22/2023 Colorectal [...] Procedure Name Priority Date/Time Associated Diagnosis Comments URINE PROTEIN, TOTAL, RANDOM (W/O CREATININE) Routine 05/14/2025 10:02 AM EDT ALBUMIN, RANDOM URINE W/CREATININE Routine 05/14/2025 10:02 AM EDT URINALYSIS, COMPLETE Routine 05/14/2025 10:02 AM EDT GLUTAMIC ACID DECARBOXYLASE 65 AB Routine 05/14/2025 10:00 AM EDT BASIC METABOLIC PANEL Routine 05/14/2025 10:00 AM EDT GLUCOSE, WHOLE BLOOD Routine 04/26/2025 1:34 PM [...] polyneuropathy, with long-term current use of insulin ([facility]) POCT GLUCOSE Routine 03/03/2025 11:39 AM EDT Type 2 diabetes mellitus with diabetic polyneuropathy, with long-term current use of insulin (CMS/HCC) HM COLONOSCOPY Routine 05/22/2023 HEPATITIS C ANTIBODY Routine 01/14/2023 2:18 PM EDT from Last 3 Months or Most Recently Relevant to Health Maintenance Results * (ABNORMAL) Albumin, Random Urine W/Creatinine (05/14/2025 10:02 AM EDT) Creatinine, Urine 65.74 mg/dL [facility] Microalbumin Urine 50.0 mg/L [facility] Microalbum Creatinine Ratio Ur 76.0(H) <30 ug/mg cr [facility] Comment:Albumin/Creatinine R atio Reference Ranges: Normal: < 30 ug/mg creatinine Microalbuminuria: 30 - 300 ug/mg creatinineClinical Albuminuria: > 300 ug/mg creatinine 05/14/2025 10:0 2 AM EDT 05/14/2025 11:16 AM EDT us Generic External Data Provider LAB URINE ORDERAB LES Final Result [facility] [address] [place] [phone] * (ABNORMAL) Urine Protein, Total, Random without Creatinine (05/14/2025 10:02 AM EDT) Protein, Total, Random Urine 15(H) <12 mg/dL [facility] 05/14/2025 10:0 2 AM EDT 05/14/2025 11:16 AM EDT us Generic External Data Provider LAB URINE ORDERAB LES Final Result Performing Organization Address [facility]/ZIP Co de Phone Number [facility] [address] [place] [address] [phone] * (ABNORMAL) Urinalysis Complete (05/14/2025 10:02 AM EDT) Color Urine Yellow [facility] Appearance Urine Clear [facility] PH 5.5 5.0 - 9.0 [facility] Glucose Urine UA >=1000(A) Negative mg/dL [facility] Urine Blood Negative Negative [facility] Specific [place] - Urine 1.020 1.005 - 1.025 [facility] Urine Protein Trace Neg-Trace mg/dL [facility] Urine Ketones Negative Negative mg/dL [facility] Nitrite Urine Negative Negative [facility] Leukocyte Esterase Urine Negative Negative [facility] RBC Urine 0-2 0 - 2 /HPF [facility] Urine WBC 0-5 0 - 5 /HPF [facility] Urine Squamous Epithelial Cell 0-2 0 - 2 /HPF [facility] Urine Bacteria None Seen None Seen [facility] Hyaline Casts, Urine 0-2 0 - 2 /LPF [facility] 05/14/2025 10:0 2 AM EDT 05/14/2025 11:16 AM EDT us Generic External Data Provider LAB URINE ORDERAB LES Final Result Performing Organization Address [facility]/ZIP Co de Phone Number [facility] [address] [place] [address] [phone] * Glutamic Acid Decarboxylase 65 Antibody (05/14/2025 10:00 AM EDT) Glutamic acid decarboxylase Ab <5 <5 IU/mL [facility] Comment:This test was perfor med using the GAD65 TONNY method,which is standardized against the Internationalreference preparation 97/550.THIS TEST WAS PERFORMED AT:[id number] [place] [address]YVMGXMXMANSI MATTHEWS MD,PHD 05/14/2025 10:0 0 AM EDT 05/14/2025 10:00 AM EDT us Generic External Data Provider LAB BLOOD ORDERAB LES Final Result Performing Organization Address City/[facility]/ZIP Co de Phone Number [facility] [address] [place] [phone] * (ABNORMAL) Basic Metabolic Panel (05/14/2025 10:00 AM EDT) Only the most recent of2 resultswithin the time period is included. Sodium 141 135 - 145 mmol/L [facility] Potassium 5.2(H) 3.3 - 5.1 mmol/L [facility] Chloride 109(H) 96 - 108 mmol/L [facility] Carbon Dioxide 24 22 - 29 mmol/L [facility] Anion Gap 13 12 - 20 [facility] Urea Nitrogen (BUN) 24(H) 9 - 16 mg/dL [facility] Creatinine, Serum 1.31 0.5 - 1.4 mg/dL [facility] Estimated Glomerular Filt Rate 53 [facility] Comment:Chronic Kidney Disea se: Estimated GFR < 60 mL/min/1.58w2Ehiqsm Kidney Disease: Estimated GFR < 15 mL/min/1.73m2 Glucose 172(H) 60 - 115 mg/dL [facility] Calcium 9.7 8.4 - 10.2 mg/dL [facility] 05/14/2025 10:0 0 AM EDT 05/14/2025 10:00 AM EDT us Generic External Data Provider LAB BLOOD ORDERAB LES Final Result [facility] [address] [place] [phone] * Glucose, Whole Blood (04/26/2025 1:34 PM EDT) Pathologist [facility] Glucose, Whole Blood 110 60 - 115 mg/dL [facility] Comment:METER #: [id number] Testing performed in the Endocrinology Department [address] , [address], [facility]. 04/26/2025 1:34 PM EDT 04/26/2025 1:37 PM EDT us Generic External Data Provider LAB BLOOD ORDERAB LES Final Result Performing Organization Address [facility] Co de Phone Number [facility] [address] [place] [phone] * TSH W/Reflex to FT4 (03/09/2025 8:37 AM EDT) [facility] TSH reflex Free T4 2.91 0.32 - 4.0 uIU/mL [facility] Blood Venous blood specimen / Unknown 03/09/2025 8:37 AM EDT 03/09/2025 11:31 AM EDT us Arya Vera MD LAB BLOOD ORDERABLES Final Result Performing Organization Address [facility]/ZIP Co de Phone Number [facility] [address] [place] [address] [phone] * (ABNORMAL) Lipid Panel, Standard (03/09/2025 8:37 AM EDT) Pathologist [facility] Triglycerides 70 <150 mg/dL [facility] Comment:Desirable Triglyceri de: less than 150 mg/dLBorderline High Triglyceride 150-199 mg/dLHigh Triglyceride: 200-499 mg/dLVery High Triglyceride: greater than or equal to 5OO mg/dL Cholesterol 105 <200 mg/dL [facility] Comment:Desirable Cholestero l: less than 200 mg/dLBorderline High Cholesterol: 200-239 mg/dLHigh Cholesterol: greater than 239 mg/dL LDL Cholesterol Calculated 56 <100 mg/dL [facility] Comment:Desirable LDL: less than 100 [...] Vera MD LAB BLOOD ORDERABLES Final Result [facility] [address] [place] [phone] * (ABNORMAL) POCT HGB A1C (03/03/2025 11:41 AM EDT) Hemoglobin A1C 9.7(A) 4.0 - 5.7 % [facility] [employer] Lot # [id number] Lot# Expiration Date Blood 03/03/2025 11:4 1 AM EDT Arya Vera MD POINT OF CARE TEST EN TER/EDIT ORDERABLES Final Result * POCT Glucose (03/03/2025 11:39 AM EDT) Glucose Blood, POC 194 60 - 200 mg/dL [employer] Lot # [id number] Lot# Expiration Date [id number] Blood Capillary blood specimen / Unknown 03/03/2025 11:39 AM EDT us Arya Vera MD POINT OF CARE TEST EN TER/EDIT ORDERABLES Final Result * Colonoscopy (05/22/2023) Colonoscopy Normal Normal Historical Provider MD HEALTH MAINTENANCE Final Result * (ABNORMAL) Hepatitis C Ab (01/14/2023 2:18 PM EDT) Hepatitis C Antibody Reactive( A) Nonreactive [facility] Comment:Presumptive evidence of antibodies to HCV. 01/14/2023 2:18 PM EDT 01/14/2023 2:19 PM EDT [facility] External Provider LAB BLO OD ORDERABLES Final Result [facility] [address] [place] [address] [phone] from Last 3 Months or Most Recently Relevant to Health Maintenance Insurance [facility] LONGTERM OPTIONS (O D-SNP) [place] [id number] Care Teams Mixed Livestock Farm Worker Relationship Specialty Start Date End Date Arya Masterson MD [address] [place] [phone] PCP - General Internal Medicine 03/21/14
--- OUTSIDE RECORDS SUMMARY | 2025-05-19 15:13 | XMS_ITS | Encounter Summary ---
Author Organization [employer] Address [address] [facility] [address] [place] [address] Care Team Providers Care Outside Collector Name Role Phone Arya Masterson MD Primary Care Provide r Reason for Visit * Reason Comments Med Refill Encounter Details Date Type Department Care Team ([facility] st Contact Info) Description 09/15/[address] [facility] [address] [place], [place] [phone] Arya Masterson MD [address] [place], [place] [phone] Acquired hypothyroidism Social History Tobacco Use Types [...] Description 05/31/2025 11:15 AM EDT Office Visit [facility] [address] [place] [phone] Arya Masterson MD [address] [place] [address] documented as of this encounter Visit Diagnoses Diagnosis Acquired hypothyroidism Unspecified hypothyroidism documented in this encounter Additional Health Concerns Assessment Noted Time PHQ-9 Depression Total Score: 0 01/08/20 23 1:27 PM EDT documented as of this encounter Care Teams Outside Collector Relationship Specialty Start Date End Date Arya Masterson MD [address] [place] [phone] PCP - General Internal Medicine 03/21/14 documented as of this encounter
--- OUTSIDE RECORDS SUMMARY | 2025-05-19 15:13 | XMS_ITS | Encounter Summary ---
Author Organization [employer] Address [address] [facility] [address] [place] [address] Care Team Providers Care Disaster Recovery Consultant Name Role Phone Arya Masterson MD Primary Care Provide r Reason for Visit * Reason Comments Med Refill Encounter Details Date Type Department Care Team ([facility] st Contact Info) Description 02/29/2024 Refill [facility] [address] [place], [place] [phone] Arya Masterson MD [address] [place], [place] [phone] Primary insomnia Social History Tobacco Use Types [...] Description 05/31/2025 11:15 AM EDT Office Visit [facility] [address] [place] [address] Arya Masterson MD [address] [place] [address] documented as of this encounter Visit Diagnoses Diagnosis Primary insomnia Persistent disorder of initiating or maintaining sleep documented in this encounter Additional Health Concerns Assessment Noted Time PHQ-9 Depression Total Score: 0 01/20/20 24 11:21 AM EDT documented as of this encounter Care Teams Disaster Recovery Consultant Relationship Specialty Start Date End Date Arya Masterson MD [address] [place] [address] PCP - General Internal Medicine 03/21/14 documented as of this encounter
--- OUTSIDE RECORDS SUMMARY | 2025-05-19 15:13 | XMS_ITS | Clinical Summary ---
Author Organization [employer] [facility] Address [address] [place] [address] Care Team Providers Care Community Pharmacist Name Role Phone Arya Rosenthal MD Primary [...] age to complete this topic Care Teams Community Pharmacist Relationship Specialty Start Date End Date Arya Rosenthal MD [address] [place] [address] [place] [phone] PCP - General Internal Medicine 01/09/17
--- OUTSIDE RECORDS SUMMARY | 2025-05-19 15:13 | XMS_ITS | Encounter Summary ---
Author Organization [employer] Address [address] [facility] 7t [place] [address] Care Team Providers Care Solar Panel Installation Supervisor Name Role Phone Arya Masterson MD Primary Care Provide r Encounter Details Date Type Department Care Team (Late st Contact Info) Description 05/14/2025 Orders Only GENERIC EXTERNAL DATA [...] Description 05/31/2025 11:15 AM EDT Office Visit [facility] MEDICINE [address] [place], [place] [phone] Arya Masterson MD [address] [place] [address] documented as of this encounter Procedures Procedure Name Priority Date/Time Associated Diagnosis Comments ALBUMIN, RANDOM URINE W/CREATININE Routine 05/14/2025 10:02 AM EDT URINE PROTEIN, TOTAL, RANDOM (W/O CREATININE) Routine 05/14/2025 10:02 AM EDT URINALYSIS, COMPLETE Routine 05/14/2025 10:02 AM EDT GLUTAMIC ACID DECARBOXYLASE 65 AB Routine 05/14/2025 10:00 AM EDT BASIC METABOLIC PANEL Routine 05/14/2025 10:00 AM EDT documented in this encounter Results * (ABNORMAL) Urine Protein, Total, Random without Creatinine (05/14/2025 10:02 AM EDT) Protein, Total, Random Urine 15(H) <12 mg/dL [facility] 05/14/2025 10:0 2 AM EDT 05/14/2025 11:16 AM EDT us Generic External Data Provider LAB URINE ORDERAB LES Final Result Performing Organization Address [facility] de Phone Number [facility] [address] [place] [phone] * (ABNORMAL) Albumin, Random Urine W/Creatinine (05/14/2025 10:02 AM EDT) Creatinine, Urine 65.74 mg/dL [facility] Microalbumin Urine 50.0 mg/L [facility] Microalbum Creatinine Ratio Ur 76.0(H) <30 ug/mg cr [facility] Comment:Albumin/Creatinine R atio Reference Ranges: Normal: < 30 ug/mg creatinine Microalbuminuria: 30 - 300 ug/mg creatinineClinical Albuminuria: > 300 ug/mg creatinine 05/14/2025 10:0 2 AM EDT 05/14/2025 11:16 AM EDT Generic External Data Provider LAB URINE ORDERAB LES Final Result Performing Organization Address [facility] de Phone Number [facility] [address] [place] [phone] * (ABNORMAL) Urinalysis Complete (05/14/2025 10:02 AM EDT) Color Urine Yellow [facility] Appearance Urine Clear [facility] PH 5.5 5.0 - 9.0 [facility] Glucose Urine UA >=1000(A) Negative mg/dL [facility] Urine Blood Negative Negative [facility] Specific [place] - Urine 1.020 1.005 - 1.025 [facility] Urine Protein Trace Neg-Trace mg/dL [facility] Urine Ketones Negative Negative mg/dL [facility] Nitrite Urine Negative Negative [facility] Leukocyte Esterase Urine Negative Negative [facility] RBC Urine 0-2 0 - 2 /HPF [facility] Urine WBC 0-5 0 - 5 /HPF [facility] Urine Squamous Epithelial Cell 0-2 0 - 2 /HPF [facility] Urine Bacteria None Seen None Seen [facility] Hyaline Casts, Urine 0-2 0 - 2 /LPF [facility] 05/14/2025 10:0 2 AM EDT 05/14/2025 11:16 AM EDT us Generic External Data Provider LAB URINE ORDERAB LES Final Result Performing Organization Address [facility]/ZIP Co de Phone Number [facility] [address] [place] [phone] * Glutamic Acid Decarboxylase 65 Antibody (05/14/2025 10:00 AM EDT) Glutamic acid decarboxylase Ab <5 <5 IU/mL [facility] Comment:This test was perfor med using the GAD65 TONNY method,which is standardized against the Internationalreference preparation 97/550.THIS TEST WAS PERFORMED AT:[employer]/[id number] [place] [address]LHGBGUDMANSI MATTHEWS MD,PHD 05/14/2025 10:0 0 AM EDT 05/14/2025 10:00 AM EDT us Generic External Data Provider LAB BLOOD ORDERAB LES Final Result Performing Organization Address [facility] Co de Phone Number [facility] [address] [place] [phone] * (ABNORMAL) Basic Metabolic Panel (05/14/2025 10:00 AM EDT) Sodium 141 135 - 145 mmol/L [facility] Potassium 5.2(H) 3.3 - 5.1 mmol/L [facility] Chloride 109(H) 96 - 108 mmol/L [facility] Carbon Dioxide 24 22 - 29 mmol/L [facility] Anion Gap 13 12 - 20 [facility] Urea Nitrogen (BUN) 24(H) 9 - 16 mg/dL [facility] Creatinine, Serum 1.31 0.5 - 1.4 mg/dL [facility] Estimated Glomerular Filt Rate 53 [facility] Comment:Chronic Kidney Disea se: Estimated GFR < 60 mL/min/1.12j2Jivmky Kidney Disease: Estimated GFR < 15 mL/min/1.73m2 Glucose 172(H) 60 - 115 mg/dL [facility] Calcium 9.7 8.4 - 10.2 mg/dL [facility] 05/14/2025 10:0 0 AM EDT 05/14/2025 10:00 AM EDT us Generic External Data Provider LAB BLOOD ORDERAB LES Final Result [facility] [address] [place] [phone] documented in this encounter Visit Diagnoses Not on filedocumented in this encounter Additional Health Concerns Assessment Noted Time PHQ-9 Depression Total Score: 2 03/03/20 25 12:11 PM EDT documented as of this encounter Care Teams Solar Panel Installation Supervisor Relationship Specialty Start Date End Date Arya Masterson MD [address] [place] [address] PCP - General Internal Medicine 03/21/14 documented as of this encounter
--- OUTSIDE RECORDS SUMMARY | 2025-05-19 15:13 | XMS_ITS | Patient Health Record ---
Author Organization [facility] Address [address] [place] [address] Care Team Providers Care Fortune Cookie Maker Name Role Phone Riley Vera MD, Arya Primary Care Provide r Unavailable David Andujar Jr Unavailable Tara GRAY, Sj Unavailable Unavailable Reason For Referral No Information Plan Of Treatment No Information Insurance Providers Payer Name Payer Address Payer Phone Subscriber Number Group Number Insured Name Patient Relationship to Insured Coverage Start Date Coverage End Date [facility] [address] [place] [address] [id number] VERO AMIN Self - patient is the insured
--- OUTSIDE RECORDS SUMMARY | 2025-05-19 15:13 | XMS_ITS | Encounter Summary ---
Author Organization [employer] Address [address] [facility] 7t [place] [address] Care Team Providers Care Cook Fish And Chips Name Role Phone Arya Masterson MD Primary Care Provide r Encounter Details Date Type Department Care Team ([facility] st Contact Info) Description 01/17/[address] [facility] MEDICINE [address] [place], [place] [phone] Arya Masterson MD [address] [place], [place] [phone] Type 2 diabetes mellitus with diabetic polyneuropathy, with long-term current use of insulin ([facility]) Social History Tobacco Use Types [...] Description 05/31/2025 11:15 AM EDT Office Visit [facility] MEDICINE [address] [place] [phone] Arya Masterson MD [address] [place] [phone] documented as of this encounter Visit Diagnoses Diagnosis Type 2 diabetes mellitus with diabetic polyneuropathy, with long-term current use of insulin (HCC) documented in this encounter Additional Health Concerns Assessment Noted Time PHQ-9 Depression Total Score: 0 01/20/20 24 11:21 AM EDT documented as of this encounter Care Teams Cook Fish And Chips Relationship Specialty Start Date End Date Arya Masterson MD [address] [place] [phone] PCP - General Internal Medicine 03/21/14 documented as of this encounter
--- OUTSIDE RECORDS SUMMARY | 2025-05-19 15:14 | XMS_ITS | Encounter Summary ---
Author Organization [employer] Address [address] [facility] 7t [place] [address] Care Team Providers Care Sr. Operations Manager Name Role Phone Arya Masterson MD Primary Care Provide r Reason for Visit * Reason Comments Med Refill Encounter Details Date Type Department Care Team ([facility] st Contact Info) Description 03/15/2025 Refill [facility] [address] [place], [place] [phone] Arya Masterson MD [address] [place], [place] [phone] Acquired hypothyroidism Social History Tobacco Use Types [...] Upcoming Encounters Date Type Department Care Team ([facility] st Contact Info) Description 05/31/2025 11:15 AM EDT Office Visit [facility] MEDICINE [address] [place] [phone] Arya Masterson MD [address] [place] [phone] documented as of this encounter Visit Diagnoses Diagnosis Acquired hypothyroidism Unspecified hypothyroidism documented in this encounter Additional Health Concerns Assessment Noted Time PHQ-9 Depression Total Score: 2 03/03/20 25 12:11 PM EDT documented as of this encounter Care Teams Sr. Operations Manager Relationship Specialty Start Date End Date Arya Masterson MD [address] [place] [phone] PCP - General Internal Medicine 03/21/14 documented as of this encounter
== END 2025-05-19 12:30 | disposition home or self-care (01) ==
LOC: HO.HKA 12:02
PROVIDERS: PCP Internal Medicine; Visit Provider Internal Medicine Critical Care Medicine
DX: E11.22 Type 2 diabetes mellitus with diabetic chronic kidney disease (principal); N18.30 Chronic kidney disease, stage 3 unspecified; R80.9 Proteinuria, unspecified; D72.9 Disorder of white blood cells, unspecified
CPT/HCPCS: 99214

== ENCOUNTER → 2025-05-19 12:01 | Outpatient (BNVA) | payer OTHER, SELFPAY | PROVIDERS: PCP Internal Medicine; Visit Provider Internal Medicine Critical Care Medicine | DX: E11.22 Type 2 diabetes mellitus with diabetic chronic kidney disease (principal); N18.30 Chronic kidney disease, stage 3 unspecified; R80.9 Proteinuria, unspecified; D72.9 Disorder of white blood cells, unspecified; Z79.4 Long term (current) use of insulin; Z79.82 Long term (current) use of aspirin; E03.9 Hypothyroidism, unspecified; R63.4 Abnormal weight loss; Z68.21 Body mass index [BMI] 21.0-21.9, adult | CPT/HCPCS: 99212 ==

== ENCOUNTER → 2025-05-27 13:40 | Outpatient (BNV) | payer OTHER, SELFPAY | PROVIDERS: Visit Provider Internal Medicine | DX: D47.2 Monoclonal gammopathy (principal); D50.9 Iron deficiency anemia, unspecified; N18.30 Chronic kidney disease, stage 3 unspecified | CPT/HCPCS: 99204 ==

== ENCOUNTER 2025-05-30 13:23 | Outpatient (AMB) | payer OTHER, SELFPAY ==
--- NOTE | 2025-05-30 13:59 | A.OFFVIS_ITS ---
Intake Intake Visit Reasons: 60 mins Hair Rooting Machine Operator Required: No Accompanied by: Daughter Allergies canagliflozin (Invokana) Allergy (Intermediate, Verified 05/19/25 12:05) hives hydralazine (HYDRALAZINE) Allergy (Intermediate, Verified 05/19/25 12:05) SHOULDER PAIN lisinopril Allergy (Unknown, Verified 05/19/25 12:07) Dizziness enalapril Adverse Reaction (Intermediate, Verified 05/19/25 12:05) Dizziness hydrochlorothiazide (HYDROCHLOROTHIAZIDE) Adverse Reaction (Intermediate, Verified 05/19/25 12:05) Dizziness potassium (POTASSIUM) Adverse Reaction (Intermediate, Verified 05/19/25 12:05) Dizziness HPI Comprehensive Diabetes Asmnt Most Recent Diabetes Results: Microalb/Creat Ratio, (<30) 76.0 ug/mg cr H 05/14/25 Cholesterol, (<200) 105 mg/dL 03/09/25 HDL Cholesterol, (>40) 35 mg/dL L 03/09/25 Triglycerides, (<150) 70 mg/dL 03/09/25 Creatinine, (0.5-1.4) 1.78 mg/dL H 05/27/25 BUN, (9-16) 25 mg/dL H 05/27/25 Sodium, (135-145) 142 mmol/L 05/27/25 Potassium, (3.3-5.1) 5.0 mmol/L 05/27/25 Chloride, (96-108) 111 mmol/L H 05/27/25 Carbon Dioxide, (22-29) 25 mmol/L 05/27/25 Calcium, (8.4-10.2) 9.4 mg/dL 05/27/25 AST, (5-37) 32 U/L 05/27/25 ALT, (0-40) 24 U/L 05/27/25 Total Protein, (6.5-8.0) 8.0 g/dL 05/27/25 Albumin, (3.5-5.0) 4.4 g/dL 05/27/25 [facility] Medical History Congenital ventricular septal defect 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 Social History Household Members: Spouse Housing: House Alcohol intake: former Patient Tobacco Use Status: Never used Tobacco Advance Directives Date on File: 02/28/22 service: No Current occupational status: retired and disabled Assessment & Plan Assessment & Plan (1) Diabetes type 2, uncontrolled: Code(s): E11.65 - Type 2 diabetes mellitus with hyperglycemia Plan: Patient accompanied today by daughter in law Rama. Patient is currently residing with daughter in law and son. Rama reporting that patient's daughters are the primary caretakers of patient. Patient's last A1C was 9.4 on 04/05/2025. Patient is currently on Lantus 12 units and Jardiance 25mg daily. Rama is reporting patient is having elevated blood sugars in the 300's and is questioning if patient should be taking Jardiance. Rama also reporting that patient is being given extra doses of Jardiance to help bring his blood sugar down . Message sent to covering provider regarding this. CGM Teaching Patient at visit to insert Angel 3+. Instructed patient sensors water proof you can shower, or swim do not submerge sensor in water for over 30 minutes Is sensor falls off cannot put back in you need to replace sensor, customer service number given to patient for sensor replacement Sensor placed on the left arm. Patient left visit with sensor in warmup. Reviewed how to interpret trend arrows Discussed lag time between finger stick and sensor data.? Instructed patient the importance of having blood glucometer for backup testing if needed Reviewed delay of CGM from fingersticks Reminded Pt that if symptoms do not match sensor still needs to check fingersticks. Signs and symptoms of low blood sugar (happen quickly) Each person's reaction to low blood sugar is different. Learn your own signs and symptoms of when your blood sugar is low. Taking time to write these symptoms down may help you learn your own symptoms of when your blood sugar is low. From milder, more common indicators to most severe, signs and symptoms of low blood sugar include: Feeling shaky Being nervous or anxious Sweating, chills and clamminess Irritability or impatience Confusion Fast heartbeat Feeling lightheaded or dizzy Hunger Nausea Color draining from the skin (pallor) Feeling Sleepy Feeling weak or having no energy Blurred/impaired vision Tingling or numbness in the lips, tongue, or cheeks Headaches Coordination problems, clumsiness Rule of 15 Treatment for Hypoglycemia (Low blood sugar) If your blood glucose is low (70 and below)*, follow the steps below to treat: Eat or drink something from the list below equal to 15 grams of carbohydrate (carb). Rest for 15 minutes Re-check your blood glucose. If it is still low, (below 70), repeat step 1 above.?? If your next meal is more than an hour away, you will need to eat one carbohydrate choice as a snack to keep your blood glucose from going low again.? If you can't figure out why you have low blood glucose, call your healthcare provider, as your medicine may need to be adjusted.? Always carry something with you to treat an insulin reaction. Use food from the list below. ? Foods equal to One Carbohydrate Choice (15 grams of carbohydrate): 3 Glucose? tablets or 4 Dextrose tablets 4 ounces of fruit juice 5-6 ounces (about 1/2 can) of regular soda such as Coke or Pepsi?? 7-8 gummy or regular Life Savers?? 1 Tbsp. of sugar or jelly NOTE: If your blood sugar is less than 50, double the portion above for a total of 30 gm.? Carbohydrate. Medications: Refilled blood-glucose sensor (FreeStyle Angel 3 Plus Sensor device) As directed change every 15 days 2 ea 4RF blood-glucose,public health registrar,cont As directed 1 ea 0RF blood-glucose,public health registrar,cont (FreeStyle Angel 3 [place]) As directed 1 ea 0RF blood-glucose sensor As directed change every 15 days 2 ea 4RF Patient Instructions: Follow up with Dr. Trujillo on 06/09/2025 to review CGM data. We will outreach regarding Jardiance continuation after covering provider reviews message. Please sheepskin pickler angel 3+ sensor that was sent to [facility] per request. Coding Level of Care Code Est Pt Level 1 (39046) Diagnoses Diabetes type 2, uncontrolled E11.65
--- OUTSIDE RECORDS SUMMARY | 2025-05-30 17:02 | XMS_ITS | Patient Health Record ---
Author Organization [facility] Address [address] [place] [address] Care Team Providers Care Supply Chain Specialist Name Role Phone Riley Vera MD, Arya Primary Care Provide r Unavailable David Andujar Jr Unavailable [phone] Tara GRAY, Sj Unavailable Unavailable Reason For Referral No Information Plan Of Treatment No Information Insurance Providers Payer Name Payer Address Payer Phone Subscriber Number Group Number Insured Name Patient Relationship to Insured Coverage Start Date Coverage End Date [facility] [address] [place] [phone] [id number] VERO AMIN Self - patient is the insured
--- OUTSIDE RECORDS SUMMARY | 2025-05-30 17:02 | XMS_ITS | Encounter Summary ---
Author Organization [employer] Address [address] [facility] 7t [place] [address] Care Team Providers Care Business Intelligence Manager Name Role Phone Arya Masterson MD Primary Care Provide r Reason for Visit * Reason Onset Date Comments Nurse Triage 05/25/2025 Encounter Details Date Type Department Care Team ([facility] st Contact Info) Description 05/25/2025 Telephone [facility] MEDICINE [address] [place], [place] [phone] Arya Masterson MD [address] [place], [place] [phone] Nurse Triage Social History Tobacco Use Types Packs/Day Years [...] AM EDT documented as of this encounter Miscellaneous Notes * Telephone Encounter - Yani Nguyễn RN - 05/25/2025 3:47 PM EDT TC returned to son at number listed below (not on HIPAA). Call went straight to VM x 2 attempts. Left message. TC placed to daughter (on HIPAA). She reports increased confusion, anger, paranoid thoughts x 1-2weeks. Pt. Has had pre-dementia for a long time, sees neurologist and takes memantine 10mg bid. Reports worsening symptoms began at time of blood pressure medication change from nephrology 05/19/25, per note: - had episode of fall with lisinopril, will try losartan 25mg to decrease proteinuria asked him to take it in the night. Hypertension: - target blood pressures less than 130/90 mm Hg - compliance: good - will stop amlodipine as we are starting on losartan if he has any side effects will switch back to Lisinopril Daughter reports pt. Expresses fear that someone is going to come into the house and take his money, states he needs to go to the bank to withdraw his money so no one steals it, and has called his daughter accusing her of taking his money. Daughter states pt. Has had NO physical aggression, howeverstates he is losing his temper more easily. States pt. Lives with , and son lives upstairs. Anjali ritter also reports pt. Is still driving. Daughter reports BP on losartan has also been on the lower side (recent readings being 98/49, and 130/62). Reports losartan is taken at night per nephrology's recommendations and BP is checked mid morning. Daughter reports diastolic readings have been on the lower side even on previous medication. Daughter will f/up with PCP at scheduled appointment 05/31/25 regarding any need to change plan of care. Will call for any concerns in the meantime. Daughter will be attending the PCP appointment. Reports next neurology appointment is 07/11/25. Pt. Reports next nephrology appointment will be due in 3 months. Protocol Used: Dementia Symptoms and Questions (Adult) Protocol-Based Disposition: Discuss with PCP and Callback by Nurse Today Override (Final) Disposition: See in Office or Video Visit within 2 Weeks Override Reason: Nurse judgment Video visit offer not recorded Positive Triage Questions: * Caller has NON-URGENT question (includes prescribed medication questions) and triager unable to answer * Confusion getting worse and very slow onset (weeks to months) * All higher-acuity triage questions were negative Care Advice Discussed: * Reasons To Call Back * Telephone Encounter - Franklin Doyle - 05/25/2025 3:09 PM EDT Tc from pt son calling back regarding pts symptoms. Contact pt son at [phone] * Telephone Encounter - Dario Mtz - 05/25/2025 1:11 PM EDT Symptoms: Confusion, Aggressive Behavior Outcome: Schedule an urgent appointment (within 1 hour) or talk to a nurse or provider soon Reason: Caller denied all higher acuity questions Please contact Feliberto at [phone]. documented in this encounter Plan of Treatment Upcoming Encounters Date Type Department Care Team (Late st Contact Info) Description 05/31/2025 11:15 AM EDT Office Visit [facility] MEDICINE [address] [place] [address] Arya Masterson MD [address] [place] [address] documented as of this encounter Visit Diagnoses Not on filedocumented in this encounter Additional Health Concerns Assessment Noted Time PHQ-9 Depression Total Score: 2 03/03/20 25 12:11 PM EDT documented as of this encounter Care Teams Business Intelligence Manager Relationship Specialty Start Date End Date Arya Masterson MD [address] [place] [address] ER[place] Andres [phone] PCP - General Internal Medicine 03/21/14 documented as of this encounter
--- OUTSIDE RECORDS SUMMARY | 2025-05-30 17:02 | XMS_ITS | Encounter Summary ---
Author Organization [facility] Address [address] [place] [address] Phone Care Team Providers Care Draw Frame Tender Name Role Phone Arya Lin MD Primary Care Provider Unav ailable Encounter Details Date Type Department Care Team (Late st Contact Info) Description 02/02/2021 Orders Only [facility] [address] [place] [phone] Osvaldo Ren MD [address] [place] [phone] Type 2 diabetes mellitus with diabetic nephropathy [...] 2 documented in this encounter Care Teams Draw Frame Tender Relationship Specialty Start Date End Date Arya Lin MD PCP - General Internal Medicine 11/13/20 08/20/22 documented as of this encounter
--- OUTSIDE RECORDS SUMMARY | 2025-05-30 17:02 | XMS_ITS | Clinical Summary ---
Author Organization [facility] Address [address] [place] [address] [address] SIMENT[address] SOO ERICA [phone] Phone Care Team Providers Care Sink Maker Name Role Phone Unavailable Primary Care Provider [...] PM EDT) Hemoglobin A1C 7.0(H) (4.0-5.6) % [facility] Comment: MONITORING: In known diabetic patients, hemoglobin A1c targets should be discussed with health care provider. DIAGNOSTIC USE: The [place] [employer] (ADA) and the World Health [...] Supplement 1 Testing performed or reported by [facility], a Service of [facility], [address] [place] [id number] Oli Quiñones MD, Customer Security Clerk [facility]# [id number] 01/22/2022 1:58 PM EDT 01/22/2022 2:00 PM EDT us Osvaldo Ren MD LAB BLOOD ORDERABLES Final Re sult [facility] from Last 3 Months or Most Recently Relevant to Health Maintenance Insurance [facility]
--- OUTSIDE RECORDS SUMMARY | 2025-05-30 17:02 | XMS_ITS | Clinical Summary ---
Author Organization [employer] Address [address] [place] [address] 7t [place] [address] Care Team Providers Care Home Energy Rater Name Role Phone Arya Masterson MD Primary [...] g 3 09/15/19 24 Active Continuous Glucose Mitten Sewer (FreeStyle Angel 2 Shipman) deviceIndications: Type 2 diabetes mellitus with diabetic polyneuropathy, with long-term current use of insulin ([facility]) Scan sensor every 8 hours 1 each 04/27/20 24 Active Continuous Glucose Sensor (FreeStyle Angel 2 Sensor) miscIndications:Ty pe 2 diabetes mellitus with diabetic polyneuropathy, with long-term current use of insulin ([facility]) Apply 1 sensor every 14 days 2 [...] polyneuropathy, with long-term current use of insulin ([facility]) TAKE 1 TABLET BY MOUTH EVERY DAY [...] colon 2018 Needs repeat Will refer to [facility] Primary insomnia 08/27/2022 Assessment & Plan (09/14/2024 11:38 AM EST): Pt with previous c/o intermittent insomnia, No longer using Temazepam. Assessment & Plan (08/27/2022 2:16 PM EST): Pt with previous c/o intermittent insomnia, Currently using Temazepam PRN. Preventative health care 08/27/2022 Assessment & Plan (03/03/2025 12:02 PM EDT): PSA 11/06/2023 Normal Colonoscopy: colonoscopy at [facility] in 09/2017 that showed a Tubular Adenoma colonoscopy (05/22/2023) showed one polyp (Bx colonic mucosa with minor crypt distortion; negative for adenomatous dysplasia). Assessment & Plan (04/27/2024 11:30 AM EDT): PSA 11/06/2023 Normal Colonoscopy: colonoscopy at [facility] in 09/2017 that showed a Tubular Adenoma colonoscopy (05/22/2023) showed one polyp (Bx colonic mucosa with minor crypt distortion; negative for adenomatous dysplasia). Assessment & Plan (08/27/2022 2:16 PM EST): Colonoscopy: colonoscopy at [facility] in 09/2017 that showed a Tubular Adenoma, [...] care of Cardiology Last Cardiology note from [facility] 10/12/2024 12 month follow up recommended Assessment [...] care of Cardiology Last Cardiology note from [facility] 08/2023 12 month follow up recommended Assessment [...] care of Cardiology Last Cardiology note from [facility] 08/2023 12 month follow up recommended Assessment [...] year f/u. records requested Referral places to [facility] . Pt was seen 01/22/2022 and [...] colonoscopy, last one 2017 Was seen by [facility] [employer] Dr Jackie Espinoza, Repeat 05/2023 showed 1. [...] colonoscopy, last one 2017 Was seen by [facility] [employer] Dr Jackie Espinoza, Repeat 05/2023 showed 1. [...] repeat colonoscopy, last 2017 Was seen by [facility] [employer] Dr Jackie Espinoza, already scheduled for EGD/Colonoscopy for March 27 2023 Assessment & Plan (01/16/2023 9:29 AM EDT): Pt due for repeat colonoscopy, last 2017 Was seen by [facility] [employer] Dr Jackie Espinoza, already scheduled for EGD/Colonoscopy [...] with Dr. Morfin He had colonoscopy at [facility] in 09/2017 that showed a Tubular [...] 2014). This was communicated to his new [facility] [employer] Dr. Jackie Espinoza Assessment & Plan (08/27/2022 [...] Endocrinology, he needs close follow up with can filling room sweeper, computer operations technician Eye exam was last done by Dr. Hinds (commercial lines account assistant). He reports he was seen January 11, [...] was last done 02/19/[address] Hinds (commercial lines account assistant). Microalbumin checked on: 11/02/2021 was: 1.2 Pt [...] was last done 02/19/[address] Hinds (commercial lines account assistant). Microalbumin checked on: 11/02/2021 was: 1.2 Pt [...] was last done 02/19/[address] Hinds (commercial lines account assistant). Microalbumin checked on: 11/02/2021 was: 1.2 Pt [...] was last done 02/19/[address] Hinds (commercial lines account assistant). Microalbumin checked on: 11/02/2021 was: 1.2 Pt [...] was last done 05/28/[address] Hinds (commercial lines account assistant). Microalbumin checked on: 11/02/2021 was: 1.2 Pt [...] exam was last done 05/28/[address] Hidns (commercial lines account assistant). Microalbumin checked on: 11/02/2021 was: 1.2 Pt is on an ARB. Foot check risk of zero Pt reports compliance with ASA 81 mg po daily Pt advised to: adhere to diabetic diet check your blood sugars regularly check your feet on a daily basis Resolved Problems Problem Noted Date Diagnosed Date Resolved Date Chronic skin ulcer of right ear ([facility]) 01/20/2024 03/03/2025 Assessment & Plan (01/20/2024 11:31 [...] Encounters Date Type Department Care Team Description 05/25/2025 Telephone [facility] [address] [place] [address] Arya Masterson MD Nurse Triage 05/14/2025 Orders Only GENERIC EXTERNAL DATA DEPARTMENT Provider, Generic External Data 04/26/2025 Orders Only GENERIC EXTERNAL DATA DEPARTMENT Provider, Generic External Data 04/16/2025 Refill [facility] [address] [place] [address] Arya Masterson MD Acquired hypothyroidism 04/11/2025 Refill [facility] [address] [place] [address] Arya Masterson MD Type 2 diabetes mellitus with diabetic polyneuropathy, with long-term current use of insulin ([facility]) 04/10/2025 Refill [facility] [address] [place] [address] Arya Masterson MD Type 2 diabetes mellitus with diabetic polyneuropathy, with long-term current use of insulin ([facility]) 03/15/2025 Refill [facility] [address] [place] [address] Arya Masterson MD Acquired hypothyroidism 03/03/2025 11:30 AM EDT Office Visit [facility] [address] [place] [address] Arya Masterson MD Type 2 diabetes mellitus with diabetic polyneuropathy, with long-term current use of insulin ([facility]) (Primary Dx); Benign essential hypertension; Mixed hyperlipidemia; Ventricular septal defect; Stage 2 chronic kidney disease; Preventative health care; Impaired cognition 03/03/2025 Travel 03/02/2025 Telephone [facility] [address] [place] [address] Arya Masterson MD chart prep from Last [...] Description 05/31/2025 11:15 AM EDT Office Visit [facility] [address] [place] [address] Arya Masterson MD [address] [place] [address] Health Maintenance Due Date Last Done Comments CT Colonography 1949 FIT DNA/Cologuard 1949 FIT 1949 FOBT 1950 Sigmoidoscopy 1950 Diabetes: Foot Exam 11/12/1959 Eye Exam 11/12/1959 RSV Patients and Patients Aged 60 years or older (1 - 1-dose 75+ series) 2024 DTaP/Tdap/Td Vaccines (2 - Td or Tdap) 12/27/2024 12/27/2014, 09/28/2004 COVID-19 Vaccine ( - 2024- season) 2025 05/20/2022, 08/13/2021, 10/26/2020, Additional history [...] polyneuropathy, with long-term current use of insulin ([facility]) POCT GLUCOSE Routine 03/03/2025 11:39 AM EDT Type 2 diabetes mellitus with diabetic polyneuropathy, with long-term current use of insulin ([facility]) HM COLONOSCOPY Routine 05/22/2023 HEPATITIS C ANTIBODY Routine 01/14/2023 2:18 PM EDT from Last 3 Months or Most Recently Relevant to Health Maintenance Results * (ABNORMAL) Albumin, Random Urine W/Creatinine (05/14/2025 10:02 AM EDT) Creatinine, Urine 65.74 mg/dL [facility] Microalbumin Urine 50.0 mg/L H [facility] Microalbum Creatinine Ratio Ur 76.0(H) <30 ug/mg cr [facility] Comment:Albumin/Creatinine R atio Reference Ranges: Normal: < 30 ug/mg creatinine Microalbuminuria: 30 - 300 ug/mg creatinineClinical Albuminuria: > 300 ug/mg creatinine 05/14/2025 10:0 2 AM EDT 05/14/2025 11:16 AM EDT us Generic External Data Provider LAB URINE ORDERAB LES Final Result [facility] [address] [place] [phone] * (ABNORMAL) Urine Protein, Total, Random without Creatinine (05/14/2025 10:02 AM EDT) Protein, Total, Random Urine 15(H) <12 mg/dL [facility] 05/14/2025 10:0 2 AM EDT 05/14/2025 11:16 AM EDT us Generic External Data Provider LAB URINE ORDERAB LES Final Result Performing Organization Address [facility]/ZIP Co de Phone Number [facility] [address] [place] [phone] * (ABNORMAL) Urinalysis Complete (05/14/2025 10:02 AM EDT) Color Urine Yellow [facility] Appearance Urine Clear [facility] PH 5.5 5.0 - 9.0 [facility] Glucose Urine UA >=1000(A) Negative mg/dL [facility] Urine Blood Negative Negative [facility] Specific [place] - Urine 1.020 1.005 - 1.025 [facility] Urine Protein Trace Neg-Trace mg/dL [facility] Urine Ketones Negative Negative mg/dL [facility] Nitrite Urine Negative Negative [facility] Leukocyte Esterase Urine Negative Negative [facility] RBC Urine 0-2 0 - 2 /HPF [facility] Urine WBC 0-5 0 - 5 /HPF [facility] Urine Squamous Epithelial Cell 0-2 0 - 2 /HPF [facility] Urine Bacteria None Seen None Seen [facility] Hyaline Casts, Urine 0-2 0 - 2 /LPF [facility] 05/14/2025 10:0 2 AM EDT 05/14/2025 11:16 AM EDT us Generic External Data Provider LAB URINE ORDERAB LES Final Result Performing Organization Address [facility]/ZIP Co de Phone Number [facility] [address] [place] [phone] * Glutamic Acid Decarboxylase 65 Antibody (05/14/2025 10:00 AM EDT) Glutamic acid decarboxylase Ab <5 <5 IU/mL [facility] Comment:This test was perfor med using the GAD65 TONNY method,which is standardized against the Internationalreference preparation 97/550.THIS TEST WAS PERFORMED AT:[employer] [id number] [place] [id number] MATTHEWS MD,PHD 05/14/2025 10:0 0 AM EDT 05/14/2025 10:00 AM EDT us Generic External Data Provider LAB BLOOD ORDERAB LES Final Result [facility] [address] [place] [phone] * (ABNORMAL) Basic Metabolic Panel (05/14/2025 10:00 AM EDT) Only the most recent of2 resultswithin the time period is included. Sodium 141 135 - 145 mmol/L [facility] Potassium 5.2(H) 3.3 - 5.1 mmol/L [facility] Chloride 109(H) 96 - 108 mmol/L [facility] Carbon Dioxide 24 22 - 29 mmol/L [facility] Anion Gap 13 12 - 20 [facility] Urea Nitrogen (BUN) 24(H) 9 - 16 mg/dL [facility] Creatinine, Serum 1.31 0.5 - 1.4 mg/dL [facility] Estimated Glomerular Filt Rate 53 [facility] Comment:Chronic Kidney Disea se: Estimated GFR < 60 mL/min/[id number] Kidney Disease: Estimated GFR < 15 mL/min/1.73m2 Glucose 172(H) 60 - 115 mg/dL [facility] Calcium 9.7 8.4 - 10.2 mg/dL [facility] 05/14/2025 10:0 0 AM EDT 05/14/2025 10:00 AM EDT us Generic External Data Provider LAB BLOOD ORDERAB LES Final Result Performing Organization Address [facility] Co de Phone Number [facility] [address] [place] [phone] * Glucose, Whole Blood (04/26/2025 1:34 PM EDT) Glucose, Whole Blood 110 60 - 115 mg/dL [facility] Comment:METER #: [id number] Testing performed in the Endocrinology Department [address] , [address], [facility]. 04/26/2025 1:34 PM EDT 04/26/2025 1:37 PM EDT us Generic External Data Provider LAB BLOOD ORDERAB LES Final Result Performing Organization Address [facility] Co pr Phone Number [facility] [address] [place] [phone] * TSH W/Reflex to FT4 (03/09/2025 8:37 AM EDT) TSH reflex Free T4 2.91 0.32 - 4.0 uIU/mL [facility] Blood Venous blood specimen / Unknown 03/09/2025 8:37 AM EDT 03/09/2025 11:31 AM EDT us Arya Vera MD LAB BLOOD ORDERABLES Final Result Performing Organization Address [facility] Co de Phone Number [facility] [address] [place] [phone] * (ABNORMAL) Lipid Panel, Standard (03/09/2025 8:37 AM EDT) Triglycerides 70 <150 mg/dL [facility] Comment:Desirable Triglyceri de: less than 150 mg/dLBorderline High Triglyceride 150-199 mg/dLHigh Triglyceride: 200-499 mg/dLVery High Triglyceride: greater than or equal to 5OO mg/dL Cholesterol 105 <200 mg/dL [facility] Comment:Desirable Cholestero l: less than 200 mg/dLBorderline High Cholesterol: 200-239 mg/dLHigh Cholesterol: greater than 239 mg/dL LDL Cholesterol Calculated 56 <100 mg/dL [facility] Comment:Desirable LDL: less than 100 mg/dLNear Optimal/Above Optimal LDL: 110- 129 mg/dLBorderline High LDL: 130-159 mg/dLHigh LDL: 160-189 mg/dLVery High LDL: greater than or equal to 190 mg/dL HDL Cholesterol 35(L) >40 mg/dL [facility] Comment:Desirable HDL: great er than 40 mg/dL Note: This HDL assay may give artificially low results in patients with liver disease. Blood Venous blood specimen / Unknown 03/09/2025 8:37 AM EDT 03/09/2025 11:31 AM EDT Arya Vera MD LAB BLOOD ORDERABLES Final Result [facility] [address] [place], [place] [phone] * (ABNORMAL) POCT HGB A1C (03/03/2025 [...] Media Lot # [id number] Lot# Expiration Date [id number] Blood Capillary blood specimen / Unknown 03/03/2025 11:39 AM EDT Arya Vera MD POINT OF CARE TEST EN TER/EDIT ORDERABLES Final Result * Colonoscopy (05/22/2023) Colonoscopy Normal Normal Historical Provider HEALTH MAINTENANCE Final Result * (ABNORMAL) Hepatitis C Ab (01/14/2023 2:18 PM EDT) Hepatitis C Antibody Reactive( A) Nonreactive [facility] Comment:Presumptive evidence of antibodies to HCV. 01/14/2023 2:18 PM EDT 01/14/2023 2:19 PM EDT [facility] External Provider LAB BLO OD ORDERABLES Final Result [facility] [address] [place] [phone] from Last 3 Months or Most Recently Relevant to Health Maintenance Insurance [facility] [employer] OPTIONS (O D-SNP) [place] SONG [id number] Care Teams Home Energy Rater Relationship Specialty Start Date End Date Arya Masterson MD [address] [place] [phone] PCP - General Internal Medicine 03/21/14
--- OUTSIDE RECORDS SUMMARY | 2025-05-30 17:02 | XMS_ITS | Clinical Summary ---
Author Organization [employer] [facility] Address [address] [place] [address] Care Team Providers Care Press Officer Name Role Phone Arya Rosenthal MD Primary [...] age to complete this topic Care Teams Press Officer Relationship Specialty Start Date End Date Arya Rosenthal MD [address] [place] [address] [facility] [place] [phone] PCP - General Internal Medicine 01/09/17
--- OUTSIDE RECORDS SUMMARY | 2025-05-30 17:02 | XMS_ITS | Encounter Summary ---
Author Organization [employer] Address [address] [employer] [address] [place] [address] Care Team Providers Care Landscape Architect Name Role Phone Arya Masterson MD Primary Care Provide r Reason for Visit * Reason Comments Med Refill Encounter Details Date Type Department Care Team ([facility] st Contact Info) Description 09/15/2023 Refill [facility] [address] [place], [place] [phone] Arya Masterson MD [address] [place], [place] [phone] Acquired hypothyroidism Social History Tobacco Use Types [...] Description 05/31/2025 11:15 AM EDT Office Visit [facility] [address] [place] [phone] Arya Masterson MD [address] [place] [address] documented as of this encounter Visit Diagnoses Diagnosis Acquired hypothyroidism Unspecified hypothyroidism documented in this encounter Additional Health Concerns Assessment Noted Time PHQ-9 Depression Total Score: 0 01/08/20 23 1:27 PM EDT documented as of this encounter Care Teams Landscape Architect Relationship Specialty Start Date End Date Arya Masterson MD [address] [place] [phone] PCP - General Internal Medicine 03/21/14 documented as of this encounter
--- OUTSIDE RECORDS SUMMARY | 2025-05-30 17:02 | XMS_ITS | Encounter Summary ---
Author Organization [employer] Address [address] [facility] [address]t [place] [address] Care Team Providers Care Barge Captain Name Role Phone Arya Masterson MD Primary Care Provide r Reason for Visit * Reason Comments Med Refill Encounter Details Date Type Department Care Team ([facility] st Contact Info) Description 03/15/2025 Refill [facility] [address] [place], [place] [phone] Arya Masterson MD [address] [place], [place] [phone] Acquired hypothyroidism Social History Tobacco Use Types [...] Upcoming Encounters Date Type Department Care Team ([facility] st Contact Info) Description 05/31/2025 11:15 AM EDT Office Visit [facility] [address] [place] [phone] Arya Masterson MD [address] [place] [phone] documented as of this encounter Visit Diagnoses Diagnosis Acquired hypothyroidism Unspecified hypothyroidism documented in this encounter Additional Health Concerns Assessment Noted Time PHQ-9 Depression Total Score: 2 03/03/20 25 12:11 PM EDT documented as of this encounter Care Teams Barge Captain Relationship Specialty Start Date End Date Arya Masterson MD [address] [place] [phone] PCP - General Internal Medicine 03/21/14 documented as of this encounter
--- OUTSIDE RECORDS SUMMARY | 2025-05-30 17:02 | XMS_ITS | Encounter Summary ---
Author Organization [employer] Address [address] [place] [address] Care Team Providers Care Braider Tender Name Role Phone Arya Masterson MD Primary Care Provide r Reason for Visit * Reason Comments Med Refill Encounter Details Date Type Department Care Team ([facility] st Contact Info) Description 02/29/2024 Refill [facility] [address] [place], [place] [phone] Arya Masterson MD [address] [place], [place] [phone] Primary insomnia Social History Tobacco Use Types [...] Description 05/31/2025 11:15 AM EDT Office Visit [facility] [address] [place] [address] Arya Masterson MD [address] [place] [address] documented as of this encounter Visit Diagnoses Diagnosis Primary insomnia Persistent disorder of initiating or maintaining sleep documented in this encounter Additional Health Concerns Assessment Noted Time PHQ-9 Depression Total Score: 0 01/20/20 24 11:21 AM EDT documented as of this encounter Care Teams Braider Tender Relationship Specialty Start Date End Date Arya Masterson MD [address] [place] [address] PCP - General Internal Medicine 03/21/14 documented as of this encounter
--- OUTSIDE RECORDS SUMMARY | 2025-05-30 17:02 | XMS_ITS | Encounter Summary ---
Author Organization [employer] Address [address] [facility] [address] [place] [address] Care Team Providers Care Wad Printing Machine Operator Name Role Phone Arya Masterson MD Primary Care Provide r Encounter Details Date Type Department Care Team ([facility] st Contact Info) Description 01/17/2025 Orders Only [facility] [address] [place], [place] [phone] Arya Masterson MD [address] [place], [place] [phone] Type 2 diabetes mellitus with diabetic polyneuropathy, with long-term current use of insulin ([facility]) Social History Tobacco Use Types Packs/Day [...] EDT Office Visit [facility] [address] [place] [phone] Arya Masterson MD [address] [place] [phone] documented as of this encounter Visit Diagnoses Diagnosis Type 2 diabetes mellitus with diabetic polyneuropathy, with long-term current use of insulin ([facility]CC) documented in this encounter Additional Health Concerns Assessment Noted Time PHQ-9 Depression Total Score: 0 01/20/20 24 11:21 AM EDT documented as of this encounter Care Teams Wad Printing Machine Operator Relationship Specialty Start Date End Date Arya Masterson MD [address] [place] [phone] PCP - General Internal Medicine 03/21/14 documented as of this encounter
== END 2025-05-30 14:05 | disposition home or self-care (01) ==
LOC: HO.ENCR 13:23
PROVIDERS: PCP Internal Medicine; Visit Provider Registered Nurse Diabetes Educator
DX: E11.65 Type 2 diabetes mellitus with hyperglycemia (principal)

== ENCOUNTER → 2025-05-30 13:23 | Outpatient (BNVA) | payer OTHER, SELFPAY | PROVIDERS: PCP Internal Medicine; Visit Provider Registered Nurse Diabetes Educator | DX: E11.65 Type 2 diabetes mellitus with hyperglycemia (principal) | CPT/HCPCS: 99211 ==

== ENCOUNTER 2025-05-31 12:08 | Outpatient (REF) | payer OTHER, SELFPAY ==
--- OUTSIDE RECORDS SUMMARY | 2025-05-31 11:15 | XMS_ITS | Encounter Summary ---
Author Organization [employer] Address [address] [place] [address] 7t [place] [address] Care Team Providers Care Plumber Gasfitter Name Role Phone Arya Masterson MD Primary Care Provide r Encounter Details Date Type Department Care Team (Latest Contact Info) Description 05/31/2025 11:15 AM EDT Office Visit [facility] [address] [place], [place] [phone] Arya Masterson MD [address] [place], [place] [phone] 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 behavioral disturbance, psychotic disturbance, mood disturbance, or anxiety (HCC) (Primary Dx); Type 2 diabetes mellitus with diabetic polyneuropathy, with long-term current use of insulin (HCC); Benign essential hypertension; Acquired hypothyroidism Social History Tobacco Use Types [...] AM EDT documented as of this encounter Last Filed Vital Signs Vital Sign Reading Time Taken Comments Blood Pressure 90/42 05/31/2025 11:27 AM EDT Pulse 72 05/31/2025 11:27 AM EDT Temperature 36.1 C (97 F) 05/31/2025 11:27 AM EDT Respiratory Rate 20 05/31/2025 11:27 AM EDT Oxygen Saturation - - Inhaled Oxygen Concentration - - Weight 59.7 kg (131 lb 9.6 oz) 05/31/2025 11:27 AM EDT Height 167.6 cm (5' 6 ) 05/31/2025 11:27 AM EDT Body Mass Index 21.24 05/31/2025 11:27 AM EDT documented in this encounter Progress Notes * Arya Vera MD - 05/31/2025 11:15 AM EDT IRISH Vallejo is a 74 y.o. male who presents for No chief complaint on file.. HPI Review of Systems Constitutional: Negative for fever. HENT: Negative for sore throat. Respiratory: Negative for cough and shortness of breath. Cardiovascular: Negative for chest pain. Gastrointestinal: Negative for abdominal pain. Neurological: Negative for headaches. Allergies[1] OBJECTIVE Vitals: 05/31/25 1127 BP: (!) 90/42 BP Location: Left arm Patient Position: Sitting BP Cuff Size: Adult Pulse: 72 Resp: 20 Temp: 97 ??F (36.1 ??C) TempSrc: Temporal Weight: 131 lb 9.6 oz (59.7 kg) Height: 5' 6 (1.676 m) Physical Exam Vitals reviewed. Constitutional: Appearance: Normal appearance. HENT: Head: Normocephalic and atraumatic. Right Ear: External ear normal. Left Ear: External ear normal. Nose: Nose normal. Mouth/Throat: Mouth: Mucous membranes are moist. Eyes: Conjunctiva/sclera: Conjunctivae normal. Cardiovascular: Rate and Rhythm: Normal rate and regular rhythm. Pulmonary: Effort: Pulmonary effort is normal. Breath sounds: Normal breath sounds. Skin: General: Skin is warm. Neurological: Mental Status: He is alert. Mental status is at baseline. 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 behavioral disturbance, psychotic disturbance, mood disturbance, or anxiety (HCC) - Primary Under the care of Neurology On Memantine 10 mg po BID Pt was seen last: 01/31/2025, has a follow up in July Diabetes mellitus, type II (HCC) Pt is here for a f/u regarding his DM Back under the care of Endocrinology, last seen 05/30/2025 He is on a regimen of: Lantus 12 units sc q pm and Jardiance 25 mg po daily , he did not tolerate GLP1 agonist receptor He did not tolerate Farxiga, Invokana and Trulicity Hgb A1c 05/31/2025: 9.7 from 9.7 Plan: Continue to follow with Endocrinology, he needs close follow up with critical care educator, typesetters printer Eye exam was last done by Dr. Hinds (global director air and climate change). He reports he was seen January 11, 2025 Microalbumin checked on: 04/30/2024 was: 103 Pt is on an ARB. Foot check risk of zero Pt reports compliance with ASA 81 mg po daily 3 month follow up Pt advised to: adhere to diabetic diet check your blood sugars regularly check your feet on a daily basis Relevant Orders POCT Glucose (Completed) POCT Hgb A1c (Completed) Benign essential hypertension Patient here for a f/u BP He is on a regimen of : Losartan 25 mg po daily Off Lisinopril, Chlorthalidone, Diovan Norvasc pt is also OFF off Metoprolol due to Bradycardia Patient is under the care of Nephrology, last seen 05/19/2025 Most recent electrolytes, done on: Lab Results Component Value Date NA 141 05/14/2025 NA 143 03/09/2025 K 5.2 (H) 05/14/2025 K 4.9 03/09/2025 CL 109 (H) 05/14/2025 CL 109 (H) 03/09/2025 BUN 24 (H) 05/14/2025 BUN 15 03/09/2025 CREATININE 1.31 05/14/2025 CREATININE 1.40 03/09/2025 patient advised to adhere to a low sodium diet, encouraged about medication compliance, counseled about weight loss. Relevant Orders Comprehensive Metabolic Panel Acquired hypothyroidism Pt's latest TSH was normal Lab Results Component Value Date TSH 2.91 03/09/2025 Continue Levothyroxine 25 mcg po daily. This note was drafted using [facility] ([employer]) technology. The patient/patient's guardian has been informed and has consented to the use of this technology: Yes No future appointments. [1] Allergies Allergen Reactions Enalapril Other reaction(s): hyperkalemia Hydrochlorothiazide Palpitations Blurry vision documented in this encounter Miscellaneous Notes * Assessment & Plan Note - Arya Vera MD - 05/31/2025 11:26 AM EDT Associated Problem(s): Acquired hypothyroidism Pt's latest TSH was normal Lab Results Component Value Date TSH 2.91 03/09/2025 Continue Levothyroxine 25 mcg po daily. 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 behavioral disturbance, psychotic disturbance, mood disturbance, or anxiety (HCC) Under the care of Neurology On Memantine 10 mg po BID Pt was seen last: 01/31/2025, has a follow up in July * Assessment & Plan Note - Arya Vera MD - 05/31/2025 11:24 AM EDT Associated Problem(s): Benign essential hypertension Patient here for a f/u BP He is on a regimen of : Losartan 25 mg po daily Off Lisinopril, Chlorthalidone, Diovan Norvasc pt is also OFF off Metoprolol due to Bradycardia Patient is under the care of Nephrology, last seen 05/19/2025 Most recent electrolytes, done on: Lab Results Component Value Date NA 141 05/14/2025 NA 143 03/09/2025 K 5.2 (H) 05/14/2025 K 4.9 03/09/2025 CL 109 (H) 05/14/2025 CL 109 (H) 03/09/2025 BUN 24 (H) 05/14/2025 BUN 15 03/09/2025 CREATININE 1.31 05/14/2025 CREATININE 1.40 03/09/2025 patient advised to adhere to a low sodium diet, encouraged about medication compliance, counseled about weight loss. * Assessment & Plan Note - Arya Vera MD - 05/31/2025 11:24 AM EDT Associated Problem(s): Diabetes mellitus, type II (HCC) Pt is here for a f/u regarding his DM Back under the care of Endocrinology, last seen 05/30/2025 He is on a regimen of: Lantus 12 units sc q pm and Jardiance 25 mg po daily , he did not tolerate GLP1 agonist receptor He did not tolerate Farxiga, Invokana and Trulicity Hgb A1c 05/31/2025: 9.7 from 9.7 Plan: Continue to follow with Endocrinology, he needs close follow up with critical care educator, typesetters printer Eye exam was last done by Dr. Hinds (global director air and climate change). He reports he was seen January 11, 2025 Microalbumin checked on: 04/30/2024 was: 103 Pt is on an ARB. Foot check risk of zero Pt reports compliance with ASA 81 mg po daily 3 month follow up Pt advised to: adhere to diabetic diet check your blood sugars regularly check your feet on a daily basis documented in this encounter Plan of Treatment Scheduled Orders Name Type Priority Associated Diagnoses Orde r Schedule Comprehensive Metabolic Panel Lab Routine Benign essential hypertension Ordered: 05/31/2025 documented as of this encounter Procedures Procedure Name Priority Date/Time Associated Diagnosis Comments POCT GLYCATED HEMOGLOBIN, TOTAL Routine 05/31/2025 11:35 AM EDT Type 2 diabetes mellitus with diabetic polyneuropathy, with long-term current use of insulin (HCC) POCT GLUCOSE Routine 05/31/2025 11:35 AM EDT Type 2 diabetes mellitus with diabetic polyneuropathy, with long-term current use of insulin (HCC) documented in this encounter Results * (ABNORMAL) POCT Hgb A1c (05/31/2025 11:35 AM EDT) Hemoglobin A1C 9.7(A) 4.0 - 5.7 % QC Media Lot # [id number] Lot# Expiration Date [id number] Blood 05/31/2025 11:3 5 AM EDT Arya Vera MD POINT OF CARE TEST EN TER/EDIT ORDERABLES Final Result * POCT Glucose (05/31/2025 11:35 AM EDT) Glucose Blood, POC 165 60 - 200 mg/dL QC Media Lot # [id number] Lot# Expiration Date ,[id number] Blood Capillary blood specimen / Unknown 05/31/2025 11:35 AM EDT Arya Vera MD POINT OF CARE TEST EN TER/EDIT ORDERABLES Final Result documented in this encounter Visit Diagnoses Diagnosis 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 behavioral disturbance, psychotic disturbance, mood disturbance, or anxiety (HCC)- Primary Type 2 diabetes mellitus with diabetic polyneuropathy, with long-term current use of insulin (HCC) Benign essential hypertension Essential hypertension, benign Acquired hypothyroidism Unspecified hypothyroidism documented in this encounter Additional Health Concerns Assessment Noted Time PHQ-9 Depression Total Score: 2 03/03/20 25 12:11 PM EDT documented as of this encounter Care Teams Plumber Gasfitter Relationship Specialty Start Date End Date Arya Masterson MD [address] [place] [id number] PCP - General Internal Medicine 03/21/14 documented as of this encounter
[2025-05-31 13:10] LABS: Appearance Urine Clear; Glucose Urine UA >=1000 mg/dL (Negative); PH 5.5 (5.0-9.0); Specific Gravity - Urine 1.025 (1.005-1.025); UMIC TRIGGER UA YES
--- OUTSIDE RECORDS SUMMARY | 2025-05-31 15:28 | XMS_ITS | Encounter Summary ---
Author Organization [employer] Address [address] [facility] 7t [place] [address] Care Team Providers Care Supervisor Inspection And Testing Name Role Phone Arya Masterson MD Primary Care Provide r Reason for Visit * Reason Comments Med Refill Encounter Details Date Type Department Care Team ([facility] st Contact Info) Description 09/15/2023 Refill [facility] [address] [place], [place] [phone] Arya Masterson MD [address] [place], [place] [phone] Acquired hypothyroidism Social History Tobacco Use Types [...] as of this encounter Care Teams Supervisor Inspection And Testing Relationship Specialty Start Date End Date Arya Masterson MD [address] [place] [id number] PCP - General Internal Medicine 03/21/14 documented as of this encounter
--- OUTSIDE RECORDS SUMMARY | 2025-05-31 15:28 | XMS_ITS | Clinical Summary ---
Author Organization [facility] Address [address] [place] [address] Care Team Providers Care Stock Preparation Supervisor Name Role Phone Arya Rosenthal MD Primary [...] age to complete this topic Care Teams Stock Preparation Supervisor Relationship Specialty Start Date End Date Arya Rosenthal MD [address] [place] [address] [facility] [phone] PCP - General Internal Medicine 01/09/17
--- OUTSIDE RECORDS SUMMARY | 2025-05-31 15:29 | XMS_ITS | Encounter Summary ---
Author Organization [employer] Address [address] [facility] 7t [place] [address] Care Team Providers Care Bread Dough Mixer Name Role Phone Arya Masterson MD Primary Care Provide r Encounter Details Date Type Department Care Team (Latest Contact Info) Description 05/31/2025 Travel Social History Tobacco Use Types Packs/Day Years [...] documented as of this encounter Care Teams Bread Dough Mixer Relationship Specialty Start Date End Date Arya Masterson MD [address] [place] [address] PCP - General Internal Medicine 03/21/14 documented as of this encounter
--- OUTSIDE RECORDS SUMMARY | 2025-05-31 15:29 | XMS_ITS | Patient Health Record ---
Author Organization [facility] Address [address] [place] [address] Care Team Providers Care Counter Dish Carrier Name Role Phone Riley Vera MD, Arya Primary Care Provide r Unavailable David Andujar Jr Unavailable [phone] Tara GRAY, Sj Unavailable Unavailable Reason For Referral No Information Plan Of Treatment No Information Insurance Providers Payer Name Payer Address Payer Phone Subscriber Number Group Number Insured Name Patient Relationship to Insured Coverage Start Date Coverage End Date [facility] [address] [place] [address] [id number] VERO AMIN Self - patient is the insured
--- OUTSIDE RECORDS SUMMARY | 2025-05-31 15:29 | XMS_ITS | Encounter Summary ---
Author Organization [employer] Address [address] [facility] 7t [place] [address] Care Team Providers Care Assessment Consultant Name Role Phone Arya Masterson MD Primary Care Provide r Reason for Visit * Reason Comments Med Refill Encounter Details Date Type Department Care Team ([facility] st Contact Info) Description 03/15/2025 Refill [facility] [address] [place], [place] [phone] Arya Masterson MD [address] [place], [place] [phone] Acquired hypothyroidism Social History Tobacco Use Types [...] documented as of this encounter Care Teams Assessment Consultant Relationship Specialty Start Date End Date Arya Masterson MD [address] [place] [address] PCP - General Internal Medicine 03/21/14 documented as of this encounter
--- OUTSIDE RECORDS SUMMARY | 2025-05-31 15:29 | XMS_ITS | Clinical Summary ---
Author Organization [facility] Address [address] [place] [address] DR SIMENTAL SOO ERICA [phone] Phone Care Team Providers Care Inspector Floor Sub Assembly Name Role Phone Unavailable Primary Care Provider [...] PM EDT) Hemoglobin A1C 7.0(H) (4.0-5.6) % [facility] Comment: MONITORING: In known diabetic patients, hemoglobin A1c targets should be discussed with health care provider. DIAGNOSTIC USE: The [place] [employer] (ADA) and the World Health [...] Supplement 1 Testing performed or reported by [facility], a Service of [facility], [address] [place] [id number] Oli Quiñones MD, Companion [facility]# [id number] 01/22/2022 1:58 PM EDT 01/22/2022 2:00 PM EDT us Osvaldo Ren MD LAB BLOOD ORDERABLES Final Re sult [facility] from Last 3 Months or Most Recently Relevant to Health Maintenance Insurance [facility]
--- OUTSIDE RECORDS SUMMARY | 2025-05-31 15:29 | XMS_ITS | Encounter Summary ---
Author Organization [employer] Address [address] [facility] 7t [place] [address] Care Team Providers Care Habilitation Specialist Name Role Phone Arya Masterson MD Primary Care Provide r Encounter Details Date Type Department Care Team (Late st Contact Info) Description 05/31/2025 Orders Only GENERIC EXTERNAL DATA DEPARTMENT Provider, [...] on file documented as of this encounter Procedures Procedure Name Priority Date/Time Associated Diagnosis Comments CREATININE, RANDOM URINE Routine 05/31/2025 12:21 PM EDT URINALYSIS, COMPLETE Routine 05/31/2025 12:21 PM EDT documented in this encounter Results * Creatinine, Random Urine (05/31/2025 12:21 PM EDT) Creatinine, Urine 77.39 mg/dL [facility] 05/31/2025 12:2 1 PM EDT 05/31/2025 12:53 PM EDT us Generic External Data Provider LAB URINE ORDERAB LES Final Result [facility] [address] [place] [phone] * (ABNORMAL) Urinalysis Complete (05/31/2025 12:21 PM EDT) Color Urine Yellow [facility] Appearance Urine Clear [facility] PH 5.5 5.0 - 9.0 [facility] Glucose Urine UA >=1000(A) Negative mg/dL [facility] Urine Blood Negative Negative [facility] Specific [place] - Urine 1.025 1.005 - 1.025 [facility] Urine Protein Negative Neg-Trace mg/dL [facility] Urine Ketones Negative Negative mg/dL [facility] Nitrite Urine Negative Negative [facility] Leukocyte Esterase Urine Negative Negative [facility] RBC Urine 0-2 0 - 2 /HPF [facility] Urine WBC 0-5 0 - 5 /HPF [facility] Urine Squamous Epithelial Cell 0-2 0 - 2 /HPF [facility] Urine Bacteria None Seen None Seen [facility] Hyaline Casts, Urine 0-2 0 - 2 /LPF [facility] 05/31/2025 12:2 1 PM EDT 05/31/2025 12:51 PM EDT us Generic External Data Provider LAB URINE ORDERAB LES Final Result [facility] [address] [place] [phone] documented in this encounter Visit Diagnoses Not on filedocumented in this encounter Additional Health Concerns Assessment Noted Time PHQ-9 Depression Total Score: 2 03/03/20 25 12:11 PM EDT documented as of this encounter Care Teams Habilitation Specialist Relationship Specialty Start Date End Date Arya Masterson MD [address] [place] [address] PCP - General Internal Medicine 03/21/14 documented as of this encounter
--- OUTSIDE RECORDS SUMMARY | 2025-05-31 15:29 | XMS_ITS | Encounter Summary ---
Author Organization [employer] Address [address] [facility] 7t [place] [address] Care Team Providers Care Back Joiner Name Role Phone Arya Masterson MD Primary Care Provide r Reason for Visit * Reason Comments Med Refill Encounter Details Date Type Department Care Team ([facility] st Contact Info) Description 02/29/[address] [facility] [address] [place], [place] [phone] Arya Masterson MD [address] [place], [place] [phone] Primary insomnia Social History Tobacco Use Types [...] documented as of this encounter Care Teams Back Joiner Relationship Specialty Start Date End Date Arya Masterson MD [address] [place] [id number] PCP - General Internal Medicine 03/21/14 documented as of this encounter
--- OUTSIDE RECORDS SUMMARY | 2025-05-31 15:29 | XMS_ITS | Encounter Summary ---
Author Organization [employer] Address [address] [facility] 7t [place] [address] Care Team Providers Care Trauma Program Manager Name Role Phone Arya Masterson MD Primary Care Provide r Encounter Details Date Type Department Care Team ([facility] st Contact Info) Description 01/17/2025 Orders Only [facility] [address] [place], [place] [phone] Arya Masterson MD [address] [place], [place] [phone] Type 2 diabetes mellitus with diabetic polyneuropathy, with long-term current use of insulin ([facility]) Social History Tobacco Use Types Packs/Day [...] documented as of this encounter Care Teams Trauma Program Manager Relationship Specialty Start Date End Date Arya Masterson MD [address] [place] [address] PCP - General Internal Medicine 03/21/14 documented as of this encounter
--- OUTSIDE RECORDS SUMMARY | 2025-05-31 15:29 | XMS_ITS | Encounter Summary ---
Author Organization [facility] Address [address] [place] [address] Phone Care Team Providers Care Bonsai Culturist Name Role Phone Arya Lin MD Primary Care Provider Unav ailable Encounter Details Date Type Department Care Team (Late st Contact Info) Description 02/02/2021 Orders Only [facility] [address] [place] [phone] Osvaldo Ren MD [address] [place] [phone] Type 2 diabetes mellitus with diabetic nephropathy [...] 2 documented in this encounter Care Teams Bonsai Culturist Relationship Specialty Start Date End Date Arya Lin MD PCP - General Internal Medicine 11/13/20 08/20/22 documented as of this encounter
--- OUTSIDE RECORDS SUMMARY | 2025-05-31 15:29 | XMS_ITS | Clinical Summary ---
Author Organization [employer] Address [address] [place] [address] [address] [place] [address] Care Team Providers Care Cytology Technologist Name Role Phone Arya Masterson MD Primary [...] g 3 09/15/19 24 Active Continuous Glucose Contract Attorney (FreeStyle Angel 2 [place]) deviceIndications: Type 2 diabetes mellitus with diabetic polyneuropathy, with long-term current use of insulin ([facility]) Scan sensor every 8 hours 1 each 04/27/20 24 Active Continuous Glucose Sensor (FreeStyle Angel 2 Sensor) miscIndications:Ty pe 2 diabetes mellitus with diabetic polyneuropathy, with long-term current use of insulin ([facility]) Apply 1 sensor every 14 days 2 [...] polyneuropathy, with long-term current use of insulin ([facility]) TAKE 1 TABLET BY MOUTH EVERY DAY [...] colon 2018 Needs repeat Will refer to [facility] Primary insomnia 08/27/2022 Assessment & Plan (09/14/2024 11:38 AM EST): Pt with previous c/o intermittent insomnia, No longer using Temazepam. Assessment & Plan (08/27/2022 2:16 PM EST): Pt with previous c/o intermittent insomnia, Currently using Temazepam PRN. Preventative health care 08/27/2022 Assessment & Plan (03/03/2025 12:02 PM EDT): PSA 11/06/2023 Normal Colonoscopy: colonoscopy at [facility] in 09/2017 that showed a Tubular Adenoma colonoscopy (05/22/2023) showed one polyp (Bx colonic mucosa with minor crypt distortion; negative for adenomatous dysplasia). Assessment & Plan (04/27/2024 11:30 AM EDT): PSA 11/06/2023 Normal Colonoscopy: colonoscopy at [facility] in 09/2017 that showed a Tubular Adenoma colonoscopy (05/22/2023) showed one polyp (Bx colonic mucosa with minor crypt distortion; negative for adenomatous dysplasia). Assessment & Plan (08/27/2022 2:16 PM EST): Colonoscopy: colonoscopy at [facility] in 09/2017 that showed a Tubular Adenoma, f/u 2022 Acquired hypothyroidism 08/12/2022 Assessment & Plan (05/31/2025 11:26 AM EDT): Pt's latest TSH was normal Lab Results Component Value Date TSH 2.91 03/09/2025 Continue Levothyroxine 25 mcg po daily. Assessment & Plan (09/14/2024 11:43 AM EST): [...] visit will consider ordering a thyroid US 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 behavioral disturbance, psychotic disturbance, mood disturbance, or anxiety 08/12/2022 Assessment & Plan (05/31/2025 11:25 AM EDT): Under the care of Neurology On Memantine 10 mg po BID Pt was seen last: 01/31/2025, has a follow up in July Assessment & Plan (03/03/2025 12:08 PM EDT): [...] care of Cardiology Last Cardiology note from [facility] 08/2023 12 month follow up recommended Assessment [...] Benign essential hypertension 12/25/2017 Assessment & Plan (05/31/2025 11:46 AM EDT): Patient here for a f/u BP He [...] counseled about weight loss. Assessment & Plan (03/03/2025 11:38 AM EDT): [...] care of Cardiology Last Cardiology note from [facility] 10/12/2024 12 month follow up recommended Assessment [...] care of Cardiology Last Cardiology note from [facility] 08/2023 12 month follow up recommended Assessment [...] care of Cardiology Last Cardiology note from [facility] 08/2023 12 month follow up recommended Assessment [...] year f/u. records requested Referral places to [facility] . Pt was seen 01/22/2022 [...] repeat colonoscopy, last 2017 Was seen by [facility] [employer] Dr Jackie Espinoza, Repeat 05/2023 showed 1. [...] repeat colonoscopy, last 2017 Was seen by [facility] [employer] Dr Jackie Espinoza, Repeat 05/2023 showed 1. [...] repeat colonoscopy, last 2017 Was seen by [facility] [employer] Dr Jackie Espinoza, already scheduled for EGD/Colonoscopy for March 27 2023 Assessment & Plan (01/16/2023 9:29 AM EDT): Pt due for repeat colonoscopy, last 2017 Was seen by [facility] [employer] Dr Jackie Espinoza, already scheduled for EGD/Colonoscopy [...] with Dr. Morfin He had colonoscopy at [facility] in 09/2017 that showed a Tubular Adenoma [...] 2014). This was communicated to his new [employer] Dr. Jackie Espinoza Assessment & Plan (08/27/2022 2:12 PM EST): Pt with a Hx of chronic Hep C. Pt is immune to Hep A and B. Abdominal US 08/12/2018 was unremarkable Alpha fetoprotein 07/23/2018 was wnl. Pt used to be under the care of the liver clinic, finished Rx with Harvoni. Diabetes mellitus, type II 01/15/2012 Assessment & Plan (05/31/2025 11:46 AM EDT): Pt is here for a [...] he needs close follow up with certified adaptive physical educator, automatic teller machine servicer Eye exam was last done by Dr. Hinds (international trade specialist). He reports he was seen January 11, 2025 Microalbumin checked on: 04/30/2024 was: 103 Pt is on an ARB. Foot check risk of zero Pt reports compliance with ASA 81 mg po daily 3 month follow up Pt advised to: adhere to diabetic diet check your blood sugars regularly check your feet on a daily basis Assessment & Plan (03/03/2025 11:55 AM EDT): [...] he needs close follow up with certified adaptive physical educator, automatic teller machine servicer Eye exam was last done by Dr. Hinds (international trade specialist). He reports he was seen January 11, [...] was last done 02/19/[address] Hinds (international trade specialist). Microalbumin checked on: 11/02/2021 was: 1.2 Pt [...] was last done 02/19/[address] Hinds (international trade specialist). Microalbumin checked on: 11/02/2021 was: 1.2 Pt [...] was last done 02/19/[address] Hinds (international trade specialist). Microalbumin checked on: 11/02/2021 was: 1.2 Pt [...] was last done 02/19/[address] Hinds (international trade specialist). Microalbumin checked on: 11/02/2021 was: 1.2 Pt [...] was last done 05/28/[address] Hinds (international trade specialist). Microalbumin checked on: 11/02/2021 was: 1.2 Pt [...] was last done 05/28/[address] Hinds (international trade specialist). Microalbumin checked on: 11/02/2021 was: 1.2 Pt is on an ARB. Foot check risk of zero Pt reports compliance with ASA 81 mg po daily Pt advised to: adhere to diabetic diet check your blood sugars regularly check your feet on a daily basis Resolved Problems Problem Noted Date Diagnosed Date Resolved Date Chronic skin ulcer of right ear (CMS/HCC) 01/20/2024 03/03/2025 Assessment & Plan (01/20/2024 11:31 AM EDT): Pt with a small non healing ulcer right ear Plan: Referral to Derm clinic to rule out skin cancer Stacey 10/21/2022 01/07/2023 Assessment & Plan (10/21/2022 8:38 PM EDT): Mild, reassurance. Explained that it is not a STI Counseled re tight control of DM Use clotrimazole cream bid x 1w + Fluconazole 150mg x 1 Encounters Date Type Department Care Team Description 05/31/2025 11:15 AM EDT Office Visit [facility] [address] [place] [phone] Arya Masterson MD 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 behavioral disturbance, psychotic disturbance, mood disturbance, or anxiety (HCC) (Primary Dx); Type 2 diabetes mellitus with diabetic polyneuropathy, with long-term current use of insulin (HCC); Benign essential hypertension; Acquired hypothyroidism 05/31/2025 Orders Only GENERIC EXTERNAL DATA DEPARTMENT Provider, Generic External Data 05/31/2025 Travel 05/25/[address] [facility] [address] [place] [phone] Arya Masterson MD Nurse Triage 05/14/2025 Orders Only GENERIC EXTERNAL DATA DEPARTMENT Provider, Generic External Data 04/26/2025 Orders Only GENERIC EXTERNAL DATA DEPARTMENT Provider, Generic External Data 04/16/[address] [facility] [address] [place] [address] Arya Matserson MD Acquired hypothyroidism 04/11/[address] [facility] [address] [place] [address] Arya Masterson MD Type 2 diabetes mellitus with diabetic polyneuropathy, with long-term current use of insulin (CMS/[facility]) 04/10/[address] [facility] [address] [place] [address] Arya Masterson MD Type 2 diabetes mellitus with diabetic polyneuropathy, with long-term current use of insulin (CMS/HCC) 03/15/[address] [facility] [address] [place] [address] Arya Masterson MD Acquired hypothyroidism 03/03/2025 11:30 AM EDT Office Visit [facility] [address] [place] [address] Arya Masterson MD Type 2 diabetes mellitus with diabetic polyneuropathy, with long-term current use of insulin (CMS/[facility]) (Primary Dx); Benign essential hypertension; Mixed hyperlipidemia; Ventricular septal defect; Stage 2 chronic kidney disease; Preventative health care; Impaired cognition 03/03/2025 Travel 03/02/[address] [facility] [address] [place] [address] Arya Masterson MD chart prep from Last [...] 20 05/31/2025 11:27 AM EDT Oxygen Saturation 98% 03/03/2025 11:38 AM EDT Inhaled Oxygen Concentration - - Weight 59.7 kg (131 lb 9.6 oz) 05/31/2025 11:27 AM EDT Height 167.6 cm (5' 6 ) 05/31/2025 11:27 AM EDT Body Mass Index 21.24 05/31/2025 11:27 AM EDT Plan of Treatment Health Maintenance Due [...] Additional history exists Influenza Vaccine (#1) 2025 4, 06/03/2023, 05/21/2022, Additional history exists Diabetes: Hemoglobin A1C 08/31/2025 025, 03/03/2025, 09/14/2024, Additional history exists Alcohol/Substance Use Screening 09/14/2025 09/14/2024 Tobacco Screening 09/14/2025 09/14/2024 Depression Screening 03/03/2026 03/03/2025, 03/03/20 25 SDOH Screening 03/03/2026 03/03/2025 Lipid Panel 03/09/2026 03/09/2025, 04/05, 08/28/2022, Additional history exists Diabetes: Urine Protein Screening 05/31/2026 05/31/2025, 05/14/2025, 04/30/2024, Additional history exists Colonoscopy 05/22/2028 05/22/2023 Colorectal [...] URINALYSIS, COMPLETE Routine 05/31/2025 12:21 PM EDT POCT GLYCATED HEMOGLOBIN, TOTAL Routine 05/31/2025 11:35 AM EDT Type 2 diabetes mellitus with diabetic polyneuropathy, with long-term current use of insulin (HCC) POCT GLUCOSE Routine 05/31/2025 11:35 AM EDT Type 2 diabetes mellitus with diabetic polyneuropathy, with long-term current use of insulin ([facility]) URINE PROTEIN, TOTAL, RANDOM (W/O CREATININE) Routine [...] polyneuropathy, with long-term current use of insulin ([facility]/HCC) POCT GLUCOSE Routine 03/03/2025 11:39 AM EDT Type 2 diabetes mellitus with diabetic polyneuropathy, with long-term current use of insulin (CMS/HCC) HM COLONOSCOPY Routine 05/22/2023 HEPATITIS C ANTIBODY Routine 01/14/2023 2:18 PM EDT from Last 3 Months or Most Recently Relevant to Health Maintenance Results * Creatinine, Random Urine (05/31/2025 12:21 PM EDT) Creatinine, Urine 77.39 mg/dL [facility] 05/31/2025 12:2 1 PM EDT 05/31/2025 12:53 PM EDT us Generic External Data Provider LAB URINE ORDERAB LES Final Result [facility] [address] [place] [phone] * (ABNORMAL) Urinalysis Complete (05/31/2025 12:21 PM EDT) Only the most recent of2 resultswithin the time period is included. Color Urine Yellow [facility] Appearance Urine Clear [facility] PH 5.5 5.0 - 9.0 [facility] Glucose Urine UA >=1000(A) Negative mg/dL [facility] Urine Blood Negative Negative [facility] Specific [place] - Urine 1.025 1.005 - 1.025 [facility] Urine Protein Negative Neg-Trace mg/dL [facility] Urine Ketones Negative Negative mg/dL [facility] Nitrite Urine Negative Negative [facility] Leukocyte Esterase Urine Negative Negative [facility] RBC Urine 0-2 0 - 2 /HPF [facility] Urine WBC 0-5 0 - 5 /HPF [facility] Urine Squamous Epithelial Cell 0-2 0 - 2 /HPF [facility] Urine Bacteria None Seen None Seen [facility] Hyaline Casts, Urine 0-2 0 - 2 /LPF [facility] 05/31/2025 12:2 1 PM EDT 05/31/2025 12:51 PM EDT Generic External Data Provider LAB URINE ORDERAB LES Final Result [facility] [address] [place] [address] [phone] * (ABNORMAL) POCT Hgb A1c (05/31/2025 11:35 AM EDT) Only the most recent of2 resultswithin the time period is included. Hemoglobin A1C 9.7(A) 4.0 - 5.7 % QC Media Lot # [id number] Lot# Expiration Date , Blood 05/31/2025 11:3 5 AM EDT us Arya Vera MD POINT OF CARE TEST EN TER/EDIT ORDERABLES Final Result * POCT Glucose (05/31/2025 11:35 AM EDT) Only the most recent of2 resultswithin the time period is included. Glucose Blood, POC 165 60 - 200 mg/dL QC Media Lot # [id number] Lot# Expiration Date 2958,[id number] Blood Capillary blood specimen / Unknown 05/31/2025 11:35 AM EDT us Arya Vera MD POINT OF CARE TEST EN TER/EDIT ORDERABLES Final Result * (ABNORMAL) Albumin, Random Urine W/Creatinine (05/14/2025 10:02 AM EDT) Creatinine, Urine 65.74 mg/dL [facility] Microalbumin Urine 50.0 mg/L H [facility] Microalbum Creatinine Ratio Ur 76.0(H) <30 ug/mg cr [facility] Comment:Albumin/Creatinine R atio Reference Ranges: Normal: < 30 ug/mg creatinine Microalbuminuria: 30 - 300 ug/mg creatinineClinical Albuminuria: > 300 ug/mg creatinine 05/14/2025 10:0 2 AM EDT 05/14/2025 11:16 AM EDT us Generic External Data Provider LAB URINE ORDERAB LES Final Result Performing Organization Address [facility]/ZIP Co de Phone Number [facility] [address] [place] [phone] * (ABNORMAL) Urine Protein, Total, Random without Creatinine (05/14/2025 10:02 AM EDT) Protein, Total, Random Urine 15(H) <12 mg/dL [facility] 05/14/2025 10:0 2 AM EDT 05/14/2025 11:16 AM EDT Generic External Data Provider LAB URINE ORDERAB LES Final Result Performing Organization Address [facility] de Phone Number [facility] [address] [place] [phone] * Glutamic Acid Decarboxylase 65 Antibody (05/14/2025 10:00 AM EDT) Glutamic acid decarboxylase Ab <5 <5 IU/mL [facility] Comment:This test was perfor med using the GAD65 TONNY method,which is standardized against the Internationalreference preparation 97/550.THIS TEST WAS PERFORMED AT:[id number] [place] [address]NTUIYFOMANSI MATTHEWS MD,PHD 05/14/2025 10:0 0 AM EDT 05/14/2025 10:00 AM EDT Generic External Data Provider LAB BLOOD ORDERAB LES Final Result Performing Organization Address [facility] Co de Phone Number [facility] [address] [place] [phone] * (ABNORMAL) Basic Metabolic Panel (05/14/2025 10:00 AM EDT) Only the most recent of2 resultswithin the time period is included. Sodium 141 135 - 145 mmol/L [facility] Potassium 5.2(H) 3.3 - 5.1 mmol/L [facility] Chloride 109(H) 96 - 108 mmol/L [facility] Carbon Dioxide 24 22 - 29 mmol/L [facility] Anion Gap 13 12 - 20 [facility] Urea Nitrogen (BUN) 24(H) 9 - 16 mg/dL [facility] Creatinine, Serum 1.31 0.5 - 1.4 mg/dL [facility] Estimated Glomerular Filt Rate 53 [facility] Comment:Chronic Kidney Disea se: Estimated GFR < 60 mL/min/[id number] Kidney Disease: Estimated GFR < 15 mL/min/1.73m2 Glucose 172(H) 60 - 115 mg/dL [facility] Calcium 9.7 8.4 - 10.2 mg/dL [facility] 05/14/2025 10:0 0 AM EDT 05/14/2025 10:00 AM EDT us Generic External Data Provider LAB BLOOD ORDERAB LES Final Result Performing Organization Address [facility]/ZIP Co de Phone Number [facility] [address] [place] [phone] * Glucose, Whole Blood (04/26/2025 1:34 PM EDT) Glucose, Whole Blood 110 60 - 115 mg/dL [facility] Comment:METER #: [id number] Testing performed in the Endocrinology Department [address] , [address], [facility]. 04/26/2025 1:34 PM EDT 04/26/2025 1:37 PM EDT us Generic External Data Provider LAB BLOOD ORDERAB LES Final Result Performing Organization Address City/[facility]/ZIP Co de Phone Number [facility] [address] [place] [address] [phone] * TSH W/Reflex to FT4 (03/09/2025 8:37 AM EDT) TSH reflex Free T4 2.91 0.32 - 4.0 uIU/mL [facility] Blood Venous blood specimen / Unknown 03/09/2025 8:37 AM EDT 03/09/2025 11:31 AM EDT Arya Vera MD LAB BLOOD ORDERABLES Final Result Performing Organization Address [facility] Co de Phone Number [facility] [address] [place] [phone] * (ABNORMAL) Lipid Panel, Standard (03/09/2025 8:37 AM EDT) Pathologist [facility] Triglycerides 70 <150 mg/dL [facility] Comment:Desirable Triglyceri de: less than 150 mg/dLBorderline High Triglyceride 150-199 mg/dLHigh Triglyceride: 200-499 mg/dLVery High Triglyceride: greater than or equal to 5OO mg/dL Cholesterol 105 <200 mg/dL [facility] Comment:Desirable Cholestero l: less than 200 mg/dLBorderline High Cholesterol: 200-239 mg/dLHigh Cholesterol: greater than 239 mg/dL LDL Cholesterol Calculated 56 <100 mg/dL [facility] Comment:Desirable LDL: less than 100 mg/dLNear Optimal/Above Optimal LDL: 110- 129 mg/dLBorderline High LDL: 130-159 mg/dLHigh LDL: 160-189 mg/dLVery High LDL: greater than or equal to 190 mg/dL HDL Cholesterol 35(L) >40 mg/dL [facility] Comment:Desirable HDL: great er than 40 mg/dL Note: This HDL assay may give artificially low results in patients with liver disease. Blood Venous blood specimen / Unknown 03/09/2025 8:37 AM EDT 03/09/2025 11:31 AM EDT Arya Vera MD LAB BLOOD ORDERABLES Final Result Performing Organization Address City/[facility]/ZIP Co de Phone Number [facility] [address] [place] [phone] * Colonoscopy (05/22/2023) Colonoscopy Normal Normal [facility] Provider MD HEALTH MAINTENANCE Final Result * (ABNORMAL) Hepatitis C Ab (01/14/2023 2:18 PM EDT) Hepatitis C Antibody Reactive( A) Nonreactive [facility] Comment:Presumptive evidence of antibodies to HCV. 01/14/2023 2:18 PM EDT 01/14/2023 2:19 PM EDT [facility] External Provider LAB BLO OD ORDERABLES Final Result [facility] [address] [place] [phone] [phone] from Last 3 Months or Most Recently Relevant to Health Maintenance Insurance [facility] OPTIONS (HMO D-SNP) ALEC SONG [id number] Care Teams Cytology Technologist Relationship Specialty Start Date End Date Arya Masterson MD [address] [place] [phone] PCP - General Internal Medicine 03/21/14
[2025-05-31 17:06] LABS: Alanine Aminotransferase 25 U/L (0-40); Albumin Level 4.3 g/dL (3.5-5.0); Alkaline Phosphatase 68 U/L (39-117); Anion Gap 11 (12-20); Aspartate Amino Transferase 38 U/L (5-37); Blood Urea Nitrogen 27 mg/dL (9-16); Calcium 9.3 mg/dL (8.4-10.2); Carbon Dioxide 25 mmol/L (22-29); Chloride 109 mmol/L (96-108); Estimated Glomerular Filt Rate 42; Potassium 4.6 mmol/L (3.3-5.1); Sodium 140 mmol/L (135-145); Total Protein 7.6 g/dL (6.5-8.0)
== END 2025-05-31 12:09 | disposition home or self-care (01) ==
LOC: HO.HHCL 12:08
PROVIDERS: PCP Internal Medicine; Referring Provider Internal Medicine; Visit Provider Internal Medicine Critical Care Medicine
DX: I12.9 Hypertensive chronic kidney disease with stage 1 through stage 4 chronic kidney disease, or unspecified chronic kidney disease (principal); E11.22 Type 2 diabetes mellitus with diabetic chronic kidney disease; N18.30 Chronic kidney disease, stage 3 unspecified; R80.9 Proteinuria, unspecified
CPT/HCPCS: 36415; 80053; 81001; 81003; 82570

== ENCOUNTER 2025-06-08 08:24 | Outpatient (AMB) | payer OTHER, SELFPAY ==
[2025-06-08 08:35] VITALS: BP 100/46; PULSE 70; O2SAT 98; BMI 22.6
--- NOTE | 2025-06-08 08:35 | A.OFFVIS_ITS ---
Vital Signs 06/08/25 08:35 Height 5 ft 4 in Weight 131 lb 9.855 oz BMI 22.6 BP 100/46 L Blood Pressure Location Rt brachial Position Sitting Pulse 70 Pulse Source Pulse Oximeter Pulse Oximetry (%) 98 Oxygen Delivery Method Room Air Intake Visit Reasons: T2DM Intake Note: Patient present today for T2DM. 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 Random Glucose: 227 mg/dl Hgb A1C: 9.4% 04/05/2025 Acute Care Nurse Practitioner Required: Yes Acute Care Nurse Practitioner Language: Cable Technician Services: Acute Care Nurse Practitioner Offered & Declined Accompanied by: Daughter Allergies canagliflozin (Invokana) Allergy (Intermediate, Verified 06/08/25 08:43) hives hydralazine (HYDRALAZINE) Allergy (Intermediate, Verified 06/08/25 08:43) SHOULDER PAIN lisinopril Allergy (Unknown, Verified 06/08/25 08:43) Dizziness enalapril Adverse Reaction (Intermediate, Verified 06/08/25 08:43) Dizziness hydrochlorothiazide (HYDROCHLOROTHIAZIDE) Adverse Reaction (Intermediate, Verified 06/08/25 08:43) Dizziness potassium (POTASSIUM) Adverse Reaction (Intermediate, Verified 06/08/25 08:43) Dizziness Medication List - Last Reconciled 06/08/25 by Danish Trujillo MD acetaminophen (Pain Relief Extra Strength (acetaminophen)) 1,000 mg PO Q6H PRN amlodipine 5 mg PO DAILY aspirin 81 mg PO DAILY Baqsimi 3 mg/actuation (glucagon) 3 mg intranasal ONCE NS blood-glucose sensor (FreeStyle Angel 3 Plus Sensor device) As directed change every 15 days blood-glucose,guide alpine,cont (FreeStyle Angel 3 [place]) As directed brimonidine 0.2% 1 drp ophthalmic (eye) BID cholecalciferol (vitamin D3) 125 mcg PO DAILY empagliflozin (Jardiance) 25 mg PO DAILY fluticasone propionate 50 mcg/actuation 1 - 2 sprays intranasal DAILY PRN insulin glargine (Lantus Solostar U-100 Insulin) 12 units subcut DAILY insulin syringe-needle U-100 Once a day levothyroxine 25 mcg PO DAILY losartan 25 mg PO DAILY memantine 10 mg PO BID 90 days multivitamin with folic acid 400 mcg (Daily-Tunde (with folic acid)) 1 tab PO DAILY pantoprazole 40 mg PO DAILY rosuvastatin 20 mg PO QAM HPI Comments Details: 74 yo male with DM type 2, today for fup visit . He has DM diagnosed 20 years ago, PMD is Arya Rosenthal M.D. He is Currently on Lantus 12 units at 10 pm, Jardiance 25 mg q.d. Angel download shows she is using the sensor 62% of the time . Average glucose is wondering 7 with G mi of 7.8% and variability 39.8%. 44% and was in range with 29% hyperglycemia and 23% very hyperglycemic and 4% hyperglycemia. The hypoglycemia is occurring overnight. Blood sugars are then elevated post- breakfast and can remain elevated throughout the day No hypoglycemic symptoms Patient has PMH of liver disease, Hep C, h/o colon cancer, Vit B12 deficiency, GERD. s/p aortic valve replacement bioprosthetic Complications: no retinopathy, + nephropathy, neuropathy, CVA, CAD, PVD. Had positive microalbumin in 2013, now resolved. Last ophthalmology evaluation: 01/11/2025 , no need for photocoagulation or VEGF therapy. Occasional Nocturia, 1 time, polyuria, denies numbness, + occasional tingling. He lost 3 lb since last visit. Laboratory Tests 04/12/19 04/12/19 04/12/19 10:01 10:01 10:03 Hgb Hct Sodium Potassium BUN Creatinine Est GFR (Non-Af Amer) POC Glucose Hgb A1c Fingerstick Fructosamine 308 H Calcium AST ALT Albumin Triglycerides 50 Cholesterol 139 LDL Cholesterol Direct 104 H LDL Cholesterol, Calc 91 HDL Cholesterol 38 D Vitamin B12 TSH Thyroxine (T4) Ur Random Creatinine 27.94 Ur Random Microalbumin < 5.0 Microalb/Creat Ratio TNP 01/26/20 01/27/20 01/27/20 17:30 00:53 06:40 Hgb 11.1 L Hct 33.4 L Sodium Potassium BUN Creatinine Est GFR (Non-Af Amer) POC Glucose Hgb A1c Fingerstick Fructosamine Calcium 8.8 D AST 23 ALT 21 Albumin 4.4 Triglycerides Cholesterol LDL Cholesterol Direct LDL Cholesterol, Calc HDL Cholesterol Vitamin B12 TSH Thyroxine (T4) Ur Random Creatinine Ur Random Microalbumin Microalb/Creat Ratio 01/28/20 02/07/20 02/07/20 07:41 13:25 13:34 Hgb Hct Sodium 137 Potassium 5.4 H BUN 21 H Creatinine 1.41 H Est GFR (Non-Af Amer) 50 POC Glucose 149 H Hgb A1c Fingerstick 6.8 Fructosamine Calcium AST ALT Albumin Triglycerides Cholesterol LDL Cholesterol Direct LDL Cholesterol, Calc HDL Cholesterol Vitamin B12 TSH Thyroxine (T4) Ur Random Creatinine Ur Random Microalbumin Microalb/Creat Ratio 10/30/20 10/30/20 15:08 15:08 Hgb Hct Sodium Potassium BUN Creatinine Est GFR (Non-Af Amer) POC Glucose Hgb A1c Fingerstick Fructosamine Calcium AST ALT Albumin Triglycerides Cholesterol LDL Cholesterol Direct LDL Cholesterol, Calc HDL Cholesterol Vitamin B12 699 TSH 4.24 H Thyroxine (T4) 5.7 Ur Random Creatinine Ur Random Microalbumin Microalb/Creat Ratio PFSH Medical History Congenital ventricular septal defect 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 Social History Household Members: Spouse Housing: House Alcohol intake: former Patient Tobacco Use Status: Never used Tobacco Advance Directives Date on File: 02/28/22 service: No Current occupational status: retired and disabled Physical Exam Absence of Cushingoid features. Absence of acromegalic features. Neck exam reveals nl size thyroid about 15 gms. No thyroid nodules palpable. No carotid bruits present. Lungs CTA. Heart S1 S2, Reg R/R. No M/R/ G. Skin exam reveals absence of vitiligo or acanthosis nigricans. Abdominal exam reveals Soft NT/ND with NA BS. No organomegaly present. Neck Other: . Extrem Other: Visual exam of foot performed. No ulcerations or open lesions. No onchomycosis, no callouses.Pulses 2 + distally Sensation intact to monofilament exam. Vibratory sensation sensed is intact with 128 Hz tuning fork Assessment & Plan Assessment & Plan (1) Diabetes type 2, uncontrolled: Code(s): E11.65 - Type 2 diabetes mellitus with hyperglycemia Category: Medical Plan: This is a 74-year-old male with a history of type 2 diabetes being treated with Jardiance and basal-bolus insulin with poor glycemic control and known microvascular and macrovascular complications namely , + nephropathy CKD stage 3, neuropathy, CVA, CAD, PVD. Goal of hemoglobin A1c should be l< 7.5%. He has significant hypoglycemia overnight with elevation and post-prandial blood sugar post breakfast Plan is to decrease the Lantus to 6 units and to discontinue it if he continues to have significant hypoglycemia overnight. . We will also start a small dose of Humalog prior to breakfast 5 units .We will consider starting a G LP 1 agonist like Ozempic for better glycemic control and for renal protection in the future. We will have patient follow up with primary care diabetes team in 4 weeks Plan This is Medications: New insulin lispro (Humalog KwikPen (U-100) Insulin) take 5 units 5-15 minutes before breakfast 5 units (0.05 mL) subcut QAM 15 mL 0RF Coding Level of Care Code Est Pt Level 4 (88500) Complex EM visit Add On G2211 Diagnoses Diabetes type 2, uncontrolled E11.65
--- OUTSIDE RECORDS SUMMARY | 2025-06-08 08:38 | XMS_ITS | Encounter Summary ---
Author Organization [facility] Address [address] [place] [address] Phone Care Team Providers Care Oncology Rep Name Role Phone Arya Lin MD Primary Care Provider Unav ailable Encounter Details Date Type Department Care Team (Late st Contact Info) Description 02/02/2021 Orders Only [facility] [address] [place] [id number] Osvaldo Ren MD [address] [place] [id number] Type 2 diabetes mellitus with diabetic nephropathy [...] 2 documented in this encounter Care Teams Oncology Rep Relationship Specialty Start Date End Date Arya Lin MD PCP - General Internal Medicine 11/13/20 08/20/22 documented as of this encounter
--- OUTSIDE RECORDS SUMMARY | 2025-06-08 08:38 | XMS_ITS | Encounter Summary ---
Author Organization [employer] Address [address] [facility] [address] [place] [address] Care Team Providers Care Gallery Intern Name Role Phone Arya Masterson MD Primary Care Provide r Reason for Visit * Reason Comments Med Refill Encounter Details Date Type Department Care Team ([facility] st Contact Info) Description 09/15/[address] [facility] [address], [place] [phone] Arya Masterson MD [address] [place], [place] [phone] Acquired hypothyroidism Social History Tobacco Use Types [...] documented as of this encounter Care Teams Gallery Intern Relationship Specialty Start Date End Date Arya Masterson MD [address] [place] [id number] PCP - General Internal Medicine 03/21/14 documented as of this encounter
--- OUTSIDE RECORDS SUMMARY | 2025-06-08 08:38 | XMS_ITS | Clinical Summary ---
Author Organization [employer] Address [address] [place] [address] 7t [place] [address] Care Team Providers Care Electric Meter Setter Name Role Phone Arya Masterson MD Primary [...] g 3 09/15/19 24 Active Continuous Glucose Tar Boiler (FreeStyle Angel 2 [place]) deviceIndications: Type 2 diabetes mellitus with diabetic polyneuropathy, with long-term current use of insulin ([facility]) Scan sensor every 8 hours 1 each 04/27/20 24 Active Continuous Glucose Sensor (FreeStyle Angel 2 Sensor) miscIndications:Ty pe 2 diabetes mellitus with diabetic polyneuropathy, with long-term current use of insulin ([facility]) Apply 1 sensor every 14 days 2 [...] polyneuropathy, with long-term current use of insulin ([facility]) TAKE 1 TABLET BY MOUTH EVERY DAY [...] colon 2018 Needs repeat Will refer to [facility] Primary insomnia 08/27/2022 Assessment & Plan (09/14/2024 11:38 AM EST): Pt with previous c/o intermittent insomnia, No longer using Temazepam. Assessment & Plan (08/27/2022 2:16 PM EST): Pt with previous c/o intermittent insomnia, Currently using Temazepam PRN. Preventative health care 08/27/2022 Assessment & Plan (03/03/2025 12:02 PM EDT): PSA 11/06/2023 Normal Colonoscopy: colonoscopy at [facility] in 09/2017 that showed a Tubular Adenoma colonoscopy (05/22/2023) showed one polyp (Bx colonic mucosa with minor crypt distortion; negative for adenomatous dysplasia). Assessment & Plan (04/27/2024 11:30 AM EDT): PSA 11/06/2023 Normal Colonoscopy: colonoscopy at [facility] in 09/2017 that showed a Tubular Adenoma colonoscopy (05/22/2023) showed one polyp (Bx colonic mucosa with minor crypt distortion; negative for adenomatous dysplasia). Assessment & Plan (08/27/2022 2:16 PM EST): Colonoscopy: colonoscopy at [facility] in 09/2017 that showed a Tubular Adenoma, [...] care of Cardiology Last Cardiology note from [facility] 08/2023 12 month follow [...] care of Cardiology Last Cardiology note from [facility] 10/12/2024 12 month follow [...] care of Cardiology Last Cardiology note from [facility] 08/2023 12 month follow [...] care of Cardiology Last Cardiology note from [facility] 08/2023 12 month follow [...] year f/u. records requested Referral places to [facility] . Pt was seen 01/22/2022 [...] repeat colonoscopy, last 2017 Was seen by [facility] [address] Jackie Espinoza, Repeat 05/2023 showed 1. [...] repeat colonoscopy, last 2017 Was seen by [facility] [address] [facility] Jackie Espinoza, Repeat 05/2023 showed 1. [...] repeat colonoscopy, last 2017 Was seen by [facility] [address] [address] Jackie Espinoza, already scheduled for EGD/Colonoscopy for March 27 2023 Assessment & Plan (01/16/2023 9:29 AM EDT): Pt due for repeat colonoscopy, last 2017 Was seen by [facility] [address] [facility] Jackie Espinoza, already scheduled for EGD/Colonoscopy [...] with Dr. Morfin He had colonoscopy at [facility] in 09/2017 that showed a Tubular Adenoma [...] 2014). 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 Jackie Espinoza Assessment & Plan (08/27/2022 [...] Endocrinology, he needs close follow up with special education paraeducator, door clamper Eye exam was last done by Dr. Hinds (tire worker). He reports he was seen January 11, [...] Endocrinology, he needs close follow up with special education paraeducator, door clamper Eye exam was last done by Dr. Hinds (tire worker). He reports he was seen January 11, [...] was last done 02/19/[address] Hinds (tire worker). Microalbumin checked on: 11/02/2021 was: 1.2 Pt [...] was last done 02/19/[address] Hinds (tire worker). Microalbumin checked on: 11/02/2021 was: 1.2 Pt [...] was last done 02/19/[address] Hinds (tire worker). Microalbumin checked on: 11/02/2021 was: 1.2 Pt [...] was last done 02/19/[address] Hinds (tire worker). Microalbumin checked on: 11/02/2021 was: 1.2 Pt [...] was last done 05/28/[address] Hinds (tire worker). Microalbumin checked on: 11/02/2021 was: 1.2 Pt [...] was last done 05/28/[address] Hinds (tire worker). Microalbumin checked on: 11/02/2021 was: 1.2 Pt [...] Description 05/31/2025 11:15 AM EDT Office Visit [facility] [address] [place] [phone] Arya Masterson MD 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 behavioral disturbance, psychotic disturbance, mood disturbance, or anxiety (HCC) (Primary Dx); Type 2 diabetes mellitus with diabetic polyneuropathy, with long-term current use of insulin (HCC); Benign essential hypertension; Acquired hypothyroidism 05/31/2025 Orders Only GENERIC EXTERNAL DATA DEPARTMENT Provider, Generic External Data 05/31/2025 Travel 05/25/2025 Telephone [facility] [address] [place] [phone] Arya Masterson MD Nurse Triage 05/14/2025 Orders Only GENERIC EXTERNAL DATA DEPARTMENT Provider, Generic External Data 04/26/2025 Orders Only GENERIC EXTERNAL DATA DEPARTMENT Provider, Generic External Data 04/16/2025 Refill [facility] [address] [place] [address] Arya Masterson MD Acquired hypothyroidism 04/11/2025 Refill [facility] [address] [place] [address] Arya Masterson MD Type 2 diabetes mellitus with diabetic polyneuropathy, with long-term current use of insulin ([facility]) 04/10/2025 Refill [facility] [address] [place] [address] Arya Masterson MD Type 2 diabetes mellitus with diabetic polyneuropathy, with long-term current use of insulin ([facility]) 03/15/2025 Refill [facility] [address] [place] [address] Arya Masetrson MD Acquired hypothyroidism from Last 3 Months Immunizations Immunization Administration [...] URINALYSIS, COMPLETE Routine 05/31/2025 12:21 PM EDT COMPREHENSIVE METABOLIC PANEL Routine 05/31/2025 12:21 PM EDT Benign essential hypertension POCT GLYCATED HEMOGLOBIN, TOTAL Routine 05/31/2025 11:35 AM EDT Type 2 diabetes mellitus with diabetic polyneuropathy, with long-term current use of insulin (HCC) POCT GLUCOSE Routine 05/31/2025 11:35 AM EDT Type 2 diabetes mellitus with diabetic polyneuropathy, with long-term current use of insulin (HCC) URINE PROTEIN, TOTAL, RANDOM (W/O CREATININE) Routine [...] AM EDT Stage 2 chronic kidney disease HM COLONOSCOPY Routine 05/22/2023 HEPATITIS C ANTIBODY Routine 01/14/2023 2:18 PM EDT from Last 3 Months or Most Recently Relevant to Health Maintenance Results * Creatinine, Random Urine (05/31/2025 12:21 PM EDT) Creatinine, Urine 77.39 mg/dL [facility] 05/31/2025 12:2 1 PM EDT 05/31/2025 12:53 PM EDT us Generic External Data Provider LAB URINE ORDERAB LES Final Result [facility] [address] [place] [phone] * (ABNORMAL) Urinalysis Complete (05/31/2025 12:21 PM EDT) Only the most recent of2 resultswithin the time period is included. Color Urine Yellow [facility] Appearance Urine Clear [facility] PH 5.5 5.0 - 9.0 [facility] Glucose Urine UA >=1000(A) Negative mg/dL [facility] Urine Blood Negative Negative [facility] Specific [place] - Urine 1.025 1.005 - 1.025 [facility] Urine Protein Negative Neg-Trace mg/dL [facility] Urine Ketones Negative Negative mg/dL [facility] Nitrite Urine Negative Negative [facility] Leukocyte Esterase Urine Negative Negative [facility] RBC Urine 0-2 0 - 2 /HPF [facility] Urine WBC 0-5 0 - 5 /HPF [facility] Urine Squamous Epithelial Cell 0-2 0 - 2 /HPF [facility] Urine Bacteria None Seen None Seen [facility] Hyaline Casts, Urine 0-2 0 - 2 /LPF [facility] 05/31/2025 12:2 1 PM EDT 05/31/2025 12:51 PM EDT us Generic External Data Provider LAB URINE ORDERAB LES Final Result Performing Organization Address City/State/[facility] Co de Phone Number [facility] [address] [place] [phone] * (ABNORMAL) Comprehensive Metabolic Panel (05/31/2025 12:21 PM EDT) Sodium 140 135 - 145 mmol/L [facility] Potassium 4.6 3.3 - 5.1 mmol/L [facility] Chloride 109(H) 96 - 108 mmol/L [facility] Carbon Dioxide 25 22 - 29 mmol/L [facility] Anion Gap 11(L) 12 - 20 [facility] Urea Nitrogen (BUN) 27(H) 9 - 16 mg/dL [facility] Creatinine, Serum 1.61(H) 0.5 - 1.4 mg/dL [facility] Estimated Glomerular Filt Rate 42 [facility] Comment:Chronic Kidney Disea se: Estimated GFR < 60 mL/min/1.63b6Cpamhq Kidney Disease: Estimated GFR < 15 mL/min/1.73m2 Glucose 223(H) 60 - 115 mg/dL [facility] Calcium 9.3 8.4 - 10.2 mg/dL [facility] Bilirubin, Total 0.5 0.0 - 1.0 mg/dL [facility] Aspartate Amino Transferase 38(H) 5 - 37 U/L [facility] Alanine Aminotransferase 25 0 - 40 U/L [facility] Total Protein 7.6 6.5 - 8.0 g/dL [facility] Albumin Level 4.3 3.5 - 5.0 g/dL [facility] Alkaline Phosphatase 68 39 - 117 U/L [facility] Blood Venous blood specimen / Unknown 05/31/2025 12:21 PM EDT 05/31/2025 4:28 PM EDT us Arya Vera MD LAB BLOOD ORDERABLES Final Result [facility] [address] [place] [phone] * (ABNORMAL) POCT Hgb A1c (05/31/2025 11:35 AM EDT) Hemoglobin A1C 9.7(A) 4.0 - 5.7 % QC Media Lot # [id number] Lot# Expiration Date Blood 05/31/2025 11:3 5 AM EDT us Arya Vera MD POINT OF CARE TEST EN TER/EDIT ORDERABLES Final Result * POCT Glucose (05/31/2025 11:35 AM EDT) Glucose Blood, POC 165 60 - 200 mg/dL [employer] Lot # [id number] Lot# Expiration Date [id number] Blood Capillary blood specimen / Unknown 05/31/2025 11:35 AM EDT us Arya Vera MD POINT OF CARE TEST EN TER/EDIT ORDERABLES Final Result * (ABNORMAL) Albumin, Random Urine W/Creatinine (05/14/2025 10:02 AM EDT) Creatinine, Urine 65.74 mg/dL [facility] Microalbumin Urine 50.0 mg/L H [facility] Microalbum Creatinine Ratio Ur 76.0(H) <30 ug/mg cr [facility] Comment:Albumin/Creatinine R atio Reference Ranges: Normal: < 30 ug/mg creatinine Microalbuminuria: 30 - 300 ug/mg creatinineClinical Albuminuria: > 300 ug/mg creatinine 05/14/2025 10:0 2 AM EDT 05/14/2025 11:16 AM EDT us Generic External Data Provider LAB URINE ORDERAB LES Final Result Performing Organization Address City/[facility]/ZIP Co de Phone Number [facility] [address] [place] [phone] * (ABNORMAL) Urine Protein, Total, Random without Creatinine (05/14/2025 10:02 AM EDT) Protein, Total, Random Urine 15(H) <12 mg/dL [facility] 05/14/2025 10:0 2 AM EDT 05/14/2025 11:16 AM EDT Generic External Data Provider LAB URINE ORDERAB LES Final Result Performing Organization Address City/[facility]/ZIP Co de Phone Number [facility] [address] [place] [phone] * Glutamic Acid Decarboxylase 65 Antibody (05/14/2025 10:00 AM EDT) Glutamic acid decarboxylase Ab <5 <5 IU/mL [facility] Comment:This test was perfor med using the GAD65 TONNY method,which is standardized against the Internationalreference preparation 97/550.THIS TEST WAS PERFORMED AT:[employer]/[id number] [place] [address]ZTPVENAMANSI MATTHEWS MD,PHD 05/14/2025 10:0 0 AM EDT 05/14/2025 10:00 AM EDT us Generic External Data Provider LAB BLOOD ORDERAB LES Final Result Performing Organization Address City/[facility]/ZIP Co de Phone Number [facility] [address] [place] [phone] * (ABNORMAL) Basic Metabolic Panel (05/14/2025 10:00 AM EDT) Only the most recent of2 resultswithin the time period is included. Sodium 141 135 - 145 mmol/L [facility] Potassium 5.2(H) 3.3 - 5.1 mmol/L [facility] Chloride 109(H) 96 - 108 mmol/L [facility] Carbon Dioxide 24 22 - 29 mmol/L [facility] Anion Gap 13 12 - 20 [facility] Urea Nitrogen (BUN) 24(H) 9 - 16 mg/dL [facility] Creatinine, Serum 1.31 0.5 - 1.4 mg/dL [facility] Estimated Glomerular Filt Rate 53 [facility] Comment:Chronic Kidney Disea se: Estimated GFR < 60 mL/min/1.04v6Uslcop Kidney Disease: Estimated GFR < 15 mL/min/1.73m2 Glucose 172(H) 60 - 115 mg/dL [facility] Calcium 9.7 8.4 - 10.2 mg/dL [facility] 05/14/2025 10:0 0 AM EDT 05/14/2025 10:00 AM EDT us Generic External Data Provider LAB BLOOD ORDERAB LES Final Result Performing Organization Address City/[facility]/ZIP Co de Phone Number [facility] [address] [place] [phone] * Glucose, Whole Blood (04/26/2025 1:34 PM EDT) Pathologist [facility] Glucose, Whole Blood 110 60 - 115 mg/dL [facility] Comment:METER #: [id number] Testing performed in the Endocrinology Department [address] , [address], [facility]. 04/26/2025 1:34 PM EDT 04/26/2025 1:37 PM EDT us Generic External Data Provider LAB BLOOD ORDERAB LES Final Result Performing Organization Address [facility]/ZIP Co de Phone Number [facility] [address] [place] [phone] * TSH W/Reflex to FT4 (03/09/2025 8:37 AM EDT) [facility] [address] TSH reflex Free T4 2.91 0.32 - 4.0 uIU/mL [facility] Blood Venous blood specimen / Unknown 03/09/2025 8:37 AM EDT 03/09/2025 11:31 AM EDT us Arya Vera MD LAB BLOOD ORDERABLES Final Result Performing Organization Address [facility]/ZIP Co de Phone Number [facility] [address] [place] [phone] * (ABNORMAL) Lipid Panel, Standard (03/09/2025 8:37 AM EDT) Pathologist [facility] Triglycerides 70 <150 mg/dL [facility] Comment:Desirable Triglyceri de: less than 150 mg/dLBorderline High Triglyceride 150-199 mg/dLHigh Triglyceride: 200-499 mg/dLVery High Triglyceride: greater than or equal to 5OO mg/dL Cholesterol 105 <200 mg/dL [facility] Comment:Desirable Cholestero l: less than 200 mg/dLBorderline High Cholesterol: 200-239 mg/dLHigh Cholesterol: greater than 239 mg/dL LDL Cholesterol Calculated 56 <100 mg/dL [facility] Comment:Desirable LDL: less than 100 mg/dLNear Optimal/Above Optimal LDL: 110- 129 mg/dLBorderline High LDL: 130-159 mg/dLHigh LDL: 160-189 mg/dLVery High LDL: greater than or equal to 190 mg/dL HDL Cholesterol 35(L) >40 mg/dL [facility] Comment:Desirable HDL: great er than 40 mg/dL Note: This HDL assay may give artificially low results in patients with liver disease. Blood Venous blood specimen / Unknown 03/09/2025 8:37 AM EDT 03/09/2025 11:31 AM EDT Arya Vera MD LAB BLOOD ORDERABLES Final Result Performing Organization Address [facility]/ZIP Co de Phone Number [facility] [address] [place] [phone] * Hm Colonoscopy (05/22/2023) Colonoscopy Normal Normal Liborio Newton MD HEALTH MAINTENANCE Final Result * (ABNORMAL) Hepatitis C Ab (01/14/2023 2:18 PM EDT) Hepatitis C Antibody Reactive( A) Nonreactive [facility] Comment:Presumptive evidence of antibodies to HCV. 01/14/2023 2:18 PM EDT 01/14/2023 2:19 PM EDT [facility] External Provider LAB BLO OD ORDERABLES Final Result Performing Organization Address [facility]/ZIP Co de Phone Number [facility] [address] [place] [phone] from Last 3 Months or Most Recently Relevant to Health Maintenance Insurance [facility] [employer] (HMO D-SNP) ALEC SONG [id number] Care Teams Electric Meter Setter Relationship Specialty Start Date End Date Arya Masterson MD [address] [place], [place] PCP - General Internal Medicine 03/21/14
--- OUTSIDE RECORDS SUMMARY | 2025-06-08 08:38 | XMS_ITS | Clinical Summary ---
Author Organization [facility] Address [address] [place] [address] Care Team Providers Care Plant Hr Manager Name Role Phone Arya Rosenthal MD [...] age to complete this topic Care Teams Plant Hr Manager Relationship Specialty Start Date End Date Arya Rosenthal MD [address] [place] [address] [facility] [place] [phone] PCP - General Internal Medicine 01/09/17
--- OUTSIDE RECORDS SUMMARY | 2025-06-08 08:39 | XMS_ITS | Encounter Summary ---
Author Organization [employer] Address [address] [facility] 7t [place] [address] Care Team Providers Care Oil Changer Name Role Phone Arya Masterson MD Primary Care Provide r Encounter Details Date Type Department Care Team ([facility] st Contact Info) Description 01/17/2025 Orders Only [facility] [address] [place], [place] [phone] Arya Masterson MD [address] [place], [place] [phone] Type 2 diabetes mellitus with diabetic polyneuropathy, with long-term current use of insulin ([facility]) Social History Tobacco Use Types Packs/Day Years [...] documented as of this encounter Care Teams Oil Changer Relationship Specialty Start Date End Date Arya Masterson MD [address] [place] [address] PCP - General Internal Medicine 03/21/14 documented as of this encounter
--- OUTSIDE RECORDS SUMMARY | 2025-06-08 08:39 | XMS_ITS | Encounter Summary ---
Author Organization [employer] Address [address] [facility] [address] [place] [address] Care Team Providers Care Kennel Attendant Name Role Phone Arya Masterson MD Primary Care Provide r Reason for Visit * Reason Comments Med Refill Encounter Details Date Type Department Care Team ([facility] st Contact Info) Description 02/29/2024 [facility] [address] [place], [place] [phone] Arya Masterson MD [address] [place], [place] [phone] Primary insomnia Social History Tobacco Use Types [...] documented as of this encounter Care Teams Kennel Attendant Relationship Specialty Start Date End Date Arya Masterson MD [address] [place] [phone] PCP - General Internal Medicine 03/21/14 documented as of this encounter
--- OUTSIDE RECORDS SUMMARY | 2025-06-08 08:39 | XMS_ITS | Encounter Summary ---
Author Organization [employer] Address [address] [facility] 7t [place] [address] Care Team Providers Care Assistant Hall Director Name Role Phone Arya Masterson MD Primary Care Provide r Reason for Visit * Reason Comments Med Refill Encounter Details Date Type Department Care Team ([facility] st Contact Info) Description 03/15/2025 Refill [facility] [address] [place], [place] [phone] Arya Masterson MD [address] [place], [place] [phone] Acquired hypothyroidism Social History Tobacco Use Types [...] documented as of this encounter Care Teams Assistant Hall Director Relationship Specialty Start Date End Date Arya Masterson MD [address] [place] [address] PCP - General Internal Medicine 03/21/14 documented as of this encounter
--- OUTSIDE RECORDS SUMMARY | 2025-06-08 08:39 | XMS_ITS | Patient Health Record ---
Author Organization [facility] Address [address] [place] [address] Care Team Providers Care Documentation Specialist Name Role Phone Riley Vera MD, Arya Primary Care Provide r Unavailable David Andujar Jr Unavailable [phone] Tara GRAY, Sj Unavailable Unavailable Reason For Referral No Information Plan Of Treatment No Information Insurance Providers Payer Name Payer Address Payer Phone Subscriber Number Group Number Insured Name Patient Relationship to Insured Coverage Start Date Coverage End Date [facility] [address] [place] [phone] [id number] VERO AMIN Self - patient is the insured
--- OUTSIDE RECORDS SUMMARY | 2025-06-08 08:39 | XMS_ITS | Clinical Summary ---
Author Organization [facility] Address [address] [place] [address] [address] SIMENT[address] SOO ERICA [phone] Phone Care Team Providers Care Garden Center Manager Name Role Phone Unavailable Primary Care Provider [...] PM EDT) Hemoglobin A1C 7.0(H) (4.0-5.6) % [facility] Comment: MONITORING: In known diabetic patients, hemoglobin A1c targets should be discussed with health care provider. DIAGNOSTIC USE: The [place] [employer] (ADA) and the World Health [...] Supplement 1 Testing performed or reported by [facility], a Service of [facility], [address] [place] [phone] Oli Quiñones MD, Director Career [facility]# [id number] 01/22/2022 1:58 PM EDT 01/22/2022 2:00 PM EDT us Osvaldo Ren MD LAB BLOOD ORDERABLES Final Re sult [facility] from Last 3 Months or Most Recently Relevant to Health Maintenance Insurance [facility]
[2025-06-08 08:50] LABS: Glucose, Whole Blood 227 mg/dL (60-115)
== END 2025-06-08 09:01 | disposition home or self-care (01) ==
LOC: HO.ENCR 08:25
PROVIDERS: PCP Internal Medicine; Visit Provider Internal Medicine Endocrinology, Diabetes & Metabolism
DX: E11.65 Type 2 diabetes mellitus with hyperglycemia (principal)
CPT/HCPCS: 99214; G2211

== ENCOUNTER → 2025-06-08 08:24 | Outpatient (BNVA) | payer OTHER, SELFPAY | PROVIDERS: PCP Internal Medicine; Visit Provider Internal Medicine Endocrinology, Diabetes & Metabolism | DX: E11.65 Type 2 diabetes mellitus with hyperglycemia (principal) | CPT/HCPCS: 82947; 99212 ==

== ENCOUNTER 2025-07-11 10:46 | Outpatient (AMB) | payer OTHER, SELFPAY ==
--- NOTE | 2025-07-11 11:13 | A.OFFVIS_ITS ---
Intake Visit Reasons: 6 Months - AD Accompanied by: Daughter Allergies canagliflozin (Invokana) Allergy (Intermediate, Verified 07/11/25 11:19) hives hydralazine (HYDRALAZINE) Allergy (Intermediate, Verified 07/11/25 11:19) SHOULDER PAIN lisinopril Allergy (Unknown, Verified 07/11/25 11:19) Dizziness enalapril Adverse Reaction (Intermediate, Verified 07/11/25 11:19) Dizziness hydrochlorothiazide (HYDROCHLOROTHIAZIDE) Adverse Reaction (Intermediate, Verified 07/11/25 11:19) Dizziness potassium (POTASSIUM) Adverse Reaction (Intermediate, Verified 07/11/25 11:19) Dizziness Medication List - Last Reconciled 07/11/25 by Brandi Velasco CNP acetaminophen (Pain Relief Extra Strength (acetaminophen)) 1,000 mg PO Q6H PRN amlodipine 5 mg PO DAILY aspirin 81 mg PO DAILY Baqsimi 3 mg/actuation (glucagon) 3 mg intranasal ONCE NS blood-glucose sensor (Globevestoryle Angel 3 Plus Sensor device) As directed change every 15 days blood-glucose,sander and polisher,cont (FreeStyle Angel 3 [place]) As directed brimonidine 0.2% 1 drp ophthalmic (eye) BID cholecalciferol (vitamin D3) 125 mcg PO DAILY empagliflozin (Jardiance) 25 mg PO DAILY fluticasone propionate 50 mcg/actuation 1 - 2 sprays intranasal DAILY PRN insulin glargine (Lantus Solostar U-100 Insulin) 12 units subcut DAILY insulin lispro (Humalog KwikPen (U-100) Insulin) 5 units (0.05 mL) subcut QAM insulin syringe-needle U-100 Once a day levothyroxine 25 mcg PO DAILY losartan 25 mg PO DAILY memantine 10 mg PO BID 90 days multivitamin with folic acid 400 mcg (Daily-Tunde (with folic acid)) 1 tab PO DAILY pantoprazole 40 mg PO DAILY rosuvastatin 20 mg PO QAM HPI Comments Details: He was doing okay. Memory may be declining some. He was more forgetful and repetitive. His daughter noted that he was more active in the summer months when it was warmer out and would go for walks without issue, not getting lost. He helped his of over 56-years out around the house. Daughter was managing his finances. He enjoyed visiting with friends and family. He had one minor fall without injury a few months ago when blood pressure medication was changed. Sleep was okay. Mood was okay. His daughter was asking for note with his diagnosis. He was unable to tolerate donepezil. He has buzzing in ears and back of head since chem a few years ago. Legs do not feel as steady. Some arthritic pains in fingers. In 2019, he noted his memory was not as sharp and when he goes to get something, he forgets what he was trying to get, but it comes back after a while. This happens quite often. No major functional problems. No history of head trauma. No history of stroke. No family history of dementia. Blood pressure and sugar under control. Has had 2 previous heart operations. Has some balance issues that he attributes to neuropathy. Concerned that he may have some neuropathy as his legs get weak and wobbly when he walks any distance. No pain or numbness. [facility] Medical History (Updated 07/11/25 @ 11:16 by Brandi Velasco CNP) Alzheimer's dementia Congenital ventricular septal defect Unintentional weight loss correction (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 Social History Household Members: Spouse Housing: House Alcohol intake: former Patient Tobacco Use Status: Never used Tobacco Advance Directives Date on File: 02/28/22 service: No Current occupational status: retired and disabled Review of Systems Const Denies chills, Denies daytime sleepiness, Denies difficulty sleeping, Denies fatigue, Denies fever(s), Denies frequent falls, Denies headache(s), Denies increased appetite, Denies poor appetite, Denies snoring, Denies weakness, Denies weight gain and Denies weight loss Eyes Denies loss of vision ENT Denies vertigo, Denies dizziness, Denies headache(s) and Reports neck pain Card Denies chest pain at rest, Denies chest pain with activity, Denies syncope, Denies leg edema, Denies palpitations, Denies dyspnea and Denies dyspnea on exertion Resp Denies cough, Denies dyspnea, Denies dyspnea on exertion and Denies snoring GI Denies abdominal pain, Denies constipation, Denies heartburn, Denies diarrhea and Denies nausea Denies urinary frequency, Denies urinary incontinence and Denies urinary urgency Musc Denies abnormal gait, Denies back pain, Denies myalgias, Denies arthralgias, Reports neck pain, Denies numbness and Denies tingling Neuro Denies abnormal gait, Denies vertigo, Denies dizziness, Denies syncope, Denies frequent falls, Denies headache(s), Denies lack of coordination, Denies loss of vision, Reports memory loss, Denies numbness, Denies Other visual disturbances, Denies restless legs, Denies seizure-like activity, Denies tingling, Denies paresthesias, Denies tremor(s) and Denies weakness Psych Denies anxiety, Denies depression, Denies auditory hallucinations, Reports memory loss and Denies visual hallucinations Endo Denies fatigue and Denies palpitations Physical Exam Const Other: General Appearance:? normal, in no acute distress. Heart:? S1, S2 normal, no murmurs. Lungs:? clear anteriorly and posteriorly. Musculoskeletal:? normal. Extremities:? no edema. Psych:? alert, as below. Neuro Other: Abnormal Neurological Findings:?absent ankle reflexes. MMSE 16/30. Mental Status: alert, as below. Cranial Nerves: Pupils are equal, round, and reactive to light. External ocular muscles are intact. Visual alcantar are full, no ptosis. Face is symmetrical, no facial weakness or droop. Facial sensations are normal. Tongue protrudes in midline. Palate elevates symmetrically. Shoulder shrugging is normal Motor Examination: Normal muscle tone, bulk and strength. No atrophy or fasciculations. No drift of the extended upper extremities. DTR 2+ with absent ankle reflexes. Plantars are flexor. Sensory Exam: Normal light touch, temperature, pinprick, vibration, and joint- position sensations. Rhomberg sign is absent. Coordination: No ataxia. No titubation. Gait Exam: Within normal limits. Cerebellar Signs: Lculzk-cm-djhm is okay. Extrapyramidal System: No tremor, rigidity with normal facial expressions. No bradykinesia. No bradyphrenia. Normal arm swing and posture. No propulsion or retropulsion. Speech: Normal. MMSE Level of Consciousness: Alert. Orientation: Does not know year, month, date, day, or season. Knows correct city and state. Knows location. Does not know county or floor. Registration: Able to register 3 objects. Attention: Serial 7's performed accurately to 93. Recall: Able to recall 0 out of 3 objects. Language: Normal spontaneous speech, fluency, repetition, naming, comprehension, reading, and writing. Total Score: 16/30. Results Reviewed Results Reviewed: 11/24/20: CT Brain: There are no acute bleeds or territorial infarcts. No masses are demonstrated. There is mild diffuse volume loss 03/12/23: TSH 4.13 03/25/23 EEG- WNL 05/01/23 CT Brain: Unremarkable CT scan of the head. No substantial change when compared to the CT scan of the head from 11/24/2020. Assessment & Plan Assessment & Plan (1) Alzheimer's dementia: Code(s): G30.9 - Alzheimer's disease, unspecified; F02.80 - Dementia in other diseases classified elsewhere, unspecified severity, without behavioral disturbance, psychotic disturbance, mood disturbance, and anxiety Category: Medical Qualifiers: Alzheimer's disease onset: unspecified onset Dementia severity: unspecified severity Dementia behavioral or psychological symptom: without behavioral, psychotic, or mood disturbance or anxiety Qualified Code(s): G30.9 - Alzheimer's disease, unspecified; F02.80 - Dementia in other diseases classified elsewhere, unspecified severity, without behavioral disturbance, psychotic disturbance, mood disturbance, and anxiety Plan: Continue memantine 10mg 1 tablet twice a day. Stay physically and socially active. Letter with diagnosis given to daughter. Follow up in 6 months or sooner if needed. (2) Cervical spondylosis: Code(s): M47.812 - Spondylosis without myelopathy or radiculopathy, cervical region Category: Medical (3) Diabetic polyneuropathy associated with type 2 diabetes mellitus: Code(s): E11.42 - Type 2 diabetes mellitus with diabetic polyneuropathy Category: Medical Plan Did not tolerate donepezil. Medications: Refilled memantine 10 mg PO BID 180 tabs 1RF 90 days Coding Level of Care Code Est Pt Level 4 (10221) Diagnoses Alzheimer's dementia without behavioral disturbance, psychotic disturbance, mood disturbance, or anxiety, unspecified dementia severity, unspecified timing of dementia onset G30.9; F02.80 Alzheimer's disease onset: unspecified onset Dementia severity: unspecified severity Dementia behavioral or psychological symptom: without behavioral, psychotic, or mood disturbance or anxiety Cervical spondylosis M47.812 Diabetic polyneuropathy associated with type 2 diabetes mellitus E11.42
== END 2025-07-11 11:32 | disposition home or self-care (01) ==
LOC: HO.HSM 10:47
PROVIDERS: PCP Internal Medicine; Visit Provider Registered Nurse
DX: G30.9 Alzheimer's disease, unspecified (principal); F02.80 Dementia in other diseases classified elsewhere, unspecified severity, without behavioral disturbance, psychotic disturbance, mood disturbance, and anxiety; M47.812 Spondylosis without myelopathy or radiculopathy, cervical region; E11.42 Type 2 diabetes mellitus with diabetic polyneuropathy
CPT/HCPCS: 99214

== ENCOUNTER → 2025-07-11 10:46 | Outpatient (BNVA) | payer OTHER, SELFPAY | PROVIDERS: PCP Internal Medicine; Visit Provider Registered Nurse | DX: G30.9 Alzheimer's disease, unspecified (principal); F02.80 Dementia in other diseases classified elsewhere, unspecified severity, without behavioral disturbance, psychotic disturbance, mood disturbance, and anxiety; M47.812 Spondylosis without myelopathy or radiculopathy, cervical region; E11.65 Type 2 diabetes mellitus with hyperglycemia; E11.42 Type 2 diabetes mellitus with diabetic polyneuropathy; E11.21 Type 2 diabetes mellitus with diabetic nephropathy; E11.22 Type 2 diabetes mellitus with diabetic chronic kidney disease; N18.30 Chronic kidney disease, stage 3 unspecified; Z79.4 Long term (current) use of insulin | CPT/HCPCS: 99212 ==

== ENCOUNTER 2025-07-18 12:17 | Outpatient (AMB) | payer OTHER, SELFPAY ==
--- NOTE | 2025-07-18 12:42 | MHC.AMDMED ---
Intake Intake Visit Reasons: 60 mins Allergies canagliflozin (Invokana) Allergy (Intermediate, Verified 07/11/25 11:19) hives hydralazine (HYDRALAZINE) Allergy (Intermediate, Verified 07/11/25 11:19) SHOULDER PAIN lisinopril Allergy (Unknown, Verified 07/11/25 11:19) Dizziness enalapril Adverse Reaction (Intermediate, Verified 07/11/25 11:19) Dizziness hydrochlorothiazide (HYDROCHLOROTHIAZIDE) Adverse Reaction (Intermediate, Verified 07/11/25 11:19) Dizziness potassium (POTASSIUM) Adverse Reaction (Intermediate, Verified 07/11/25 11:19) Dizziness HPI Comprehensive Diabetes Asmnt Most Recent Diabetes Results: Creatinine, (0.5-1.4) 1.61 mg/dL H 05/31/25 BUN, (9-16) 27 mg/dL H 05/31/25 Sodium, (135-145) 140 mmol/L 05/31/25 Potassium, (3.3-5.1) 4.6 mmol/L 05/31/25 Chloride, (96-108) 109 mmol/L H 05/31/25 Carbon Dioxide, (22-29) 25 mmol/L 05/31/25 Calcium, (8.4-10.2) 9.3 mg/dL 05/31/25 AST, (5-37) 38 U/L H 05/31/25 ALT, (0-40) 25 U/L 05/31/25 Total Protein, (6.5-8.0) 7.6 g/dL 05/31/25 Albumin, (3.5-5.0) 4.3 g/dL 05/31/25 [facility] Medical History (Updated 07/14/25 @ 13:59 by Nena Mcgraw MD) Alzheimer's dementia Congenital ventricular septal defect 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 Social History Household Members: Spouse Housing: House Alcohol intake: former Patient Tobacco Use Status: Never used Tobacco Advance Directives Date on File: 02/28/22 service: No Current occupational status: retired and disabled Assessment & Plan Assessment & Plan (1) Diabetes type 2, uncontrolled: Code(s): E11.65 - Type 2 diabetes mellitus with hyperglycemia Plan: Personal Continuous Glucose Monitor: Patients CGM information reviewed, Pt uses Schmoozere sensor 3+ with chief investigator Sensor data: At last visit with Dr. Trujillo, Humalog 5 units before breakfast was added due to postprandial hyperglycemia. At today's visit patient is still experiencing hyperglycemia after breakfast, instructed patient's daughter to increase Humalog to 8 units before breakfast. Lantus was reduced to 6 units, left Lantus dose the same due to downward glucose trend overnight. Patient missed appointment with Dr. Hatrman due to having COVID. Instructed patient and his daughter to reschedule appointment, and Dr. Trujillo suggested last visit note adding GLP 1 to patient's medications. Discussed with patient and his daughter the importance of follow-up visit. Patient and his daughter will schedule appointment with Dr. Wallace in follow-up with diabetes specialist 1 month after provider visit Patient able to insert sensor independently at home without issue.? Portions of this note were created using voice recognition software, please excuse any words or phrases that may have been misinterpreted. Coding Level of Care Code Est Pt Level 1 (96516) Diagnoses Diabetes type 2, uncontrolled E11.65
--- OUTSIDE RECORDS SUMMARY | 2025-07-18 17:46 | XMS_ITS | Clinical Summary ---
Author Organization [facility] Prior to 01/01/25 Address [address] [place] [address] Care Team Providers Care Cold Working Inspector Name Role Phone Arya Rosenthal MD Primary [...] age to complete this topic Care Teams Cold Working Inspector Relationship Specialty Start Date End Date Arya Rosenthal MD [address] [place] [address] [place] [address] PCP - General Internal Medicine 01/09/17
--- OUTSIDE RECORDS SUMMARY | 2025-07-18 17:46 | XMS_ITS | Patient Health Record ---
Author Organization [facility] Address [address] [place] [address] Care Team Providers Care Toys Inspector Name Role Phone Riley Vera MD, Arya Primary Care Provide r Unavailable David Andujar Jr Unavailable Tara GRAY, Js Unavailable Unavailable Reason For Referral No Information Plan Of Treatment No Information Insurance Providers Payer Name Payer Address Payer Phone Subscriber Number Group Number Insured Name Patient Relationship to Insured Coverage Start Date Coverage End Date [facility] [address] [place] [address] [id number] VERO AMIN Self - patient is the insured
== END 2025-07-18 12:45 | disposition home or self-care (01) ==
LOC: HO.ENCR 12:18
PROVIDERS: PCP Internal Medicine; Visit Provider Registered Nurse Diabetes Educator
DX: E11.65 Type 2 diabetes mellitus with hyperglycemia (principal)

== ENCOUNTER → 2025-07-18 12:17 | Outpatient (BNVA) | payer OTHER, SELFPAY | PROVIDERS: PCP Internal Medicine; Visit Provider Registered Nurse Diabetes Educator | DX: E11.65 Type 2 diabetes mellitus with hyperglycemia (principal); E11.42 Type 2 diabetes mellitus with diabetic polyneuropathy; E11.21 Type 2 diabetes mellitus with diabetic nephropathy; N18.30 Chronic kidney disease, stage 3 unspecified; Z79.4 Long term (current) use of insulin | CPT/HCPCS: 99211 ==

== ENCOUNTER 2025-08-03 14:25 | Outpatient (AMB) | payer OTHER, SELFPAY ==
--- NOTE | 2025-08-03 14:29 | A.OFFVIS_ITS ---
Vital Signs 08/03/25 14:34 Height 5 ft 3 in Weight 130 lb 4.438 oz BMI 23.1 BP 120/58 L Blood Pressure Location Rt brachial Position Sitting Pulse 75 Pulse Source Pulse Oximeter Pulse Oximetry (%) 98 Oxygen Delivery Method Room Air Intake Visit Reasons: T2DM Intake Note: Patient presents today for a follow-up on Type 2 Diabetes Mellitus: Patient was last seen by Dr Danish Trujillo MD. Last Diabetic eye exam was on: January 11, 2025, f/u is May 2025 [facility] Last Podiatry exam was on: Patient does not see a Mobile Home Technician Most recent HbA1c: 9.2%, 08/03/2025 Random Glucose: 284 mg/dL Motion Graphics Artist Required: No Accompanied by: Self / Same As Patient Allergies canagliflozin (Invokana) Allergy (Intermediate, Verified 07/11/25 11:19) hives hydralazine (HYDRALAZINE) Allergy (Intermediate, Verified 07/11/25 11:19) SHOULDER PAIN lisinopril Allergy (Unknown, Verified 07/11/25 11:19) Dizziness enalapril Adverse Reaction (Intermediate, Verified 07/11/25 11:19) Dizziness hydrochlorothiazide (HYDROCHLOROTHIAZIDE) Adverse Reaction (Intermediate, Verified 07/11/25 11:19) Dizziness potassium (POTASSIUM) Adverse Reaction (Intermediate, Verified 07/11/25 11:19) Dizziness HPI Comments Details: 74 yo male with DM type 2, today for fup visit . Medical history: Dementia, liver disease, Hep C, h/o colon cancer, Vit B12 deficiency, GERD. s/p aortic valve replacement bioprosthetic. He has DM diagnosed 20 years ago, PMD is Arya Rosenthal M.D. Current medications Lantus 6 units -decreased from 12 units at 10 pm, Jardiance 25 mg q.d. Lispro 8 (increased from 5 units qam -following with CDE) POC A1C today is 9.2% from 9.4%. Angel download 91% of the time Average glucose 217 GMI of 8.5% with TGT 37%, high 63% No interval hypoglycemic Noted history of liver disease, h/o hep C reviewed abd ct from 2022 The liver is normal in size, shape, and attenuation. No focal hepatic lesion or biliary ductal dilatation is present. Complications: no retinopathy, + nephropathy, neuropathy, CVA, CAD, PVD. Had positive microalbumin in 2013, now resolved. Last ophthalmology evaluation: 01/11/2025 , no need for photocoagulation or VEGF therapy. ROS CONSTITUTIONAL: Denies weight loss, fever and chills. HEENT: Denies changes in vision and hearing. RESPIRATORY: Denies SOB and cough. CV: Denies palpitations and CP GI: Denies abdominal pain, nausea, vomiting and diarrhea. : Denies dysuria and urinary frequency. MSK: Denies new myalgia and joint pain. SKIN: Denies rash and pruritus. NEUROLOGICAL: memory loss PSYCHIATRIC: Denies recent changes in mood. PHYSICAL EXAM: GENERAL: Alert and oriented x 3. NAD EYES: EOMI. Anicteric. HENT: Moist mucous membranes. No scleral icterus. LUNGS: Clear to auscultation bilaterally. CARDIOVASCULAR: Regular rate and rhythm. +murmur. ABDOMEN: Soft, non-tender +bs EXTREMITIES: No edema. Non-tender. SKIN: No rashes or lesions. Warm. NEUROLOGIC: No focal neurological deficits. CN II-XII grossly intact PSYCHIATRIC: Cooperative. Appropriate mood and affect [facility] Medical History (Updated 08/03/25 @ 15:19 by Libby Hartman MD) Alzheimer's dementia Congenital ventricular septal defect Unintentional weight loss snf (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 Social History Household Members: Spouse Housing: House Alcohol intake: former Patient Tobacco Use Status: Never used Tobacco Advance Directives Date on File: 02/28/22 service: No Current occupational status: retired and disabled Results AMB Hemoglobin A1c AMB Hemoglobin A1c 9.2 % Last Edit by HARLEY Hernandes on 08/03/25 14:49 Assessment & Plan Assessment & Plan (1) snf (current) use of insulin: Code(s): Z79.4 - snf (current) use of insulin Category: Medical (2) Diabetes type 2, uncontrolled: Code(s): E11.65 - Type 2 diabetes mellitus with hyperglycemia Category: Medical Qualifiers: Glycemic state: with hyperglycemia Qualified Code(s): E11.65 - Type 2 diabetes mellitus with hyperglycemia Plan 74 year old male presenting for follow up Overall glycemic control is still suboptimal he has had prior hypoglycemia which has with insulin timing and adjustment ceased for now Patient without advanced CHF or liver issues, will try him oon actos 30mg. monitor labs. Could consider GLP1 agonist but I dont want to cause unintended weight loss. CDE in early sep, insulin can be adjusted then and at next visit as needed. Follow up in 3 months or sooner as needed Orders: Orders AMB Hemoglobin A1c Today E11.65 - Type 2 diabetes mellitus with hyperglycemia Medications: New pioglitazone 30 mg PO DAILY 90 tabs 3RF Changed From insulin lispro (Humalog KwikPen (U-100) Insulin) take 8 units 5-15 minutes before breakfast and 5 units before lunch and dinner 5 units (0.05 mL) subcut QAM 15 mL 1RF To insulin lispro (Humalog KwikPen (U-100) Insulin) take 8 units 5-15 minutes before breakfast and 5 units before lunch and dinner 8 units (0.08 mL) subcut QAM 15 mL 1RF From blood-glucose sensor (FreeStyle Angel 3 Plus Sensor device) As directed change every 15 days 2 ea 4RF To FreeStyle Angel 3 Plus Sensor (blood-glucose sensor) As directed change every 15 days 6 ea 4RF NS Coding Level of Care Code Est Pt Level 4 (85880) 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
[2025-08-03 14:34] VITALS: BP 120/58; PULSE 75; O2SAT 98; BMI 23.1
[2025-08-03 14:44] LABS: Glucose, Whole Blood 284 mg/dL (60-115)
--- OUTSIDE RECORDS SUMMARY | 2025-08-03 15:33 | XMS_ITS | Encounter Summary ---
Author Organization [employer] Address [address] [facility] [address] [place] [address] Care Team Providers Care Home Care Aide Name Role Phone Arya Masterson MD Primary Care Provide r Reason for Visit * Reason Comments Med Refill Encounter Details Date Type Department Care Team ([facility] st Contact Info) Description 09/15/2023 Refill [facility] [address] [place], [place] [phone] Arya Masterson MD [address] [place], [place] [phone] Acquired hypothyroidism Social History Tobacco Use Types [...] Care Team (Late st Contact Info) Description 08/30/2025 11:30 AM EST Office Visit [facility] [address] [place] [phone] Arya Masterson MD [address] [place] [phone] documented as of this encounter Visit Diagnoses Diagnosis Acquired hypothyroidism Unspecified hypothyroidism documented in this encounter Additional Health Concerns Assessment Noted Time PHQ-9 Depression Total Score: 0 01/08/20 23 1:27 PM EDT documented as of this encounter Care Teams Home Care Aide Relationship Specialty Start Date End Date Arya Masterson MD [address] [place] [phone] PCP - General Internal Medicine 03/21/14 documented as of this encounter
--- OUTSIDE RECORDS SUMMARY | 2025-08-03 15:33 | XMS_ITS | Encounter Summary ---
Author Organization [employer] Address [address] [facility] [address] [place] [address] Care Team Providers Care Pig Farm Manager Name Role Phone Arya Masterson MD Primary Care Provide r Encounter Details Date Type Department Care Team ([facility] st Contact Info) Description 01/17/2025 Orders Only [facility] [address] [place], [place] [phone] Arya Masterson MD [address] [place], [place] [phone] Type 2 diabetes mellitus with diabetic polyneuropathy, with long-term current use of insulin ([facility]) Social History Tobacco Use Types Packs/Day [...] Description 08/30/2025 11:30 AM EST Office Visit [facility] [address] [place] [phone] Arya Masterson MD [address] [place] [phone] documented as of this encounter Visit Diagnoses Diagnosis Type 2 diabetes mellitus with diabetic polyneuropathy, with long-term current use of insulin (HCC) documented in this encounter Additional Health Concerns Assessment Noted Time PHQ-9 Depression Total Score: 0 01/20/20 24 11:21 AM EDT documented as of this encounter Care Teams Pig Farm Manager Relationship Specialty Start Date End Date Arya Masterson MD [address] [place] [phone] PCP - General Internal Medicine 03/21/14 documented as of this encounter
--- OUTSIDE RECORDS SUMMARY | 2025-08-03 15:33 | XMS_ITS | Clinical Summary ---
Author Organization [employer] Address [address] [place] [address] 7[address] [place] [address] Care Team Providers Care Chief Steward/Stewardess Name Role Phone Arya Masterson MD Primary [...] 48 g 3 024 Active Continuous Glucose Ticket Taker (FreeStyle Angel 2 [place]) deviceIndications :Type 2 diabetes mellitus with diabetic polyneuropathy, with long-term current use of insulin ([facility]) Scan sensor every 8 hours 1 each 024 Active Continuous Glucose Sensor (FreeStyle Angel 2 Sensor) miscIndications:T ype 2 diabetes mellitus with diabetic polyneuropathy, with long-term current use of insulin ([facility]) Apply 1 sensor every 14 days 2 each 3 024 Active Multiple Vitamin (Daily-Tunde Multivitamin) tabletIndications :Acquired hypothyroidism TAKE 1 TABLET BY MOUTH EVERY DAY WITH FOOD 90 tablet 3 024 Active memantine (Namenda) [...] CRUSH, DISSOLVE OR CHEW 90 tablet 3 06/23/20 25 2:21 PM EST 025 Active Lantus SoloStar 100 UNIT/ML pen INJECT 12 UNIT BY SUBCUTANEOUS ROUTE ONCE DAILY 3 mL 11 Active pen needle 31G x 6 mm miscIndications:T ype 2 diabetes mellitus with diabetic polyneuropathy, with long-term current use of insulin ([facility]) Use one pen needle to inject insulin once daily 90 each 3 025 2025 Active Jardiance 25 MGIndications:Typ e 2 diabetes mellitus with diabetic polyneuropathy, with long-term current use of insulin ([facility]) TAKE 1 TABLET BY MOUTH EVERY DAY 30 tablet 6 025 Active levothyroxine (Synthroid, Levoxyl) 25 MCG tabletIndications :Acquired hypothyroidism TAKE 1 TABLET BY MOUTH EVERY DAY IN THE MORNING 90 tablet 1 025 Active amLODIPine (Norvasc) 5 MG tabletIndications :Benign essential hypertension TAKE 1 TABLET BY MOUTH EVERY DAY 90 tablet 3 025 Active rosuvastatin (Crestor) 20 MG tablet TAKE 1 TABLET BY MOUTH EVERY DAY IN THE MORNING 90 tablet 3 025 Active amLODIPine (Norvasc) 5 MG tabletIndications :Benign essential hypertension TAKE 1 TABLET BY MOUTH EVERY DAY 90 tablet 3 024 2024 Discontinued rosuvastatin (Crestor) 20 MG tablet TAKE 1 TABLET BY MOUTH EVERY DAY IN THE MORNING 90 tablet 3 024 2024 Discontinued Active Problems Problem Noted Date [...] EDT): PSA 11/06/2023 Normal Colonoscopy: colonoscopy at [facility] in 09/2017 that showed a Tubular Adenoma colonoscopy (05/22/2023) showed one polyp (Bx colonic mucosa with minor crypt distortion; negative for adenomatous dysplasia). Assessment & Plan (04/27/2024 11:30 AM EDT): PSA 11/06/2023 Normal Colonoscopy: colonoscopy at [facility] in 09/2017 that showed a Tubular Adenoma colonoscopy (05/22/2023) showed one polyp (Bx colonic mucosa with minor crypt distortion; negative for adenomatous dysplasia). Assessment & Plan (08/27/2022 2:16 PM EST): Colonoscopy: colonoscopy at [facility] in 09/2017 that showed a Tubular Adenoma, [...] care of Cardiology Last Cardiology note from [facility] 08/2023 12 month follow up recommended [...] of Cardiology Last Cardiology note from [facility] 10/12/2024 12 month follow up recommended Assessment [...] care of Cardiology Last Cardiology note from [facility] 08/2023 12 month follow up recommended [...] year f/u. records requested Referral places to [facility] . Pt was seen [...] colonoscopy, last one 2017 Was seen by [facility] Public Relations Officer Dr Jackie Espinoza, Repeat 05/2023 showed 1. [...] colonoscopy, last one 2017 Was seen by [facility] Public Relations Officer Dr Jackie Espinoza, Repeat 05/2023 showed 1. [...] repeat colonoscopy, last 2017 Was seen by [facility] Public Relations Officer Dr Jackie Espinoza, already scheduled for EGD/Colonoscopy for March 27 2023 Assessment & Plan (01/16/2023 9:29 AM EDT): Pt due for repeat colonoscopy, last one 2017 Was seen by [facility] Public Relations Officer Dr Jackie Espinoza, already scheduled for EGD/Colonoscopy [...] with Dr. Morfin He had colonoscopy at [facility] in 09/2017 that showed a [...] the liver clinic, finished Rx with Harv[facility]. (Dr Grijalva 2014). This was communicated to his new Public Relations Officer Dr. Jackie Espinoza Assessment & Plan (08/27/2022 [...] Endocrinology, he needs close follow up with extension educator, production weigher Eye exam was last done by Dr. Hinds (automotive tire testing supervisor). He reports he was seen January [...] Endocrinology, he needs close follow up with extension educator, production weigher Eye exam was last done by Dr. Hinds (automotive tire testing supervisor). He reports he was seen January [...] was last done 02/19/[address] Hinds (automotive tire testing supervisor). Microalbumin checked on: 11/02/2021 was: 1.2 [...] was last done 02/19/[address] Hinds (automotive tire testing supervisor). Microalbumin checked on: 11/02/2021 was: 1.2 [...] was last done 02/19/[address] Hinds (automotive tire testing supervisor). Microalbumin checked on: 11/02/2021 was: 1.2 [...] was last done 02/19/[address] Hinds (automotive tire testing supervisor). Microalbumin checked on: 11/02/2021 was: 1.2 [...] was last done 05/28/[address] Hinds (automotive tire testing supervisor). Microalbumin checked on: 11/02/2021 was: 1.2 [...] was last done 05/28/[address] Hinds (automotive tire testing supervisor). Microalbumin checked on: 11/02/2021 was: 1.2 [...] Encounters Date Type Department Care Team Description 08/03/2025 Orders Only GENERIC EXTERNAL DATA DEPARTMENT Provider, Generic External Data 07/20/2025 Refill [facility] [address] [place] [address] Arya Masterson MD Benign essential hypertension 06/17/2025 Telephone [facility] [address] [place] [address] Arya Masterson MD August recall 06/08/2025 Orders Only GENERIC EXTERNAL DATA DEPARTMENT Provider, Generic External Data 05/31/2025 11:15 AM EDT Office Visit [facility] [address] [place] [phone] Arya Masterson MD 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 behavioral disturbance, psychotic disturbance, mood disturbance, or anxiety (HCC) (Primary Dx); Type 2 diabetes mellitus with diabetic polyneuropathy, with long-term current use of insulin (HCC); Benign essential hypertension; Acquired hypothyroidism 05/31/2025 Orders Only GENERIC EXTERNAL DATA DEPARTMENT Provider, Generic External Data 05/31/2025 Travel 05/25/2025 Telephone [facility] [address] [place] [phone] Arya Masterson MD Nurse Triage 05/14/2025 Orders [...] 05/31/2025 11:27 AM EDT Plan of Treatment Upcoming Encounters Date Type Department Care Team (Late st Contact Info) Description 08/30/2025 11:30 AM EST Office Visit [facility] [address] [place], [place] [phone] Arya Masterson MD [address] [place] [address] Health Maintenance Due Date Last Done Comments [...] on patient's age to complete this topic Goals Goal Patient Goal Type Associated Problems Recent Progress Patient-Stated? Author Help patients manage their type 2 diabetes Care Plan Help patients manage their type 2 diabetes No Ngoc Gonzalez MA Weekly blood pressure task Care Plan Weekly blood pressure task No Ngoc Gonzalez MA Help patients manage their type 2 diabetes Care Plan Help patients manage their type 2 diabetes No Ngoc Gonzalez MA Patient has chronic kidney disease Care Plan Patient has chronic kidney disease No Ngoc Gonzalez MA Help patients manage their type 2 diabetes Care Plan Help patients manage their type 2 diabetes No Ngoc Gonzalez MA Patient has diabetic neuropathy Care Plan Patient has diabetic neuropathy No Ngoc Gonzalez MA Weekly blood pressure task Care Plan Weekly blood pressure task No Ngoc Gonzalez MA Weekly blood pressure task Care Plan Weekly blood pressure task No Ngoc Gonzalez MA Patient has chronic kidney disease Care Plan Patient has chronic kidney disease No Ngoc Gonzalez MA Patient has chronic kidney disease Care Plan Patient has chronic kidney disease No Ngoc Gonzalez MA Patient has diabetic neuropathy Care Plan Patient has diabetic neuropathy No Ngoc Gonzalez MA Patient has diabetic neuropathy Care Plan Patient has diabetic neuropathy No Ngoc Gonzalez MA Procedures Procedure Name Priority Date/Time Associated Diagnosis Comments GLUCOSE, WHOLE BLOOD Routine 08/03/2025 2:39 PM EST GLUCOSE, WHOLE BLOOD Routine 06/08/2025 8:46 AM EST CREATININE, RANDOM URINE Routine 05/31/2025 12:21 PM EDT URINALYSIS, COMPLETE (INCLUDES MACRO AND MICRO) Routine 05/31/2025 12:21 PM EDT COMPREHENSIVE METABOLIC PANEL Routine 05/31/2025 12:21 PM EDT Benign essential hypertension POCT GLYCATED HEMOGLOBIN, TOTAL Routine 05/31/2025 11:35 AM EDT Type 2 diabetes mellitus with diabetic polyneuropathy, with long-term current use of insulin (HCC) POCT GLUCOSE (CPT-94196) Routine 05/31/2025 11:35 AM EDT Type 2 diabetes mellitus with diabetic polyneuropathy, with long-term current use of insulin (HCC) URINE PROTEIN, TOTAL, RANDOM (W/O CREATININE) Routine 05/14/2025 10:02 AM EDT ALBUMIN, RANDOM URINE W/CREATININE Routine 05/14/2025 10:02 AM EDT URINALYSIS, COMPLETE (INCLUDES MACRO AND MICRO) Routine 05/14/2025 10:02 AM EDT GLUTAMIC ACID DECARBOXYLASE 65 AB Routine 05/14/2025 10:00 AM EDT BASIC METABOLIC PANEL Routine 05/14/2025 10:00 AM EDT LIPID PANEL, STANDARD Routine 03/09/2025 8:37 AM EDT Mixed hyperlipidemia HM COLONOSCOPY Routine 05/22/2023 HEPATITIS C ANTIBODY Routine 01/14/2023 2:18 PM EDT from Last 3 Months or Most Recently Relevant to Health Maintenance Results * (ABNORMAL) Glucose, Whole Blood (08/03/2025 2:39 PM EST) Only the most recent of2 resultswithin the time period is included. Glucose, Whole Blood 284(H) 60 - 115 mg/dL [facility] Comment:METER #: [id number] 0Testing performed in the Endocrinology Department [address] , [address], [facility]. 08/03/2025 2:39 PM EST 08/03/2025 2:43 PM EST us Generic External Data Provider LAB BLOOD ORDERAB LES Final Result Performing Organization Address [facility] Co de Phone Number [facility] [address] [place] [phone] * Creatinine, Random Urine (05/31/2025 12:21 PM EDT) Pathologist [facility] Creatinine, Urine 77.39 mg/dL [facility] 05/31/2025 12:2 1 PM EDT 05/31/2025 12:53 PM EDT Generic External Data Provider LAB URINE ORDERAB LES Final Result Performing Organization Address [facility] Co de Phone Number [facility] [address] [place] [phone] * (ABNORMAL) Urinalysis Complete (05/31/2025 12:21 PM EDT) Only the most recent of2 resultswithin the time period is included. Color Urine Yellow [facility] Appearance Urine Clear [facility] PH 5.5 5.0 - 9.0 [facility] Glucose Urine UA >=1000(A) Negative mg/dL [facility] Urine Blood Negative Negative [facility] Specific [place] - Urine 1.025 1.005 - 1.025 [facility] Urine Protein Negative Neg-Trace mg/dL [facility] Urine Ketones Negative Negative mg/dL [facility] Nitrite Urine Negative Negative [facility] Leukocyte Esterase Urine Negative Negative [facility] RBC Urine 0-2 0 - 2 /HPF [facility] Urine WBC 0-5 0 - 5 /HPF [facility] Urine Squamous Epithelial Cell 0-2 0 - 2 /HPF [facility] Urine Bacteria None Seen None Seen [facility] Hyaline Casts, Urine 0-2 0 - 2 /LPF [facility] 05/31/2025 12:2 1 PM EDT 05/31/2025 12:51 PM EDT us Generic External Data Provider LAB URINE ORDERAB LES Final Result [facility] [address] [place] [phone] * (ABNORMAL) Comprehensive Metabolic Panel (05/31/2025 12:21 PM EDT) Sodium 140 135 - 145 mmol/L [facility] Potassium 4.6 3.3 - 5.1 mmol/L [facility] Chloride 109(H) 96 - 108 mmol/L [facility] Carbon Dioxide 25 22 - 29 mmol/L [facility] Anion Gap 11(L) 12 - 20 [facility] Urea Nitrogen (BUN) 27(H) 9 - 16 mg/dL [facility] Creatinine, Serum 1.61(H) 0.5 - 1.4 mg/dL [facility] Estimated Glomerular Filt Rate 42 [facility] Comment:Chronic Kidney Disea se: Estimated GFR < 60 mL/min/1.56s0Eievts Kidney Disease: Estimated GFR < 15 mL/min/1.73m2 Glucose 223(H) 60 - 115 mg/dL [facility] Calcium 9.3 8.4 - 10.2 mg/dL [facility] Bilirubin, Total 0.5 0.0 - 1.0 mg/dL [facility] Aspartate Amino Transferase 38(H) 5 - 37 U/L [facility] Alanine Aminotransferase 25 0 - 40 U/L [facility] Total Protein 7.6 6.5 - 8.0 g/dL [facility] Albumin Level 4.3 3.5 - 5.0 g/dL [facility] Alkaline Phosphatase 68 39 - 117 U/L [facility] Blood Venous blood specimen / Unknown 05/31/2025 12:21 PM EDT 05/31/2025 4:28 PM EDT Arya Vera MD LAB BLOOD ORDERABLES Final Result [facility] [address] [place], [place] [phone] * (ABNORMAL) POCT Hgb A1c (05/31/2025 11:35 AM EDT) Hemoglobin A1C 9.7(A) 4.0 - 5.7 % QC Media Lot # [id number] Lot# Expiration Date [id number] Blood 05/31/2025 11:3 5 AM EDT Arya Vera MD POINT OF CARE TEST EN TER/EDIT ORDERABLES Final Result * POCT Glucose (05/31/2025 11:35 AM EDT) Glucose Blood, POC 165 60 - 200 mg/dL QC Media Lot # [id number] Lot# Expiration Date [id number] Blood Capillary blood specimen / Unknown 05/31/2025 11:35 AM EDT us Arya Vera MD POINT OF CARE TEST EN TER/EDIT ORDERABLES Final Result * (ABNORMAL) Albumin, Random Urine W/Creatinine (05/14/2025 10:02 AM EDT) Creatinine, Urine 65.74 mg/dL [facility] Microalbumin Urine 50.0 mg/L [facility] Microalbum Creatinine Ratio Ur 76.0(H) <30 ug/mg cr [facility] Comment:Albumin/Creatinine R at Reference Ranges: Normal: < 30 ug/mg creatinine Microalbuminuria: 30 - 300 ug/mg creatinineClinical Albuminuria: > 300 ug/mg creatinine 05/14/2025 10:0 2 AM EDT 05/14/2025 11:16 AM EDT us Generic External Data Provider LAB URINE ORDERAB LES Final Result Performing Organization Address City/[facility] Co de Phone Number [facility] [address] [place] [phone] * (ABNORMAL) Urine Protein, Total, Random without Creatinine (05/14/2025 10:02 AM EDT) Protein, Total, Random Urine 15(H) <12 mg/dL [facility] 05/14/2025 10:0 2 AM EDT 05/14/2025 11:16 AM EDT us Generic External Data Provider LAB URINE ORDERAB LES Final Result Performing Organization Address City/[facility] Co de Phone Number [facility] [address] [place] [phone] * Glutamic Acid Decarboxylase 65 Antibody (05/14/2025 10:00 AM EDT) Glutamic acid decarboxylase Ab <5 <5 IU/mL [facility] Comment:This test was perfor med using the GAD65 TONNY method,which is standardized against the Internationalreference preparation 97/550.THIS TEST WAS PERFORMED AT:[employer]/[id number] [place] [address]FIHEXAC W. MASON,MD,PHD 05/14/2025 10:0 0 AM EDT 05/14/2025 10:00 AM EDT us Generic External Data Provider LAB BLOOD ORDERAB LES Final Result Performing Organization Address City/[facility]/ZIP Co de Phone Number [facility] [address] [place] [phone] * (ABNORMAL) Basic Metabolic Panel (05/14/2025 10:00 AM EDT) Sodium 141 135 - 145 mmol/L [facility] Potassium 5.2(H) 3.3 - 5.1 mmol/L [facility] Chloride 109(H) 96 - 108 mmol/L [facility] Carbon Dioxide 24 22 - 29 mmol/L [facility] Anion Gap 13 12 - 20 [facility] Urea Nitrogen (BUN) 24(H) 9 - 16 mg/dL [facility] Creatinine, Serum 1.31 0.5 - 1.4 mg/dL [facility] Estimated Glomerular Filt Rate 53 [facility] Comment:Chronic Kidney Disea se: Estimated GFR < 60 mL/min/1.44z8Eafgds Kidney Disease: Estimated GFR < 15 mL/min/1.73m2 Glucose 172(H) 60 - 115 mg/dL [facility] Calcium 9.7 8.4 - 10.2 mg/dL [facility] 05/14/2025 10:0 0 AM EDT 05/14/2025 10:00 AM EDT us Generic External Data Provider LAB BLOOD ORDERAB LES Final Result Performing Organization Address City/[facility]/ZIP Co de Phone Number [facility] [address] [place] [address] [place] [phone] * (ABNORMAL) Lipid Panel, Standard (03/09/2025 8:37 AM EDT) Triglycerides 70 <150 mg/dL [facility] Comment:Desirable Triglyceri de: less than 150 mg/dLBorderline High Triglyceride 150-199 mg/dLHigh Triglyceride: 200-499 mg/dLVery High Triglyceride: greater than or equal to 5OO mg/dL Cholesterol 105 <200 mg/dL [facility] Comment:Desirable Cholestero l: less than 200 mg/dLBorderline High Cholesterol: 200-239 mg/dLHigh Cholesterol: greater than 239 mg/dL LDL Cholesterol Calculated 56 <100 mg/dL [facility] Comment:Desirable LDL: less than 100 mg/dLNear Optimal/Above Optimal LDL: 110- 129 mg/dLBorderline High LDL: 130-159 mg/dLHigh LDL: 160-189 mg/dLVery High LDL: greater than or equal to 190 mg/dL HDL Cholesterol 35(L) >40 mg/dL [facility] Comment:Desirable HDL: great er than 40 mg/dL Note: This HDL assay may give artificially low results in patients with liver disease. Blood Venous blood specimen / Unknown 03/09/2025 8:37 AM EDT 03/09/2025 11:31 AM EDT Arya Vera MD LAB BLOOD ORDERABLES Final Result [facility] [address] [place] [phone] * Hm Colonoscopy (05/22/2023) Colonoscopy Normal Normal Historical Provider HEALTH MAINTENANCE Final Result * (ABNORMAL) Hepatitis C Ab (01/14/2023 2:18 PM EDT) Hepatitis C Antibody Reactive( A) Nonreactive [facility] Comment:Presumptive evidence of antibodies to HCV. 01/14/2023 2:18 PM EDT 01/14/2023 2:19 PM EDT us [facility] External Provider LAB BLO OD ORDERABLES Final Result [facility] [address] [place] [phone] from Last 3 Months or Most Recently Relevant to Health Maintenance Additional Health Concerns Active Problems Noted Date Diagnosed Date Help patients manage their type 2 diabetes 06/17 Weekly blood pressure task 06/17/2025 Help patients manage their type 2 diabetes 06/17 Patient has chronic kidney disease 06/17/2025 Help patients manage their type 2 diabetes 06/17 Patient has diabetic neuropathy 06/17/2025 Weekly blood pressure task 06/17/2025 Weekly blood pressure task 06/17/2025 Patient has chronic kidney disease 06/17/2025 Patient has chronic kidney disease 06/17/2025 Patient has diabetic neuropathy 06/17/2025 Patient has diabetic neuropathy 06/17/2025 Insurance [facility] [employer] (O D-SNP) [place] SONG [id number] Care Teams Chief Steward/Stewardess Relationship Specialty Start Date End Date Arya Masterson MD [address] [place] [phone] PCP - General Internal Medicine 03/21/14
--- OUTSIDE RECORDS SUMMARY | 2025-08-03 15:33 | XMS_ITS | Clinical Summary ---
Author Organization [facility] Address [address] [place] [address] [address] SIMENTAL SOO ERICA [phone] Phone Care Team Providers Care Wide Area Network Administrator Name Role Phone Unavailable Primary Care Provider [...] PM EDT) Hemoglobin A1C 7.0(H) (4.0-5.6) % [facility] Comment: MONITORING: In known diabetic patients, hemoglobin A1c targets should be discussed with health care provider. DIAGNOSTIC USE: The [place] [employer] (ADA) and the World Health [...] Supplement 1 Testing performed or reported by [facility], a Service of [facility], [address] [place] [phone] Oli Quiñones MD, Permaculture Designer [facility]# [id number] 01/22/2022 1:58 PM EDT 01/22/2022 2:00 PM EDT us Osvaldo Ren MD LAB BLOOD ORDERABLES Final Re sult [facility] from Last 3 Months or Most Recently Relevant to Health Maintenance Insurance [facility]
--- OUTSIDE RECORDS SUMMARY | 2025-08-03 15:33 | XMS_ITS | Encounter Summary ---
Author Organization [employer] Address [address] [facility] [address] [place] [address] Care Team Providers Care Carbonating Stone Cleaner Name Role Phone Arya Masterson MD Primary Care Provide r Encounter Details Date Type Department Care Team (Late st Contact Info) Description 08/03/2025 Orders Only GENERIC EXTERNAL DATA [...] Description 08/30/2025 11:30 AM EST Office Visit [facility] [address] [place] [address] Arya Masterson MD [address] [place] [address] documented as of this encounter Goals Goal Patient Goal Type Associated Problems [...] has diabetic neuropathy No Ngoc Gonzalez [place] documented as of this encounter Procedures Procedure Name Priority Date/Time Associated Diagnosis Comments GLUCOSE, WHOLE BLOOD Routine 08/03/2025 2:39 PM EST documented in this encounter Results * (ABNORMAL) Glucose, Whole Blood (08/03/2025 2:39 PM EST) Glucose, Whole Blood 284(H) 60 - 115 mg/dL [facility] Comment:METER #: [id number] 0Testing performed in the Endocrinology Department [address] , [address], [facility]. 08/03/2025 2:39 PM EST 08/03/2025 2:43 PM EST us Generic External Data Provider LAB BLOOD ORDERAB LES Final Result [facility] [address] [place] [address] [phone] documented in this encounter Visit Diagnoses Not on filedocumented in this encounter Additional Health Concerns Active Problems Noted Date [...] neuropathy 06/17/2025 Patient has diabetic neuropathy 06/17/2025 Assessment Noted Time PHQ-9 Depression Total Score: 2 03/03/20 25 12:11 PM EDT documented as of this encounter Care Teams Carbonating Stone Cleaner Relationship Specialty Start Date End Date Arya Masterson MD [address] [place] [address] PCP - General Internal Medicine 03/21/14 documented as of this encounter
--- OUTSIDE RECORDS SUMMARY | 2025-08-03 15:33 | XMS_ITS | Clinical Summary ---
Author Organization [employer] [facility] Prior to 01/01/25 Address [address] [place] [address] Care Team Providers Care Concrete Building Assembler Name Role Phone Arya Rosenthal MD Primary [...] age to complete this topic Care Teams Concrete Building Assembler Relationship Specialty Start Date End Date Arya Rosenthal MD [address] [place] [address] [place] [phone] PCP - General Internal Medicine 01/09/17
--- OUTSIDE RECORDS SUMMARY | 2025-08-03 15:33 | XMS_ITS | Encounter Summary ---
Author Organization [employer] Address [address] [facility] [address] [place] [address] Care Team Providers Care Buffer Nickel Name Role Phone Arya Masterson MD Primary Care Provide r Reason for Visit * Reason Comments Med Refill Encounter Details Date Type Department Care Team ([facility] st Contact Info) Description 03/15/2025 Refill [facility] [address] [place], [place] [phone] Arya Masterson MD [address] [place], [place] [phone] Acquired hypothyroidism Social History Tobacco Use Types [...] Description 08/30/2025 11:30 AM EST Office Visit [facility] [address] [place] [phone] Arya Masterson MD [address] [place] [phone] documented as of this encounter Visit Diagnoses Diagnosis Acquired hypothyroidism Unspecified hypothyroidism documented in this encounter Additional Health Concerns Assessment Noted Time PHQ-9 Depression Total Score: 2 03/03/20 25 12:11 PM EDT documented as of this encounter Care Teams Buffer Nickel Relationship Specialty Start Date End Date Arya Masterson MD [address] [place] [phone] PCP - General Internal Medicine 03/21/14 documented as of this encounter
--- OUTSIDE RECORDS SUMMARY | 2025-08-03 15:33 | XMS_ITS | Encounter Summary ---
Author Organization [employer] Address [address] [facility] 7t [place] [address] Care Team Providers Care Pit Tanner Name Role Phone Arya Masterson MD Primary Care Provide r Reason for Visit * Reason Comments Med Refill Encounter Details Date Type Department Care Team ([facility] st Contact Info) Description 02/29/2024 Refill [facility] [address] [place], [place] [phone] Arya Masterson MD [address] [place], [place] [phone] Primary insomnia Social History Tobacco Use Types [...] Description 08/30/2025 11:30 AM EST Office Visit [facility] [address] [place] [address] Arya Masterson MD [address] [place] [phone] documented as of this encounter Visit Diagnoses Diagnosis Primary insomnia Persistent disorder of initiating or maintaining sleep documented in this encounter Additional Health Concerns Assessment Noted Time PHQ-9 Depression Total Score: 0 01/20/20 24 11:21 AM EDT documented as of this encounter Care Teams Pit Tanner Relationship Specialty Start Date End Date Arya Masterson MD [address] [place] [phone] PCP - General Internal Medicine 03/21/14 documented as of this encounter
--- OUTSIDE RECORDS SUMMARY | 2025-08-03 15:33 | XMS_ITS | Patient Health Record ---
Author Organization [facility] [facility] Address [address] [place] [address] Care Team Providers Care Obgyn Hospitalist Physician Name Role Phone Riley Vera MD, Arya Primary Care Provide r Unavailable David Andujar Jr Unavailable [phone] Tara GRAY, Sj Unavailable Unavailable Reason For Referral No Information Plan Of Treatment No Information Insurance Providers Payer Name Payer Address Payer Phone Subscriber Number Group Number Insured Name Patient Relationship to Insured Coverage Start Date Coverage End Date [facility] [address] [place] [phone] [id number] VERO AMIN Self - patient is the insured
--- OUTSIDE RECORDS SUMMARY | 2025-08-03 15:33 | XMS_ITS | Encounter Summary ---
Author Organization [facility] Address [address] [place] [address] Phone Care Team Providers Care Bilingual Inside Sales Representative Name Role Phone Arya Lin MD Primary Care Provider Unav ailable Encounter Details Date Type Department Care Team (Late st Contact Info) Description 02/02/2021 Orders Only [facility] [address] [place] [phone] Osvaldo Ren MD [address] [place] [phone] Type 2 diabetes mellitus with diabetic nephropathy [...] 2 documented in this encounter Care Teams Bilingual Inside Sales Representative Relationship Specialty Start Date End Date Arya Lin MD PCP - General Internal Medicine 11/13/20 08/20/22 documented as of this encounter
== END 2025-08-03 14:59 | disposition home or self-care (01) ==
LOC: HO.ENCR 14:26
PROVIDERS: PCP Internal Medicine; Visit Provider Internal Medicine
DX: Z79.4 Long term (current) use of insulin (principal); E11.65 Type 2 diabetes mellitus with hyperglycemia

== ENCOUNTER → 2025-08-03 14:25 | Outpatient (BNVA) | payer OTHER, SELFPAY | PROVIDERS: PCP Internal Medicine; Visit Provider Internal Medicine | DX: E11.65 Type 2 diabetes mellitus with hyperglycemia (principal); Z79.4 Long term (current) use of insulin | CPT/HCPCS: 82947; 83036; 99212 ==